=== PATIENT | female | born 1945 | race Caucasian/White ===

== ENCOUNTER → 2017-03-23 12:58 | Outpatient (CLI) | payer BC, SELFPAY ==
--- NOTE | 2017-03-23 13:01 | ECHOD_ITS ---
Reason For Study: Abn. EKG Procedure This was a 2D Doppler, Color Flow transthoracic echocardiogram. Exam performed in department. Left Ventricle Normal LV size. Left ventricular systolic function is normal. The estimated ejection fraction is 60 %. No regional wall motion abnormalities noted. Right Ventricle Normal RV size. Normal systolic function. Atria Normal left atrium. Normal right atrium. Mitral Valve Normal mitral valve. Tricuspid Valve Normal tricuspid valve. Mild (1+) tricuspid valve insufficiency. Pulmonary artery systolic pressure is 26 mmHg. Aortic Valve Normal aortic valve. Pulmonic Valve Normal pulmonic valve. Great Vessels Normal aortic root. The pulmonary artery is normal size. Normal inferior vena cava. Pericardium/Pleural No pericardial effusion. Medication Definity0.3ml given slow IV push to enhance endocardial definition. MMode/2D Measurements & Calculations LVIDd: 3.1 cm IVSd: 1.1 cm Ao root diam: 3.1 cm LVIDs: 1.8 cm LVPWd: 0.99 cm LA dimension: 3.8 cm RVDd: 2.9 cm FS: 41.2 % LAV(MOD-bp): 31.5 ml LAV(MOD-bp) Indexed: 17.5 ml/m2 LA A4 area: 16.5 cm2 RA A4 area: 11.5 cm2 LAV(MOD-sp2): 19.6 ml LAV(MOD-sp4): 46.9 ml Doppler Measurements & Calculations MV E max hudson: 101.9 cm/sec Lat Peak E' Hudson: 7.0 cm/sec Med Peak E' Hudson: 5.8 cm/sec MV A max hudson: 101.4 cm/sec E/E' lat: 14.5 E/E' med: 17.5 MV E/A: 1.0 Ao V2 max: 144.2 cm/sec LV V1 max: 118.1 cm/sec PA V2 max: 96.6 cm/sec Ao max P.3 mmHg LV V1 max P.6 mmHg TR max hudson: 239.1 cm/sec TR max P.9 mmHg Interpretation Summary Normal LV size. Left ventricular systolic function is normal. The estimated ejection fraction is 60 %. Mild (1+) tricuspid valve insufficiency. Pulmonary artery systolic pressure is 26 mmHg. Contrast injection was performed. Ordering Physician: Susan Tello Referring Physician: Susan Tello Performed By: Kesha Fleming RDCS
== END ==
PROVIDERS: Family Provider Internal Medicine; PCP Internal Medicine; Visit Provider Internal Medicine
DX: R94.31 Abnormal electrocardiogram [ECG] [EKG] (principal)
CPT/HCPCS: 93306; Q9957; A4216

== ENCOUNTER → 2017-05-10 12:00 | Outpatient (CLI) | payer BC, SELFPAY ==
--- NOTE | 2017-05-10 12:00 | HPBI_ITS ---
MAMMOGRAPHY - BILATERAL SCREENING REASON FOR EXAM: Female, 72 years old. Routine annual screening examination. PERTINENT HISTORY: Sister with breast cancer. Aunt with breast cancer. TECHNIQUE: Digital bilateral breast teri (3D mammographic acquisition) in the CC and MLO projections. 2-D mediolateral oblique (MLO) and craniocaudad (CC) views of both breasts were obtained. CAD: Full Field Digital Mammography with Computer Added Detection was performed. COMPARISON: Comparison is made with prior study dated November 16, 2015 and November 10, 2014. FINDINGS: Breast Composition: There are scattered areas of fibroglandular density. There are no dominant masses or suspicious calcifications. Stable scattered bilateral calcifications. No other significant abnormalities are identified. There has been no significant change since the prior study. HPBI/SCREENING MAMM (CAD), BILAT IMPRESSION: Stable bilateral screening mammogram. Yearly follow-up mammogram recommended. (A) ASSESSMENT CATEGORY: BIRADS Category 2: Benign. A letter regarding these results will be sent to the patient by the facility within 30 days. Approximately 10% of breast cancers are not detected by mammography. A normal mammogram should not delay biopsy of a clinically suspicious abnormality. [id number] Electronically Signed: Alexander De Paz MD at 13:38 EST Tel [phone], Service support ,
== END ==
PROVIDERS: Family Provider Internal Medicine; PCP Internal Medicine; Visit Provider Internal Medicine
DX: Z12.31 Encounter for screening mammogram for malignant neoplasm of breast (principal)
CPT/HCPCS: 77063; 77067

== ENCOUNTER → 2018-04-29 10:02 | Outpatient (CLI) | payer BC, SELFPAY ==
--- NOTE | 2018-04-29 10:06 | US_ITS ---
STUDY: RENAL ULTRASOUND - COMPLETE REASON FOR EXAM: Female, 73 years old. Urgency and straining. TECHNIQUE: Ultrasound evaluation of the kidneys was performed with real-time and static tavarez-scale imaging. COMPARISON: None. FINDINGS: RIGHT KIDNEY: Normal location of the right kidney, which is normal in size. The right kidney measures 11.1 x 4.8 x 4.1 cm. There is a normal cortex of the right kidney. The renal cortex measures 1.6 cm. There is no right renal mass or cyst. There are no right renal calculi. There is no right hydronephrosis. DISTAL RIGHT URETER: There is non-visualization of the distal right ureter. There is no demonstrated right ureterovesical junction calculus. There is a visualized right ureteral jet. LEFT KIDNEY: Normal location of the left kidney, which is normal in size. The left kidney measures 10.0 x 4.4 x 5.4 cm. There is a normal cortex of the left kidney. The renal cortex measures 1.7 cm. There is no left renal mass or cyst. There are no left renal calculi. There is no left hydronephrosis. DISTAL LEFT URETER: There is non-visualization of the distal left ureter. There is no demonstrated left ureterovesical junction calculus. There is a visualized left ureteral jet. BLADDER: The urinary bladder has a volume of 82 ml. There is a normal wall thickness of the distended urinary bladder. There is no demonstrated mass within the urinary bladder. There are no demonstrated bladder calculi. US/Kidney and Bladder IMPRESSION: Normal ultrasound of the kidneys and urinary bladder. Electronically Signed: Aquiles Andujar MD at 21:56 EST , Service support ,
== END ==
PROVIDERS: Family Provider Internal Medicine; PCP Internal Medicine; Referring Provider Urology; Visit Provider Urology
DX: N39.41 Urge incontinence (principal); R35.0 Frequency of micturition; R39.16 Straining to void
CPT/HCPCS: 76770

== ENCOUNTER → 2018-07-23 | Outpatient (CLI) | payer BC, SELFPAY ==
--- NOTE | 2018-07-23 14:15 | BI_ITS ---
MAMMOGRAPHY - BILATERAL SCREENING REASON FOR EXAM: Female, 73 years old. Routine annual screening examination. PERTINENT HISTORY: Sister with breast cancer. Aunt with breast cancer. TECHNIQUE: Digital bilateral breast teri (3D mammographic acquisition) in the CC and MLO projections. 2-D mediolateral oblique (MLO) and craniocaudad (CC) views of both breasts were obtained. CAD: Full Field Digital Mammography with Computer Added Detection was performed. COMPARISON: Comparison is made with prior study dated May 10, 2017 and November 16, 2015. FINDINGS: Breast Composition: There are scattered areas of fibroglandular density. There are no dominant masses or suspicious calcifications. Stable scattered bilateral calcifications. No other significant abnormalities are identified. There has been no significant change since the prior study. BI/SCREENING MAMM (CAD), BILAT IMPRESSION: Stable bilateral screening mammogram. Yearly follow-up mammogram recommended. (A) ASSESSMENT CATEGORY: BIRADS Category 2: Benign. A letter regarding these results will be sent to the patient by the facility within 30 days. Approximately 10% of breast cancers are not detected by mammography. A normal mammogram should not delay biopsy of a clinically suspicious abnormality. [id number] Electronically Signed: Alexander De Paz, at 10:44 EDT , Service support ,
--- NOTE | 2018-07-23 14:24 | BD_ITS ---
STUDY: DUAL ENERGY X-RAY ABSORPTIOMETRY / DXA REASON FOR EXAM: Female, 73 years old. Early menopause. Loss of height. TECHNIQUE: Bone Mineral Density (BMD) measurements of lumbar spine and bilateral hips were obtained. COMPARISON: Comparison is made with prior study dated June 08, 2015. FINDINGS: Lumbar Spine (L1-L4): g/cm2 (0.985) / T-score (-1.8) / Z-score (-0.1) Findings are suggestive of osteopenia with a moderate fracture risk. Left Femur Total: g/cm2 (0.896) / T-score (-0.9) / Z-score (0.6) Left Femoral Neck: g/cm2 (0.782) / T-score (-1.8) / Z-score (-0.1) Right Femur Total: g/cm2 (0.877) / T-score (-1.0) / Z-score (0.5) Right Femoral Neck: g/cm2 (0.763) / T-score (-2.0) / Z-score (-0.2) The T-Scores on the most recent prior examination were: Lumbar Spine (L1-L4): There has been worsening of bone density since the previous examination. Left Femur Total: which represents an improvement of 1.2%. Right Femur Total: which represents a worsening of 2.4%. BD/Dexa Bone Density Study IMPRESSION: The patient is considered osteopenic as outlined below according to World Parish Organization (WHO) criteria with a moderate fracture risk. There has been worsening of bone density since the previous examination. Reference Information: The T-score is the number of standard deviations above or below the standard which is normal for young adults at their peak bone mineral density. The World Health Organization (WHO) interprets the T-scores as follows: Above -1 Normal bone density Between -1 and -2.5 Osteopenia Equal to / or below -2.5 Osteoporosis As a practical clinical guideline, osteopenia may be graded as follows: Mild -1 through -1.5 Moderate -1.6 through -2.0 Severe -2.1 through -2.4 The Z-score is the number of standard deviations above or below age-matched controls. A Z-score of less than -1.5 would be considered abnormal. References: 1. NIH Osteoporosis and Related Bone Diseases http://www.osteo.org 2. International Society for Clinical Densitometry http://www.iscd.org 3. National Osteoporosis Foundation http://www.nof.org Electronically Signed: Alexander De Paz, at 15:02 EDT , Service support ,
== END | disposition home or self-care (01) ==
LOC: OPBD 14:14
PROVIDERS: Family Provider Internal Medicine; PCP Internal Medicine; Referring Provider Internal Medicine; Visit Provider Internal Medicine
DX: Z12.31 Encounter for screening mammogram for malignant neoplasm of breast (principal); Z78.0 Asymptomatic menopausal state
CPT/HCPCS: 77063; 77067; 77080

== ENCOUNTER → 2018-09-06 | Outpatient (CLI) | payer BC, SELFPAY ==
[2018-09-05 10:27] VITALS: BMI 34.4
--- NOTE | 2018-09-06 14:47 | RAD_ITS ---
HISTORY: pain ADDITIONAL HISTORY: None provided. COMPARISON: None TECHNIQUE: Left knee 4 views Number of images including paperwork: 4 FINDINGS: BONES: No acute fracture. JOINTS: No subluxation. Moderate to severe degenerative changes in the medial compartment. Mild lateral and patellofemoral compartment degenerative changes. SOFT TISSUES: No distinct foreign body. RAD/Knee 4 or More Views IMPRESSION: No acute osseous abnormality. Left knee osteoarthritis. at [id number] Reported and signed by: Lorenza Naranjo MD Electronically Signed: Lorenza Naranjo MD at 3:46 EDT Tel , Service support ,
== END | disposition home or self-care (01) ==
LOC: HPRAD 14:46
PROVIDERS: Family Provider Internal Medicine; PCP Internal Medicine; Referring Provider Internal Medicine; Visit Provider Internal Medicine
DX: M25.562 Pain in left knee (principal)
CPT/HCPCS: 73564

== ENCOUNTER → 2018-09-10 | Outpatient (CLI) | payer BC, SELFPAY ==
[2018-09-05 10:27] VITALS: BMI 34.4
--- NOTE | 2018-09-10 14:57 | US_ITS ---
STUDY: Ultrasound head and neck soft tissue REASON FOR EXAM: Female, 73 years old. Lymph node seen on carotid exam TECHNIQUE: Ultrasound evaluation of the head and neck soft tissue was performed with real-time and static green-scale imaging. COMPARISON: None. FINDINGS: And the left neck Soft tissues there is a 2.0 x 0.7 x 0.9 cm thick walled appearing lymph node. Within the right neck there is visualized calcific density within the carotid artery. There is a lymph node with a thin cortex fatty center measuring 2.7 x 0.7 x 0.9 cm. US/Head/Neck Soft Tissue IMPRESSION: Mildly thick walled appearing left-sided lymph node fatty filled right-sided lymph node likely reactive in nature. Recommend correlation with clinical history of infection or history of neoplasm. Fat filled right-sided lymph node is most likely benign. Recommend consideration for short-term interval follow-up study in 3-6 months to ensure stability or as clinically appropriate. Electronically Signed: Nikki Alexis MD at 16:48 EDT Tel , Service support ,
== END | disposition home or self-care (01) ==
PROVIDERS: Family Provider Internal Medicine; PCP Internal Medicine; Referring Provider Internal Medicine; Visit Provider Internal Medicine
DX: R59.0 Localized enlarged lymph nodes (principal)
CPT/HCPCS: 76536

== ENCOUNTER → 2018-09-12 | Outpatient (CLI) | payer BC, SELFPAY ==
[2018-09-05 10:27] VITALS: BMI 34.4
[2018-09-12 15:14] VITALS: BP 144/71; PULSE 81; RESP 16; TEMP 36.2; O2SAT 98; BMI 32.3
[2018-09-12] MEDS: Zoledronic Acid 5 MG 100 ML 300 MG IV (15:23)
== END | disposition home or self-care (01) ==
LOC: MEDOUTP 14:54
PROVIDERS: Family Provider Internal Medicine; PCP Internal Medicine; Referring Provider Internal Medicine; Visit Provider Internal Medicine
DX: M81.0 Age-related osteoporosis without current pathological fracture (principal)
CPT/HCPCS: 96365; J7050; A4216; J3489

== ENCOUNTER → 2020-01-29 15:04 | Outpatient (CLI) | payer BC, SELFPAY ==
[2020-01-01 10:53] VITALS: BMI 33.8
--- NOTE | 2020-01-29 15:07 | BI_ITS ---
MAMMOGRAPHY - BILATERAL SCREENING REASON FOR EXAM: Female, 74 years old. Routine annual screening examination. PERTINENT HISTORY: Sister with breast cancer. Aunt with breast cancer. TECHNIQUE: Digital bilateral breast marisa (3D mammographic acquisition) in the CC and MLO projections. 2-D mediolateral oblique (MLO) and craniocaudad (CC) views of both breasts were obtained. CAD: Full Field Digital Mammography with Computer Added Detection was performed. COMPARISON: Comparison is made with prior examination dated 07/23/2018 and 05/10/2017. FINDINGS: Breast Composition: The breasts are heterogeneously dense, which may obscure small masses. There are no dominant masses or suspicious calcifications. Stable scattered bilateral calcifications. Stable benign appearing left axillary lymph nodes. No other significant abnormalities are identified. There has been no significant change since the prior study. BI/SCREEN MAMM (CAD) W/MARISA BILAT IMPRESSION: Stable bilateral screening mammogram. Yearly follow-up mammogram recommended. (A) ASSESSMENT CATEGORY: BIRADS Category 2: Benign. A letter regarding these results will be sent to the patient by the facility within 30 days. Approximately 10% of breast cancers are not detected by mammography. A normal mammogram should not delay biopsy of a clinically suspicious abnormality. [id number] Electronically Signed: Alexander De Paz, at 15:55 EST , Service support ,
== END ==
PROVIDERS: PCP Internal Medicine; Referring Provider Internal Medicine; Visit Provider Internal Medicine
DX: Z12.31 Encounter for screening mammogram for malignant neoplasm of breast (principal)
CPT/HCPCS: 77063; 77067

== ENCOUNTER → 2020-06-21 | Outpatient (CLI) | payer BC, SELFPAY ==
[2020-06-20 09:31] VITALS: BMI 32.1
[2020-06-21 11:20] LABS: Mucous, Urine 0 SEEN /hpf (<or=2+)
[2020-06-21 11:31] LABS: Color, Urine Yellow (Yellow); Glucose, Dipstick Normal (Normal); Ketone-Dipstick Negative (Negative); Leukocyte Esterase-Dipstick 500 /ul (Negative); Nitrite-Dipstick Positive (Negative); Occult Blood-Urine 50 /ul (Negative); Protein-Dipstick 30 mg/dl (Negative); Urine Bilirubin Dipstick 1 mg/dL (Negative); Urine Clarity Sl. Cloudy (Clear); Urine Urobilinogen Normal (Normal)
[2020-06-21 11:38] LABS: Bacteria 2+ /hpf (None Seen); Red Blood Cells-Urine 0-5 SEEN /hpf (0-5); Squamous Epithelial Cells - UA 0-5 SEEN /hpf (5-10); White Blood Cells 25-50 SEEN /hpf (0-5)
== END | disposition home or self-care (01) ==
LOC: LABSPEC 10:23
PROVIDERS: PCP Internal Medicine; Referring Provider Physician Assistant; Visit Provider Physician Assistant
DX: R39.89 Other symptoms and signs involving the genitourinary system (principal)
CPT/HCPCS: 81001; 87086; 87088; 87186

== ENCOUNTER → 2021-01-31 12:57 | Outpatient (CLI) | payer BC, SELFPAY ==
[2021-01-31 13:26] VITALS: BP 139/65; PULSE 92; RESP 16; TEMP 36.4; O2SAT 97; BMI 31.1
[2021-01-31] MEDS: Zoledronic Acid 5 MG 100 ML 300 MG IV (13:43)
[2021-01-31] MEDS: 0.9% NaCl Peripheral Flush Adult/Peds IV (13:43)
== END ==
PROVIDERS: PCP Internal Medicine; Referring Provider Internal Medicine; Visit Provider Internal Medicine
DX: M81.0 Age-related osteoporosis without current pathological fracture (principal)
CPT/HCPCS: 96365; A4216; J3489

== ENCOUNTER → 2021-02-04 10:44 | Outpatient (CLI) | payer BC, SELFPAY ==
--- NOTE | 2021-02-04 10:47 | BI_ITS ---
MAMMOGRAPHY - BILATERAL SCREENING REASON FOR EXAM: Female, 75 years old. Routine annual screening examination. PERTINENT HISTORY: Sister with breast cancer. Aunt with breast cancer. TECHNIQUE: Digital bilateral breast marisa (3D mammographic acquisition) in the CC and MLO projections. 2-D mediolateral oblique (MLO) and craniocaudad (CC) views of both breasts were obtained. CAD: Full Field Digital Mammography with Computer Added Detection was performed. COMPARISON: Comparison is made with prior study 01/29/2020 and 07/23/2018. FINDINGS: Breast Composition: The breasts are heterogeneously dense, which may obscure small masses. There are no dominant masses or suspicious calcifications. Stable small benign-appearing bilateral axillary lymph nodes. Stable benign-appearing scattered calcifications. No other significant abnormalities are identified. There has been no significant change since the prior study. BI/SCRN MAMM (CAD)W/MARISA BILAT IMPRESSION: Stable bilateral screening mammogram. Yearly follow-up mammogram recommended. (A) ASSESSMENT CATEGORY: BIRADS Category 2: Benign. A letter regarding these results will be sent to the patient by the facility within 30 days. Approximately 10% of breast cancers are not detected by mammography. A normal mammogram should not delay biopsy of a clinically suspicious abnormality. [id number] Electronically Signed: Alexander De Paz MD at 12:19 EST , Service support ,
== END ==
PROVIDERS: PCP Internal Medicine; Referring Provider Internal Medicine; Visit Provider Internal Medicine
DX: Z12.31 Encounter for screening mammogram for malignant neoplasm of breast (principal)
CPT/HCPCS: 77063; 77067

== ENCOUNTER → 2021-08-10 | Outpatient (CLI) | payer BC, SELFPAY ==
--- NOTE | 2021-08-10 11:10 | BD_ITS ---
STUDY: DUAL ENERGY X-RAY ABSORPTIOMETRY / DXA REASON FOR EXAM: Female, 76 years old. 627.8Menopausal postmenopausalBONE DENSITY REASON FOR EXAM TECHNIQUE: Bone Mineral Density (BMD) measurements of lumbar spine and bilateral hips were obtained. COMPARISON: Comparison is made with prior study dated 07/23/2018. FINDINGS: Lumbar Spine (L1-L4): g/cm2 (0.819) / T-score (-2.2) / Z-score (0.2) Findings are suggestive of osteopenia with a high fracture risk. Left Femur Total: g/cm2 (0.861) / T-score (-0.7) / Z-score (1.1) Left Femoral Neck: g/cm2 (0.592) / T-score (-2.3) / Z-score (-0.3) Right Femur Total: g/cm2 (0.835) / T-score (-0.9) / Z-score (0.9) Right Femoral Neck: g/cm2 (0.676) / T-score (-1.6) / Z-score (0.5) The T-Scores on the most recent prior examination were: Lumbar Spine (L1-L4): There has been worsening of bone density since the previous examination. Left Femur Total: which represents an improvement of 3.4%. Right Femur Total: which represents an improvement of 2.5%. BD/Dexa Bone Density Study IMPRESSION: The patient is considered osteopenic as outlined below according to [place] Organization (WHO) criteria with a high fracture risk. There has been improvement of bone density since the previous examination. Reference Information: The T-score is the number of standard deviations above or below the standard which is normal for young adults at their peak bone mineral density. The World Health Organization (WHO) interprets the T-scores as follows: Above -1 Normal bone density Between -1 and -2.5 Osteopenia Equal to / or below -2.5 Osteoporosis As a practical clinical guideline, osteopenia may be graded as follows: Mild -1 through -1.5 Moderate -1.6 through -2.0 Severe -2.1 through -2.4 The Z-score is the number of standard deviations above or below age-matched controls. A Z-score of less than -1.5 would be considered abnormal. References: 1. NIH Osteoporosis and Related Bone Diseases www osteo.org 2. International Society for Clinical Densitometry www iscd.org 3. National Osteoporosis Foundation www nof.org Electronically Signed: Alexander De Paz MD at 15:42 EDT ,
== END | disposition home or self-care (01) ==
PROVIDERS: PCP Internal Medicine; Visit Provider Internal Medicine
DX: Z78.0 Asymptomatic menopausal state (principal)
CPT/HCPCS: 77080

== ENCOUNTER → 2021-08-17 | Outpatient (CLI) | payer BC, SELFPAY ==
--- NOTE | 2021-08-17 11:38 | RAD_ITS ---
STUDY: XR Knee 1 or 2 Views 08/17/2021 4:11 PM REASON FOR EXAM: Female, 76 years old. L ANT KNEE PAIN TECHNIQUE: XR Knee 1 or 2 Views LEFT COMPARISON: None FINDINGS: Normal visualized distal femur. Normal visualized proximal tibia and fibula. Normal proximal tibiofibular articulation. There is moderate degenerative arthrosis of the medial femorotibial compartment with moderate joint space narrowing. Normal lateral femorotibial compartment. There is mild degenerative arthrosis of the patellofemoral articulation. The soft tissue structures are unremarkable. RAD/Knee 1 or 2 Views IMPRESSION: Degenerative arthrosis. Electronically Signed: Issac Leslie MD at 16:12 EDT ,
--- NOTE | 2021-08-17 11:40 | RAD_ITS ---
STUDY: X-RAY - PELVIS AND RIGHT HIP REASON FOR EXAM: Female, 76 years old. CHRONIC HIP PAIN TECHNIQUE: 3 views of the pelvis and hip. COMPARISON: None. FINDINGS: There is a non-specific bowel gas pattern. Normal visualized soft tissue structures. Normal bilateral iliac wings, sacroiliac joints and visualized sacrum. Normal bilateral superior and inferior pubic rami. Normal pubic symphysis. Normal bilateral ischial tuberosities. Normal visualized femoral head. Normal acetabulum. Normal hip joint. RAD/HIP, UNI W/ Pelvis 2-3 Views IMPRESSION: Normal x-ray examination of the pelvis and hip. Electronically Signed: Lior Dwyer MD at 16:02 EDT ,
== END | disposition home or self-care (01) ==
LOC: RAD 11:36
PROVIDERS: PCP Internal Medicine; Referring Provider Internal Medicine; Visit Provider Internal Medicine
DX: M25.551 Pain in right hip (principal); M25.562 Pain in left knee
CPT/HCPCS: 73502; 73560

== ENCOUNTER → 2021-11-04 | Outpatient (CLI) | payer BC, SELFPAY ==
--- NOTE | 2021-11-04 13:45 | ECHOCS_ITS ---
Reason For Study: SOB Procedure This was a 2D Doppler, Color Flow transthoracic echocardiogram. The study was technically difficult. Contrast injection was performed. Exam performed in department. Left Ventricle Normal LV size. Left ventricular systolic function is normal. The estimated ejection fraction is 70 %. No evidence for diastolic dysfunction. No regional wall motion abnormalities noted. Right Ventricle Normal RV size. Normal systolic function. Atria Normal left atrium. Normal right atrium. No doppler evidence for ASD. Mitral Valve There is moderate to severe mitral annular calcification. Extension of the mitral annular calcification on the base of the posterior mitral valve leaflet. Trivial mitral valve insufficiency. Tricuspid Valve Normal tricuspid valve. Mild to moderate (1-2+) eccentric tricuspid valve insufficiency. Right ventricular systolic pressure estimated to be 26 mmHg. Aortic Valve Trisinus/trileaflet aortic valve. Mild focal aortic valve calcification. Pulmonic Valve The pulmonic valve is not well visualized. Great Vessels Normal sized aortic root. Pericardium/Pleural No pericardial effusion. Medication 22 gauge I.V. with prn adaptor inserted into right arm. Diluted definity 2ml given slow IV push to enhance endocardial definition. MMode/2D Measurements & Calculations LVIDd: 4.0 cm IVSd: 0.83 cm Ao root diam: 2.8 cm LVIDs: 2.8 cm LVPWd: 1.1 cm RVDd: 2.8 cm FS: 29.2 % LAV(MOD-sp4): 30.6 ml LVAd ap4: 25.4 cm2 SV(MOD-sp4): 56.0 ml LVLd ap4: 7.4 cm EDV(MOD-sp4): 72.2 ml EDV(sp4-el): 73.3 ml LVAs ap4: 10.5 cm2 LVLs ap4: 6.0 cm ESV(MOD-sp4): 16.2 ml ESV(sp4-el): 15.8 ml EF(MOD-sp4): 77.5 % EF(sp4-el): 78.4 % SV(sp4-el): 57.5 ml LA A4 area: 14.3 cm2 LA dimension(2D): 3.3 cm RA A4 area: 14.1 cm2 Time Measurements MV dec time: 0.25 sec Doppler Measurements & Calculations MV E max hudson: 94.6 cm/sec Lat Peak E' Hudson: 10.2 cm/sec Med Peak E' Hudson: 6.6 cm/sec MV A max hudson: 104.4 cm/sec E/E' lat: 9.3 E/E' med: 14.2 MV E/A: 0.91 MV V2 max: 112.7 cm/sec MV dec slope: 381.8 cm/sec2 Ao V2 max: 152.0 cm/sec MV max P.1 mmHg Ao max P.3 mmHg MV V2 mean: 72.3 cm/sec Ao V2 mean: 106.5 cm/sec MV mean P.4 mmHg Ao mean P.3 mmHg MV V2 VTI: 35.8 cm Ao V2 VTI: 31.0 cm LV V1 max: 130.9 cm/sec TR max hudson: 238.8 cm/sec LV V1 max P.9 mmHg TR max P.8 mmHg LV V1 mean P.0 mmHg LV V1 mean: 95.4 cm/sec LV V1 VTI: 24.7 cm ECHO/Echo Complete W/ Contrast Interpretation Summary The study was technically difficult. Contrast injection was performed. Left ventricular systolic function is normal. The estimated ejection fraction is 70 %. There is moderate to severe mitral annular calcification. Extension of the mitral annular calcification on the base of the posterior mitr al valve leaflet. Trivial mitral valve insufficiency. Mild to moderate (1-2+) eccentric tricuspid valve insufficiency. Mild focal aortic valve calcification. Right ventricular systolic pressure estimated to be 26 mmHg. No evidence for diastolic dysfunction. Ordering Physician: Susan Tello M.D. Referring Physician: Susan Tello Performed By: Liliya Laguna RCS
== END | disposition home or self-care (01) ==
LOC: CVS 13:44
PROVIDERS: PCP Internal Medicine; Referring Provider Internal Medicine; Visit Provider Internal Medicine
DX: R06.02 Shortness of breath (principal)
CPT/HCPCS: 93306; Q9957; A4216; C8929

== ENCOUNTER → 2021-11-25 | Outpatient (CLI) | payer BC, SELFPAY ==
[2021-11-25 13:11] LABS: Absolute Lymphocyte Count 4.29 X10^3/uL (0.83-4.51); Absolute Neutrophil Count 5.7 X10^3/uL (2.0-7.7); Basophil# 0.07 X10^3/uL; Basophil% 0.6 % (0-1); Eosinophils% 1.8 % (0-5); Hematocrit 39.5 % (37-47); Hemoglobin 13.1 g/dL (12.0-15.0); Lymphocyte # 4.29 X10^3/ul (0.83-4.51); Lymphocyte % 39.6 % (19-41); Mean Corp Hgb Conc 33.2 g/dL (32-36); Mean Corpuscular Volume 90.6 fL (81-99); Monocyte# 0.47 X10^3/uL; Monocyte% 4.3 % (0-10); NRBC Flagged by Analyzer 0 % (0-5); Neutrophil # 5.74 X10^3/uL (2.7-7.7); Neutrophil % 53.2 % (47-70); Platelet Count 329 K/mm3 (150-450); RBC Distribution Width CV 14.7 % (11.6-14.6); RBC Distribution Width SD 49.5 fl (35.1-43.9); Red Blood Count 4.36 M/mm3 (4.2-5.4); White Blood Count 10.8 K/mm3 (4.4-11.0)
[2021-11-25 13:46] LABS: Anion Gap 6 (5-15); BUN 15 mg/dL (7-18); BUN/Creat Ratio 16.2 RATIO (10-20); Calcium,Total 9.9 mg/dL (8.5-10.1); Chloride 109 mmol/L (98-107); Creatinine, Serum 0.93 mg/dL (0.55-1.02); EST Glomerular Filtration Rate 63 mL/min (>60); Est Glom Filt Rate - Afr Amer 76 mL/min (>60); Glucose 104 mg/dL (74-106); Potassium 3.6 mmol/L (3.5-5.1); Sodium Level 143 mmol/L (136-145)
[2021-11-25 13:47] LABS: BNP,B-Type NATRIURETIC PEPTIDE 19.8 pg/mL (0-100)
== END | disposition home or self-care (01) ==
LOC: LAB 12:29
PROVIDERS: PCP Internal Medicine; Referring Provider Nurse Practitioner Family; Visit Provider Nurse Practitioner Family
DX: I10 Essential (primary) hypertension (principal); E78.5 Hyperlipidemia, unspecified; R06.09 Other forms of dyspnea
CPT/HCPCS: 36415; 80048; 83880; 85025

== ENCOUNTER → 2021-12-19 | Outpatient (CLI) | payer BC, SELFPAY ==
--- NOTE | 2021-12-19 13:47 | STRESSREP ---
Stress Test Report Exercise myocardial perfusion stress test. 76-year-old male with a history of dyspnea. Stress protocol: Resting EKG demonstrates normal sinus rhythm with a rate of 66 bpm normal intervals are noted resting blood pressure is 122/70 mmHg. The patient exercised according to regular Chad protocol for total duration of 3 minutes and 30 seconds the maximum heart rate attained was 144 bpm which was 98% of max impacted heart rate the maximum workload was 5.8 metabolic equivalents. At rest there were no ST or T wave changes noted suggest ischemia and at peak exercise upsloping ST changes were noted with did not meet the criteria for ischemia. No clinical angina was noted. Myocardial perfusion protocol. 12.0 mCi of technetium 99m sestamibi was injected at rest. The patient exercised according to regular Chad protocol. At peak exercise 34.4 mCi of technetium 99m sestamibi was injected stress images were obtained stress and rest images were reconstructed and compared in the short axis vertical long and horizontal long axis. Gated images were also obtained. Perfusion SPECT analysis: Review of the images demonstrate normal perfusion noted in all areas of the myocardium. The resting images similarly demonstrate normal uptake of tracer noted in all areas of the myocardium. No previous infarct is noted and no ischemia is present. Gated SPECT analysis: The gated ejection fraction is 87%. Conclusion: Normal pharmacologic myocardial perfusion stress test. Preserved ejection fraction.
== END | disposition home or self-care (01) ==
PROVIDERS: PCP Internal Medicine; Referring Provider Nurse Practitioner Family; Visit Provider Nurse Practitioner Family
DX: I20.8 Other forms of angina pectoris (principal); R06.09 Other forms of dyspnea
CPT/HCPCS: 78452; 93017; A9500; A4216

== ENCOUNTER 2022-01-12 06:23 | Inpatient (IN) | payer MEDICARE, BC, SELFPAY ==
[2022-01-12] VITALS (16 sets, daily range): BP systolic 123–152; BP diastolic 60–113; PULSE 65–98; RESP 15–20; TEMP 36.3–37; O2SAT 95–99; BMI 33.2; BMI 32.1
--- NOTE | 2022-01-12 06:32 | CT_ITS ---
We are attempting to reach an attending provider to discuss findings. An addendum with communication details will be sent when the communication is complete. STUDY: CTA HEAD AND NECK WITH CONTRAST REASON FOR EXAM: Female, 76 years old patient with acute left-sided weakness. Acute stroke suspected. RADIATION DOSAGE (If Supplied By Facility): CTDIvol = ( 19.94 ) mGy, DLP = ( 694.44 ) mGycm TECHNIQUE: CT angiography was performed with a multi-detector CT scanner. Data acquisition was obtained from the skull base through the vertex following intravenous administration of 100 mL of Isovue-370. MIP images were reconstructed from the axial data set. Post-processing of the angiographic images was performed, with multiplanar reformation and 3D reconstruction. Individualized dose optimization techniques were used for this CT. COMPARISON: No relevant priors. FINDINGS: Normal bilateral petrous carotid arteries. Normal right cavernous carotid artery with a normal supraclinoid bifurcation. Normal left cavernous carotid artery with a normal supraclinoid bifurcation. Normal right A1 segments of the anterior cerebral artery. Normal left A1 segments of the anterior cerebral artery. Normal intact anterior communicating artery (ACOM). Normal bilateral A2 segments of the anterior cerebral arteries. Normal right M1 and M2 segments of the middle cerebral arteries, with a normal M1 bifurcation. Normal left M1 and M2 segments of the middle cerebral arteries, with a normal M1 bifurcation. Normal right posterior communicating artery (PCOM). Normal left posterior communicating artery (PCOM). Normal bilateral vertebral arteries. Normal basilar artery with a normal basilar bifurcation. The visualized bilateral superior cerebellar (SCA) arteries are normal. Normal bilateral P1, P2 and visualized P3 segments of the posterior cerebral arteries. There is no demonstrated aneurysm of the tejon of Hoffmann. There is no demonstrated abnormality of the visualized brain. AORTIC ARCH: Normal visualized aortic arch. Normal origins of the brachiocephalic, left common carotid, and left subclavian arteries. RIGHT CAROTID ARTERIES: Normal right common carotid artery (CCA). There is mild atherosclerotic plaque formation with minimal narrowing of the right carotid bulb. Normal origin of the right internal carotid (ICA) artery without a hemodynamically significant stenosis. There is atherosclerotic tortuous elongation of the cervical portion of the right internal carotid artery. Normal origin of the right external carotid artery (ECA). LEFT CAROTID ARTERIES: Normal left common carotid artery (CCA). There is mild atherosclerotic plaque formation with minimal narrowing of the left carotid bulb. Normal origin of the left internal carotid (ICA) artery without a hemodynamically significant stenosis. There is atherosclerotic tortuous elongation of the cervical portion of the left internal carotid artery. Normal origin of the left external carotid artery (ECA). VERTEBRAL ARTERIES: Normal bilateral vertebral arteries. NECK ANATOMY: There is heterogeneous groundglass attenuation within the upper lobes suggesting possible pneumonia. Visualized parotid and submandibular glands have a grossly normal appearance. Nasopharynx, oropharynx, hypopharynx and larynx have a grossly normal appearance. Subglottic trachea is within normal limits. There are degenerative changes of the spine at C4-5, C5-6 and C6-7. The bones are osteopenic. CT/STROKE CTA Head AND Neck W/Con IMPRESSION: No CTA evidence for hemodynamically significant stenosis acute thrombosis or dissection. Electronically Signed: Viviana Shelton MD at 7:24 EDT ,
--- NOTE | 2022-01-12 06:32 | EKG12_ITS ---
Test Reason : stroke Blood Pressure : / mmHG Vent. Rate : 088 BPM Atrial Rate : 088 BPM P-R Int : 148 ms QRS Dur : 084 ms QT Int : 412 ms P-R-T Axes : 069 061 038 degrees QTc Int : 498 ms Normal sinus rhythm with sinus arrhythmia Nonspecific ST-segment abnormality Abnormal ECG Confirmed by ROMI WALKER, SEJAL ([id number]), online content editor MUKESH HAAS ([id number]) on 01/16/2022 9:38:12 AM Referred By: Confirmed By:SEJAL LLANOS MD
--- NOTE | 2022-01-12 06:32 | CT_ITS ---
STUDY: CT HEAD W/O CONTRAST INJECTION REASON FOR EXAM: Female, 76 years old. Neuro deficit, acute, stroke suspected RADIATION DOSAGE (If Supplied By Facility): CTDIvol = ( ) mGy, DLP = ( ) mGycm TECHNIQUE: Transaxial CT imaging of the brain was performed without administration of intravenous contrast material. Individualized dose optimization techniques were used for this CT. COMPARISON: CT head 01/08/2015.. FINDINGS: BRAIN: No acute bleed. No edema. Decreased attenuation in the periventricular white matter bilaterally. Small low-attenuation focus in the left side of daquan likely old lacunar infarct versus artifactual. Small old infarct in the right cerebellar hemisphere. Bazan-white matter differentiation is maintained. Arterial calcifications. VENTRICLES AND SULCI: Not dilated. EXTRA-AXIAL: No hemorrhage, fluid collection, or mass. CALVARIUM / SKULL BASE: Unremarkable. FACE/SINUSES: Unremarkable. SOFT TISSUES: Unremarkable. CT/STROKE Brain/Head without Cont IMPRESSION: No acute abnormality on noncontrast CT head. Old right cerebellar infarct. Questionable old pontine lacunar infarct versus artifactual. Chronic microvascular ischemic disease. CT angiogram and/or MRI may be helpful to evaluate for acute infarct as clinically indicated. N.B. : The above Results were Read Back by Michela Kwok MD to Arnold Lyle MD, and understanding confirmed on 01/12/2022 06:54:21 (ET). Electronically Signed: Michela Kwok MD at 6:56 EDT ,
--- NOTE | 2022-01-12 06:32 | RAD_ITS ---
STUDY: X-RAY CHEST REASON FOR EXAM: Female, 76 years old. Neuro deficit, acute, stroke suspected TECHNIQUE: AP portable. 7:10 AM. COMPARISON: 03/05/2017. FINDINGS: LUNGS: No consolidation. No pneumothorax. MEDIASTINUM: Moderate size hiatal hernia with fluid level. Similar to prior study. Aorta is atherosclerotic. CARDIAC SILHOUETTE: Not enlarged. BONES AND SOFT TISSUES: No acute abnormalities. RAD/Chest 1 View IMPRESSION: No evidence of active intrathoracic disease. Hiatal hernia. Electronically Signed: Michela Kwok MD at 7:44 EDT ,
[2022-01-12 06:56] LABS: Absolute Lymphocyte Count 2.03 X10^3/uL (0.83-4.51); Absolute Neutrophil Count 9.4 X10^3/uL (2.0-7.7); Basophil# 0.04 X10^3/uL; Basophil% 0.3 % (0-1); Eosinophil# 0.02 X10^3/uL; Eosinophils% 0.2 % (0-5); Hematocrit 36.7 % (37-47); Hemoglobin 11.8 g/dL (12.0-15.0); Lymphocyte # 2.03 X10^3/ul (0.83-4.51); Lymphocyte % 17.1 % (19-41); Mean Corp Hgb Conc 32.2 g/dL (32-36); Mean Corpuscular Hgb 29.4 pg (27.0-32.0); Mean Corpuscular Volume 91.3 fL (81-99); Mean Platelet Vol. 11.4 fl (6.2-12.0); Monocyte# 0.31 X10^3/uL; Monocyte% 2.6 % (0-10); NRBC Flagged by Analyzer 0 % (0-5); Neutrophil # 9.41 X10^3/uL (2.7-7.7); Neutrophil % 79.3 % (47-70); Platelet Count 206 K/mm3 (150-450); RBC Distribution Width SD 50.6 fl (35.1-43.9); Red Blood Count 4.02 M/mm3 (4.2-5.4); White Blood Count 11.9 K/mm3 (4.4-11.0)
[2022-01-12 07:05] LABS: International Normalized Ratio 1.1; Prothrombin Time (Protime)PT. 14.2 SECONDS (11.7-14.9)
[2022-01-12 07:05] LABS: Bedside Glucose 135 mg/dL (74-106)
[2022-01-12 07:06] LABS: Partial Thromboplast Time 23.2 Seconds (24.1-36.2)
[2022-01-12 07:13] LABS: CPK Total, Creatine Kinase 115 U/L (26-192)
--- NOTE | 2022-01-12 07:16 | EX.ED.DYSGE1 ---
HPI History of Present Illness Chief Complaint: Stroke Alert Narrative Narrative: Patient is a 76-year-old female with past medical history of hypertension hyperlipidemia and transient retinal artery occlusion. She states that she fell asleep watching TV as she normally does last night. She states because of her transient retinal artery occlusion symptoms she will occasionally get double vision. She states she awoke feeling like this might happen and therefore she went to the bathroom. She states at some point she made it back to her bed but then woke up on the ground next to the bed and does not remember how this occurred. He also states she does not know what time this occurred and she does not know how long she was on the ground. She lives with her ex- and he reportedly heard her moaning. He states this was not abnormal for her but as it persisted for approximately 15 minutes he went to check on her and when he called to her through the door he could not make out what she was saying and therefore he called EMS. EMS arrived and confirmed the patient was awake and alert but noted weakness of her left side. Patient states that this is not normal for her [facility] Medical History Arthritis Essential (primary) hypertension History of skin cancer Hyperlipidemia Transient retinal artery occlusion Type 2 diabetes mellitus Home Medications acyclovir 400 mg tablet 400 mg PO BID 06/14/15 [History Last Taken Unknown] bupropion HCl 150 mg 24 hr tablet, extended release 150 mg PO BID 06/14/15 [History Last Taken Unknown] calcium carbonate 600 mg calcium (1,500 mg) tablet 600 mg PO DAILY 06/14/15 [History Last Taken Unknown] pantoprazole 40 mg granules delayed-release for susp in packet 40 mg PO DAILY 06/14/15 [History Last Taken Unknown] glucosamine HCl 500 mg-msm 83 mg-chondroitin 400 mg tablet 1 ea PO DAILY 07/19/16 [History Last Taken Unknown] losartan 100 mg-hydrochlorothiazide 12.5 mg tablet 1 tab PO QDAY 09/04/17 [History Last Taken Unknown] metformin 500 mg tablet,extended release 24 hr 1,500 mg PO DAILY 09/04/17 [History Last Taken Unknown] ascorbate calcium (vitamin C) 500 mg tablet 500 mg PO DAILY 09/05/18 [History Last Taken Unknown] atorvastatin 20 mg tablet 20 mg PO QHS 01/01/20 [History Last Taken Unknown] magnesium 30 mg tablet 30 mg PO DAILY 06/20/20 [History Last Taken Unknown] amlodipine 5 mg tablet 2.5 mg PO DAILY 01/31/21 [History Last Taken Unknown] nitrofurantoin macrocrystal 25 mg capsule 50 mg PO BID 01/31/21 [History Last Taken Unknown] Allergy/AdvReac Type Severity Reaction Status Date / Time neomycin Allergy unknown Verified 01/31/21 13:29 nickel Allergy Rash Verified 01/31/21 13:29 Penicillins [PCN] Allergy Hives Verified 01/31/21 13:29 Sulfa (Sulfonamide Allergy Rash Verified 01/31/21 13:29 Antibiotics) Family History Mother CAD (coronary artery disease) Daughter Heart disease cardiomyopathy Other Breast cancer Thyroid cancer Surgical History H/O abdominal surgery History of breast biopsy History of knee replacement History of tubal ligation Social History Smoking Status: Former smoker how long ago did patient quit smokin alcohol intake: current alcohol intake frequency: holidays/special occasions only substance use type: does not use caffeine: Yes (Take a caffeine tablet daily) ROS ROS ED Constitutional Constitutional ED: Denies chills or fever(s) Eyes Eyes: Denies change in vision ENT ENT ED: Denies sore throat Cardiovascular Cardiovascular: Denies chest pain or palpitations Respiratory/Chest Respiratory/Chest: Denies cough or dyspnea Gastrointestinal Gastrointestinal: Denies abdominal pain, diarrhea, nausea or vomiting Genitourinary Genitourinary ED: Denies dysuria Musculoskeletal Musculoskeletal: Denies back pain, myalgias or neck pain Integumentary Denies rash Neurologic Neurologic: Reports weakness; Denies headache(s) Hematologic/Lymphatic Hematologic/Lymphatic: Denies easy bleeding or easy bruising EXAM Physical Exam Const Vital Signs: 01/12/22 06:24 01/12/22 06:30 01/12/22 06:36 Temperature 97.8 F 97.8 F Temperature Source Temporal Temporal Pulse Rate 86 75 Respiratory Rate 16 18 Blood Pressure 123/70 H 123/70 H Blood Pressure Mean 87 87 Pulse Ox 96 97 Oxygen Delivery Method Room Air Room Air Room Air 01/12/22 06:36 Temperature 97.8 F Temperature Source Temporal Pulse Rate 65 Respiratory Rate 18 Blood Pressure 123/70 H Blood Pressure Mean 87 Pulse Ox 97 Oxygen Delivery Method Room Air Positive well nourished and well developed General Appearance ED: well developed HEENT Reports moist mucous membranes Eyes PERRL and EOMs intact bilaterally Neck supple Neck Narrative: No bony deformity or step-off of the cervical spine no midline pain with palpation Chest Wall palpation of chest normal Chest Narrative: No bony deformity or crepitance Resp normal respiratory effort and clear to auscultation bilaterally Resp Narrative: Breath sounds are diminished throughout but overall clear to auscultation with no signs of distress Cardio regular rate and regular rhythm Rate: other Other Details: Radial pulses are plus 2 out of 4 bilaterally they are equal and symmetric GI normal to inspection, nondistended, normoactive bowel sounds, non-tender and non-distended GI Narrative: No voluntary guarding or rigidity no pulsatile mass Auscultation: normoactive bowel sounds Palpation: soft Back/Spine Back/Spine Narrative: No bony deformity or step-off of the thoracic or lumbar spine no midline pain with palpation Extremity normal to inspection Extremity Narrative: Pelvis is stable there is no shortening or external rotation of either lower extremity. No obvious bony deformities or joint effusions. Compartments are soft Neuro oriented x3 Neuro Narrative: Patient is awake alert and oriented person place and time. However she has left-sided facial paralysis she has left arm drift left leg drift dysmetria of the left arm and mild dysarthria for an NIH stroke scale score of 6. Sensorium / Orientation: alert Psych mental status grossly normal Skin no rashes or lesions noted Skin Narrative: No abrasions or ecchymosis noted MDM MDM MDM Narrative Medical decision making narrative: Patient presented to the ER awake alert and oriented with stable vitals. There were no obvious signs of trauma despite her reporting being found on the ground by bed. She had obvious signs of deficit with facial droop left arm and left leg weakness and secondary to this a stroke alert was activated. Noncontrast CT showed no acute bleed or skull fracture. Neurology evaluated the patient over the property assessment monitor and at this time agree with stroke diagnosis but as it is unsure what time patient's symptoms began do not feel it is safe to provide tPA and therefore any aspirin will be given. At this time if her CTA does not reveal any signs of LVO then she will be kept at this facility for further care. Lab Data Attestation: I reviewed the patient's lab results. Labs: Laboratory Results - last 24 hr 01/12/22 01/12/22 01/12/22 06:44 06:50 06:50 WBC 11.9 H RBC 4.02 L Hgb 11.8 L Hct 36.7 L MCV 91.3 MCH 29.4 MCHC 32.2 RDW Std Deviation 50.6 H RDW Coeff of Ranjit 15.0 H Plt Count 206 MPV 11.4 Immature Gran % (Auto) 0.500 Neut % (Auto) 79.3 H Lymph % (Auto) 17.1 L [place] % (Auto) 2.6 Eos % (Auto) 0.2 Baso % (Auto) 0.3 Absolute Neuts (auto) 9.4 H Absolute Lymphs (auto) 2.03 Nucleated RBC % 0 PT 14.2 INR 1.1 APTT 23.2 L Sodium Potassium Chloride Carbon Dioxide Anion Gap BUN Creatinine Estim Creat Clear Calc Est GFR (MDRD) Af Amer Est GFR (MDRD) Non-Af BUN/Creatinine Ratio Glucose Calcium Total Creatine Kinase Troponin I High Sens POC Glucose 135 H 01/12/22 01/12/22 06:50 06:50 WBC RBC Hgb Hct MCV MCH MCHC RDW Std Deviation RDW Coeff of Ranjit Plt Count MPV Immature Gran % (Auto) Neut % (Auto) Lymph % (Auto) [place] % (Auto) Eos % (Auto) Baso % (Auto) Absolute Neuts (auto) Absolute Lymphs (auto) Nucleated RBC % PT INR APTT Sodium 138 Potassium 4.1 Chloride 108 H Carbon Dioxide 24.0 Anion Gap 6 BUN 15 Creatinine 0.95 Estim Creat Clear Calc 41.09 Est GFR (MDRD) Af Amer 74 Est GFR (MDRD) Non-Af 61 BUN/Creatinine Ratio 15.7 Glucose 163 H Calcium 8.5 Total Creatine Kinase 115 Troponin I High Sens 5 POC Glucose Radiography Diagnostic Testing: Clinical Impression(s) from Imaging Studies Brain CT 01/12/22 06:32 IMPRESSION: No acute abnormality on noncontrast CT head. Old right cerebellar infarct. Questionable old pontine lacunar infarct versus artifactual. Chronic microvascular ischemic disease. CT angiogram and/or MRI may be helpful to evaluate for acute infarct as clinically indicated. N.B. : The above Results were Read Back by Michela Kwok MD to Arnold Lyle MD, and understanding confirmed on 01/12/2022 06:54:21 (ET). Electronically Signed: Michela Kwok MD at 6:56 EDT , Head/Neck CTA 01/12/22 06:32 IMPRESSION: No CTA evidence for hemodynamically significant stenosis acute thrombosis or dissection. Electronically Signed: Viviana Shelton MD at 7:24 EDT , 1 view chest x-ray as interpreted by the emergency medicine physician reveals no acute infiltrate pneumothorax or pleural effusion Discharge Plan Dx/Rx/DC Orders Clinical Impression: Acute cerebrovascular accident (CVA), Hyperlipidemia, Essential (primary) hypertension Disposition Disposition: Acute Care [facility]
[2022-01-12 07:17] LABS: Anion Gap 6 (5-15); BUN 15 mg/dL (7-18); BUN/Creat Ratio 15.7 RATIO (10-20); Calcium,Total 8.5 mg/dL (8.5-10.1); Chloride 108 mmol/L (98-107); Creatinine, Serum 0.95 mg/dL (0.55-1.02); EST Glomerular Filtration Rate 61 mL/min (>60); Est Glom Filt Rate - Afr Amer 74 mL/min (>60); Estimated Creatinine Clearance 41.09 ml/min; Glucose 163 mg/dL (74-106); Potassium 4.1 mmol/L (3.5-5.1); Sodium Level 138 mmol/L (136-145); Troponin-I HS 5 pg/mL (3.0-54.0)
[2022-01-12] MEDS: Aspirin 325 MG Tablet PO (07:48)
[2022-01-12 08:09] LABS: Amphetamine Urine VISTA NEGATIVE (<1000 ng/mL); Barbiturate Urine VISTA NEGATIVE (< 200 ng/mL); Benzodiazepine Urine VISTA NEGATIVE (< 200 ng/mL); Cocaine Urine VISTA NEGATIVE (< 300 ng/mL); Ecstacy Urine VISTA POSITIVE (< 500 ng/mL); Methadone Urine VISTA NEGATIVE (< 300 ng/mL); PCP Urine VISTA NEGATIVE (< 25 ng/mL); THC Urine VISTA NEGATIVE (< 50 ng/mL); Vista UDS pH Range 5
--- NOTE | 2022-01-12 08:43 | HP.PCM.HOS_ITS ---
HPI - General General Date of Admission: 01/12/22 Date of Service: 01/12/22 Chief Complaint: I do not feel right HPI Narrative REBECA GUERRERO, is a 76 F with a history of hypertension, bladder dysfunction, as well as small retinal artery occlusion in 2016 who presented to [facility] 01/12/2022 as a stroke call. She was evaluated with ex- in the room whom she lives with. She reports that yesterday she had some intermittent double vision and felt off but said that this happens every several days and has for months. She fell asleep on the couch and woke up nauseated on and off for about half an hour and then was sweaty and hot and then cold. She went to bed and she thinks she fell asleep but when she woke up she fell off the bed at about 2 AM to 2:30 AM and could not get up for 1 hour. She feels she could not get up because she was generally weak, she began yelling and her ex- went to her room and found her around 3:30 AM. Initially he could not understand what she was saying but her words improved and while her speech did not return to baseline he could make out that she was saying help m e.She was evaluated in the emergency department and neurology telemedicine evaluated. She had a CT head which showed an old right cerebellar infarct and questionable old pontine lacunar infarct versus artifact as well as chronic changes. CTA follow-up did not show any evidence of hemodynamically significant stenosis, acute thrombosis, or dissection. EKG sinus rhythm with possible sinus arrhythmia. Per report there was concern for right subcortical stroke but due to unclear onset of time with some changes in the right faust radiata of unclear age they would not consider tPA and recommended admission and aspirin, SBP goal of 120?180 as well as MRI. Hospitalist contacted for admission. Patient at this time reports she does not feel right and she feels like her left arm belongs to somebody else. She does not feel this is getting better or worse but has been persistent. Also able to talk and does not have word finding difficulties but does not feel her speech is back to baseline which was confirmed with her ex- as well. Does report she is not having difficulty swallowing. Denies any other focal symptoms at this time. No headache, vision is at baseline. No chest pain or shortness of breath. Did request a Vick catheter to be placed in the ED as she has chronic difficulties with urination and follows with urology, still reports abdominal pressure and discomfort despite Vick placement. Discussed removing versus keeping in at this time she would like to keep this in place. Will DC it as soon as possible. No other complaints noted at this time. Of note she does report in 2016 that she had a small branch occlusion of one of her retinal arteries and had work-up and outpatient follow-up at that time. [facility] Medical History Arthritis Essential (primary) hypertension History of skin cancer Hyperlipidemia Transient retinal artery occlusion Type 2 diabetes mellitus Home Medications acyclovir 400 mg tablet 400 mg PO BID 06/14/15 [History Last Taken Unknown] bupropion HCl 150 mg 24 hr tablet, extended release 150 mg PO BID 06/14/15 [History Last Taken Unknown] calcium carbonate 600 mg calcium (1,500 mg) tablet 600 mg PO DAILY 06/14/15 [History Last Taken Unknown] pantoprazole 40 mg granules delayed-release for susp in packet 40 mg PO DAILY 06/14/15 [History Last Taken Unknown] glucosamine HCl 500 mg-msm 83 mg-chondroitin 400 mg tablet 1 ea PO DAILY 07/19/16 [History Last Taken Unknown] losartan 100 mg-hydrochlorothiazide 12.5 mg tablet 1 tab PO QDAY 09/04/17 [History Last Taken Unknown] metformin 500 mg tablet,extended release 24 hr 1,500 mg PO DAILY 09/04/17 [History Last Taken Unknown] ascorbate calcium (vitamin C) 500 mg tablet 500 mg PO DAILY 09/05/18 [History Last Taken Unknown] atorvastatin 20 mg tablet 20 mg PO QHS 01/01/20 [History Last Taken Unknown] magnesium 30 mg tablet 30 mg PO DAILY 06/20/20 [History Last Taken Unknown] amlodipine 5 mg tablet 2.5 mg PO DAILY 01/31/21 [History Last Taken Unknown] nitrofurantoin macrocrystal 25 mg capsule 50 mg PO BID 01/31/21 [History Last Taken Unknown] Allergy/AdvReac Type Severity Reaction Status Date / Time neomycin Allergy unknown Verified 01/31/21 13:29 nickel Allergy Rash Verified 01/31/21 13:29 Penicillins [PCN] Allergy Hives Verified 01/31/21 13:29 Sulfa (Sulfonamide Allergy Rash Verified 01/31/21 13:29 Antibiotics) Family History Mother CAD (coronary artery disease) Daughter Heart disease cardiomyopathy Other Breast cancer Thyroid cancer Surgical History H/O abdominal surgery History of breast biopsy History of knee replacement History of tubal ligation Social History Smoking Status: Former smoker how long ago did patient quit smokin alcohol intake: current alcohol intake frequency: holidays/special occasions only substance use type: does not use caffeine: Yes (Take a caffeine tablet daily) ROS Constitutional Constitutional: Denies change in weight, chills, fever(s) or night sweats Eyes Eyes: Reports other Details: Did have double vision which is intermittent and chronic, this is resolved ENT HEENT: Denies headache(s), nasal congestion or sore throat Cardiovascular Cardiovascular: Denies chest pain or palpitations Respiratory/Chest Respiratory/Chest: Denies cough or productive cough Gastrointestinal Gastrointestinal: Reports other Details: denies changes in bowel or bladder ; Denies abdominal pain Genitourinary Genitourinary: Reports other Details: Has chronic problems with urination, has Vick placed but still does report some suprapubic pressure Musculoskeletal Musculoskeletal: Reports joint pain and other Details: Weakness in her left upper extremity Neurologic Neurologic: Reports other Details: Weakness in her left upper extremity with difficulty with movement, feels that it has decreased sensation as well. Denies any other focal deficits aside from feeling her speech has not returned to baseline ; Denies dizziness, headache(s) or tingling Psychiatric Psychiatric: Denies anxiety Hematologic/Lymphatic Hematologic/Lymphatic: Denies easy bleeding Allergic/Immunologic Allergic/Immunologic: Reports other Details: denies rashes Vital Signs Vital Signs Vital Signs: 01/12/22 06:24 01/12/22 06:30 01/12/22 06:36 Temperature 97.8 F 97.8 F Temperature Source Temporal Temporal Pulse Rate 86 75 Respiratory Rate 16 18 Blood Pressure 123/70 H 123/70 H Blood Pressure Mean 87 87 Pulse Ox 96 97 Oxygen Delivery Method Room Air Room Air Room Air 01/12/22 06:36 01/12/22 07:36 01/12/22 07:05 Temperature 97.8 F Temperature Source Temporal Pulse Rate 65 98 96 Respiratory Rate 18 15 20 H Blood Pressure 123/70 H 142/77 H 142/77 H Blood Pressure Mean 87 98 98 Pulse Ox 97 98 98 Oxygen Delivery Method Room Air Room Air Room Air 01/12/22 07:35 01/12/22 08:03 Temperature Temperature Source Pulse Rate 89 91 Respiratory Rate 19 H 20 H Blood Pressure 144/75 H 152/83 H Blood Pressure Mean 98 106 Pulse Ox 97 98 Oxygen Delivery Method Room Air Room Air Weight Weight: 82.4 kg Body Mass Index (BMI) 33.2 Physical Exam Const alert Constitutional Narrative: Slightly distressed HEENT HEENT Narrative: Has slight mouth drooping and eye drooping on the left side of her face, but able to move forehead and puff out cheeks without significant difficulty Eyes PERRL and EOMs intact bilaterally Neck no lymphadenopathy and supple Resp normal respiratory effort and clear to auscultation bilaterally Cardio regular rate and regular rhythm GI soft to palpation, non-tender and non-distended Extremity Extremity Narrative: No edema appreciated, 5 out of 5 strength in right lower extremity, 4 out of 5 strength in left lower extremity, 5 out of 5 strength in right upper extremity and left upper extremity is 3 out of 5 Neuro CN's II-XII intact bilaterally Neuro Narrative: Unable to perform [id number] test with left hand, no dysmetria on right side. Additionally right side no difficulty with rapid alternating movements but left side showed dysdiadochokinesia. Did note to have some slight drooping of left eyelid and face but cranial nerves were intact. Alert and oriented x3. Right lower extremity reflexes brisk and without clonus, left lower extremity patellar reflex elicited several colonic beats, no sustained clonus and heel. Reflexes in both upper extremities brisk Psych Psych Narrative: Cooperative Results Lab / Micro Data Result Diagrams: 01/12/22 06:50 01/12/22 06:50 Labs: Laboratory Results - last 24 hr 01/12/22 06:44: POC Glucose 135 H 01/12/22 06:50: WBC 11.9 H, RBC 4.02 L, Hgb 11.8 L, Hct 36.7 L, MCV 91.3, MCH 29.4, MCHC 32.2, RDW Std Deviation 50.6 H, RDW Coeff of Ranjit 15.0 H, Plt Count 206, MPV 11.4, Immature Gran % (Auto) 0.500, Neut % (Auto) 79.3 H, Lymph % (Au to) 17.1 L, Dubois % (Auto) 2.6, Eos % (Auto) 0.2, Baso % (Auto) 0.3, Absolute Neuts (auto) 9.4 H, Absolute Lymphs (auto) 2.03, Nucleated RBC % 0 01/12/22 06:50: PT 14.2, INR 1.1, APTT 23.2 L 01/12/22 06:50: Sodium 138, Potassium 4.1, Chloride 108 H, Carbon Dioxide 24.0, Anion Gap 6, BUN 15, Creatinine 0.95, Estim Creat Clear Calc 41.09, Est GFR (MDRD) Af Amer 74, Est GFR (MDRD) Non-Af 61, BUN/Creatinine Ratio 15.7, Glucose 163 H, Calcium 8.5, Troponin I High Sens 5 01/12/22 06:50: Total Creatine Kinase 115 01/12/22 07:50: Urine Opiates Screen NEGATIVE, Urine Methadone Screen NEGATIVE, Ur Barbiturates Screen NEGATIVE, Ur Phencyclidine Scrn NEGATIVE, Ur Amphetamines Screen NEGATIVE, MDMA (Ecstasy) Screen POSITIVE H, U Benzodiazepines Scrn NEGATIVE, Urine Cocaine Screen NEGATIVE, U Cannabinoids Screen NEGATIVE, Ur Drug Screen Comment Radiology Impression Brain CT 01/12/22 06:32 IMPRESSION: No acute abnormality on noncontrast CT head. Old right cerebellar infarct. Questionable old pontine lacunar infarct versus artifactual. Chronic microvascular ischemic disease. CT angiogram and/or MRI may be helpful to evaluate for acute infarct as clinically indicated. N.B. : The above Results were Read Back by Michela Kwok MD to Arnold Lyle MD, and understanding confirmed on 01/12/2022 06:54:21 (ET). Electronically Signed: Michela Kwok MD at 6:56 EDT , Chest X-Ray 01/12/22 06:32 IMPRESSION: No evidence of active intrathoracic disease. Hiatal hernia. Electronically Signed: Michela Kwok MD at 7:44 EDT , Head/Neck CTA 01/12/22 06:32 IMPRESSION: No CTA evidence for hemodynamically significant stenosis acute thrombosis or dissection. Electronically Signed: Viviana Shelton MD at 7:24 EDT , ADDENDUM: 01/12/22 0736 IMPRESSION: No CTA evidence for hemodynamically significant stenosis acute thrombosis or dissection. N.B. : The above Results were Read Back by Viviana Shelton MD to Sam Golden MD, and understanding confirmed on 01/12/2022 07:29:44 (ET). Electronically Signed: Viviana Shelton MD at 7:24 EDT , Assessment & Plan Assessment/Plan (1) Acute cerebrovascular accident (CVA): PLAN: Plan #Acute CVA- likely -Symptoms started sometime last evening, evaluated for stroke in the ED by neurology telemedicine but given uncertain timeline was deemed she is not a candidate for tPA, hospitalist contacted for admission - EKG in the emergency department showed sinus rhythm with possible sinus arrhythmia -CTA obtained in the emergency department showed no evidence for hemodynamically significant stenosis, acute thrombosis, or dissection - Noncontrast CT head showed an old right cerebellar infarct with a questionable old pontine lacunar infarct versus artifact as well as chronic microvascular ischemic disease, no other acute findings -CTA obtained in the emergency department showed no evidence for hemodynamically significant stenosis, acute thrombosis, or dissection -Admit to telemetry -Coags obtained, TSH, lipid panel, hemoglobin A1c ordered -Troponins negative at this time - Did have recent echocardiogram in October 2021 which showed an EF of 70% with moderate to severe annular mitral calcifications, RVSP 26 and no diastolic dysfunction noted - Did also have stress test in November [address] Patino due to shortness of breath, this was read as unremarkable - Does have a history of hypertension, keep systolic blood pressure between 120- 180 - Consult physical therapy, Occupational Therapy, speech therapy - Vital signs per protocol - NIH scale every 4 - MRI ordered ?Did have recent full echo, but will order limited specifically with bubble study - Aspirin, statin #Type 2 diabetes mellitus Glucose checks and sliding scale insulin Holding metformin at this time #Hypertension Holding home medications for permissive hypertension #DVT prophylaxis: SCDs ordered Yara Tang MD Charges/Coding Visit Charges Inpatient E&M: 89021 Init Hosp L2
--- NOTE | 2022-01-12 08:56 | ECHOLC_ITS ---
Reason For Study: TIA/CVA Procedure This was a limited 2D transthoracic echocardiogram. The study was technically difficult. Exam performed portable in patient room. Left Ventricle Normal size and thickness. The left ventricular ejection fraction is 65 %. Unable to assess diastolic function based on available data. Right Ventricle Normal right ventricle. Atria The left and right atria are normal. Bubble contrast study negative for right to left interatrial shunt. Mitral Valve Moderate mitral annular calcification. Tricuspid Valve Mild tricuspid valve insufficiency. Normal pulmonary artery pressure. Aortic Valve Normal aortic valve. Pulmonic Valve The pulmonic valve is not well visualized. Great Vessels Normal sized aortic root. Pericardium/Pleural No pericardial effusion. Medication Diluted definity 2ml given slow IV push to enhance endocardial definition. Performed a rapid injection of agitated mix of 9 cc saline and 1cc air to assess for atrial septal defect. MMode/2D Measurements & Calculations LVIDd: 3.5 cm IVSd: 0.76 cm LVIDs: 2.1 cm LVPWd: 0.79 cm LVAd ap4: 16.9 cm2 FS: 41.0 % LVLd ap4: 6.0 cm EDV(MOD-sp4): 38.7 ml EDV(sp4-el): 40.4 ml LVAs ap4: 8.7 cm2 LVLs ap4: 5.2 cm ESV(MOD-sp4): 12.3 ml ESV(sp4-el): 12.4 ml EF(MOD-sp4): 68.1 % EF(sp4-el): 69.2 % SV(MOD-sp4): 26.3 ml SV(sp4-el): 27.9 ml Doppler Measurements & Calculations TR max adama: 183.3 cm/sec TR max P.4 mmHg ECHO/Echo Limited w/Contrast Interpretation Summary The left ventricular ejection fraction is 65 %. Bubble contrast study negative for right to left interatrial shunt. Moderate mitral annular calcification. Mild tricuspid valve insufficiency. Ordering Physician: Yara Tang Referring Physician: JESUS VALERIO Performed By: Janett Poole RDCS
[2022-01-12 09:42] LABS: Mucous, Urine 0 SEEN /hpf (<or=2+); Red Blood Cells-Urine 0 SEEN /hpf (0-5); Squamous Epithelial Cells - UA 0 SEEN /hpf (5-10); White Blood Cells 0 SEEN /hpf (0-5)
[2022-01-12 09:49] LABS: Color, Urine Yellow (Yellow); Glucose, Dipstick Normal (Normal); Ketone-Dipstick Negative (Negative); Leukocyte Esterase-Dipstick Negative /ul (Negative); Nitrite-Dipstick Negative (Negative); Occult Blood-Urine Negative /ul (Negative); Protein-Dipstick Negative (Negative); Specific Gravity, Urine 1.015 (1.002-1.030); Urine Bilirubin Dipstick Negative (Negative); Urine Clarity Sl. Cloudy (Clear); Urine Urobilinogen Normal (Normal)
--- NOTE | 2022-01-12 09:50 | MRI_ITS ---
ACR Level 3 findings have been noted. An addendum which confirms receipt of the report will follow. HISTORY: Left-sided weakness and left facial droop. Concern for CVA. TECHNIQUE: Multiplanar and multisequence MR images of the brain were obtained before and after the intravenous administration of 15mL CLARISCAN. 329 images. COMPARISON: CT earlier same day. FINDINGS: Motion artifact lowers sensitivity of examination. BRAIN PARENCHYMA: Small zones of restricted diffusion in the right parietal, frontal, and occipital cortex as well as the periventricular regions. Moderate chronic white matter changes. No enhancing lesion in the brain parenchyma. No acute intracranial hemorrhage identified. CSF SPACES: Mild generalized volume loss. No significant midline shift or other mass effect.No extra-axial fluid collection. VASCULAR SYSTEM: Major intracranial flow voids are maintained. PARANASAL SINUSES AND MASTOID AIR CELLS: No significant air fluid levels. ORBITS: Bilateral lens resections. MRI/Brain W/WO Contrast IMPRESSION: Small acute right cerebral infarcts. Chronic involutional white matter changes. No evidence for enhancing intracranial mass. Electronically Signed: Lori Desai MD at 11:12 EDT ,
[2022-01-12 10:09] LABS: Bacteria RARE /hpf (None Seen)
[2022-01-12 11:40] LABS: Bedside Glucose 88 mg/dL (74-106)
--- NOTE | 2022-01-12 12:57 | TELEMED_ITS ---
SOC Telemed has confirmed receipt of a request for visit. This document confirms receipt of the order initiating the consult. To find the results of the consultation, please view the patient's reports for the scanned Telemed Consult.
--- NOTE | 2022-01-12 13:30 | CASEMGMT ---
RN MINOR Face to Face with patient for initial transition planning/care coordination assessment. RN CM introduced self and role at [facility]. Patient lying in bed, alert and oriented, ex- at bedside. Patient willing to participate in assessment and is able to answer all questions appropriately. Care providers, pharmacy, and demographics verified. Patient wishes to discharge home but willing to go to SNF or Rehab Unit if needed. Patient states she has no further needs or concerns at this time. CM to follow for discharge planning needs that may arise. PCP: Omer Specialists: Carey technical operations specialist Preferred Pharmacy: [facility] Insurance: [employer] [place] Prescription Benefit: yes Living Will/HPOA: yes, but would like to update, SW notified LNOK: daughter, ex Living Arrangements: patient lives with ex- in a single story home with 4 steps and railing to enter the home. Patient states she was independent at home. Transportation: self, ex- DME/HHC: Patient states she has shower chair, raised toilet, cane, walker, grab bars, pulse ox, and cpap at home. Patient has had [facility] in the past. No previous SNF Disposition Plan: Anticipate Rehab Unit at discharge pending therapy. Hilda GAMA, RN, CM
[2022-01-12] MEDS: Atorvastatin Calcium 80 MG Tablet PO (14:51)
--- NOTE | 2022-01-12 15:32 | ECHOTEE_ITS ---
Reason For Study: TIA/CVA Medication AVIS probe 6VT-D (SN [id number]) passed with minimal difficulty. No complications were noted. Cetacaine Topical Carrier given X3 orally. Versed 1 mg given slow IVP. Fentanyl 25 mcg given slow IVP. Performed a rapid injection of agitated mix of 9 cc saline and 1cc air to assess for atrial septal defect. Left Ventricle Normal left ventricle. Right Ventricle Normal right ventricle. Atria Normal atrial septum. Normal left atrium. Normal right atrium. Aortic Valve Normal aortic valve. ECHO/Echo Transesophageal (AVIS) Interpretation Summary TTE showe Intact IAS No intracardiac shunt Buble study is Negative Ordering Physician: Yara Tang Referring Physician: Susan Tello Performed By: Jas Goddard RCS
--- NOTE | 2022-01-12 15:37 | PCM.HOSP.N ---
Hospitalist Note DOS 01/12/2022 Called to reevaluate patient due to worsening left arm weakness and evaluated the patient at approximately 12:50 PM. Patient did on exam have worsened left arm weakness and dysarthria, brain MRI did show small acute right cerebral infarcts as well as chronic involutional white matter changes. CTA head and neck with no occlusion or other concerning pathology. TTE reported was a technically difficult study but no shunt seen. Ms. Easton has been in sinus rhythm though appears to have sinus arrhythmia at times, seen on EKG on admission. SOC teleneurology stat consulted at 12:57 PM who reevaluated the patient. They deemed that this was likely just the natural progression of the worsening of her strokes and that she would stabilize begin to get better. She received aspirin 325 in the emergency department and daily baby aspirin and atorvastatin 80 restarted. Given her worsening symptoms she was well initially able to pass a swallow study no longer able to swallow pills. So n.p.o. was reordered and speech consulted. Discussed with neurologist and he recommended against starting Plavix given her stroke symptoms and severity, advised not to start anticoagulation at this time but suspected it could be occult A. fib, aortic atheromatosis, or atrial cardiopathy. Recommended AVIS and additionally given her weakness and double vision in the evening he queries if there could be additional myasthenia gravis that has been undiagnosed. Advised to order myasthenia labs. Those have been ordered, lipid and A1c also been ordered. AVIS order placed. PT/OT. Discussed with Ms. Easton and her ex- at bedside. She did express significant concern over her current state and that she was feeling down and had been recently. Support provided. May benefit from changing her Wellbutrin to XL versus an SSRI prior to or upon discharge when she is swallowing. (Was in the room during TeleMed evaluation and was able to speak with neurologist during that time. Specific recommendations were aspirin 81 mg, atorvastatin 80 mg, no anticoagulation or Plavix at this time, lipid panel, A1c, myasthenia labs, AVIS, monitor on telemetry.) Yara Tang MD
[2022-01-12] MEDS: Acetaminophen 325 MG Tablet 650 MG PO ×2 (15:42→22:01)
--- NOTE | 2022-01-12 15:57 | CASEMGMT ---
Addendum entered by Zeynep Navarrete 01/13/22 08:55: Patient declined a list of Inpatient Rehab Facilities as she specifically requested [facility] Inpatient Rehab. Zeynep ORDONEZ Original Note: SW completed a PHQ 9 with patient as she had a Stroke. Patient scored a 2 which indicates mild depression. Patient declined resources at this time. SW also spoke with patient about a discharge plan. SW told patient therapy is recommending rehab. Patient stated she wants to go to [facility] Inpatient Rehab Unit. SW told her SW will check on availability. Patient also wanted to complete Healthcare Power of Property Maintenance Supervisor and Healthcare Living Will. SW completed documents with patient. SW went back to have patient sign and she was on the phone so SW will check back tomorrow. LEO spoke with Alexandra with [facility] post acute care and Inpatient Rehab can accept patient. SW will finish up advance directives with patient tomorrow and let her know Rehab can take her. Zeynep ORDONEZ
[2022-01-12 16:00] LABS: Bedside Glucose 92 mg/dL (74-106)
[2022-01-12] MEDS: Acyclovir 200 MG Capsule 400 MG PO (22:01)
[2022-01-13] VITALS (17 sets, daily range): BP systolic 133–154; BP diastolic 72–98; PULSE 74–95; RESP 18; TEMP 36.3–36.6; O2SAT 94–97; BMI 32.1
[2022-01-13 00:56] LABS: Bedside Glucose 103 mg/dL (74-106)
[2022-01-13] MEDS: 0.9% Saline Lock 10 ML Syringe IV (04:57)
[2022-01-13 06:03] LABS: Absolute Lymphocyte Count 3.19 X10^3/uL (0.83-4.51); Absolute Neutrophil Count 5.6 X10^3/uL (2.0-7.7); Basophil# 0.04 X10^3/uL; Basophil% 0.4 % (0-1); Eosinophil# 0.11 X10^3/uL; Eosinophils% 1.2 % (0-5); Hematocrit 37.2 % (37-47); Lymphocyte # 3.19 X10^3/ul (0.83-4.51); Lymphocyte % 33.8 % (19-41); Mean Corp Hgb Conc 32.3 g/dL (32-36); Mean Corpuscular Hgb 29.3 pg (27.0-32.0); Mean Corpuscular Volume 90.7 fL (81-99); Mean Platelet Vol. 11.7 fl (6.2-12.0); Monocyte# 0.47 X10^3/uL; NRBC Flagged by Analyzer 0 % (0-5); Neutrophil % 59.3 % (47-70); Platelet Count 248 K/mm3 (150-450); RBC Distribution Width CV 15.3 % (11.6-14.6); RBC Distribution Width SD 51.1 fl (35.1-43.9); White Blood Count 9.4 K/mm3 (4.4-11.0)
[2022-01-13 06:47] LABS: ALB/GLOB Ratio 0.9 RATIO (0.9-2.4); AST(SGOT) 15 U/L (15-37); Alanine Aminotransfer ALT/SGPT 32 U/L (13-56); Albumin, Serum 3.4 g/dL (3.2-5.0); Alkaline Phosphatase 55 U/L (45-117); Anion Gap 10 (5-15); BUN 13 mg/dL (7-18); BUN/Creat Ratio 15.2 RATIO (10-20); Calcium,Total 8.9 mg/dL (8.5-10.1); Chloride 114 mmol/L (98-107); Cholesterol 98 mg/dL (200); Creatinine, Serum 0.85 mg/dL (0.55-1.02); EST Glomerular Filtration Rate 69 mL/min (>60); Est Glom Filt Rate - Afr Amer 84 mL/min (>60); Estimated Creatinine Clearance 45.92 ml/min; Globulin 3.7 g/dL (2.2-4.2); Glucose 109 mg/dL (74-106); High Density Lipoprotein 51 mg/dL; Protein, Total 7.1 g/dL (6.4-8.2); Sodium Level 146 mmol/L (136-145); Thyroid Stim Hormone (TSH) 1.34 uIU/mL (0.358-3.74); Triglycerides 111 mg/dL; Very Low Density Lipoprotein 22 mg/dL (5-40)
[2022-01-13] MEDS: LACTATED RINGERS 500 ML 999 ML IV (07:24)
--- NOTE | 2022-01-13 07:34 | PCM.PN.HOSP ---
Subjective Subjective DOS: 01/13/2022 CC: Left arm weakness Reports continued left arm weakness though feels it is slightly better, speaking slightly better. Still had not had repeat swallow, will happen after AVIS which will hopefully be this morning/today. Denies chest pain or shortness of breath. Denies any new focal deficits Objective Data Objective Data Vital Signs: Vital Signs Temp Pulse Resp BP Pulse Ox O2 Del Method 97.7 F L 79 18 142/73 H 94 Room Air 01/13/22 04:53 01/13/22 06:38 01/13/22 04:53 01/13/22 04:53 01/13/22 04:53 01/13/22 04:53 Oxygen Delivery Method Room Air Weight: 79.7 kg Body Mass Index (BMI) 32.1 Intake & Output: Intake and Output for Last 24 Hours 01/11/22 01/12/22 01/13/22 23:59 23:59 23:59 Output Total 350 / 350 250 / 250 Balance -350 / -350 -250 / -250 Lab / Micro Data Result Diagrams: 01/13/22 05:00 01/13/22 05:00 Labs: Laboratory Results - last 24 hr 01/12/22 07:50: Urine Opiates Screen NEGATIVE, Urine Methadone Screen NEGATIVE, Ur Barbiturates Screen NEGATIVE, Ur Phencyclidine Scrn NEGATIVE, Ur Amphetamines Screen NEGATIVE, MDMA (Ecstasy) Screen POSITIVE H, U Benzodiazepines Scrn NEGATIVE, Urine Cocaine Screen NEGATIVE, U Cannabinoids Screen NEGATIVE, Ur Drug Screen Comment 01/12/22 07:50: Urine Color Yellow, Urine Clarity Sl. Cloudy, Urine pH 5.0, Ur Specific Pilot 1.015, Urine Protein Negative, Urine Glucose (UA) Normal, Urine Ketones Negative, Urine Occult Blood Negative, Urine Nitrite Negative, Urine Bilirubin Negative, Urine Urobilinogen Normal, Ur Leukocyte Esterase Negative, Urine RBC 0 SEEN, Urine WBC 0 SEEN, Ur Squamous Epith Cells 0 SEEN, Urine Bacteria RARE, Urine Mucus 0 SEEN 01/12/22 11:17: POC Glucose 88 01/12/22 15:38: POC Glucose 92 01/13/22 00:19: POC Glucose 103 01/13/22 05:00: WBC 9.4, RBC 4.10 L, Hgb 12.0, Hct 37.2, MCV 90.7, MCH 29.3, MCHC 32.3, RDW Std Deviation 51.1 H, RDW Coeff of Ranjit 15.3 H, Plt Count 248, MPV 11.7, Immature Gran % (Auto) 0.300, Neut % (Auto) 59.3, Lymph % (Auto) 33.8, [place] % (Auto) 5.0, Eos % (Auto) 1.2, Baso % (Auto) 0.4, Absolute Neuts (auto) 5.6, Absolute Lymphs (auto) 3.19, Nucleated RBC % 0 01/13/22 05:00: Sodium 146 H, Potassium 3.0 L, Chloride 114 H, Carbon Dioxide 22.0, Anion Gap 10, BUN 13, Creatinine 0.85, Estim Creat Clear Calc 45.92, Est GFR (MDRD) Af Amer 84, Est GFR (MDRD) Non-Af 69, BUN/Creatinine Ratio 15.2, Glucose 109 H, Calcium 8.9, Total Bilirubin 0.50, AST 15, ALT 32, Alkaline Phosphatase 55, Total Protein 7.1, Albumin 3.4, Globulin 3.7, Albumin/Globulin Ratio 0.9, Triglycerides 111, Cholesterol 98, LDL Cholesterol 25, VLDL Cholesterol 22, HDL Cholesterol 51, TSH 1.34 Radiography Diagnostic Testing: Radiology Impression Chest X-Ray 01/12/22 06:32 IMPRESSION: No evidence of active intrathoracic disease. Hiatal hernia. Electronically Signed: Michela Kwok MD at 7:44 EDT Reading Location ID and State: [facility]– [place] / [place] Tel , Service support , Head/Neck CTA 01/12/22 06:32 IMPRESSION: No CTA evidence for hemodynamically significant stenosis acute thrombosis or dissection. Electronically Signed: Viviana Shelton MD at 7:24 EDT Reading Location ID and State: [facility] / [place] , Service support , ADDENDUM: 01/12/22 0736 IMPRESSION: No CTA evidence for hemodynamically significant stenosis acute thrombosis or dissection. N.B. : The above Results were Read Back by Viviana Shelton MD to Sam Golden MD, and understanding confirmed on 01/12/2022 07:29:44 (ET). Electronically Signed: Viviana Shelton MD at 7:24 EDT , Echocardiogram 01/12/22 08:56 Interpretation Summary The left ventricular ejection fraction is 65 %. Bubble contrast study negative for right to left interatrial shunt. Moderate mitral annular calcification. Mild tricuspid valve insufficiency. Ordering Physician: Yara Tang Referring Physician: JESUS VALERIO Performed By: Janett Poole RDCS Brain MRI 01/12/22 09:50 IMPRESSION: Small acute right cerebral infarcts. Chronic involutional white matter changes. No evidence for enhancing intracranial mass. Electronically Signed: Lori Desai MD at 11:12 EDT , ADDENDUM: 01/12/22 1131 IMPRESSION: Small acute right cerebral infarcts. Chronic involutional white matter changes. No evidence for enhancing intracranial mass. N.B. : Megan Antonio RN, confirmed on 01/12/2022 11:24:07 (ET) that the healthcare facility has received the radiology report. Electronically Signed: Lori Desai MD at 11:12 EDT , Physical Exam Const alert Constitutional Narrative: Tired HEENT HEENT Narrative: Speech and left-sided face improving Eyes PERRL and EOMs intact bilaterally Neck supple Resp normal respiratory effort and clear to auscultation bilaterally Cardio regular rate and regular rhythm GI non-distended Extremity Extremity Narrative: No edema appreciated, 5 out of 5 strength in right lower extremity, 4 out of 5 strength in left lower extremity, 5 out of 5 strength in right upper extremity and left upper extremity is 3 out of 5, improved after reevaluation yesterday when it was worse Neuro Neuro Narrative: Deficits seem to be improving, is alert and oriented. Able to move left arm more, was able to squeeze fingers this morning with left hand Psych Psych Narrative: Cooperative Assessment & Plan Assessment/Plan (1) Acute cerebrovascular accident (CVA): PLAN: Plan #Acute CVA ?Presented to the ED and was outside of the window for tPA ? CTA was unrevealing ? MRI however did show small acute right cerebral infarcts with chronic involutional and white matter changes and no evidence for enhancing intracranial mass ? Did have echo with bubble study which did not show shunt ? Did worsen throughout the day, reconsulted neurology who felt this was evolution of the same stroke ? Aspirin, statin, it was advised against Plavix given NIH and severity of strokes ? Possible occult A. fib versus aortic atheromatosis, on telemetry. It was recommended to hold empiric anticoagulation and obtain AVIS ? AVIS ordered yesterday, will possibly be today ? She initially passed swallow eval however after she worsened she was made n.p.o. again, will have repeat swallow after AVIS - EKG in the emergency department showed sinus rhythm with possible sinus arrhythmia - Noncontrast CT head showed an old right cerebellar infarct with a questionable old pontine lacunar infarct versus artifact as well as chronic microvascular ischemic disease, no other acute findings -Lipid panel and A1c ordered -Troponins negative = - Did have recent echocardiogram in October 2021 which showed an EF of 70% with moderate to severe annular mitral calcifications, RVSP 26 and no diastolic dysfunction noted, repeat with bubble study as above - Did also have stress test in November [address] Patino due to shortness of breath, this was read as unremarkable - Does have a history of hypertension, permissive hypertension advised - Consult physical therapy, Occupational Therapy, speech therapy - Vital signs per protocol #Type 2 diabetes mellitus Glucose checks and sliding scale insulin Holding metformin at this time #Hypertension Holding home medications for permissive hypertension #DVT prophylaxis: SCDs ordered Yara Tang MD Charges/Coding Visit Charges Inpatient E&M: 05526 Subs Hosp L2
[2022-01-13 07:43] LABS: Hemoglobin A1c 5.8 % (3.8-5.6)
[2022-01-13] MEDS: Potassium Chloride 10mEq/100mL 10 MEQ/100 ML IV.SOLN. 100 MEQ IV BOLUS ×2 (08:27→09:32)
[2022-01-13 11:40] LABS: Bedside Glucose 101 mg/dL (74-106)
[2022-01-13 12:56] LABS: Bedside Glucose 96 mg/dL (74-106)
--- NOTE | 2022-01-13 13:48 | SP.MBSS_ITS ---
Modified Barium Swallow - Patient Information Study Date: 01/13/22 Study Time: 13:45 Direct Billable Minutes: 105 Total Minutes procedure & reportin Diagnosis: Acute CVA (I63.9), Dysarthria (R47.1) Referring Physician: Yara Tang Reason for Referral: Objectively assess swallow function and aspiration risk to determine recommendations for least restrictive diet textures and compensatory strategies to decrease risk for aspiration. Medical History: Marci Easton is a 76-year-old female with PMH including HTN, bladder dysfunction, small retinal artery occlusion (2016), DM type II, HLD, and hx of skin cancer who presented to [facility] 01/12/2022 due to weakness, inability to get up from bed, difficulty with speech. Additionally, the patient had intermittent double vision the day prior to presentation to ED. In the ED, she had head CT, which showed an old right cerebellar infarct and questionable old pontine lacunar infarct versus artifact as well as chronic changes. She was admitted for further CVA work up. Brain MRI 01/12/2022 revealed small acute right cerebral infarcts and chronic involutional white matter changes.01/12/2022, pt was evaluated at bedside by speech therapy and recommended to remain NPO - ok for critical medications crushed in applesauce. She was recommended for MBSS prior to diet advancement. Current Diet Ordered: NPO - ok for critical meds crushed in applesauce Dentition: Natural Teeth Mental Status: WNL - Able to follow commands, but concern for poor attention to task. 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 Daughter reports history of ADHD. Respiratory Status: Oxygenating on Room Air - Penetration-Aspiration Scale Penetration-Aspiration Scale: OBJECTIVE ASSESSMENT OF SWALLOW FUNCTION (QUANTITATIVE ? PER TRIAL): PENETRATION / ASPIRATION SCALE (WOODWARD): 1 = does not enter airway 2 = enters airway/above vocal folds/ejected 3 = enters airway/above vocal folds/not ejected 4 = enters airway/contacts vocal folds/ejected 5 = enters airway/contacts vocal folds/not ejected 6 = enters airway/below vocal folds/ejected 7 = enters airway/below vocal folds/not ejected despite effort 8 = enters airway/below vocal folds/no effort VIDEOFLOROSCOPIC SCALE SCORE (WOODWARD): Grade I = aspiration of material that has penetrated into the laryngeal vestibule, intact cough reflex Grade II = aspiration < 10 % of the bolus, intact cough reflex Grade III = aspiration of < 10 % of the bolus, reduced cough reflex or aspiration of > 10 % of the bolus, intact cough reflex Grade IV = aspiration of > 10 % of the bolus, reduced cough reflex - Penetration-Aspiration Scale Score Thin Liquid via teaspoon Result: 2= enter airway/above vocal folds/ejected Thin Liquid via teaspoon Trial 2 Result: 1= does not enter airway Thin Liquid via small single sip from cup Result: 1= does not enter airway Thin Liquid via sequential sips from cup Result: 5= enters airways/contacts vocal folds/not ejected [place] Thick Liquid via small single sip from cup Result: 1= does not enter airway Honey Thick Liquid via small single sip from cup Result: 1= does not enter airway Pudding via teaspoon with esophageal screen Result: 1= does not enter airway 1/2 Cookie Result: 1= does not enter airway Thin Liquid via sequential sips from straw with esophageal screen Result: 5= enters airways/contacts vocal folds/not ejected Thin Liquid via small single sip from cup Trial 2 Result: 1= does not enter airway Thin Liquid via small single sip from cup Effortful swallow Result: 1= does not enter airway Thin Liquid via small single sip from cup Effortful swallow Trial 2 Result: 1= does not enter airway - Oral Phase Labial Seal: Escape beyond interlabial space; no extension beyond pablo border Tongue Control During Bolus Hold: Posterior escape of less than half of bolus Bolus Preparation/Mastication: Slow prolonged chewing/mashing with complete recollection Bolus Transport/Lingual Motion: Delayed initiation of tongue motion Oral Residue: Residue collection on oral structures - piecemeal deglutition of cookie - Pharyngeal Phase Initiation of Pharyngeal Swallow: Bolus head in pyriforms - bolus head in laryngeal vestibule for sips of thin liquid by straw Soft Palate Elevation: No bolus between soft palate and pharyngeal wall Laryngeal Elevation: Partial superior movement thyroid cart/partial apprx aryt- epig petiole Anterior Hyoid Excursion: Partial anterior movement Epiglottic Movement: Partial inversion Laryngeal Vestibule Closure at Height of Swallow: Incomplete; narrow column of air/contrast in laryngeal vestibule Pharyngeal Stripping Wave: Present - complete Pharyngoesophageal Segment Opening: Complete distension and complete duration; no obstruction of flow Tongue Base Retraction: Trace column of contrast between tongue base & post. pharyngeal wall Pharyngeal Residue: Trace residue within or on pharyngeal structures - Esophageal Phase Esophageal Clearance: Esophageal retention - Treatment Strategies Effects of treatment strategies attemped:: effortful swallow = effective use of straw = not effective - Diagnosis/Impression Diagnosis: Mild-moderate oropharyngeal phase dysphagia (R13.12) Impression: The oral phase is primarily marked by... -Decreased bolus control with <1/2 of the bolus spilling posteriorly to the laryngeal vestibule and pyriforms prior to swallow onset observed with thin liquids by straw. -Delayed tongue motion for A-P transport most notable with thin liquids. -Prolonged, but adequate mastication abilities with cookie. She demonstrated piecemeal deglutition with cookie. The pharyngeal phase is primarily marked by... -Decreased airway closure during the swallow due to decreased anterior hyoid excursion, partial epiglottic inversion, and decreased laryngeal elevation. -Delayed initiation of the swallow, most notable with thin liquids sequentially and via straw. -Laryngeal penetration of sequential thin liquids by cup and straw to the vocal folds, which did not fully eject from the laryngeal vestibule after the swallow. Cannot definitively rule out aspiration due to patient's body habitus. Of note, no cough reflex was initiated in response to laryngeal penetration to the vocal folds. The esophageal phase is primarily marked by... -Esophageal retention of pudding and thin liquid in the lower esophagus with slow emptying. No retrograde flow observed, although the patient's daughter did report history of GERD. Pt takes medication to manage. - Recommendations Diet: Thin Liquids - Easy to Chew textures Compensatory Strategies: Small Sips - Hard swallows on EVERY sip, No Straws, Slow Rate - Sips one at a time, Sitting upright, Remain sitting upright for 30 minutes after PO intake, Minimize/decrease distractions Supervision: 1:1 Close Supervision - for all food/drink Recommend Repeat Modified Barium Swallow: TBD Need for Skilled Speech Therapy Services: Yes Comment: Will recommend the patient for continued dysphagia therapy to address mild- moderate deficits in oropharyngeal swallow function. Will recommend the patient for oropharyngeal strengthening to improve lingual strength, laryngeal elevation, and hyoid excursion (lingual resistance exercises, CTAR, Melinda, effortful breath hold and swallow). The patient would benefit from thorough education regarding diet recommendations and recommended compensatory strategies. Will recommend closely monitoring the patient's lung sounds. If concern for worsening lung sounds or increased s/s of aspiration with thin liquids, would strongly consider diet downgrade to nectar thickened liquids. Education Completed: 1. Described result of evaluation., 2. Pt understands evaluation & agrees with goals and treatment plan., 4. Family/caregivers understand evaluation & agree w/ goals & tx plan., 7. Pt requires further education on strategies & risks. - Status Active ST Patient: Active - Contact Information [facility] Speech Therapy:: Alexus Villagomez M.A. [facility]-[employer] TRA[employer] Speech-Language Pathologist [address] [address] [email or web address] [phone] 01/13/22 13:58
--- NOTE | 2022-01-13 14:15 | CASEMGMT ---
SW attempted several times to meet with patient to have her sign the Healthcare Power of Popped Corn Oven Attendant and the Healthcare Living Will. However, patient was on her phone each time. Patient has now gone for her Modified Barium Swallow. SW will continue to try and meet with patient to have her sign documents. Plan: d/c to [facility] 4th floor rehab pending insurance approval. Zeynep Navarrete PUTTY PATCHER JOSÉ LUIS
[2022-01-13] MEDS: Pantoprazole Sodium 40 MG Tablet PO (15:26)
[2022-01-13] MEDS: Acyclovir 200 MG Capsule 400 MG PO ×2 (15:26→20:54)
[2022-01-13] MEDS: Aspirin 81 MG TAB.CHEW PO (15:26)
[2022-01-13] MEDS: Acetaminophen 325 MG Tablet 650 MG PO ×2 (15:31→21:52)
--- NOTE | 2022-01-13 15:41 | CASEMGMT ---
Patient signed Healthcare Power of Mechanical Assembler and Healthcare Living Will. SW made copies and gave them to patient along with originals. SW also placed a copy of each in patient's chart. SW let patient know that [facility] 4th floor Rehab is able to take her when she is ready. SW let patient know she will be able to wear regular clothes while in rehab. Plan: d/c to [facility] 4th floor Rehab Unit.
[2022-01-13 16:30] LABS: Bedside Glucose 86 mg/dL (74-106)
[2022-01-13] MEDS: Atorvastatin Calcium 80 MG Tablet PO (20:54)
[2022-01-13 21:16] LABS: Bedside Glucose 70 mg/dL (74-106)
[2022-01-14] VITALS (8 sets, daily range): BP systolic 131–151; BP diastolic 70–71; PULSE 70–87; RESP 16–18; TEMP 36.4–36.7; O2SAT 94–96; BMI 32.1
[2022-01-14 06:46] LABS: Bedside Glucose 107 mg/dL (74-106)
[2022-01-14 06:48] LABS: Absolute Lymphocyte Count 3.48 X10^3/uL (0.83-4.51); Absolute Neutrophil Count 5.1 X10^3/uL (2.0-7.7); Basophil# 0.04 X10^3/uL; Basophil% 0.4 % (0-1); Eosinophil# 0.21 X10^3/uL; Eosinophils% 2.2 % (0-5); Hematocrit 38.9 % (37-47); Hemoglobin 12.3 g/dL (12.0-15.0); Lymphocyte # 3.48 X10^3/ul (0.83-4.51); Mean Corp Hgb Conc 31.6 g/dL (32-36); Mean Corpuscular Hgb 28.9 pg (27.0-32.0); Mean Corpuscular Volume 91.3 fL (81-99); Mean Platelet Vol. 11.8 fl (6.2-12.0); Monocyte# 0.59 X10^3/uL; Monocyte% 6.3 % (0-10); NRBC Flagged by Analyzer 0 % (0-5); Neutrophil # 5.06 X10^3/uL (2.7-7.7); Neutrophil % 53.8 % (47-70); Platelet Count 219 K/mm3 (150-450); RBC Distribution Width CV 15.3 % (11.6-14.6); RBC Distribution Width SD 51.1 fl (35.1-43.9); Red Blood Count 4.26 M/mm3 (4.2-5.4); White Blood Count 9.4 K/mm3 (4.4-11.0)
[2022-01-14 07:32] LABS: ALB/GLOB Ratio 0.9 RATIO (0.9-2.4); AST(SGOT) 20 U/L (15-37); Alanine Aminotransfer ALT/SGPT 31 U/L (13-56); Albumin, Serum 3.1 g/dL (3.2-5.0); Alkaline Phosphatase 55 U/L (45-117); Anion Gap 7 (5-15); BUN 12 mg/dL (7-18); BUN/Creat Ratio 14.8 RATIO (10-20); Calcium,Total 8.9 mg/dL (8.5-10.1); Chloride 111 mmol/L (98-107); Creatinine, Serum 0.81 mg/dL (0.55-1.02); EST Glomerular Filtration Rate 73 mL/min (>60); Est Glom Filt Rate - Afr Amer 89 mL/min (>60); Estimated Creatinine Clearance 48.19 ml/min; Globulin 3.5 g/dL (2.2-4.2); Glucose 107 mg/dL (74-106); Protein, Total 6.6 g/dL (6.4-8.2); Sodium Level 143 mmol/L (136-145)
--- NOTE | 2022-01-14 08:31 | PCM.PN.HOSP ---
Subjective Subjective DOS: 01/14/2022 CC: Left arm weakness Patient tired this morning when woken up, endorses that she was able to eat some yesterday without feeling like she is choking, reports symptoms continue to improve though she does still residually have the left arm deficit. Denies any chest pain or shortness of breath. Denies changes in bowels or bladder. Denies other complaints this AM Objective Data Objective Data Vital Signs: Vital Signs Temp Pulse Resp BP Pulse Ox O2 Del Method 97.5 F L 72 18 133/70 H 94 CPAP 01/14/22 05:00 01/14/22 07:00 01/14/22 05:00 01/14/22 05:00 01/14/22 05:00 01/14/22 05:00 Oxygen Delivery Method CPAP Weight: 79.7 kg Body Mass Index (BMI) 32.1 Intake & Output: Intake and Output for Last 24 Hours 01/12/22 01/13/22 01/14/22 23:59 23:59 23:59 Intake Total 940 / 940 Output Total 350 / 350 575 / 675 250 / 250 Balance -350 / -350 365 / 265 -250 / -250 Lab / Micro Data Result Diagrams: 01/14/22 05:52 01/14/22 05:52 Labs: Laboratory Results - last 24 hr 01/13/22 06:09: POC Glucose 101 01/13/22 12:11: POC Glucose 96 01/13/22 16:08: POC Glucose 86 01/13/22 20:53: POC Glucose 70 L 01/14/22 05:52: WBC 9.4, RBC 4.26, Hgb 12.3, Hct 38.9, MCV 91.3, MCH 28.9, MCHC 31.6 L, RDW Std Deviation 51.1 H, RDW Coeff of Ranjit 15.3 H, Plt Count 219, MPV 11.8, Immature Gran % (Auto) 0.300, Neut % (Auto) 53.8, Lymph % (Auto) 37.0, [place] % (Auto) 6.3, Eos % (Auto) 2.2, Baso % (Auto) 0.4, Absolute Neuts (auto) 5.1, Absolute Lymphs (auto) 3.48, Nucleated RBC % 0 01/14/22 05:52: Sodium 143, Potassium 3.0 L, Chloride 111 H, Carbon Dioxide 25.0, Anion Gap 7, BUN 12, Creatinine 0.81, Estim Creat Clear Calc 48.19, Est GFR (MDRD) Af Amer 89, Est GFR (MDRD) Non-Af 73, BUN/Creatinine Ratio 14.8, Glucose 107 H, Calcium 8.9, Total Bilirubin 0.50, AST 20, ALT 31, Alkaline Phosphatase 55, Total Protein 6.6, Albumin 3.1 L, Globulin 3.5, Albumin/Globulin Ratio 0.9 01/14/22 06:23: POC Glucose 107 H Micro: Microbiology 01/13/22 09:18 Nasal Secretion SARS-CoV-2 Antigen (Rapid) - Final Radiography Diagnostic Testing: Radiology Impression Transesophageal Echocardiogram 01/12/22 15:32 Interpretation Summary TTE showe Intact IAS No intracardiac shunt Buble study is Negative Ordering Physician: Yara Tang Referring Physician: Susan Tello Performed By: Jas Goddard RCS Physical Exam Const alert Constitutional Narrative: Tired Eyes PERRL and EOMs intact bilaterally Neck no lymphadenopathy and supple Resp normal respiratory effort and clear to auscultation bilaterally Cardio regular rate and regular rhythm GI soft to palpation, non-tender and non-distended Extremity Extremity Narrative: No edema appreciated, left arm strength improving Neuro CN's II-XII intact bilaterally Neuro Narrative: Deficits seem to be improving, is alert and oriented. Able to move left arm more, was able to squeeze fingers this morning with left hand Psych Psych Narrative: Cooperative Assessment & Plan Assessment/Plan (1) Acute cerebrovascular accident (CVA): PLAN: Plan #Acute CVA ?Presented to the ED and was outside of the window for tPA ? CTA was unrevealing ? MRI however did show small acute right cerebral infarcts with chronic involutional and white matter changes and no evidence for enhancing intracranial mass ? Did have echo with bubble study which did not show shunt ? Did worsen throughout the day, reconsulted neurology who felt this was evolution of the same stroke ? Aspirin, statin, it was advised against Plavix given NIH and severity of strokes ? Possible occult A. fib versus aortic atheromatosis, on telemetry. It was recommended to hold empiric anticoagulation and obtain AVIS ? AVIS ordered yesterday, will possibly be today ? She initially passed swallow eval however after she worsened she was made n.p.o. again, will have repeat swallow after AVIS - EKG in the emergency department showed sinus rhythm with possible sinus arrhythmia - Noncontrast CT head showed an old right cerebellar infarct with a questionable old pontine lacunar infarct versus artifact as well as chronic microvascular ischemic disease, no other acute findings -Lipid panel and A1c ordered -Troponins negative = - Did have recent echocardiogram in October 2021 which showed an EF of 70% with moderate to severe annular mitral calcifications, RVSP 26 and no diastolic dysfunction noted, repeat with bubble study as above - Did also have stress test in November [address] Patino due to shortness of breath, this was read as unremarkable - Does have a history of hypertension, permissive hypertension advised - Consult physical therapy, Occupational Therapy, speech therapy - Vital signs per protocol 01/14/2022: AVIS did not show any shunt, thus far work-up has not revealed a cause, suspect occult atrial fibrillation however no definitive evidence at this time. Did discuss again with neurology this a.m., given no evidence of atrial fibrillation at this time will not empirically anticoagulate. Will discharge with aspirin 81, Plavix, statin with a 30-day monitor and advise follow-up with cardiology. And to go to acute inpatient rehab #Type 2 diabetes mellitus Glucose checks and sliding scale insulin Holding metformin at this time #Hypertension Holding home medications for permissive hypertension #DVT prophylaxis: SCDs ordered Yara Tang MD Charges/Coding Visit Charges Inpatient E&M: 82825 Subs Hosp L2
[2022-01-14] MEDS: Potassium Chloride Oral Tablet 20 MEQ 60 MEQ PO (09:48)
[2022-01-14] MEDS: Acyclovir 200 MG Capsule 400 MG PO (09:48)
[2022-01-14] MEDS: Aspirin 81 MG TAB.CHEW PO (09:48)
[2022-01-14] MEDS: Pantoprazole Sodium 40 MG Tablet PO (09:48)
--- NOTE | 2022-01-14 10:18 | CASEMGMT ---
Social Work SW assisted pt in completing LW/POA on 01/13/22. SABIHA Miramontes
--- NOTE | 2022-01-14 10:46 | DCINST_ITS ---
Discharge Instructions Diet Discharge Diet: No restrictions Activity Discharge Activity: - (To acute rehab for post stroke f/u) Follow Up Care Test Results: Test results from this visit will be discussed in further detail at your follow- up appointment, if applicable. Discharge Plan Admission Admit Date/Time: 01/12/22 08:24 Primary Reason for Your Visit: Stroke Attending Provider: Yara Tang Primary Care Provider: Susan Tello Instructions Patient Instructions: Stroke: Taking Medicines, Preparing Your Home After Stroke, Stroke: Self-Care, Stroke: Tips for Swallowing Additional Instructions / Restrictions: ? You were admitted due to a stroke ? It is possible that you have an underlying abnormal heart rhythm, atrial fibrillation, that was not seen while you were admitted. Due to this he will be sent with a 30-day monitor to wear that we will monitor your heart rate, and you will need to follow-up with cardiology. You will need to follow with a revenue manager, heart doctor, upon discharge due to the suspected abnormal heart rhythm. Please call upon discharge to schedule hospital follow-up appointment with [facility] ? You have been started on aspirin 81 mg, and will need a high intensity statin ?Your statin dose has been increased from 20 mg to 80 mg ? Additionally you have been started on Plavix, you will need to continue to take this daily ? Your blood pressure medications were held after stroke, you will be restarted on amlodipine 2.5 at discharge. It would be important to have your blood pressure monitored so that your losartan?hydrochlorothiazide can be restarted when appropriate ? Your metformin has been held as your blood glucose was low normal on several occasions, your A1c was 5.8. ? Please follow-up outpatient with neurology for an EMG/NCV/RSS due to your intermittent double vision, this may need further work-up to rule out another underlying etiology, myasthenia gravis. In addition due to the stroke it will also be important to follow-up with neurology. Contact information provided to schedule a hospital follow-up -Please call your primary care provider's office upon discharge to schedule a hospital follow up within 1 week. -For any concerning signs or symptoms please call 911 or proceed to the nearest emergency department Discharge Orders/Prescriptions Prescriptions: New atorvastatin 80 mg Tablet 80 mg PO QHS 30 Days Qty: 30 0RF aspirin 81 mg Tablet,Chewable 81 mg PO BREAKFAST 30 Days Qty: 30 0RF clopidogrel [Plavix] 75 mg tablet 75 mg PO DAILY Qty: 30 0RF Continued ascorbate calcium (vitamin C) 500 mg tablet 500 mg PO DAILY magnesium 30 mg tablet 30 mg PO DAILY acyclovir 400 MG tablet 400 mg PO BID calcium carbonate 600 MG tablet 600 mg PO DAILY bupropion HCl 150 MG tablet extended release 24 hr 150 mg PO BID pantoprazole 40 mg packet 40 mg PO DAILY Label Comments: glucosamine [id number] 1 EACH tablet 1 ea PO DAILY amlodipine 5 mg tablet 2.5 mg PO DAILY cetirizine [Zyrtec] 10 mg Tablet 10 mg PO DAILY acetaminophen [Acetaminophen Pain Relief] 500 mg Tablet 500 mg PO Q6H PRN (Reason: Pain) omega 5-ptm-gqi-fish oil [Fish Oil] 1,200 (144-216) mg Capsule 1,200 cap PO DAILY Women's Multivitamin Gummies 200 mcg Tablet,Chewable 1 tab PO DAILY biotin-keratin 10,000-100 mcg-mg Tablet 1 tab PO DAILY Held losartan-hydrochlorothiazide 100-12.5 mg tablet 1 tab PO QDAY Hold Instructions: Resume on 01/25/22. Discontinued atorvastatin 20 mg tablet 20 mg PO QHS metformin 500 mg tablet extended release 24 hr 500 mg PO BID etodolac 500 mg Tablet Extended Release 24 Hr 500 mg PO DAILY Hold Instructions: Resume on 01/18/22. Please discuss with your following physician if you have returned or continued pain requiring further pain relief. ibuprofen [Advil] 200 mg Tablet 200 mg PO Q6H PRN (Reason: Pain) caffeine 200 mg Capsule, Extended Release 200 mg PO DAILY Other Ambulatory Orders: 30 Day Event Recorder Preventi (Urgent) Timeframe: 1 Day Facility: [facility] - Location: Cardiovascular Services Ordered By: Dr. Yara Tang Referrals / Follow Up: [facility] [Provider Group] - See Referral Note (He will need to follow with a revenue manager, heart doctor, upon discharge due to the suspected abnormal heart rhythm. Please call upon discharge to schedule hospital follow-up appointment with [facility]) Susan Tello DO [Primary Care Provider] - Within 1 Week Tao Padilla MD [Non-Staff -Ordering Privileges] - (He will need to follow with neurology upon discharge, please call to schedule hospital follow-up appointment) Disposition Disposition (needs filled in before D/C Order can be placed): Inpatient Rehab Unit/Facility
--- NOTE | 2022-01-14 10:48 | PCM.DC.SUM ---
Providers Date of Admission: 01/12/22 Date of Discharge: 01/14/22 Primary Care Physician: Dr. 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 Diagnosis Discharge Diagnosis (1) Acute cerebrovascular accident (CVA): Status: Acute Code(s): I63.9 - Cerebral infarction, unspecified Plan #Acute ischemic CVA #Type 2 diabetes mellitus #Hypertension Medications at Discharge Home Medications acyclovir 400 mg tablet 400 mg PO BID herpes 06/14/15 bupropion HCl 150 mg 24 hr tablet, extended release 150 mg PO BID depression 06/14/15 calcium carbonate 600 mg calcium (1,500 mg) tablet 600 mg PO DAILY supplement 06/14/15 pantoprazole 40 mg granules delayed-release for susp in packet 40 mg PO DAILY stomach 06/14/15 glucosamine HCl 500 mg-msm 83 mg-chondroitin 400 mg tablet 1 ea PO DAILY supplement 07/19/16 losartan 100 mg-hydrochlorothiazide 12.5 mg tablet 1 tab PO QDAY BP 09/04/17 ascorbate calcium (vitamin C) 500 mg tablet 500 mg PO DAILY supplements 09/05/18 magnesium 30 mg tablet 30 mg PO DAILY supplement 06/20/20 amlodipine 5 mg tablet 2.5 mg PO DAILY BP 01/31/21 acetaminophen 500 mg tablet (Acetaminophen Pain Relief) 500 mg PO Q6H PRN Pain 01/13/22 biotin 10,000 mcg-keratin 100 mg tablet 1 tab PO DAILY supplement 01/13/22 cetirizine 10 mg tablet (Zyrtec) 10 mg PO DAILY allergies 01/13/22 multivitamin with minerals-folic acid 200 mcg chewable tablet (Women's Multivitamin Gummies) 1 tab PO DAILY supplement 01/13/22 omega 5-rng-zkg-fish oil 1,200 mg (144 mg-216 mg) capsule (Fish Oil) 1,200 cap PO DAILY supplement 01/13/22 aspirin 81 mg chewable tablet 81 mg PO BREAKFAST 30 days #30 tabs 01/14/22 atorvastatin 80 mg tablet 80 mg PO QHS 30 days #30 tabs 01/14/22 clopidogrel 75 mg tablet (Plavix) 75 mg PO DAILY #30 tabs 01/14/22 Hospital Course Procedures 2-D Echocardiogram and Transesophageal Echo Summary of Care Provided Minutes Spent on Discharge: 35 Hospital Course: CHE CESAR, is a 76 F with a history of hypertension, bladder dysfunction, as well as small retinal artery occlusion in 2016 who presented to [facility] 01/12/2022 as a stroke call.? She was evaluated with ex- in the room whom she lives with.? She reports that the day before arrival she had some intermittent double vision and felt off but said that this happens every several days and has for months.? She fell asleep on the couch and woke up nauseated on and off for about half an hour and then was sweaty and hot and then cold.? She went to bed and she thinks she fell asleep but when she woke up she fell off the bed at about 2 AM to 2:30 AM and could not get up for 1 hour.? She feels she could not get up because she was generally weak, she began yelling and her ex- went to her room and found her around 3:30 AM.? Initially he could not understand what she was saying but her words improved and while her speech did not return to baseline he could make out that she was saying help me.She was evaluated in the emergency department and neurology telemedicine evaluated.? She had a CT head which showed an old right cerebellar infarct and questionable old pontine lacunar infarct versus artifact as well as chronic changes.? CTA follow-up did not show any evidence of hemodynamically significant stenosis, acute thrombosis, or dissection.? EKG sinus rhythm with possible sinus arrhythmia. Per report there was concern for right subcortical stroke but due to unclear onset of time with some changes in the right faust radiata of unclear age they would not consider tPA and recommended admission and aspirin, SBP goal of 120?180 as well as MRI.? Hospitalist contacted for admission. During admission she had a MRI of her head which showed small acute right cerebral infarcts as well as chronic involutional white matter changes. MRA was unrevealing. Echo was performed and was suboptimal so AVIS to evaluate for shunt which was unremarkable and bubble study negative. No known history of A. fib, though possibly the etiology given multiple infarcts. Initially Ms. Easton worsened and was reevaluated by neurology who felt it was just evolution of the current strokes. She did stabilize and has begun to improve. Has been seen by PT/OT/speech. Initially was able to swallow in the emergency department but with worsening symptoms was unable to, given her improvement she was reevaluated and now has the ability to eat/swallow with precautions. Condition stable, she will be discharged with a 30-day monitor to wear to monitor for occult A. fib. Aspirin, Plavix, statin. Her blood sanchez pressure medications have been held, amlodipine restarted upon discharge. Monitor blood pressure so that losartan?hydrochlorothiazide can be restarted when appropriate. Metformin held due to A1c of 5.8 and glucose on low end of normal. Will be very important to follow-up with neurology, as after 21 days of aspirin and Plavix will need to consider discontinuing 1 or the other. Additionally given her double vision in the evening at times it was recommended by neurology to obtain myasthenia gravis labs and possible need for outpatient work-up. Labs obtained but are not back yet. Ms. Easton was evaluated on the day of discharge 01/14/2022 and has steadily been improving. She will be discharged to inpatient rehab in stable condition. Outpatient follow-up will be important moving forward. Patient instructions as below: ? You were admitted due to a stroke ? It is possible that you have an underlying abnormal heart rhythm, atrial fibrillation, that was not seen while you were admitted.? Due to this you will be sent with a 30-day monitor to wear that will monitor your heart rate and rhythm, and you will need to follow-up with cardiology.? You will need to follow with a stud beef cattle farmer, heart doctor, upon discharge due to the suspected abnormal heart rhythm.? Please call upon discharge to schedule hospital follow-up appointment with [facility] ? You have been started on aspirin 81 mg, and will need a high intensity statin ?Your statin dose has been increased from 20 mg to 80 mg ? Additionally you have been started on Plavix, you will need to continue to take this daily, please follow-up with neurology and your primary care physician.? He will take both aspirin 81 mg and Plavix 75 mg daily for 21 days, followed by discontinuation of 1 or the other under guidance from outpatient neurology or your primary care physician ? Your blood pressure medications were held after stroke, you will be restarted on amlodipine 2.5 at discharge.? It would be important to have your blood pressure monitored so that your losartan?hydrochlorothiazide can be restarted when appropriate ? Your metformin has been held as your blood glucose was low normal on several occasions, your A1c was 5.8. ? Please follow-up outpatient with neurology for an EMG/NCV/RSS due to your intermittent double vision, this may need further work-up to rule out another underlying etiology, myasthenia gravis.? In addition due to the stroke it will also be important to follow-up with neurology.? Contact information provided to schedule a hospital follow-up -Please call your primary care provider's office upon discharge to schedule a hospital follow up within 1 week.? It was recommended by neurology to undergo any routine cancer screenings with your primary care physician. -For any concerning signs or symptoms please call 911 or proceed to the nearest emergency department Physical Exam Const alert and no apparent distress Eyes PERRL and EOMs intact bilaterally Neck no lymphadenopathy and supple Resp normal respiratory effort and clear to auscultation bilaterally Cardio regular rate and regular rhythm GI soft to palpation, non-tender and non-distended Extremity Extremity Narrative: No edema appreciated, left arm strength improving Neuro CN's II-XII intact bilaterally Neuro Narrative: Deficits seem to be improving, is alert and oriented. Able to move left arm more, was able to squeeze fingers this morning with left hand Psych Psych Narrative: Cooperative Weight / BMI Weight Weight: 79.7 kg Body Mass Index (BMI) 32.1 ABG / Lab / Microbiology Data Result Diagrams: 01/14/22 05:52 01/14/22 05:52 Laboratory: Laboratory Results - last 24 hr 01/13/22 06:09: POC Glucose 101 01/13/22 12:11: POC Glucose 96 01/13/22 16:08: POC Glucose 86 01/13/22 20:53: POC Glucose 70 L 01/14/22 05:52: WBC 9.4, RBC 4.26, Hgb 12.3, Hct 38.9, MCV 91.3, MCH 28.9, MCHC 31.6 L, RDW Std Deviation 51.1 H, RDW Coeff of Ranjit 15.3 H, Plt Count 219, MPV 11.8, Immature Gran % (Auto) 0.300, Neut % (Auto) 53.8, Lymph % (Auto) 37.0, Pope % (Auto) 6.3, Eos % (Auto) 2.2, Baso % (Auto) 0.4, Absolute Neuts (auto) 5.1, Absolute Lymphs (auto) 3.48, Nucleated RBC % 0 01/14/22 05:52: Sodium 143, Potassium 3.0 L, Chloride 111 H, Carbon Dioxide 25.0, Anion Gap 7, BUN 12, Creatinine 0.81, Estim Creat Clear Calc 48.19, Est GFR (MDRD) Af Amer 89, Est GFR (MDRD) Non-Af 73, BUN/Creatinine Ratio 14.8, Glucose 107 H, Calcium 8.9, Total Bilirubin 0.50, AST 20, ALT 31, Alkaline Phosphatase 55, Total Protein 6.6, Albumin 3.1 L, Globulin 3.5, Albumin/Globulin Ratio 0.9 01/14/22 06:23: POC Glucose 107 H Microbiology: Microbiology 01/13/22 09:18 Nasal Secretion SARS-CoV-2 Antigen (Rapid) - Final Radiography Diagnostic Testing: Radiology Impression Transesophageal Echocardiogram 01/12/22 15:32 Interpretation Summary TTE showe Intact IAS No intracardiac shunt Buble study is Negative Ordering Physician: Yara Tang Referring Physician: Susan Tello Performed By: Jas Goddard RCS D/C Instructions Discharge Diet: No restrictions Meaningful Use Info Meaningful Use Diagnoses (Choose all that apply): Ischemic CVA CVA Therapy Assessed for PT,OT and/or ST?: Yes Ischemic Stroke Antithrombotic order at d/c?: Yes Dx of Atrial fib/flutter?: No Anticoagulant at discharge?: No Reason anticoagulant not ordered: Treatment not Indicated Statins at discharge?: Yes Primary Dx Acute Ischemic CVA?: Yes IV tPA ordered during stay?: No Reason IV t-PA not ordered: Medical Contraindication Discharge Plan Admission Admit Date/Time: 01/12/22 08:24 Primary Reason for Your Visit: Stroke Attending Provider: Yara Tang Primary Care Provider: Susan Tello Instructions Patient Instructions: Stroke: Taking Medicines, Preparing Your Home After Stroke, Stroke: Self-Care, Stroke: Tips for Swallowing Additional Instructions / Restrictions: ? You were admitted due to a stroke ? It is possible that you have an underlying abnormal heart rhythm, atrial fibrillation, that was not seen while you were admitted. Due to this you will be sent with a 30-day monitor to wear that will monitor your heart rate and rhythm, and you will need to follow-up with cardiology. You will need to follow with a stud beef cattle farmer, heart doctor, upon discharge due to the suspected abnormal heart rhythm. Please call upon discharge to schedule hospital follow-up appointment with [facility] ? You have been started on aspirin 81 mg, and will need a high intensity statin ?Your statin dose has been increased from 20 mg to 80 mg ? Additionally you have been started on Plavix, you will need to continue to take this daily, please follow-up with neurology and your primary care physician. He will take both aspirin 81 mg and Plavix 75 mg daily for 21 days, followed by discontinuation of 1 or the other under guidance from outpatient neurology or your primary care physician ? Your blood pressure medications were held after stroke, you will be restarted on amlodipine 2.5 at discharge. It would be important to have your blood pressure monitored so that your losartan?hydrochlorothiazide can be restarted when appropriate ? Your metformin has been held as your blood glucose was low normal on several occasions, your A1c was 5.8. ? Please follow-up outpatient with neurology for an EMG/NCV/RSS due to your intermittent double vision, this may need further work-up to rule out another underlying etiology, myasthenia gravis. In addition due to the stroke it will also be important to follow-up with neurology. Contact information provided to schedule a hospital follow-up -Please call your primary care provider's office upon discharge to schedule a hospital follow up within 1 week. It was recommended by neurology to undergo any routine cancer screenings with your primary care physician. -For any concerning signs or symptoms please call 911 or proceed to the nearest emergency department Discharge Orders/Prescriptions Prescriptions: New atorvastatin 80 mg Tablet 80 mg PO QHS 30 Days Qty: 30 0RF aspirin 81 mg Tablet,Chewable 81 mg PO BREAKFAST 30 Days Qty: 30 0RF clopidogrel [Plavix] 75 mg tablet 75 mg PO DAILY Qty: 30 0RF Continued ascorbate calcium (vitamin C) 500 mg tablet 500 mg PO DAILY magnesium 30 mg tablet 30 mg PO DAILY acyclovir 400 MG tablet 400 mg PO BID calcium carbonate 600 MG tablet 600 mg PO DAILY bupropion HCl 150 MG tablet extended release 24 hr 150 mg PO BID pantoprazole 40 mg packet 40 mg PO DAILY Label Comments: glucosamine QKh-ojj-rssyudzxmo 1 EACH tablet 1 ea PO DAILY amlodipine 5 mg tablet 2.5 mg PO DAILY cetirizine [Zyrtec] 10 mg Tablet 10 mg PO DAILY acetaminophen [Acetaminophen Pain Relief] 500 mg Tablet 500 mg PO Q6H PRN (Reason: Pain) omega 7-byt-but-fish oil [Fish Oil] 1,200 (144-216) mg Capsule 1,200 cap PO DAILY Women's Multivitamin Gummies 200 mcg Tablet,Chewable 1 tab PO DAILY biotin-keratin 10,000-100 mcg-mg Tablet 1 tab PO DAILY Held losartan-hydrochlorothiazide 100-12.5 mg tablet 1 tab PO QDAY Hold Instructions: Resume on 01/25/22. Discontinued atorvastatin 20 mg tablet 20 mg PO QHS metformin 500 mg tablet extended release 24 hr 500 mg PO BID etodolac 500 mg Tablet Extended Release 24 Hr 500 mg PO DAILY Hold Instructions: Resume on 01/18/22. Please discuss with your following physician if you have returned or continued pain requiring further pain relief. ibuprofen [Advil] 200 mg Tablet 200 mg PO Q6H PRN (Reason: Pain) caffeine 200 mg Capsule, Extended Release 200 mg PO DAILY Other Ambulatory Orders: 30 Day Event Recorder Preventi (Urgent) Timeframe: 1 Day Facility: [facility] - Location: Cardiovascular Services Ordered By: Dr. Yara Tang Referrals / Follow Up: [facility] [Provider Group] - See Referral Note (He will need to follow with a stud beef cattle farmer, heart doctor, upon discharge due to the suspected abnormal heart rhythm. Please call upon discharge to schedule hospital follow-up appointment with [facility]) Susan Tello DO [Primary Care Provider] - Within 1 Week Tao Padilla MD [Non-Staff -Ordering Privileges] - Within 1 Week (Will need to follow with neurology upon discharge, please call to schedule hospital follow-up appointment) Disposition Disposition (needs filled in before D/C Order can be placed): Inpatient Rehab Unit/Facility Charges/Coding Visit Charges Inpatient E&M: 05269 Disch Hosp
[2022-01-14] MEDS: Acetaminophen 325 MG Tablet 650 MG PO (12:27)
[2022-01-14 13:10] LABS: Bedside Glucose 114 mg/dL (74-106)
--- NOTE | 2022-01-14 17:08 | NURSING ---
Charting reviewed with Maddie Calderon RN.
[2022-01-14 18:21] LABS: Bedside Glucose 90 mg/dL (74-106)
[2022-01-19 17:25] LABS: ACHR Recep AB, Blocking 14 % (0-25)
== END 2022-01-14 16:47 | DRG 65 ==
LOC: ED 07:43 → PCU 07:51
PROVIDERS: Emergency Medicine; Admitting Provider Internal Medicine; Emergency Provider Emergency Medicine; PCP Internal Medicine; Visit Provider Internal Medicine
DX: I63.9 Cerebral infarction, unspecified (principal); G81.04 Flaccid hemiplegia affecting left nondominant side; E88.81 Metabolic syndrome and other insulin resistance; E11.9 Type 2 diabetes mellitus without complications; I10 Essential (primary) hypertension; E78.5 Hyperlipidemia, unspecified; M19.90 Unspecified osteoarthritis, unspecified site; R13.12 Dysphagia, oropharyngeal phase; R29.810 Facial weakness; Z79.899 Other long term (current) drug therapy; Z86.73 Personal history of transient ischemic attack (TIA), and cerebral infarction without residual deficits; Z79.84 Long term (current) use of oral hypoglycemic drugs; Z79.1 Long term (current) use of non-steroidal anti-inflammatories (NSAID); Z85.828 Personal history of other malignant neoplasm of skin; Z87.891 Personal history of nicotine dependence; Z79.2 Long term (current) use of antibiotics
CPT/HCPCS: 36415; 51702; 70450; 70496; 70498; 70553; 71045; 74230; 80048; 80053; 80061; 80307; 81001; 82550; 82962; 83036; 83519; 84443; 84484; 85025; 85610; 85730; 87426; 92507; 92526; 92610; 92611; 93005; 93271; 93308; 93312; 93320; 93325; 94762; 97110; 97162; 97167; 97530; 99251; 99285; A9575; J7040; J7120; Q9957; Q9967; A4216; C8924; G0463

== ENCOUNTER 2022-01-14 16:50 | Inpatient (IN) | payer MEDICARE, BC, SELFPAY ==
[2022-01-14 17:21] VITALS: BP 149/73; PULSE 81; RESP 18; TEMP 36.7; O2SAT 97; BMI 32.1
[2022-01-14 17:50] LABS: Bedside Glucose 83 mg/dL (74-106)
--- NOTE | 2022-01-14 18:04 | CPS ---
patient already [facility] from [facility]
--- NOTE | 2022-01-14 18:04 | CPS ---
Patient had [facility] already from [facility]
[2022-01-14 18:05] VITALS: O2SAT 95
[2022-01-14 20:13] VITALS: BP 165/63; PULSE 84; RESP 16; TEMP 36.6; O2SAT 99
[2022-01-14 20:19] VITALS: PULSE 84
[2022-01-14] MEDS: buPROPion (SR) 150 MG Tablet.SA PO (22:30)
[2022-01-14] MEDS: Atorvastatin Calcium 80 MG Tablet PO (22:30)
[2022-01-14] MEDS: Acyclovir 200 MG Capsule 400 MG PO (22:30)
[2022-01-14] MEDS: Senna/Docusate Sodium 1 Tablet 2 TABLET PO (22:31)
[2022-01-15 06:40] LABS: Bedside Glucose 111 mg/dL (74-106)
[2022-01-15 07:05] VITALS: O2SAT 98
[2022-01-15 07:27] LABS: Hematocrit 38.1 % (37-47); Hemoglobin 12.3 g/dL (12.0-15.0); Mean Corp Hgb Conc 32.3 g/dL (32-36); Mean Corpuscular Hgb 29.2 pg (27.0-32.0); Mean Corpuscular Volume 90.5 fL (81-99); Mean Platelet Vol. 12.1 fl (6.2-12.0); Platelet Count 210 K/mm3 (150-450); RBC Distribution Width SD 49.8 fl (35.1-43.9); Red Blood Count 4.21 M/mm3 (4.2-5.4); White Blood Count 9.9 K/mm3 (4.4-11.0)
[2022-01-15] MEDS: Aspirin 81 MG TAB.CHEW PO (07:43)
[2022-01-15] MEDS: Ascorbic Acid 500 MG Tablet PO (07:43)
[2022-01-15] MEDS: Multivitamins,Ther W-Minerals Tablet 1 TABLET PO (07:43)
[2022-01-15 07:49] LABS: ALB/GLOB Ratio 0.9 RATIO (0.9-2.4); AST(SGOT) 19 U/L (15-37); Alanine Aminotransfer ALT/SGPT 31 U/L (13-56); Albumin, Serum 3.1 g/dL (3.2-5.0); Alkaline Phosphatase 51 U/L (45-117); Anion Gap 8 (5-15); BUN 10 mg/dL (7-18); BUN/Creat Ratio 13.5 RATIO (10-20); Calcium,Total 8.8 mg/dL (8.5-10.1); Chloride 111 mmol/L (98-107); Creatinine, Serum 0.74 mg/dL (0.55-1.02); EST Glomerular Filtration Rate 81 mL/min (>60); Est Glom Filt Rate - Afr Amer 98 mL/min (>60); Estimated Creatinine Clearance 39.04 ml/min; Globulin 3.5 g/dL (2.2-4.2); Glucose 108 mg/dL (74-106); Magnesium 1.8 mg/dL (1.6-2.6); Phosphorus 2.9 mg/dL (2.5-4.9); Potassium 3.4 mmol/L (3.5-5.1); Protein, Total 6.6 g/dL (6.4-8.2); Sodium Level 140 mmol/L (136-145)
[2022-01-15] MEDS: Pantoprazole Sodium 40 MG Tablet PO (09:46)
[2022-01-15] MEDS: Senna/Docusate Sodium 1 Tablet 2 TABLET PO ×2 (09:47→22:02)
[2022-01-15] MEDS: amLODIPine 2.5 MG Tablet PO (09:47)
[2022-01-15] MEDS: Clopidogrel Bisulfate 75 MG Tablet PO (09:47)
[2022-01-15] MEDS: buPROPion (SR) 150 MG Tablet.SA PO ×2 (09:48→22:05)
[2022-01-15] MEDS: Acyclovir 200 MG Capsule 400 MG PO ×2 (09:48→22:03)
[2022-01-15 10:00] VITALS: BP 140/65; PULSE 79; RESP 18; TEMP 36.2; O2SAT 96
--- NOTE | 2022-01-15 10:44 | HP.PCM_ITS ---
[facility] - General General Date of Admission: 01/14/22 Date of Service: 01/15/22 Chief Complaint: Physical debility secondary to CVA. HPI Narrative REBECA GUERRERO, is a 76 YO F with a past medical history of hypertension, history of skin cancer, small retinal artery occlusion in 2016 (has had blurry vision since then), depression, history of neurogenic bladder, ADD, osteoarthritis, hyperlipidemia, GERD and type 2 diabetes mellitus who presented to the emergency department at [facility] on 01/12/2022 complaining of not feeling right. She awoke from sleep that morning lying on the floor next to her bed and did not know how she got there. Her heard her moaning in her bedroom and called EMS and when EMS arrived she was awake and alert but had weakness of her left side. She was transported to [facility] emergency department as a stroke alert. A stat noncontrast CT brain showed no acute abnormalities. There was an old right cerebellar infarct and a questionable old pontine lacunar infarct. There was evidence of chronic microvascular ischemic disease. CTA of the head and neck showed no evidence for hemodynamically significant stenosis, acute thrombosis or arterial dissection. [facility] and her NIH stroke scale score was 10. The neurologist felt she appeared to have strokes in at least 2 different vascular distributions. Since the TTE showed no PFO and there was no hemodynamically significant extracranial or intracranial stenotic disease he felt atrial fibrillation was a possibility as etiology of the stroke. The neurologist recommended continuing aspirin daily but considering anticoagulation day 2 through 14 if atrial fibrillation or atrial flutter was noted. He also recommended acetylcholine receptor antibodies, AVIS, MRI and EEG. MRI showed multiple acute cortical infarctions involving the right frontal lobe, right parietal lobe and right occipital lobe as well as the right centrum semiovale. The AVIS was without evidence of embolic source. While in the hospital she was evaluated by PT/OT/ST and acute inpt rehab was recommended at [place] from the hospital. All lab from 01/15/2022 was personally reviewed. Rebeca has intermittent diplopia, and she still drives. She also has had ptosis of the R eye and she had surgery to correct. She complains that after she swallows a few times then she can't swallow and has to wait a while. Sometimes she slurs her words. She complains of heaviness in her legs and has trouble climbing stairs and gets SOB....this may be deconditioning though. Acetylcholine receptor antibody is pending. She has never had a hypercoagulable W/U and she has not had a CTA of the chest or abdomen to evaluate the major arteries for plaque/clot. [facility] Medical History (Updated 01/19/22 @ 11:[address] Yamilet Desai, ) Arthritis Essential (primary) hypertension History of skin cancer Hyperlipidemia Ptosis Stroke/cerebrovascular accident Transient retinal artery occlusion Type 2 diabetes mellitus Home Medications acyclovir 400 mg tablet 400 mg PO BID herpes 06/14/15 [History Last Taken 01/11/22] bupropion HCl 150 mg 24 hr tablet, extended release 150 mg PO BID depression 06/14/15 [History Last Taken 01/11/22] calcium carbonate 600 mg calcium (1,500 mg) tablet 600 mg PO DAILY supplement 06/14/15 [History Last Taken 01/11/22] pantoprazole 40 mg granules delayed-release for susp in packet 40 mg PO DAILY stomach 06/14/15 [History Last Taken 01/11/22] glucosamine HCl 500 mg-msm 83 mg-chondroitin 400 mg tablet 1 ea PO DAILY supplement 07/19/16 [History Last Taken 01/11/22] losartan 100 mg-hydrochlorothiazide 12.5 mg tablet 1 tab PO QDAY BP 09/04/17 [History Last Taken 01/11/22] ascorbate calcium (vitamin C) 500 mg tablet 500 mg PO DAILY supplements 09/05/18 [History Last Taken 01/11/22] magnesium 30 mg tablet 30 mg PO DAILY supplement 06/20/20 [History Last Taken 01/11/22] amlodipine 5 mg tablet 2.5 mg PO DAILY BP 01/31/21 [History Last Taken 01/11/22] acetaminophen 500 mg tablet (Acetaminophen Pain Relief) 500 mg PO Q6H PRN Pain 01/13/22 [History Last Taken Unknown] biotin 10,000 mcg-keratin 100 mg tablet 1 tab PO DAILY supplement 01/13/22 [History Last Taken Unknown] multivitamin with minerals-folic acid 200 mcg chewable tablet (Women's Multivitamin Gummies) 1 tab PO DAILY supplement 01/13/22 [History Last Taken Unknown] omega 7-dvx-tfo-fish oil 1,200 mg (144 mg-216 mg) capsule (Fish Oil) 1,200 cap PO DAILY supplement 01/13/22 [History Last Taken Unknown] aspirin 81 mg chewable tablet 81 mg PO BREAKFAST stroke 01/14/22 [History Last Taken Unknown] atorvastatin 80 mg tablet 80 mg PO QHS cholesterol 01/14/22 [History Last Taken Unknown] clopidogrel 75 mg tablet (Plavix) 75 mg PO DAILY blood thinner 01/14/22 [History Last Taken Unknown] Allergy/AdvReac Type Severity Reaction Status Date / Time neomycin Allergy unknown Verified 01/31/21 13:29 nickel Allergy Rash Verified 01/31/21 13:29 Penicillins [PCN] Allergy Hives Verified 01/31/21 13:29 Sulfa (Sulfonamide Allergy Rash Verified 01/31/21 13:29 Antibiotics) Family History Mother CAD (coronary artery disease) Daughter Heart disease cardiomyopathy Other Breast cancer Thyroid cancer Surgical History H/O abdominal surgery History of breast biopsy History of knee replacement History of tubal ligation Social History Smoking Status: Former smoker how long ago did patient quit smokin alcohol intake: current alcohol intake frequency: holidays/special occasions only substance use type: does not use caffeine: Yes (Take a caffeine tablet daily) ROS Constitutional Constitutional: Reports weakness; Denies anorexia, change in weight, chills, fatigue, fever(s) or night sweats Eyes Eyes: Reports blurry vision right (R eye since the retinal A occlusion ) and double vision; Denies change in vision, eye pain or loss of vision ENT HEENT: Reports dysphagia and other Details: After taking 2-3 swallows of water she feels as though she can not swallow and has to wait for a while before she is able to swallow effectively again. ; Denies abnormal hearing, headache(s), hearing loss, nasal congestion or sore throat Cardiovascular Cardiovascular: Reports dyspnea on exertion; Denies chest pain, edema, lightheadedness, orthopnea, palpitations, paroxysmal nocturnal dyspnea or syncope Respiratory/Chest Respiratory/Chest: Reports shortness of breath with exertion; Denies cough, dyspnea, shortness of breath at rest or wheezing Gastrointestinal Gastrointestinal: Denies abdominal pain, constipation, diarrhea, dyspepsia, hematemesis, hematochezia, nausea or vomiting Genitourinary Genitourinary: Reports urinary hesitancy and other Details: she has neurogenic bladder and she has seen Dr. Ohara in the past. ; Denies dysuria, hematuria, nocturia, urinary frequency, urinary incontinence or urinary urgency Musculoskeletal Musculoskeletal: Reports joint pain; Denies back pain, joint swelling or neck pain Integumentary Integumentary: Denies jaundice, pruritus, rash or wounds Neurologic Neurologic: Reports disequilibrium and focal weakness; Denies confusion, dizziness, headache(s), paresthesias, seizures or tremor(s) Psychiatric Psychiatric: Reports other Details: she was at one time on Wellbutrin and Zoloft but, now is only taking the Wellbutrin for ADD ; Denies anxiety, depression, homicidal ideation or suicidal ideation Endocrine Endocrinology: Denies change in body appearance, polydipsia or polyuria Hematologic/Lymphatic Hematologic/Lymphatic: Denies easy bleeding, easy bruising or lymphadenopathy Allergic/Immunologic Allergic/Immunologic: Denies rhinitis, eczemia or asthma Vital Signs Vital Signs Vital Signs: 01/14/22 17:21 01/14/22 18:05 01/14/22 20:13 Temperature 98.0 F 98 F Temperature Source Oral Temporal Pulse Rate 81 84 Respiratory Rate 18 16 Blood Pressure 149/73 H 165/63 H Blood Pressure Mean 98 97 Blood Pressure Source Monitor Monitor Blood Pressure Position Sitting Sitting Blood Pressure Location Right Arm Right Arm Pulse Ox 97 95 99 Oxygen Delivery Method Room Air Room Air Room Air 01/14/22 20:19 01/15/22 07:05 01/15/22 10:00 Temperature 97.2 F L Temperature Source Oral Pulse Rate 84 79 Respiratory Rate 18 Blood Pressure 140/65 H Blood Pressure Mean 90 Blood Pressure Source Monitor Blood Pressure Position Semi-Fowlers Blood Pressure Location Right Arm Pulse Ox 98 96 Oxygen Delivery Method Room Air Room Air Weight Weight: 175 lb 11.335 oz Body Mass Index (BMI) 32.1 Indicators for Scoring Admitted with or Primary Diagnosis of CVA/Stroke: Yes Hx of CVA/Stroke: Yes (01/12/22 acute small infarct R cerebral) Modified [place] Score MRS Score at time of Evaluation: 4-Moderate/severe disability NIHSS NIHSS 1a. Level of Consciousness: Alert; keenly responsive 1b. LOC Questions: Answers BOTH questions correctly. 1c. LOC Commands: Performs both tasks correctly. 2. Best Gaze: Normal 3. Visual: No visual loss 4. Facial Palsy: Minor paralysis (flattened nasolabial fold, asymmetry on smiling) 5a. Left Arm: Drift; arm drifts downward but doesn?t hit the bed 5b. Right Arm: No drift; arm holds 90 (or 45) degrees for full 10 seconds 6a. Left Leg: No drift; leg holds 30-degree position for full 5 seconds 6b. Right Leg: No drift; leg holds 30-degree position for full 5 seconds 7. Limb Ataxia: Present in 1 limb (LUE) 8. Sensory: Normal; no sensory loss 9. Best Language: No aphasia; normal 10. Dysarthria: [id number]-[id number] dysarthria; (occasional slurring. ) 11. Extinction and Inattention: No abnormality Total: 4 Physical Exam Const alert, oriented x3, no apparent distress and well nourished General Appearance: cooperative and well developed HEENT normocephalic HEENT Narrative: mild ptosis in the L eye......she has had ptosis in the R eye in the past and had surgery Eyes PERRL and EOMs intact bilaterally Eyes Narrative: No visual field cuts Neck no lymphadenopathy, supple, no JVD and no carotid bruits General: trachea midline Resp normal respiratory effort Resp Narrative: Decreased in the bases. CTA. Able to speak in complete sentences. Effort and Inspection: Negative for tachypneic or respiratory distress Cardio regular rate, regular rhythm, S1 normal heart sound, S2 normal heart sound, no murmurs, no rub and no gallops GI normal to inspection, nondistended, normoactive bowel sounds, soft to palpation and non-tender GI Narrative: No guarding with palpation Extremity no clubbing, cyanosis or edema and no calf tenderness Skin no wounds, no jaundice, no petechiae and no mottling General Skin Exam: no breakdown Rashes: no rashes Neuro Neuro Narrative: Mild left facial droop, occasional slurred speech, LUE weakness> LLE weakness. Motor Exam: general weakness Psych thought process normal, cooperative and affect normal Appearance: appropriate Results Lab / Micro Data Result Diagrams: 01/15/22 06:30 01/15/22 06:30 Labs: Laboratory Results - last 24 hr 01/14/22 17:30: POC Glucose 83 01/15/22 06:13: POC Glucose 111 H 01/15/22 06:30: WBC 9.9, RBC 4.21, Hgb 12.3, Hct 38.1, MCV 90.5, MCH 29.2, MCHC 32.3, RDW Std Deviation 49.8 H, RDW Coeff of Ranjit 15.0 H, Plt Count 210, MPV 12.1 H 01/15/22 06:30: Sodium 140, Potassium 3.4 L, Chloride 111 H, Carbon Dioxide 21.0, Anion Gap 8, BUN 10, Creatinine 0.74, Estim Creat Clear Calc 39.04, Est GFR (MDRD) Af Amer 98, Est GFR (MDRD) Non-Af 81, BUN/Creatinine Ratio 13.5, Glucose 108 H, Calcium 8.8, Phosphorus 2.9, Magnesium 1.8, Total Bilirubin 0.50, AST 19, ALT 31, Alkaline Phosphatase 51, Total Protein 6.6, Albumin 3.1 L, Globulin 3.5, Albumin/Globulin Ratio 0.9 Assessment & Plan Assessment/Plan (1) Debility: (2) Acute cerebrovascular accident (CVA): PLAN: Has had previous right cerebellar infarct and a questionable old pontine lacunar infarct. She has also had a R retinal artery occlusion in the past. Recent MRI showed small zones of restricted diffusion in the right parietal, frontal, centrum semiovale and occipital cortex as well as the periventricular regions. There were no masses identified and no hemorrhage. Major intracranial flow voids were maintained. CTA of the head and the neck were unrevealing. On AVIS she had no PFO. The atria were both of normal size and there was no significant valvular heart disease. This seems to be embolic........From where? she had a K of 3.0 and a Mag of 1.8 at admission........I guess it is conceivable that she may have had PAF related to the low potassium. (3) Acute left-sided muscle weakness: (4) Dysarthria: (5) Diplopia: PLAN: This has been intermittent and it predates the recent CVA (6) Essential (primary) hypertension: (7) Transient retinal artery occlusion: PLAN: with persistent blurring of vision in the R eye.......this happened a few years ago. (8) Hyperlipidemia: (9) Difficulty swallowing: (10) Dyspnea on exertion: (11) Hypokalemia: PLAN: She is on a diuretic and the K was low at admission to the hospital and it was supplemented. The Mag was 1.8. PLAN: Plan PLAN PT for gait stability OT for ADL's ST for evaluation Analgesics as needed Bowel protocol Fall precautions Assess for Anxiety/Depression GI prophylaxis with pantoprazole 40 mg p.o. daily DVT prophylaxis with SCDs and CLAUDIA rubalcava Follow up with PCP, cardiology and neurology following DC from IP Rehab AM lab including CMP, CBC, Mag and Phos all personally reviewed Await the results of the acetylcholine receptor jessica antibodies. Recheck potassium in a few days and if it is less than 4 we will consider adding a supplement OR discontinuing the HCTZ and using a different medication for HTN. would like to see the K 4 or > and the MAG 2 or > since the CVA is obviously embolic and PAF is a consideration. Why are all the strokes on the R side? 30 days event monitor at DC and then follow up with cardiology. Charges/Coding Visit Charges Inpatient E&M: 33637 Init Hosp L3
[2022-01-15 11:35] LABS: Bedside Glucose 104 mg/dL (74-106)
[2022-01-15] MEDS: Calcium Carbonate 500 MG Tablet PO (12:35)
--- NOTE | 2022-01-15 15:33 | NURSING ---
Staff explained to patient the purpose of the jesus hose to prevent blood clots and improve circulation. Patient requested her jesus hose to be removed due to being too tight. Patient aware she got the biggest size available and they fit well according to this nurse. Staff adjusted the jesus hose but they were kept on. Patient unable to get DVT prophy other than SCD's and jesus hose at this time and explained this to her.
[2022-01-15 16:25] LABS: Bedside Glucose 101 mg/dL (74-106)
[2022-01-15] MEDS: Acetaminophen 500 MG Tablet PO (16:35)
[2022-01-15 21:41] LABS: Bedside Glucose 103 mg/dL (74-106)
[2022-01-15 22:00] VITALS: BP 144/63; PULSE 80; RESP 16; TEMP 36.8; O2SAT 98
[2022-01-15] MEDS: Atorvastatin Calcium 80 MG Tablet PO (22:03)
[2022-01-16] MEDS: Acetaminophen 500 MG Tablet PO ×2 (03:13→19:28)
[2022-01-16 06:56] LABS: Bedside Glucose 110 mg/dL (74-106)
[2022-01-16 07:17] VITALS: BP 129/82; PULSE 84; RESP 16; TEMP 36.8; O2SAT 96
[2022-01-16 07:22] VITALS: O2SAT 94
[2022-01-16] MEDS: amLODIPine 2.5 MG Tablet PO (08:01)
[2022-01-16] MEDS: Pantoprazole Sodium 40 MG Tablet PO (08:01)
[2022-01-16] MEDS: Ascorbic Acid 500 MG Tablet PO (08:01)
[2022-01-16] MEDS: Aspirin 81 MG TAB.CHEW PO (08:01)
[2022-01-16] MEDS: Multivitamins,Ther W-Minerals Tablet 1 TABLET PO (08:01)
[2022-01-16] MEDS: Clopidogrel Bisulfate 75 MG Tablet PO (08:01)
[2022-01-16] MEDS: buPROPion (SR) 150 MG Tablet.SA PO ×2 (08:02→21:11)
[2022-01-16] MEDS: Senna/Docusate Sodium 1 Tablet 2 TABLET PO (08:02)
[2022-01-16] MEDS: Acyclovir 200 MG Capsule 400 MG PO ×2 (08:02→21:11)
[2022-01-16 09:05] LABS: Bedside Glucose 102 mg/dL (74-106)
[2022-01-16 12:10] LABS: Bedside Glucose 79 mg/dL (74-106)
[2022-01-16 12:10] LABS: Bedside Glucose 65 mg/dL (74-106)
[2022-01-16] MEDS: Calcium Carbonate 500 MG Tablet PO (13:09)
[2022-01-16 16:20] LABS: Bedside Glucose 101 mg/dL (74-106)
[2022-01-16] MEDS: 0.9% Saline Lock 10 ML Syringe IV (19:25)
[2022-01-16 20:50] VITALS: BP 134/64; PULSE 94; RESP 18; TEMP 37.1; O2SAT 96
[2022-01-16] MEDS: Atorvastatin Calcium 80 MG Tablet PO (21:11)
[2022-01-16 22:26] LABS: Bedside Glucose 117 mg/dL (74-106)
[2022-01-17 06:15] LABS: Bedside Glucose 102 mg/dL (74-106)
[2022-01-17 07:26] VITALS: BP 134/67; PULSE 77; RESP 16; TEMP 36.6; O2SAT 96
[2022-01-17] MEDS: Multivitamins,Ther W-Minerals Tablet 1 TABLET PO (09:13)
[2022-01-17] MEDS: Pantoprazole Sodium 40 MG Tablet PO (09:13)
[2022-01-17] MEDS: Aspirin 81 MG TAB.CHEW PO (09:13)
[2022-01-17] MEDS: buPROPion (SR) 150 MG Tablet.SA PO ×2 (09:13→22:12)
[2022-01-17] MEDS: amLODIPine 2.5 MG Tablet PO (09:13)
[2022-01-17] MEDS: Clopidogrel Bisulfate 75 MG Tablet PO (09:13)
[2022-01-17] MEDS: Ascorbic Acid 500 MG Tablet PO (09:13)
[2022-01-17] MEDS: Acyclovir 200 MG Capsule 400 MG PO ×2 (09:13→22:12)
[2022-01-17 12:15] LABS: Bedside Glucose 81 mg/dL (74-106)
[2022-01-17] MEDS: Calcium Carbonate 500 MG Tablet PO (12:40)
[2022-01-17 17:40] LABS: Bedside Glucose 79 mg/dL (74-106)
[2022-01-17 21:30] VITALS: PULSE 68; RESP 17; O2SAT 69
[2022-01-17 22:00] VITALS: BP 134/65; PULSE 68; RESP 17; TEMP 36.4; O2SAT 96
[2022-01-17] MEDS: Atorvastatin Calcium 80 MG Tablet PO (22:12)
[2022-01-17] MEDS: Senna/Docusate Sodium 1 Tablet 2 TABLET PO (22:12)
[2022-01-17] MEDS: Acetaminophen 500 MG Tablet PO (22:14)
[2022-01-17 22:50] LABS: Bedside Glucose 87 mg/dL (74-106)
[2022-01-18] MEDS: 0.9% Saline Lock 10 ML Syringe IV (07:08)
--- NOTE | 2022-01-18 07:14 | NURSING ---
IV was flushed but pt c/o burning and pain. IV to LFA was discontinued. Tip intact. Gauze covered and secured.
[2022-01-18 07:21] LABS: Bedside Glucose 95 mg/dL (74-106)
[2022-01-18 08:00] VITALS: BP 135/80; PULSE 84; RESP 17; TEMP 36.7; O2SAT 97
[2022-01-18] MEDS: Ascorbic Acid 500 MG Tablet PO (08:18)
[2022-01-18] MEDS: Multivitamins,Ther W-Minerals Tablet 1 TABLET PO (08:18)
[2022-01-18] MEDS: Aspirin 81 MG TAB.CHEW PO (08:18)
[2022-01-18] MEDS: amLODIPine 2.5 MG Tablet PO (08:23)
[2022-01-18] MEDS: Senna/Docusate Sodium 1 Tablet 2 TABLET PO ×2 (08:23→21:17)
[2022-01-18] MEDS: Clopidogrel Bisulfate 75 MG Tablet PO (08:23)
[2022-01-18] MEDS: Pantoprazole Sodium 40 MG Tablet PO (08:23)
[2022-01-18] MEDS: Acyclovir 200 MG Capsule 400 MG PO ×2 (08:23→21:17)
[2022-01-18] MEDS: buPROPion (SR) 150 MG Tablet.SA PO ×2 (08:24→21:17)
[2022-01-18 09:19] VITALS: O2SAT 93
[2022-01-18 12:30] LABS: Bedside Glucose 54 mg/dL (74-106)
[2022-01-18] MEDS: Calcium Carbonate 500 MG Tablet PO (12:32)
[2022-01-18 15:56] LABS: Bedside Glucose 150 mg/dL (74-106)
[2022-01-18] MEDS: Insulin Lispro 100 UNIT/ML INSULN.PEN SC (16:12)
[2022-01-18 20:45] VITALS: BP 127/59; PULSE 86; RESP 16; TEMP 36.3; O2SAT 98
[2022-01-18] MEDS: Acetaminophen 500 MG Tablet PO (21:17)
[2022-01-18] MEDS: Atorvastatin Calcium 80 MG Tablet PO (21:17)
[2022-01-18 22:10] LABS: Bedside Glucose 128 mg/dL (74-106)
[2022-01-19 07:15] LABS: Bedside Glucose 116 mg/dL (74-106)
[2022-01-19 08:38] VITALS: BP 124/82; PULSE 75; RESP 17; TEMP 36.2; O2SAT 96
[2022-01-19] MEDS: Ascorbic Acid 500 MG Tablet PO (08:42)
[2022-01-19] MEDS: Aspirin 81 MG TAB.CHEW PO (08:42)
[2022-01-19] MEDS: Senna/Docusate Sodium 1 Tablet 2 TABLET PO ×2 (08:42→22:11)
[2022-01-19] MEDS: Clopidogrel Bisulfate 75 MG Tablet PO (08:42)
[2022-01-19] MEDS: Multivitamins,Ther W-Minerals Tablet 1 TABLET PO (08:42)
[2022-01-19] MEDS: Pantoprazole Sodium 40 MG Tablet PO (08:42)
[2022-01-19] MEDS: buPROPion (SR) 150 MG Tablet.SA PO ×2 (08:42→22:11)
[2022-01-19] MEDS: amLODIPine 2.5 MG Tablet PO (08:42)
[2022-01-19] MEDS: Acyclovir 200 MG Capsule 400 MG PO ×2 (08:42→22:11)
[2022-01-19 08:48] VITALS: BP 124/82; PULSE 75; RESP 17; TEMP 36.2; O2SAT 96
[2022-01-19 10:51] VITALS: O2SAT 96
[2022-01-19 11:35] LABS: Bedside Glucose 63 mg/dL (74-106)
--- NOTE | 2022-01-19 11:51 | REHABEVAL_ITS ---
Admission Information Primary Diagnosis:: Debility due to multiple embolic infarcts in the right frontal, temporal parietal and occipital areas and also in the right centrum semiovale. Status Changes from Prescreening?: No changes Identified Actual Problem List:: Alteration in Sleep, Mobility Impaired, Self Care Deficit and Alteration-Leisure Activ. Potential Problem List:: DVT, Bleeding, Infection, UTI, Aspiration, Falls, Skin Integrity and Depression Risk of Complications DVT: CLAUDIA Hose and Sequential Compression Device Bleeding: Monitor Lab Values, Nursing to Teach Precautions for anti-coagulation therapy., Wound, if applicable, to be assessed every shift. and Stroke patients assessed for lethargy or change in status. Infection: Clinical Staff to Monitor for S/S of infection: and S/S of infection include fever, redness, warmth, etc. Urinary Tract Infection: Monitor for frequency, burning, discomfort, or incontinence. and Nursing will obtain urine sample for urinalysis and C&S when ordered. Aspiration: Clinical staff will monitor for coughing, drooling, congestion., Speech will evaluate swallowing and dsyphasia. and Nursing will monitor patient swallowing during meals. Falls: Patient will be evaluated for Fall Precautions and Patient will be placed on Fall Precautions as indicated per protocol. Skin Breakdown: Nursing will assess skin daily using assessment tool. and Nursing will place on Skin Breakdown Precautions as indicated. Pain: Clinical staff will assess patient's pain level per protocol., Medications will be given, if needed, and the pain level reassessed. and Other methods: Massage, distraction, decrease stimulus, etc. used PRN. Plan of Care Patient requires physician specializing in physical medicine and rehab oversight to provide close medical supervision of rehab issues including: Pain Management, Sleep Problems, Bowel and Bladder, Medical and co-morbidity Management, DVT prophylaxis, Rehabilitation Leadership and Coordination of treatment team Patient needs Physical Therapy: For a minimum of 1 hour and At least 5 out of 7 days Patient needs Physical Therapy to improve:: Mobility, Strengthening, Transfers, Stretching, ROM, Endurance, Stairs, Gait and Balance Patient needs Occupational Therapy: For a minimum of 1 hour and At least 5 out of 7 days Patient needs Occupational Therapy to improve ADL's incl.: Eating, Grooming, Bathing, Dressing, Toileting, Toilet transfers, Community Reintegration, Higher functioning activities, Household tasks, Adaptive Equipment, Splinting and Other activities as determined Patient requires speech therapy: For a minimum of 1 hour and At least 5 out of 7 days Patient requires speech therapy for: Swallowing, Cognition, Language Skills and Compensatory Strategies Patient requires 24/7 Rehabilitation Nursing for: Pain Issues, Identifying and preventing risk factors, Monitoring and reporting current medical conditions, Assisting with ambulation, transfer, and all ADL's, Teaching patients about disease process and medications, Family teaching, Providing safe environment, Bowel and Bladder Issues, Skin integrity and Medication Management Patient needs Carbonation Equipment Tender/ Case Management for: Discharge Planning, Arranging Home Equipment or Services and Family Interventions Patient needs Dietary and Nutrition Services for: Adequate Nutrition, Nutritional Supplements and Nutritional Education Goals Patient will remain: free from falls and or injury at time of discharge. Patient will perform bed mobility at: MOD I level of assist. Patient will complete transfers from bed to chair at: MOD I level of assist. Patient will ambulate: 100 feet and with LRD Patient will complete upper body dressing at: MOD I level of assist. (Supervision) Patient will complete lower body dressing at: MOD I level of assist. (Supervision) Patient will complete toileting at: MOD I level of assist. (Supervision) Patient will perform bathing at: MOD I level of assist. (Supervision) Patient will complete grooming at: MOD I level of assist. Patient will complete home management skills at: MOD I level of assist. Patient will achieve: - (1 curb step) Patient will have pain level of: of 3 or less Patient's skin will: remain intact Patient will receive: adequate nutrition. Discharge Planning Pt Prognosis for Sig. Practical Improv. w/in Reasonable Time: Good Estimated Length of stay (days): 28 Anticipated D/C Destination: Home with Home Health Was Preadmission Assessment Accurate?: Yes
--- NOTE | 2022-01-19 11:59 | PN_ITS ---
Subjective Subjective Marci was seen on team rounds today. Her niece Sofia was present in the room and Sofia is a nurse. Afebrile VSS-blood pressure is well controlled and within goal. Maintaining appropriate oxygen saturation on RA Oral intake is good She has had only 1 unit os insulin since arriving on rehab. She has had 3 blood sugars less than 70 and these are all occurring at lunchtime. She ate 75 to 100% of her breakfast this morning and the blood sugar prior to lunch is 63? Weight is down 6 pounds since admission. Discussed with nursing - no problems that need addressed Reviewed the PT/OT/ST notes Medication list reviewed. Since the Vick catheter was removed she has had 2 post void residuals and they were 28 and 56. Sofia related that when she and Gaviota went to [place] that her aunt had Numbness on her left this resolved without tx......it was transient and she did not go to an urgicare or an ED. Sofia has noticed the coughing with eating and increasing weakness and SOB more so in the past 6 months. The therapists have definitely noticed that she fatigues very easily and then has to rest and then continues on for a short period of time. Gaviota denies chest pain, cephalgia, lightheadedness, palpitations, nausea/vomiting/abdominal pain, dysuria. She states she feels a little fullness in her pelvis but no dysuria. A UA done on 01/12/2022 was completely benign. Objective Data Objective Data Vital Signs: Vital Signs Temp Pulse Resp BP Pulse Ox O2 Del Method 97.1 F L 75 17 124/82 H 96 Room Air 01/19/22 08:48 01/19/22 08:48 01/19/22 08:48 01/19/22 08:48 01/19/22 10:51 01/19/22 10:51 Oxygen Delivery Method Room Air Weight: 175 lb 11.335 oz Body Mass Index (BMI) 32.1 Intake & Output: Intake and Output for Last 24 Hours 01/17/22 01/18/22 01/19/22 23:59 23:59 23:59 Intake Total 900 / 900 1540 / 1540 300 / 300 Output Total 1050 / 1050 550 / 550 200 / 200 Balance -150 / -150 990 / 990 100 / 100 Lab / Micro Data Result Diagrams: 01/15/22 06:30 01/19/22 13:40 Labs: Laboratory Results - last 24 hr 01/18/22 12:06: POC Glucose 54 L 01/18/22 15:37: POC Glucose 150 H 01/18/22 21:49: POC Glucose 128 H 01/19/22 06:54: POC Glucose 116 H 01/19/22 11:07: POC Glucose 63 L Assessment & Plan Assessment/Plan (1) Hypoglycemia: (2) Hypokalemia: (3) Difficulty swallowing: (4) Diplopia: (5) Acute cerebrovascular accident (CVA): PLAN: Plan 1. when she has a BS < 70 will get a lab back up and also check a Insulin and C peptide level. could she have a pancreatic tumor? Reactive hypoglycemia to a high carb breakfast? Doubt because she is on carb control. HGBA1C was 5.8. Could she have a insulinoma or a nonislet pancreatic tumor causing hypoglycemia and causing hypercoagulability leading to embolic strokes? 2. Continue therapy 3. Check a Potassium and a magnesium today. 4. Await the results of the antiacetylcholine receptor antibody test. If this is negative would need to consider the symptoms that led us to suspect myasthenia gravis may be due to a paraneoplastic syndrome. 5. Results of the hypercoagulable panel are pending. Charges/Coding Visit Charges Inpatient E&M: 64511 Subs Hosp L2
[2022-01-19 12:06] LABS: Bedside Glucose 91 mg/dL (74-106)
[2022-01-19] MEDS: Calcium Carbonate 500 MG Tablet PO (12:36)
--- NOTE | 2022-01-19 13:20 | CASEMGMT ---
Social Work IDT met with patient and casandra for Team meeting. Discussed patient's progress in PT/OT/ST/SN. Educated to Medicare approval of 23 days with DC 02/05. Pts goal is to return home alone, however, unsure if pt will be safe alone. Will ReTeam next week. SW to continue to follow for assistance with DC planning. Brunilda Aggarwal, CHEMICAL MANAGER GEOSPATIAL DEVELOPER
[2022-01-19 14:08] LABS: Magnesium 2.1 mg/dL (1.6-2.6); Potassium 3.8 mmol/L (3.5-5.1)
[2022-01-19 17:00] LABS: Bedside Glucose 107 mg/dL (74-106)
[2022-01-19 19:59] VITALS: BP 129/65; PULSE 80; RESP 18; TEMP 36.6; O2SAT 97
[2022-01-19] MEDS: Acetaminophen 500 MG Tablet PO (22:10)
[2022-01-19] MEDS: Atorvastatin Calcium 80 MG Tablet PO (22:11)
[2022-01-19 22:25] LABS: Bedside Glucose 125 mg/dL (74-106)
[2022-01-20 07:26] LABS: Bedside Glucose 98 mg/dL (74-106)
[2022-01-20] MEDS: Potassium Chloride Oral Tablet 10 MEQ PO (08:16)
[2022-01-20] MEDS: Pantoprazole Sodium 40 MG Tablet PO (08:16)
[2022-01-20] MEDS: Multivitamins,Ther W-Minerals Tablet 1 TABLET PO (08:16)
[2022-01-20] MEDS: amLODIPine 2.5 MG Tablet PO (08:16)
[2022-01-20] MEDS: Acyclovir 200 MG Capsule 400 MG PO ×2 (08:16→21:46)
[2022-01-20] MEDS: Aspirin 81 MG TAB.CHEW PO (08:16)
[2022-01-20] MEDS: buPROPion (SR) 150 MG Tablet.SA PO ×2 (08:16→21:46)
[2022-01-20] MEDS: Senna/Docusate Sodium 1 Tablet 2 TABLET PO ×2 (08:17→21:46)
[2022-01-20] MEDS: Ascorbic Acid 500 MG Tablet PO (08:17)
[2022-01-20] MEDS: Clopidogrel Bisulfate 75 MG Tablet PO (08:17)
[2022-01-20 09:20] VITALS: BP 139/74; PULSE 86; RESP 14; TEMP 37; O2SAT 98
[2022-01-20 11:41] LABS: Bedside Glucose 56 mg/dL (74-106)
[2022-01-20 12:06] LABS: Bedside Glucose 112 mg/dL (74-106)
[2022-01-20 12:09] LABS: Glucose 124 mg/dL (74-106)
[2022-01-20] MEDS: Calcium Carbonate 500 MG Tablet PO (12:16)
[2022-01-20 16:20] LABS: Bedside Glucose 104 mg/dL (74-106)
[2022-01-20 19:23] VITALS: BP 126/71; PULSE 86; RESP 18; TEMP 37.1; O2SAT 97
[2022-01-20] MEDS: Acetaminophen 500 MG Tablet PO (21:45)
[2022-01-20] MEDS: Atorvastatin Calcium 80 MG Tablet PO (21:46)
[2022-01-20 22:30] LABS: Bedside Glucose 103 mg/dL (74-106)
[2022-01-21] MEDS: Acetaminophen 500 MG Tablet PO ×2 (06:02→22:04)
[2022-01-21 06:21] LABS: Bedside Glucose 93 mg/dL (74-106)
[2022-01-21 07:00] VITALS: BP 100/53; PULSE 78; RESP 16; TEMP 36.6; O2SAT 95
[2022-01-21] MEDS: Aspirin 81 MG TAB.CHEW PO (08:14)
[2022-01-21] MEDS: Acyclovir 200 MG Capsule 400 MG PO ×2 (08:14→22:05)
[2022-01-21] MEDS: Clopidogrel Bisulfate 75 MG Tablet PO (08:15)
[2022-01-21] MEDS: Multivitamins,Ther W-Minerals Tablet 1 TABLET PO (08:15)
[2022-01-21] MEDS: Ascorbic Acid 500 MG Tablet PO (08:16)
[2022-01-21] MEDS: Pantoprazole Sodium 40 MG Tablet PO (08:17)
[2022-01-21] MEDS: buPROPion (SR) 150 MG Tablet.SA PO ×2 (08:17→22:05)
[2022-01-21] MEDS: amLODIPine 2.5 MG Tablet PO (08:18)
[2022-01-21 08:24] VITALS: BP 128/67
[2022-01-21] MEDS: Calcium Carbonate 500 MG Tablet PO (12:19)
[2022-01-21] MEDS: Potassium Chloride Oral Tablet 10 MEQ PO (12:19)
[2022-01-21 12:25] LABS: Bedside Glucose 76 mg/dL (74-106)
[2022-01-21 21:30] VITALS: BP 122/65; PULSE 81; RESP 18; TEMP 36.9; O2SAT 97
[2022-01-21 21:56] LABS: Bedside Glucose 102 mg/dL (74-106)
[2022-01-21] MEDS: Senna/Docusate Sodium 1 Tablet 2 TABLET PO (22:05)
[2022-01-21] MEDS: Atorvastatin Calcium 80 MG Tablet PO (22:06)
[2022-01-21 23:00] LABS: Bedside Glucose 99 mg/dL (74-106)
[2022-01-22 07:24] VITALS: BP 128/54; PULSE 81; RESP 16; TEMP 36.9; O2SAT 96
[2022-01-22 07:25] LABS: Bedside Glucose 109 mg/dL (74-106)
[2022-01-22] MEDS: Potassium Chloride Oral Tablet 10 MEQ PO (08:42)
[2022-01-22] MEDS: Multivitamins,Ther W-Minerals Tablet 1 TABLET PO (08:42)
[2022-01-22] MEDS: Ascorbic Acid 500 MG Tablet PO (08:42)
[2022-01-22] MEDS: Aspirin 81 MG TAB.CHEW PO (08:42)
[2022-01-22] MEDS: amLODIPine 2.5 MG Tablet PO (08:42)
[2022-01-22] MEDS: buPROPion (SR) 150 MG Tablet.SA PO ×2 (08:43→20:50)
[2022-01-22] MEDS: Acyclovir 200 MG Capsule 400 MG PO ×2 (08:43→20:49)
[2022-01-22] MEDS: Clopidogrel Bisulfate 75 MG Tablet PO (08:43)
[2022-01-22] MEDS: Pantoprazole Sodium 40 MG Tablet PO (08:43)
[2022-01-22] MEDS: Calcium Carbonate 500 MG Tablet PO (11:38)
--- NOTE | 2022-01-22 11:54 | PCM.PROGNOTE ---
Subjective Subjective Afebrile VSS Maintaining appropriate oxygen saturation on RA Oral intake is adequate Discussed with nursing - no problems that need addressed Reviewed the PT/OT/ST notes Medication list reviewed. Hypercoagulability panel is still pending. C-peptide is elevated at 8 with the highest normal being 4.4. Nursing did not order a insulin level at the time of the hypoglycemia. The lab value for the glucose was 124 but, nursing had treated the low sugar prior to the lab draw. The low accucheck was 57 and she was asymptomatic. Acetylcholine receptor antibody was negative. Complaints and hx vary from day to day. Not really sure if what she is telling me is accurate sometimes. She fatigues very easily and I suspect she was very deconditioned at admission due to sedentary lifestyle at home......ex- who lives with her agrees with this. She tells me today that she has total body pain and this has been present for years. She denies red, swollen joints. Pain is primarily in the muscles. Physical Alert, oriented x3, no apparent distress, seems fatigued Lungs are clear to auscultation Heart-regular rate and rhythm, no gallops, no murmur, no rub Abdomen-soft, nontender, nondistended, no guarding with palpation, normal bowel sounds present No peripheral edema No rashes and no skin breakdown Objective Data Objective Data Vital Signs: Vital Signs Temp Pulse Resp BP Pulse Ox O2 Del Method 98.4 F 81 16 128/54 H 96 Room Air 01/22/22 07:24 01/22/22 07:24 01/22/22 07:24 01/22/22 07:24 01/22/22 07:24 01/22/22 07:24 Oxygen Delivery Method Room Air Weight: 177 lb 14.609 oz Body Mass Index (BMI) 32.1 Intake & Output: Intake and Output for Last 24 Hours 01/20/22 01/21/22 01/22/22 23:59 23:59 23:59 Intake Total 1120 / 1120 1710 / 1710 Output Total 1525 / 1725 1000 / 1000 Balance -405 / -605 710 / 710 Lab / Micro Data Result Diagrams: 02/05/22 08:26 02/05/22 08:26 Labs: Laboratory Results - last 24 hr 01/20/22 11:40: C-Peptide 8.0 H 01/21/22 12:05: POC Glucose 76 01/21/22 17:27: POC Glucose 102 01/21/22 22:01: POC Glucose 99 01/22/22 07:04: POC Glucose 109 H Assessment & Plan Assessment/Plan (1) Debility: (2) Acute cerebrovascular accident (CVA): (3) Acute left-sided muscle weakness: (4) Dysarthria: (5) High serum c-peptide: (6) Fibromyalgia: PLAN: Plan 1. Continue therapy 2. Add gabapentin 100 mg p.o. 3 times daily for suspected fibromyalgia 3. instructed to avoid large carbohydrate loads to prevent hypoglycemia. 4. Acetylcholine antibodies were negative which makes myasthenia gravis unlikely however, she could conceivably have a paraneoplastic syndrome with the symptoms. I am going to recommend follow-up with heme/onc post discharge. Will need to repeat the anticardiolipin antibodies in 3 months and if they are still positive a decision will need to be made whether to anticoagulate or not. Charges/Coding Visit Charges Inpatient E&M: 92645 Subs Hosp L2
[2022-01-22 12:25] LABS: Bedside Glucose 129 mg/dL (74-106)
[2022-01-22] MEDS: Gabapentin 100 MG Capsule PO (17:08)
[2022-01-22] MEDS: Atorvastatin Calcium 80 MG Tablet PO (20:49)
[2022-01-22] MEDS: Senna/Docusate Sodium 1 Tablet 2 TABLET PO (20:49)
[2022-01-22 20:50] VITALS: BP 138/76; PULSE 88; RESP 18; TEMP 37.2; O2SAT 96
[2022-01-23] MEDS: Acetaminophen 500 MG Tablet PO (07:11)
[2022-01-23 08:55] VITALS: BP 118/63; PULSE 86; RESP 18; TEMP 36.5; O2SAT 98
[2022-01-23] MEDS: Gabapentin 100 MG Capsule PO ×3 (08:57→16:37)
[2022-01-23] MEDS: Aspirin 81 MG TAB.CHEW PO (08:57)
[2022-01-23] MEDS: amLODIPine 2.5 MG Tablet PO (08:57)
[2022-01-23] MEDS: Pantoprazole Sodium 40 MG Tablet PO (08:57)
[2022-01-23] MEDS: Senna/Docusate Sodium 1 Tablet 2 TABLET PO ×2 (08:57→21:27)
[2022-01-23] MEDS: Clopidogrel Bisulfate 75 MG Tablet PO (08:57)
[2022-01-23] MEDS: Potassium Chloride Oral Tablet 10 MEQ PO (08:57)
[2022-01-23] MEDS: Multivitamins,Ther W-Minerals Tablet 1 TABLET PO (08:57)
[2022-01-23] MEDS: Ascorbic Acid 500 MG Tablet PO (08:57)
[2022-01-23] MEDS: Acyclovir 200 MG Capsule 400 MG PO ×2 (08:58→21:27)
[2022-01-23] MEDS: buPROPion (SR) 150 MG Tablet.SA PO ×2 (08:58→21:27)
[2022-01-23 09:27] VITALS: PULSE 65; RESP 16; O2SAT 98
[2022-01-23 10:39] VITALS: BP 118/63; PULSE 86; RESP 18; TEMP 36.5; O2SAT 98
--- NOTE | 2022-01-23 12:19 | PCM.PROGNOTE ---
Subjective Subjective Afebrile VSS Maintaining appropriate oxygen saturation on RA Oral intake is adequate Discussed with nursing - no problems that need addressed Reviewed the PT/OT/ST notes Medication list reviewed. She was started on gabapentin 100 mg p.o. 3 times daily yesterday for suspected fibromyalgia pain Marci tells me that her total body pain is better today. She slept well last night. She is complaining of some lower BL rib pain with reaching and pushing up in the chair arms to get up from a chair. she denies cough, shortness of breath, nausea/vomiting, diarrhea/constipation, dysuria, lightheadedness, calf pain. she tells me that she feels she is getting stronger every day. Hypercoagulable panel is still pending. Objective Data Objective Data Vital Signs: Vital Signs Temp Pulse Resp BP Pulse Ox O2 Del Method 97.7 F L 86 18 118/63 98 Room Air 01/23/22 10:39 01/23/22 10:39 01/23/22 10:39 01/23/22 10:39 01/23/22 10:39 01/23/22 10:39 Oxygen Delivery Method Room Air Weight: 178 lb 12.718 oz Body Mass Index (BMI) 32.1 Intake & Output: Intake and Output for Last 24 Hours 01/21/22 01/22/22 01/23/22 23:59 23:59 23:59 Intake Total 1710 / 1710 1145 / 1145 300 / 300 Output Total 1000 / 1000 1060 / 1060 Balance 710 / 710 85 / 85 300 / 300 Lab / Micro Data Result Diagrams: 01/15/22 06:30 01/20/22 11:40 Labs: Laboratory Results - last 24 hr 01/22/22 12:07: POC Glucose 129 H Physical Exam Const alert, oriented x3 and no apparent distress HEENT moist oral mucous membranes Eyes PERRL and EOMs intact bilaterally Neck General: trachea midline Resp normal respiratory effort and clear to auscultation bilaterally Cardio regular rate, regular rhythm and no gallops GI normal to inspection, nondistended, normoactive bowel sounds and soft to palpation Palpation: Negative for guarding Extremity no calf tenderness General Extremity: Negative for edema Skin General Skin Exam: no breakdown Rashes: no rashes Assessment & Plan Assessment/Plan (1) Debility: (2) Acute cerebrovascular accident (CVA): (3) Hypoglycemia: (4) High serum c-peptide: (5) Fibromyalgia: PLAN: 1. Continue therapy 2. Continue Gabapentin 3. Await the results of the hypercoagulable testing. If she is hypercoagulable will anticoagulate. If the panel is negative will need a 30 day event monitor at [place] and if this is negative I think a W/U to identify the source of the emboli should be undertaken. 4. I think the high C peptide is due to insulin resistance.......she has a HGBA1C of 5.8 recently Charges/Coding Visit Charges Inpatient E&M: 38967 Subs Hosp L2
[2022-01-23] MEDS: Calcium Carbonate 500 MG Tablet PO (12:39)
[2022-01-23 19:38] VITALS: BP 141/69; PULSE 94; RESP 18; TEMP 36.6; O2SAT 97
--- NOTE | 2022-01-23 19:55 | NURSING ---
Pt called out for help finding her glasses, states she had them earlier and they were not where she usually put them. Searched under bed and chair, went to help pt stand up to look in the chair and pillows, noted glasses in trash can. Pt assisted in cleaning her glasses, pt very appreciative that they were found.
[2022-01-23 20:00] VITALS: O2SAT 97
[2022-01-23] MEDS: Atorvastatin Calcium 80 MG Tablet PO (21:28)
--- NOTE | 2022-01-24 06:08 | NURSING ---
Portable heart monitor placed per enclosed instructions, informed pt of need to have the phone w/i 10feet of monitor at all times so she will need to take it to therapy with her. Also informed of care of strips, taking off when showering. Instruction booklet given to pt to review, all questions answered at this time, encouraged pt to ask any questions she may have.
[2022-01-24 07:44] VITALS: BP 146/67; PULSE 83; RESP 18; TEMP 36.3; O2SAT 98
[2022-01-24] MEDS: Gabapentin 100 MG Capsule PO ×3 (07:59→16:30)
[2022-01-24] MEDS: Aspirin 81 MG TAB.CHEW PO (07:59)
[2022-01-24] MEDS: Potassium Chloride Oral Tablet 10 MEQ PO (08:00)
[2022-01-24] MEDS: Ascorbic Acid 500 MG Tablet PO (08:01)
[2022-01-24] MEDS: Multivitamins,Ther W-Minerals Tablet 1 TABLET PO (08:01)
[2022-01-24] MEDS: Clopidogrel Bisulfate 75 MG Tablet PO (10:27)
[2022-01-24] MEDS: amLODIPine 2.5 MG Tablet PO (10:27)
[2022-01-24] MEDS: Senna/Docusate Sodium 1 Tablet 2 TABLET PO (10:28)
[2022-01-24] MEDS: Pantoprazole Sodium 40 MG Tablet PO (10:28)
[2022-01-24] MEDS: Acyclovir 200 MG Capsule 400 MG PO ×2 (10:28→20:49)
[2022-01-24] MEDS: buPROPion (SR) 150 MG Tablet.SA PO ×2 (10:28→20:49)
[2022-01-24] MEDS: Calcium Carbonate 500 MG Tablet PO (11:58)
[2022-01-24 19:00] VITALS: BP 137/72; PULSE 99; RESP 14; TEMP 36.5; O2SAT 95
[2022-01-24] MEDS: Acetaminophen 500 MG Tablet PO (19:00)
[2022-01-24] MEDS: Atorvastatin Calcium 80 MG Tablet PO (20:49)
[2022-01-25 05:07] LABS: Protein C Antigen 116 % (60-150)
[2022-01-25] MEDS: Acetaminophen 500 MG Tablet PO ×3 (05:15→20:51)
[2022-01-25 07:49] VITALS: BP 151/72; PULSE 89; RESP 18; TEMP 36.4; O2SAT 97
[2022-01-25] MEDS: Acyclovir 200 MG Capsule 400 MG PO ×2 (08:07→20:48)
[2022-01-25] MEDS: Clopidogrel Bisulfate 75 MG Tablet PO (08:07)
[2022-01-25] MEDS: amLODIPine 2.5 MG Tablet PO (08:07)
[2022-01-25] MEDS: Pantoprazole Sodium 40 MG Tablet PO (08:07)
[2022-01-25] MEDS: Senna/Docusate Sodium 1 Tablet 2 TABLET PO ×2 (08:08→20:47)
[2022-01-25] MEDS: Multivitamins,Ther W-Minerals Tablet 1 TABLET PO (08:08)
[2022-01-25] MEDS: Losartan Potassium 100 MG Tablet PO (08:08)
[2022-01-25] MEDS: Gabapentin 100 MG Capsule PO ×3 (08:08→16:47)
[2022-01-25] MEDS: Ascorbic Acid 500 MG Tablet PO (08:08)
[2022-01-25] MEDS: Aspirin 81 MG TAB.CHEW PO (08:08)
[2022-01-25] MEDS: Potassium Chloride Oral Tablet 10 MEQ PO (08:08)
[2022-01-25] MEDS: buPROPion (SR) 150 MG Tablet.SA PO ×2 (08:08→20:47)
[2022-01-25] MEDS: Calcium Carbonate 500 MG Tablet PO (11:14)
[2022-01-25 19:13] VITALS: BP 148/64; PULSE 93; RESP 16; TEMP 36.7; O2SAT 98
[2022-01-25] MEDS: Atorvastatin Calcium 80 MG Tablet PO (20:47)
[2022-01-26 07:35] VITALS: BP 146/77; PULSE 88; RESP 16; TEMP 36.4; O2SAT 98
[2022-01-26] MEDS: Ascorbic Acid 500 MG Tablet PO (07:37)
[2022-01-26] MEDS: Potassium Chloride Oral Tablet 10 MEQ PO (07:37)
[2022-01-26] MEDS: Gabapentin 100 MG Capsule PO ×3 (07:37→17:18)
[2022-01-26] MEDS: Aspirin 81 MG TAB.CHEW PO (07:37)
[2022-01-26] MEDS: Multivitamins,Ther W-Minerals Tablet 1 TABLET PO (07:37)
[2022-01-26] MEDS: buPROPion (SR) 150 MG Tablet.SA PO ×2 (07:38→22:11)
[2022-01-26] MEDS: amLODIPine 2.5 MG Tablet PO (07:38)
[2022-01-26] MEDS: Pantoprazole Sodium 40 MG Tablet PO (07:38)
[2022-01-26] MEDS: Losartan Potassium 100 MG Tablet PO (07:38)
[2022-01-26] MEDS: Senna/Docusate Sodium 1 Tablet 2 TABLET PO ×2 (07:38→22:12)
[2022-01-26] MEDS: Clopidogrel Bisulfate 75 MG Tablet PO (07:38)
[2022-01-26] MEDS: Acyclovir 200 MG Capsule 400 MG PO ×2 (07:39→22:11)
[2022-01-26] MEDS: Acetaminophen 500 MG Tablet PO (07:49)
[2022-01-26] MEDS: Calcium Carbonate 500 MG Tablet PO (12:48)
--- NOTE | 2022-01-26 13:15 | CASEMGMT ---
Social Work IDT met with patient, daughter and brother for Team meeting. Discussed patient's progress in PT/OT/ST/SN. Educated to Medicare DC 02/05. Pt lives at home alone and IDT noted pt is not alone and still needing some ADL assistance. Pt fatigues easily and has lack of safety awareness. Discussed plans of returning home or transferring to a SNF for continued skilled therapy. Pt and dtr agreeable to review SNF list and short stay. Printed list of SNFs with quality and resource data via [facility] [facility] and provided to pt. Pt to notify this worker of selections. Will ReTeam next week. SW to continue to follow. Brunilda Aggarwal, ANTONY MAINTENANCE WORKER [employer]
[2022-01-26 15:48] LABS: Anti-Thrombin 3 AG, Immunol 83 % (72-124); Antithrombin 3 Function 113 % (75-135); Protein C, Functional 168 % (73-180)
[2022-01-26 15:49] LABS: Anti-Cardiolipin Ab, IgG, Qn < 9 GPL U/mL (0-14); Anti-Cardiolipin Ab, IgM, Qn 16 MPL U/mL (0-12); Beta-2-Glycoprotein I IgA <9 (0-25); Beta-2-Glycoprotein I IgG <9 (0-20); Beta-2-Glycoprotein I IgM <9 (0-32)
--- NOTE | 2022-01-26 16:18 | PN_ITS ---
Subjective Subjective Marci was seen on team rounds today. Her sister Joi and Marci's ex- were present in the room. Afebrile VSS Maintaining appropriate oxygen saturation on RA Oral intake is [] Discussed with nursing - no problems that need addressed Reviewed the PT/OT/ST notes Medication list reviewed. Marci tells me that her pain is better since Gabapentin was added to the drug regimen and she is sleeping better. She fatigues easily with therapy and then her performance on exercises declines rapidly. She still is having difficulty swallowing, naomi with repeated swallows. Still with diplopia. She leans to the R when she is getting tired. The anticardiolipin IgM antibody is elevated at 16 which is indeterminate and not diagnostic of APL syndrome. the test should be repeated in 3 months. The anticardiolipin IgG is negative. Objective Data Objective Data Vital Signs: Vital Signs Temp Pulse Resp BP Pulse Ox O2 Del Method 97.6 F L 88 16 146/77 H 98 Room Air 01/26/22 07:35 01/26/22 07:35 01/26/22 07:35 01/26/22 07:35 01/26/22 07:35 01/26/22 07:35 Oxygen Delivery Method Room Air Weight: 178 lb 12.718 oz Body Mass Index (BMI) 32.1 Intake & Output: Intake and Output for Last 24 Hours 01/24/22 01/25/22 01/26/22 23:59 23:59 23:59 Intake Total 1220 / 1220 1240 / 1540 420 / 420 Output Total 1050 / 1450 1100 / 1100 Balance 170 / -230 140 / 440 420 / 420 Lab / Micro Data Result Diagrams: 01/15/22 06:30 01/20/22 11:40 Labs: Laboratory Results - last 24 hr 01/18/22 15:09: Protein C Antigen 116, Prot C Funct Activity 168, Antithrombin III Ag 83, Func Antithrombin III 113 01/18/22 15:09: Factor V Leiden Mutat Comment, Beta-2-GPI IgG Ab <9, Beta-2-GPI IgA Ab <9, Beta-2-GPI IgM Ab <9, Anti-Cardiolipin IgG Ab < 9, Anti-Cardiolipin IgM Ab 16 H Physical Exam Const alert, oriented x3 and no apparent distress General Appearance: cooperative Eyes PERRL and EOMs intact bilaterally Resp normal respiratory effort, normal air movement and clear to auscultation bilaterally Resp Narrative: No conversational dyspnea Cardio regular rate, regular rhythm and no gallops GI normal to inspection, nondistended, normoactive bowel sounds and soft to palpation GI Narrative: No guarding with palpation Extremity no calf tenderness General Extremity: Negative for edema Skin General Skin Exam: no breakdown Rashes: no rashes Neuro Neuro Narrative: Leaning to the R with ambulation.......not really pushing. She is walking with a better pace. Psych cooperative and affect normal Assessment & Plan Assessment/Plan (1) Debility: (2) Acute cerebrovascular accident (CVA): (3) Acute left-sided muscle weakness: (4) Dysarthria: (5) Difficulty swallowing: PLAN: Plan 1. Continue therapy 2. Will refer to Dr. Padilla for follow up post DC. I discussed with oncology and they refer patients to him for evaluation for paraneoplastic W/U. 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 Continue the Gabapentin......it helps with total body pain 4. The difficulty swallowing is not so much due to dysphagia related to the stroke but to fatigue with repeated swallows. 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
[2022-01-26 19:39] VITALS: BP 117/62; PULSE 80; RESP 16; TEMP 36.7; O2SAT 97
[2022-01-26] MEDS: Atorvastatin Calcium 80 MG Tablet PO (22:12)
[2022-01-27 05:47] LABS: Erythrocyte Sedimentation Rate 19 mm/hr (0-30)
[2022-01-27 06:38] LABS: CRP < 2.90 mg/L (0.0-3.0)
[2022-01-27] MEDS: Acyclovir 200 MG Capsule 400 MG PO ×2 (07:53→21:44)
[2022-01-27] MEDS: Multivitamins,Ther W-Minerals Tablet 1 TABLET PO (07:54)
[2022-01-27] MEDS: Senna/Docusate Sodium 1 Tablet 2 TABLET PO ×2 (07:54→21:44)
[2022-01-27] MEDS: Losartan Potassium 100 MG Tablet PO (07:54)
[2022-01-27] MEDS: Pantoprazole Sodium 40 MG Tablet PO (07:54)
[2022-01-27] MEDS: Ascorbic Acid 500 MG Tablet PO (07:54)
[2022-01-27] MEDS: buPROPion (SR) 150 MG Tablet.SA PO ×2 (07:54→21:44)
[2022-01-27] MEDS: amLODIPine 2.5 MG Tablet PO (07:54)
[2022-01-27] MEDS: Potassium Chloride Oral Tablet 10 MEQ PO (07:54)
[2022-01-27] MEDS: Aspirin 81 MG TAB.CHEW PO (07:55)
[2022-01-27] MEDS: Clopidogrel Bisulfate 75 MG Tablet PO (07:56)
[2022-01-27] MEDS: Gabapentin 100 MG Capsule PO ×3 (08:00→15:59)
[2022-01-27 08:25] VITALS: BP 133/67; PULSE 61; RESP 20; TEMP 36.7; O2SAT 98
[2022-01-27] MEDS: Calcium Carbonate 500 MG Tablet PO (11:46)
[2022-01-27] MEDS: Acetaminophen 500 MG Tablet PO (15:59)
[2022-01-27 19:30] VITALS: BP 122/80; PULSE 86; RESP 16; TEMP 36.7; O2SAT 96
[2022-01-27] MEDS: Atorvastatin Calcium 80 MG Tablet PO (21:44)
[2022-01-27 22:00] VITALS: PULSE 84; RESP 16; O2SAT 96
[2022-01-28 07:42] VITALS: BP 120/88; PULSE 82; RESP 16; TEMP 36.6; O2SAT 97
[2022-01-28] MEDS: Gabapentin 100 MG Capsule PO ×3 (08:11→18:00)
[2022-01-28] MEDS: Pantoprazole Sodium 40 MG Tablet PO (08:20)
[2022-01-28] MEDS: Losartan Potassium 100 MG Tablet PO (08:20)
[2022-01-28] MEDS: Multivitamins,Ther W-Minerals Tablet 1 TABLET PO (08:20)
[2022-01-28] MEDS: Ascorbic Acid 500 MG Tablet PO (08:21)
[2022-01-28] MEDS: amLODIPine 2.5 MG Tablet PO (08:21)
[2022-01-28] MEDS: Senna/Docusate Sodium 1 Tablet 2 TABLET PO ×2 (08:21→22:28)
[2022-01-28] MEDS: buPROPion (SR) 150 MG Tablet.SA PO ×2 (08:21→22:27)
[2022-01-28] MEDS: Acyclovir 200 MG Capsule 400 MG PO ×2 (08:21→22:27)
[2022-01-28] MEDS: Potassium Chloride Oral Tablet 10 MEQ PO (08:24)
[2022-01-28] MEDS: Clopidogrel Bisulfate 75 MG Tablet PO (08:24)
[2022-01-28] MEDS: Aspirin 81 MG TAB.CHEW PO (08:24)
[2022-01-28] MEDS: Calcium Carbonate 500 MG Tablet PO (10:59)
[2022-01-28] MEDS: FLU VACC QS2022-23(6MOS UP)/PF 60 MCG/0.5 ML SYRINGE IM (11:00)
[2022-01-28 19:49] VITALS: BP 120/82; PULSE 84; RESP 17; TEMP 36.7; O2SAT 96
[2022-01-28] MEDS: Atorvastatin Calcium 80 MG Tablet PO (22:28)
[2022-01-29] MEDS: Gabapentin 100 MG Capsule PO ×3 (07:55→17:40)
[2022-01-29] MEDS: Acyclovir 200 MG Capsule 400 MG PO ×2 (07:55→21:53)
[2022-01-29] MEDS: buPROPion (SR) 150 MG Tablet.SA PO ×2 (07:56→21:54)
[2022-01-29] MEDS: amLODIPine 2.5 MG Tablet PO (07:56)
[2022-01-29] MEDS: Multivitamins,Ther W-Minerals Tablet 1 TABLET PO (07:56)
[2022-01-29] MEDS: Senna/Docusate Sodium 1 Tablet 2 TABLET PO ×2 (07:56→21:54)
[2022-01-29] MEDS: Potassium Chloride Oral Tablet 10 MEQ PO (07:56)
[2022-01-29] MEDS: Losartan Potassium 100 MG Tablet PO (07:56)
[2022-01-29] MEDS: Clopidogrel Bisulfate 75 MG Tablet PO (07:56)
[2022-01-29] MEDS: Pantoprazole Sodium 40 MG Tablet PO (07:56)
[2022-01-29] MEDS: Ascorbic Acid 500 MG Tablet PO (07:56)
[2022-01-29] MEDS: Aspirin 81 MG TAB.CHEW PO (07:56)
[2022-01-29 08:47] VITALS: BP 131/64; PULSE 89; RESP 16; TEMP 37.1; O2SAT 98
[2022-01-29] MEDS: Calcium Carbonate 500 MG Tablet PO (11:36)
[2022-01-29 19:50] VITALS: BP 147/85; PULSE 95; RESP 18; TEMP 37; O2SAT 98
[2022-01-29] MEDS: Atorvastatin Calcium 80 MG Tablet PO (21:54)
[2022-01-30 07:27] VITALS: BP 115/53; PULSE 59; RESP 18; TEMP 36.7; O2SAT 99
[2022-01-30] MEDS: Pantoprazole Sodium 40 MG Tablet PO (08:53)
[2022-01-30] MEDS: Ascorbic Acid 500 MG Tablet PO (08:53)
[2022-01-30] MEDS: Senna/Docusate Sodium 1 Tablet 2 TABLET PO ×2 (08:53→21:35)
[2022-01-30] MEDS: Losartan Potassium 100 MG Tablet PO (08:53)
[2022-01-30] MEDS: Clopidogrel Bisulfate 75 MG Tablet PO (08:53)
[2022-01-30] MEDS: Potassium Chloride Oral Tablet 10 MEQ PO (08:54)
[2022-01-30] MEDS: Acyclovir 200 MG Capsule 400 MG PO ×2 (08:54→21:35)
[2022-01-30] MEDS: Multivitamins,Ther W-Minerals Tablet 1 TABLET PO (08:54)
[2022-01-30] MEDS: buPROPion (SR) 150 MG Tablet.SA PO ×2 (08:54→21:36)
[2022-01-30] MEDS: amLODIPine 2.5 MG Tablet PO ×2 (08:54)
[2022-01-30] MEDS: Aspirin 81 MG TAB.CHEW PO (08:54)
[2022-01-30] MEDS: Gabapentin 100 MG Capsule PO ×3 (08:58→16:29)
[2022-01-30 09:26] VITALS: O2SAT 98
[2022-01-30] MEDS: Calcium Carbonate 500 MG Tablet PO (11:56)
--- NOTE | 2022-01-30 15:05 | PCM.PROGNOTE ---
Subjective Subjective Afebrile VSS-blood pressure is well controlled Maintaining appropriate oxygen saturation on RA Oral intake is good Discussed with nursing - no problems that need addressed Reviewed the PT/OT/ST notes I D/W PT and OT whether her exercise tolerance is improving and they tell me it is. Strength is improving in the LUE and the LLE. Less facial droop. Medication list reviewed. She has not had any diplopia since admission to rehab and she tells me that she feels her strength is improving. The diplopia is intermittent prior to this stroke and happens every few weeks and lasts for a few minutes. She also tells me that she is no longer having any problems swallowing. At admission to rehab she told us that she had problem swallowing that predated the recent stroke. She tells me that she would swallow a few times and then she had to rest because she was unable to swallow again. She is no longer getting LOZA with ambulation. The hx seems to change from one visit to the next. She denies any muscle or joint pain since being started on the Gabapentin. She is sleeping well and has a good appetite and intake. She denies calf pain , CP, palpitations. Objective Data Objective Data Vital Signs: Vital Signs Temp Pulse Resp BP Pulse Ox O2 Del Method 98.0 F 59 L 18 115/53 L 98 Room Air 01/30/22 07:27 01/30/22 07:27 01/30/22 07:27 01/30/22 07:27 01/30/22 09:26 01/30/22 07:27 Oxygen Delivery Method Room Air Weight: 177 lb 15.984 oz Body Mass Index (BMI) 32.1 Intake & Output: Intake and Output for Last 24 Hours 01/29/22 01/29/22 01/30/22 00:59 23:59 23:59 Intake Total 860 / 860 Output Total Balance 860 / 860 Lab / Micro Data Result Diagrams: 01/15/22 06:30 01/20/22 11:40 Physical Exam Const alert, oriented x3 and no apparent distress General Appearance: cooperative Eyes PERRL and EOMs intact bilaterally Eyes Narrative: The droopy eyelids on the left have improved since admission. Her eyes appear similar now. Resp normal respiratory effort, normal air movement and clear to auscultation bilaterally Cardio regular rate, regular rhythm and no gallops GI normal to inspection, nondistended, normoactive bowel sounds, soft to palpation and non-tender Extremity no calf tenderness Extremity Narrative: CLAUDIA hose are in place General Extremity: Negative for edema Skin General Skin Exam: no breakdown Rashes: no rashes Neuro Neuro Narrative: Strength in the left arm and leg is improving. Her left hand is still weak and she has trouble holding onto the walker. Less facial droop and less ptosis on the left side. Psych affect normal Appearance: appropriate Assessment & Plan Assessment/Plan (1) Debility: (2) Acute cerebrovascular accident (CVA): PLAN: Continue therapy (3) Hypoglycemia: (4) High serum c-peptide: PLAN: She has glucose intolerance and I suspect the high C peptide is related to insulin resistance. She has had hypoglycemia, usually before lunch but she has never been symptomatic. No further W/U needed at this time. Recommend she stick to a carb controlled diet at ID and that she avoid having a large load of carbs with breakfast. Wt loss recommended to help with BS control and prevent transition to DM II. PLAN: Plan 1. Continue therapy 2. No change to the medication regimen at this time. 3. she has seen Dr. Patino in the past and he ordered the event monitor. Will discuss with him whether she should be anitcoagulated for embolic strokes. 4. Follow up with Dr. Quezada from neurology post ID. Charges/Coding Visit Charges Inpatient E&M: 86863 Subs Hosp L2
[2022-01-30 19:16] VITALS: BP 124/63; PULSE 91; RESP 18; TEMP 36.9; O2SAT 96
[2022-01-30] MEDS: Atorvastatin Calcium 80 MG Tablet PO (21:35)
--- NOTE | 2022-01-31 03:16 | NURSING ---
Reviewed and agree with Prabha Estrada LPN, documentation and assessment charting.
[2022-01-31] MEDS: Acetaminophen 500 MG Tablet PO ×2 (06:28→12:57)
[2022-01-31 07:43] VITALS: BP 124/64; PULSE 86; RESP 18; TEMP 36.7; O2SAT 99
[2022-01-31] MEDS: Ascorbic Acid 500 MG Tablet PO (08:03)
[2022-01-31] MEDS: Aspirin 81 MG TAB.CHEW PO (08:03)
[2022-01-31] MEDS: Potassium Chloride Oral Tablet 10 MEQ PO (08:03)
[2022-01-31] MEDS: Multivitamins,Ther W-Minerals Tablet 1 TABLET PO (08:03)
[2022-01-31] MEDS: Gabapentin 100 MG Capsule PO ×3 (08:09→17:46)
[2022-01-31] MEDS: Clopidogrel Bisulfate 75 MG Tablet PO (08:25)
[2022-01-31] MEDS: Acyclovir 200 MG Capsule 400 MG PO ×2 (08:25→22:01)
[2022-01-31] MEDS: buPROPion (SR) 150 MG Tablet.SA PO ×2 (08:25→22:01)
[2022-01-31] MEDS: Losartan Potassium 100 MG Tablet PO (08:26)
[2022-01-31] MEDS: Senna/Docusate Sodium 1 Tablet 2 TABLET PO ×2 (08:26→22:01)
[2022-01-31] MEDS: Pantoprazole Sodium 40 MG Tablet PO (08:26)
[2022-01-31] MEDS: amLODIPine 2.5 MG Tablet PO (08:32)
[2022-01-31] MEDS: Calcium Carbonate 500 MG Tablet PO (12:25)
[2022-01-31 20:00] VITALS: BP 113/51; PULSE 80; RESP 18; TEMP 36.8; O2SAT 94
[2022-01-31] MEDS: Atorvastatin Calcium 80 MG Tablet PO (22:01)
[2022-02-01 08:34] VITALS: BP 134/66; PULSE 93; RESP 17; TEMP 36.6; O2SAT 98
[2022-02-01] MEDS: Clopidogrel Bisulfate 75 MG Tablet PO (08:59)
[2022-02-01] MEDS: Acyclovir 200 MG Capsule 400 MG PO ×2 (08:59→21:38)
[2022-02-01] MEDS: Multivitamins,Ther W-Minerals Tablet 1 TABLET PO (08:59)
[2022-02-01] MEDS: Losartan Potassium 100 MG Tablet PO (08:59)
[2022-02-01] MEDS: Ascorbic Acid 500 MG Tablet PO (08:59)
[2022-02-01] MEDS: amLODIPine 2.5 MG Tablet PO (08:59)
[2022-02-01] MEDS: Gabapentin 100 MG Capsule PO ×3 (08:59→17:31)
[2022-02-01] MEDS: buPROPion (SR) 150 MG Tablet.SA PO ×2 (08:59→21:38)
[2022-02-01] MEDS: Aspirin 81 MG TAB.CHEW PO (08:59)
[2022-02-01] MEDS: Pantoprazole Sodium 40 MG Tablet PO (08:59)
[2022-02-01] MEDS: Potassium Chloride Oral Tablet 10 MEQ PO (08:59)
[2022-02-01] MEDS: Senna/Docusate Sodium 1 Tablet 2 TABLET PO ×2 (08:59→21:38)
--- NOTE | 2022-02-01 10:33 | PCM.PROGNOTE ---
Subjective Subjective Afebrile VSS-blood pressure is well controlled Maintaining appropriate oxygen saturation on RA Oral intake is good Discussed with nursing - no problems that need addressed Reviewed the PT/OT/ST notes Medication list reviewed. Marci denies dysphagia today and has not had any diplopia since her admission to rehab. Strength and exercise tolerance are both increasing. She denies CP, SOB at rest palpitations and lightheadedness. LOZA is less not that she is gaining better exercise tolerance. Objective Data Objective Data Vital Signs: Vital Signs Temp Pulse Resp BP Pulse Ox O2 Del Method 97.8 F 93 17 134/66 H 98 Room Air 02/01/22 08:34 02/01/22 08:34 02/01/22 08:34 02/01/22 08:34 02/01/22 08:34 02/01/22 08:34 Oxygen Delivery Method Room Air Weight: 179 lb 10.828 oz Body Mass Index (BMI) 32.1 Intake & Output: Intake and Output for Last 24 Hours 01/30/22 01/31/22 02/01/22 23:59 23:59 23:59 Intake Total 980 / 980 960 / 1080 180 / 180 Balance 980 / 980 960 / 1080 180 / 180 Lab / Micro Data Result Diagrams: 02/05/22 08:26 02/05/22 08:26 Physical Exam Const alert, oriented x3 and no apparent distress Resp normal respiratory effort and clear to auscultation bilaterally Cardio regular rate, regular rhythm, no murmurs and no gallops GI normal to inspection, nondistended, normoactive bowel sounds, soft to palpation and non-tender Extremity no calf tenderness General Extremity: Negative for edema Skin General Skin Exam: no breakdown Rashes: no rashes Assessment & Plan Assessment/Plan (1) Debility: PLAN: Continue therapy. Plan is for TCU for additional therapy prior to returning home. Will need to follow up with Dr. Padilla for stroke and MG like complaints, possible paraneoplastic S. (2) Acute cerebrovascular accident (CVA): Charges/Coding Visit Charges Inpatient E&M: 28323 Subs Hosp L1
[2022-02-01] MEDS: Calcium Carbonate 500 MG Tablet PO (12:38)
[2022-02-01 19:01] LABS: Beta-2-Glycoprotein I IgA <9 (0-25); Beta-2-Glycoprotein I IgG <9 (0-20); Beta-2-Glycoprotein I IgM <9 (0-32)
[2022-02-01 20:45] VITALS: BP 132/61; PULSE 90; RESP 18; TEMP 37.1; O2SAT 95
[2022-02-01 20:50] VITALS: O2SAT 95
[2022-02-01] MEDS: Atorvastatin Calcium 80 MG Tablet PO (21:38)
[2022-02-02] MEDS: Multivitamins,Ther W-Minerals Tablet 1 TABLET PO (08:06)
[2022-02-02] MEDS: amLODIPine 2.5 MG Tablet PO (08:06)
[2022-02-02] MEDS: Ascorbic Acid 500 MG Tablet PO (08:06)
[2022-02-02] MEDS: Senna/Docusate Sodium 1 Tablet 2 TABLET PO ×2 (08:06→21:45)
[2022-02-02] MEDS: Aspirin 81 MG TAB.CHEW PO (08:06)
[2022-02-02] MEDS: Acyclovir 200 MG Capsule 400 MG PO ×2 (08:07→21:46)
[2022-02-02] MEDS: Pantoprazole Sodium 40 MG Tablet PO (08:07)
[2022-02-02] MEDS: Losartan Potassium 100 MG Tablet PO (08:07)
[2022-02-02] MEDS: buPROPion (SR) 150 MG Tablet.SA PO ×2 (08:07→21:45)
[2022-02-02] MEDS: Clopidogrel Bisulfate 75 MG Tablet PO (08:07)
[2022-02-02] MEDS: Potassium Chloride Oral Tablet 10 MEQ PO (08:07)
[2022-02-02] MEDS: Gabapentin 100 MG Capsule PO ×3 (08:10→17:34)
[2022-02-02 09:39] VITALS: BP 127/67; PULSE 83; RESP 18; TEMP 36; O2SAT 98
[2022-02-02 09:45] VITALS: O2SAT 98
[2022-02-02] MEDS: Calcium Carbonate 500 MG Tablet PO (12:14)
--- NOTE | 2022-02-02 14:05 | PCM.PROGNOTE ---
Subjective Subjective Marci was seen on team rounds today. Family present in the room. Afebrile VSS-blood pressure is well controlled. Maintaining appropriate oxygen saturation on RA Oral intake is good Discussed with nursing - no problems that need addressed Reviewed the PT/OT/ST notes - She was discharged from Medication list reviewed. No complaints today. She denies chest pain, shortness of breath at rest, palpitations, lightheadedness, cough, sore throat, abdominal pain, N/V/D/C, calf pain and dysuria. Her legs went out from under her in therapy yesterday while stepping up onto the scale. she tells me that she lost her balance and that is why her legs gave out. She did not fall.....the OT prevented a fall. Exercise tolerance has steadily improved since admission. She is not c/o LOZA any longer and she is ambulating at a good pace with a FWW without LOB Objective Data Objective Data Vital Signs: Vital Signs Temp Pulse Resp BP Pulse Ox O2 Del Method 96.8 F L 83 18 127/67 H 98 Room Air 02/02/22 09:39 02/02/22 09:39 02/02/22 09:39 02/02/22 09:39 02/02/22 09:45 02/02/22 09:39 Oxygen Delivery Method Room Air Weight: 179 lb 10.828 oz Body Mass Index (BMI) 32.1 Intake & Output: Intake and Output for Last 24 Hours 01/31/22 02/01/22 02/02/22 23:59 23:59 23:59 Intake Total 960 / 1080 1260 / 1260 390 / 390 Output Total 800 / 800 Balance 960 / 1080 460 / 460 390 / 390 Lab / Micro Data Result Diagrams: 01/15/22 06:30 01/20/22 11:40 Labs: Laboratory Results - last 24 hr 01/27/22 05:36: Beta-2-GPI IgG Ab <9, Beta-2-GPI IgA Ab <9, Beta-2-GPI IgM Ab <9 Physical Exam Const alert, oriented x3 and no apparent distress General Appearance: cooperative HEENT moist oral mucous membranes Resp normal respiratory effort, normal air movement and clear to auscultation bilaterally Resp Narrative: No conversational dyspnea Cardio regular rate, regular rhythm, no murmurs and no gallops GI normal to inspection, nondistended, normoactive bowel sounds, soft to palpation and non-tender GI Narrative: No guarding with palpation Extremity no calf tenderness Extremity Narrative: CLAUDIA hose are in place General Extremity: Negative for edema Skin no wounds General Skin Exam: no breakdown Rashes: no rashes Neuro Neuro Narrative: Strength in the left arm and leg is improving. Her left hand is still weak and she has trouble holding onto the walker. Less facial droop and less ptosis on the left side. Psych thought process normal, cooperative and affect normal Appearance: appropriate Assessment & Plan Assessment/Plan (1) Debility: (2) Acute cerebrovascular accident (CVA): (3) Acute left-sided muscle weakness: (4) Dysarthria: (5) Dysphagia: (6) Fibromyalgia: PLAN: Plan 1. Continue therapy 2. Has decided to go to TCU for additional therapy prior to going home. Her performance varies from day to day still. She is a poor historian and hx also changes from day to day with no consistency. She will have help at home when she is able to go home......her ex- lives with her. He exercise tolerance and strength have been steadily improving. She was very deconditioned at admission to rehab. 3. BMP and HH on Sunday Charges/Coding Visit Charges Inpatient E&M: 07301 Subs Hosp L2
--- NOTE | 2022-02-02 16:07 | CASEMGMT ---
Addendum entered by Brunilda Aggarwal 02/02/22 17:24: SW provided medical alert resources to pt, per request Original Note: Social Work IDT met with patient, casandra and marciano for Team meeting. Discussed patient's progress in PT/OT/ST/SN. Educated to Medicare DC 02/05. IDT recommending SNF stay for continued therapy as pt is still having issues with safety awareness. Pt prefers to DC home, but is agreeable to TCU. SW inquired about alternative option if TCU is unable accept. Pt stated she would DC home if she cannot go to TCU. Referral made to TCU. Initially there was no bed available but after some time elapsed, a bed became available. SW updated pt, casandra and IDT. Plan: DC 02/05 to TCU, skilled Brunilda Aggarwal, ANTONY CANAS
[2022-02-02 19:20] VITALS: BP 123/59; PULSE 76; RESP 18; TEMP 36.9; O2SAT 96
[2022-02-02] MEDS: Atorvastatin Calcium 80 MG Tablet PO (21:46)
[2022-02-02 22:00] VITALS: O2SAT 96
[2022-02-03 08:20] VITALS: BP 148/89; PULSE 92; RESP 18; TEMP 36.4; O2SAT 98
[2022-02-03] MEDS: Losartan Potassium 100 MG Tablet PO (08:24)
[2022-02-03] MEDS: Clopidogrel Bisulfate 75 MG Tablet PO (08:24)
[2022-02-03] MEDS: Multivitamins,Ther W-Minerals Tablet 1 TABLET PO (08:24)
[2022-02-03] MEDS: Pantoprazole Sodium 40 MG Tablet PO (08:24)
[2022-02-03] MEDS: Acyclovir 200 MG Capsule 400 MG PO ×2 (08:24→23:01)
[2022-02-03] MEDS: Aspirin 81 MG TAB.CHEW PO (08:24)
[2022-02-03] MEDS: Senna/Docusate Sodium 1 Tablet 2 TABLET PO ×2 (08:24→23:02)
[2022-02-03] MEDS: Potassium Chloride Oral Tablet 10 MEQ PO (08:24)
[2022-02-03] MEDS: buPROPion (SR) 150 MG Tablet.SA PO ×2 (08:24→23:02)
[2022-02-03] MEDS: amLODIPine 2.5 MG Tablet PO (08:24)
[2022-02-03] MEDS: Ascorbic Acid 500 MG Tablet PO (08:24)
[2022-02-03] MEDS: Gabapentin 100 MG Capsule PO ×3 (08:29→17:43)
[2022-02-03] MEDS: Calcium Carbonate 500 MG Tablet PO (12:00)
[2022-02-03 19:00] VITALS: BP 109/82; PULSE 91; RESP 16; TEMP 37; O2SAT 96
[2022-02-03] MEDS: Atorvastatin Calcium 80 MG Tablet PO (23:02)
[2022-02-04] MEDS: Acetaminophen 500 MG Tablet PO ×2 (05:53→21:50)
[2022-02-04] MEDS: Potassium Chloride Oral Tablet 10 MEQ PO (08:07)
[2022-02-04] MEDS: Multivitamins,Ther W-Minerals Tablet 1 TABLET PO (08:07)
[2022-02-04] MEDS: Aspirin 81 MG TAB.CHEW PO (08:07)
[2022-02-04] MEDS: Ascorbic Acid 500 MG Tablet PO (08:08)
[2022-02-04] MEDS: Gabapentin 100 MG Capsule PO ×3 (08:11→16:39)
[2022-02-04 09:00] VITALS: BP 125/62; PULSE 75; RESP 16; TEMP 36.2; O2SAT 99
[2022-02-04] MEDS: Pantoprazole Sodium 40 MG Tablet PO (10:11)
[2022-02-04] MEDS: Losartan Potassium 100 MG Tablet PO (10:11)
[2022-02-04] MEDS: amLODIPine 2.5 MG Tablet PO (10:11)
[2022-02-04] MEDS: Acyclovir 200 MG Capsule 400 MG PO ×2 (10:12→21:52)
[2022-02-04] MEDS: Clopidogrel Bisulfate 75 MG Tablet PO (10:12)
[2022-02-04] MEDS: Senna/Docusate Sodium 1 Tablet 2 TABLET PO ×2 (10:12→21:52)
[2022-02-04] MEDS: buPROPion (SR) 150 MG Tablet.SA PO ×2 (10:13→21:52)
[2022-02-04] MEDS: Calcium Carbonate 500 MG Tablet PO (11:43)
--- NOTE | 2022-02-04 15:36 | TREXTCAR_ITS ---
Diet Diet Order/Speech Therapy: 01/14/22 17:23 Diet: Carbohydrate Controlled Dietary Modifications:: Cardiac / Heart Healthy Routine Orders/Code Status Enema Type: Fleetz Enema Frequency: Daily PRN Suppository Type: Dulcolax 10mg Suppository Frequency: Daily PRN O2 Liters per Minute: 1-2 O2 Frequency: PRN Keep PO Greater than or Equal to (%): 90 Therapies Weight Bearing: Full weight bearing Physical Therapy: Eval and Treat Occupational Therapy: Eval and Treat Problem/Diagnosis (1) Debility: Status: Acute Code(s): R53.81 - Other malaise (2) Acute cerebrovascular accident (CVA): Status: Acute Code(s): I63.9 - Cerebral infarction, unspecified Comment: R side of the brain in the frontal, parietal and occipital areas....embolic. No documented AF. (3) Dysphagia: Status: Acute Code(s): R13.10 - Dysphagia, unspecified Plan: Improved and she was discharged from on 02/03/22. (4) Acute left-sided muscle weakness: Status: Acute Code(s): M62.81 - Muscle weakness (generalized) (5) Dysarthria: Status: Acute Code(s): R47.1 - Dysarthria and anarthria (6) Hypoglycemia: Status: Acute Code(s): E16.2 - Hypoglycemia, unspecified Comment: BS has been < 70 3 times this admission and she has not been getting insulin. The HGBA1C is actually increased at 5.8 and she is on a carb control diet. The C peptide was increased and the likely etiology of the hypoglycemia is insulin resistance. She has never been symptomatic with the borderline low BS's. She will remain on a carb control diet. (7) High serum c-peptide: Status: Acute Code(s): R79.89 - Other specified abnormal findings of blood chemistry Comment: More likely than not due to insulin resistance. (8) Hypokalemia: Status: Resolved Code(s): E87.6 - Hypokalemia (9) Fibromyalgia: Status: Suspected Code(s): M79.7 - Fibromyalgia Plan: Total body pain has resolved with the addition of Gabapentin 100 mg TID to her drug regimen. She is sleeping well now. (10) Essential (primary) hypertension: Status: Chronic Code(s): I10 - Essential (primary) hypertension Plan: Controlled continue the current drug regimen. (11) Hyperlipidemia: Status: Chronic Code(s): E78.5 - Hyperlipidemia, unspecified Plan: Continue high-dose statin. Will need a Lipid panel and a liver panel in the next 4 weeks. (12) Transient retinal artery occlusion: Status: Chronic Code(s): H34.00 - Transient retinal artery occlusion, unspecified eye Comment: She had embolic strokes in 3 different lobes of the brain this admission and she has had a retinal A. occlusion of the R retinal artery in the past. No source for embolism was found this admission. She has never had documented AF. The left and right atria are normal in size and the bubble contrast study was negative for a right to left interatrial shunt. The left ventricular ejection fraction is normal at 65% with no wall motion abnormalities. Where did the emboli come from? she has an elevated anticardiolipin IgM but, the value is in the indeterminate range. It needs to be repeated in 3 months and if it is still elevated a decision will need to be made about whether or not she needs anticoagulated. (13) Diplopia: Status: Acute Code(s): H53.2 - Diplopia Comment: She has this off and on and this predated the recent stroke. She also c/o dysphagia prior to the stroke and profound weakness of her legs with exercise and stated they would give out. She has LOZA. She has had surgery on the R upper eyelid in the past for ptosis. These findings suggest possible MG however, the acetylcholine receptor blocking antibody was negative. She could have a paraneoplastic S resembling MG but, strength, endurance and swallowing are all improved with therapy. Will refer to Dr. Padilla for the stroke and for evaluation for a paraneoplastic process at [place]. Plan Discharge to [facility] transitional care unit for additional therapy prior to returning home. Allergies/Procedures Done in Hospital Allergies neomycin Allergy (Verified 01/31/21 13:29) unknown nickel Allergy (Verified 01/31/21 13:29) Rash Penicillins [PCN] Allergy (Verified 01/31/21 13:29) Hives Sulfa (Sulfonamide Antibiotics) Allergy (Verified 01/31/21 13:29) Rash Procedures: Transesophageal Echo (Interpretation Summary TTE showe Intact IAS No intracardiac shunt Buble study is Negative ) and Transthoracic Echo ( The left ventricular ejection fraction is 65 %. Bubble contrast study negative for right to left interatrial shunt. Moderate mitral annular calcification. Mild tricuspid valve insufficiency. ) Type of Care/Length of Stay Estimated LOS: Convalescent Care Less Than 30 days Type of Care Needed: Skilled Rehab Potential: Good Prognosis: Good Additional Orders/Day of Discharge H&P will serve as current which was dated: 01/15/22 Day of Discharge: 02/04/22 Dietary and Speech Recommendations Dietitian Recommendations/Changes: Continue CCD, Cardiac diet to manage medical conditions. Follow Up Care Please follow up with your Primary Care Physician in: 7-10 days after DC from TCU Please Follow Up With: Tao Padilla MD Please Follow Up With: Richard Patino MD Discharge Plan Admission Admit Date/Time: 01/14/22 16:50 Primary Reason for Your Visit: debility due to embolic CVA's Attending Provider: Yamilet Desai Primary Care Provider: Susan Tello Discharge Orders/Prescriptions Prescriptions: New calcium carbonate 200 mg calcium (500 mg) Tablet,Chewable 500 mg PO LUNCH Qty: 0 0RF magnesium hydroxide 400 mg/5 mL Suspension 30 ml PO .PRN X 1 PRN (Reason: Constipation) Qty: 0 0RF bisacodyl 10 mg Suppository 10 mg WI .PRN X 1 PRN (Reason: Constipation) Qty: 0 0RF gabapentin 100 mg Capsule 100 mg PO TIDCM Qty: 0 0RF losartan 100 mg Tablet 100 mg PO DAILY Qty: 0 0RF High Potency Multivit (w-iron) 9 mg iron-400 mcg Tablet 1 tab PO BREAKFAST Qty: 0 0RF potassium chloride 10 mEq Tablet,Er Particles/Crystals 10 meq PO BREAKFAST Qty: 0 0RF sennosides-docusate sodium [Stool Softener-Stimulant Laxat] 8.6-50 mg Tablet 2 tab PO BID Qty: 1 0RF Continued ascorbate calcium (vitamin C) 500 mg tablet 500 mg PO DAILY magnesium 30 mg tablet 30 mg PO DAILY acyclovir 400 MG tablet 400 mg PO BID bupropion HCl 150 MG tablet extended release 24 hr 150 mg PO BID pantoprazole 40 mg packet 40 mg PO DAILY Label Comments: glucosamine PXg-waz-uwhqxbdzim 1 EACH tablet 1 ea PO DAILY amlodipine 5 mg tablet 2.5 mg PO DAILY acetaminophen [Acetaminophen Pain Relief] 500 mg Tablet 500 mg PO Q6H PRN (Reason: Pain) omega 7-wef-lnq-fish oil [Fish Oil] 1,200 (144-216) mg Capsule 1,200 cap PO DAILY biotin-keratin 10,000-100 mcg-mg Tablet 1 tab PO DAILY atorvastatin 80 mg tablet 80 mg PO QHS clopidogrel [Plavix] 75 mg tablet 75 mg PO DAILY aspirin 81 mg tablet,chewable 81 mg PO BREAKFAST Discontinued losartan-hydrochlorothiazide 100-12.5 mg tablet 1 tab PO QDAY Hold Instructions: Resume on 01/25/22. calcium carbonate 600 MG tablet 600 mg PO DAILY Women's Multivitamin Gummies 200 mcg Tablet,Chewable 1 tab PO DAILY Referrals / Follow Up: Susan Tello DO [Primary Care Provider] - Tao Padilla MD [Non-Staff -Ordering Privileges] - Disposition Disposition (needs filled in before D/C Order can be placed): [facility]
--- NOTE | 2022-02-04 16:30 | PCM.DC.SUM ---
Providers Date of Admission: 01/14/22 Date of Discharge: 02/05/22 Primary Care Physician: Dr. Susan Tello DO Reason For Visit: multiple embolic strokes R side of the brain Diagnosis Discharge Diagnosis (1) Debility: Status: Acute Code(s): R53.81 - Other malaise (2) Acute cerebrovascular accident (CVA): Status: Acute Code(s): I63.9 - Cerebral infarction, unspecified (3) Acute left-sided muscle weakness: Status: Acute Code(s): M62.81 - Muscle weakness (generalized) (4) Dysarthria: Status: Acute Code(s): R47.1 - Dysarthria and anarthria (5) Dysphagia: Status: Acute Code(s): R13.10 - Dysphagia, unspecified (6) Fibromyalgia: Status: Suspected Code(s): M79.7 - Fibromyalgia Plan 1. Continue therapy 2. Has decided to go to TCU for additional therapy prior to going home. Her performance varies from day to day still. She is a poor historian and hx also changes from day to day with no consistency. She will have help at home when she is able to go home......her ex- lives with her. He exercise tolerance and strength have been steadily improving. She was very deconditioned at admission to rehab. 3. [facility], prior to DC. Medications at Discharge Home Medications acyclovir 400 mg tablet 400 mg PO BID herpes 06/14/15 bupropion HCl 150 mg 24 hr tablet, extended release 150 mg PO BID depression 06/14/15 pantoprazole 40 mg granules delayed-release for susp in packet 40 mg PO DAILY stomach 06/14/15 glucosamine HCl 500 mg-msm 83 mg-chondroitin 400 mg tablet 1 ea PO DAILY supplement 07/19/16 ascorbate calcium (vitamin C) 500 mg tablet 500 mg PO DAILY supplements 09/05/18 magnesium 30 mg tablet 30 mg PO DAILY supplement 06/20/20 amlodipine 5 mg tablet 2.5 mg PO DAILY BP 01/31/21 acetaminophen 500 mg tablet (Acetaminophen Pain Relief) 500 mg PO Q6H PRN Pain 01/13/22 biotin 10,000 mcg-keratin 100 mg tablet 1 tab PO DAILY supplement 01/13/22 omega 6-bas-xkp-fish oil 1,200 mg (144 mg-216 mg) capsule (Fish Oil) 1,200 cap PO DAILY supplement 01/13/22 aspirin 81 mg chewable tablet 81 mg PO BREAKFAST stroke 01/14/22 atorvastatin 80 mg tablet 80 mg PO QHS cholesterol 01/14/22 clopidogrel 75 mg tablet (Plavix) 75 mg PO DAILY blood thinner 01/14/22 bisacodyl 10 mg rectal suppository 10 mg OH .PRN X 1 PRN Constipation #0 ea 02/04/22 magnesium hydroxide 400 mg/5 mL oral suspension 30 ml PO .PRN X 1 PRN Constipation #0 mL 02/04/22 calcium carbonate 200 mg calcium (500 mg) chewable tablet 500 mg PO LUNCH Supplement 02/05/22 gabapentin 100 mg capsule 100 mg PO TIDCM Pain 02/05/22 losartan 100 mg tablet 100 mg PO DAILY BP 02/05/22 multivitamin-iron 9 mg-folic acid 400 mcg-calcium and minerals tablet (High Potency Multivitamin (w-iron)) 1 tab PO BREAKFAST Supplement 02/05/22 potassium chloride 10 mEq tablet,extended release(part/cryst) 10 meq PO BREAKFAST Supplement 02/05/22 sennosides 8.6 mg-docusate sodium 50 mg tablet (Stool Softener-Stimulant Laxative) 2 tab PO BID Constipation 02/05/22 Hospital Course Operations None Summary of Care Provided Minutes Spent on Discharge: 45 Hospital Course: the transitional care unit at [facility] on REBECA GUERRERO, is a 76 YO F with a past medical history of hypertension, history of skin cancer, small retinal artery occlusion in 2016 (has had blurry vision since then), depression, history of neurogenic bladder, ADD,? osteoarthritis, hyperlipidemia, GERD and type 2 diabetes mellitus who presented to the emergency department at [facility] on 01/12/2022 complaining of not feeling right.? She awoke from sleep that morning lying on the floor next to her bed and did not know how she got there.? Her heard her moaning in her bedroom and called EMS and when EMS arrived she was awake and alert but had weakness of her left side.? She was transported to [facility] emergency department as a stroke alert.? A stat noncontrast CT brain showed no acute abnormalities.? There was an old right cerebellar infarct and a questionable old pontine lacunar infarct.? There was evidence of chronic microvascular ischemic disease.? CTA of the head and neck showed no evidence for hemodynamically significant stenosis, acute thrombosis or arterial dissection.? SOC teleneurology was consulted and her NIH stroke scale score was 10.? The neurologist felt she appeared to have strokes in at least 2 different vascular distributions.? Since the TTE showed no PFO and there was no hemodynamically significant extracranial or intracranial stenotic disease he felt atrial fibrillation was a possibility as etiology of the stroke.? The neurologist recommended continuing aspirin daily but considering anticoagulation day 2 through 14 if atrial fibrillation or atrial flutter was noted.? He also recommended acetylcholine receptor antibodies, AVIS, MRI and EEG.? MRI showed multiple acute cortical infarctions involving the right frontal lobe, right parietal lobe and right occipital lobe as well as the right centrum semiovale.? The AVIS was without evidence of embolic source.? Acetylcholine receptor antibodies were negative. No EEG was done. She was discharged from the acute hospital stay with an order for a 30 day event monitor and this was delivered to her house and brought to the hospital and was placed on her by nursing. While in the hospital she was evaluated by PT/OT/ST and acute inpt rehab was recommended at [place] from the hospital.? While on the rehab unit she had a few mildly decreased BS's, all prior to lunch. She was asymptomatic. A hemoglobin A1c was 5.8 which is consistent with prediabetes. C peptide was mildly increased and this is consistent with insulin resistance. She was placed on a carb controlled diet. Rebeca has a constellation of symptoms that are very suggestive of Masthenia Gravis. These sx include diplopia, Ptosis (she had surgery on the R upper lid), dysphagia that predated the CVA, extreme fatigue with minimal exertion (to the point her legs give out) and LOZA. The acetylcholine receptor antibodies were negative a paraneoplastic syndrome resembling myasthenia gravis is still a consideration. There is no source of emboli that was detected yet she had CVA's in several lobes of the R brain. She has also had a retinal artery occlusion in the past. She also has a low-attenuation focus in the left side of the daquan which is likely due to an old lacunar infarct. The initial CT mentioned a small old infarct in the right cerebellar hemisphere. Since she has had several ischemic events and there were strokes in the R frontal, parietal and occipital lobes and no source of emboli could be found a hypercoagulable W/U was done. The anticardiolipin IgM antibody was mildly increased at 16 with a normal range being 0-12. This puts the anticardiolipin IgM antibody in the indeterminate range. I discussed this with hematology and the recommendations in this instance is to repeat the test in 3 months and if the level is still elevated then anticoagulation should be considered. While is rehab Rebeca was started on Gabapentin 100 mg TID for suspected fibromyalgia. This medication was effective in relieving the total body pain she had been complaining about. She had no adverse reactions to this medication. Rebeca did well in therapy. Exercise tolerance, endurance and strength all increased. At the time of discharge she was able to ambulate 500 feet with a wheeled walker at contact-guard assist. She had attempted 8 steps with 2 handrails at contact-guard assist and required voice cues for safety to go up in a step to pattern. She needs to be able to negotiate 12 steps prior to going home. She was supervision/set up for eating and grooming and standby assist for bathing. She is standby assist for upper body dressing and requires minimal assistance with lower body dressing. She is contact-guard assist for toilet transfer and tub/shower transfer. Rebeca was transferred to [facility] transitional care unit on 02/05/2022 for additional therapy prior to returning home. Rebeca lives withe her ex- and he will be able to assist her when she is transferred home. She will need to follow up with neurology post discharge and also with her PCP and cardiology. I recommended she follow up with Dr. Padilla for neurology and W/U for a paraneoplastic S. that might be causing the MG like symptoms. Rebeca's modified Benitez score decreased from 5-3 during her stay in inpatient rehab. Physical Exam Const alert and no apparent distress General Appearance: cooperative HEENT moist oral mucous membranes Eyes PERRL and EOMs intact bilaterally Eyes Narrative: The droopy eyelids on the left have improved since admission. Her eyes appear similar now. Neck no lymphadenopathy, supple, no JVD and no carotid bruits General: trachea midline Resp normal respiratory effort, normal air movement and clear to auscultation bilaterally Resp Narrative: No conversational dyspnea Effort and Inspection: Negative for tachypneic Cardio regular rate, regular rhythm, S1 normal heart sound, S2 normal heart sound, no murmurs, no rub and no gallops GI normal to inspection, nondistended, normoactive bowel sounds, soft to palpation and non-tender GI Narrative: No guarding with palpation Palpation: Negative for guarding Extremity no calf tenderness Extremity Narrative: CLAUDIA hose are in place General Extremity: Negative for edema Skin no jaundice General Skin Exam: no breakdown Rashes: no rashes Neuro Neuro Narrative: Strength in the left arm and leg is improving. Her left hand is still weak and she has trouble holding onto the walker. Less facial droop and less ptosis on the left side. Motor Exam: general weakness Psych thought process normal, cooperative and affect normal Appearance: appropriate Weight / BMI Weight Weight: 180 lb 1.883 oz Body Mass Index (BMI) 32.1 ABG / Lab / Microbiology Data Result Diagrams: 02/05/22 08:26 02/05/22 08:26 D/C Instructions Please Follow Up With: Tao Padilla MD Meaningful Use Info Meaningful Use Diagnoses (Choose all that apply): Ischemic CVA CVA Therapy Assessed for PT,OT and/or ST?: Yes Ischemic Stroke Antithrombotic order at d/c?: Yes Dx of Atrial fib/flutter?: No Anticoagulant at discharge?: No Reason anticoagulant not ordered: Treatment not Indicated (She has a 30 day event monitor on to check for PAF not detected during her acute hospital stay.) Statins at discharge?: Yes Primary Dx Acute Ischemic CVA?: Yes IV tPA ordered during stay?: No Reason IV t-PA not ordered: Treatment not Indicated Discharge Plan Admission Admit Date/Time: 01/14/22 16:50 Primary Reason for Your Visit: debility due to embolic CVA's Attending Provider: Yamilet Desai Primary Care Provider: Susan Tello Discharge Orders/Prescriptions Prescriptions: New magnesium hydroxide 400 mg/5 mL Suspension 30 ml PO .PRN X 1 PRN (Reason: Constipation) Qty: 0 0RF bisacodyl 10 mg Suppository 10 mg [place] .PRN X 1 PRN (Reason: Constipation) Qty: 0 0RF Continued ascorbate calcium (vitamin C) 500 mg tablet 500 mg PO DAILY magnesium 30 mg tablet 30 mg PO DAILY acyclovir 400 MG tablet 400 mg PO BID bupropion HCl 150 MG tablet extended release 24 hr 150 mg PO BID pantoprazole 40 mg packet 40 mg PO DAILY Label Comments: glucosamine WXk-cuh-pwioawgogt 1 EACH tablet 1 ea PO DAILY amlodipine 5 mg tablet 2.5 mg PO DAILY acetaminophen [Acetaminophen Pain Relief] 500 mg Tablet 500 mg PO Q6H PRN (Reason: Pain) omega 1-asl-ywo-fish oil [Fish Oil] 1,200 (144-216) mg Capsule 1,200 cap PO DAILY biotin-keratin 10,000-100 mcg-mg Tablet 1 tab PO DAILY atorvastatin 80 mg tablet 80 mg PO QHS clopidogrel [Plavix] 75 mg tablet 75 mg PO DAILY aspirin 81 mg tablet,chewable 81 mg PO BREAKFAST Discontinued losartan-hydrochlorothiazide 100-12.5 mg tablet 1 tab PO QDAY Hold Instructions: Resume on 01/25/22. calcium carbonate 600 MG tablet 600 mg PO DAILY Women's Multivitamin Gummies 200 mcg Tablet,Chewable 1 tab PO DAILY No Action sennosides-docusate sodium [Stool Softener-Stimulant Laxat] 8.6-50 mg tablet 2 tab PO BID calcium carbonate 200 mg calcium (500 mg) tablet,chewable 500 mg PO LUNCH gabapentin 100 mg capsule 100 mg PO TIDCM losartan 100 mg tablet 100 mg PO DAILY potassium chloride 10 mEq tablet,ER particles/crystals 10 meq PO BREAKFAST High Potency Multivit (w-iron) 9 mg iron-400 mcg tablet 1 tab PO BREAKFAST Referrals / Follow Up: Susan Tello DO [Primary Care Provider] - Tao Padilla MD [Non-Staff -Ordering Privileges] - Disposition Disposition (needs filled in before D/C Order can be placed): Longterm Facility Charges/Coding Visit Charges Inpatient E&M: 36350 Disch Hosp
[2022-02-04 19:30] VITALS: BP 154/69; PULSE 98; RESP 18; TEMP 36.4; O2SAT 96
[2022-02-04 21:22] VITALS: BMI 32.1
[2022-02-04] MEDS: Atorvastatin Calcium 80 MG Tablet PO (21:52)
[2022-02-04 22:00] VITALS: PULSE 92; RESP 16; O2SAT 99
[2022-02-05 07:50] VITALS: BP 118/62; PULSE 82; RESP 16; TEMP 36.8; O2SAT 100
[2022-02-05] MEDS: amLODIPine 2.5 MG Tablet PO (08:09)
[2022-02-05] MEDS: Losartan Potassium 100 MG Tablet PO (08:09)
[2022-02-05] MEDS: buPROPion (SR) 150 MG Tablet.SA PO (08:09)
[2022-02-05] MEDS: Pantoprazole Sodium 40 MG Tablet PO (08:09)
[2022-02-05] MEDS: Multivitamins,Ther W-Minerals Tablet 1 TABLET PO (08:09)
[2022-02-05] MEDS: Aspirin 81 MG TAB.CHEW PO (08:09)
[2022-02-05] MEDS: Clopidogrel Bisulfate 75 MG Tablet PO (08:09)
[2022-02-05] MEDS: Potassium Chloride Oral Tablet 10 MEQ PO (08:09)
[2022-02-05] MEDS: Acyclovir 200 MG Capsule 400 MG PO (08:10)
[2022-02-05] MEDS: Ascorbic Acid 500 MG Tablet PO (08:10)
[2022-02-05] MEDS: Gabapentin 100 MG Capsule PO ×2 (08:10→12:41)
[2022-02-05 08:33] LABS: Hemoglobin 12.7 g/dL (12.0-15.0); Mean Corp Hgb Conc 31.8 g/dL (32-36); Mean Corpuscular Hgb 29.5 pg (27.0-32.0); Mean Corpuscular Volume 92.8 fL (81-99); Mean Platelet Vol. 11.5 fl (6.2-12.0); Platelet Count 249 K/mm3 (150-450); RBC Distribution Width CV 15.3 % (11.6-14.6); RBC Distribution Width SD 52.2 fl (35.1-43.9); Red Blood Count 4.31 M/mm3 (4.2-5.4); White Blood Count 6.9 K/mm3 (4.4-11.0)
[2022-02-05 08:53] LABS: Anion Gap 10 (5-15); BUN 17 mg/dL (7-18); BUN/Creat Ratio 19.5 RATIO (10-20); Calcium,Total 9.1 mg/dL (8.5-10.1); Chloride 111 mmol/L (98-107); Creatinine, Serum 0.87 mg/dL (0.55-1.02); EST Glomerular Filtration Rate 67 mL/min (>60); Est Glom Filt Rate - Afr Amer 82 mL/min (>60); Estimated Creatinine Clearance 44.87 ml/min; Glucose 188 mg/dL (74-106); Potassium 3.9 mmol/L (3.5-5.1); Sodium Level 141 mmol/L (136-145)
[2022-02-05] MEDS: Calcium Carbonate 500 MG Tablet PO (12:41)
[2022-02-05 14:28] VITALS: BMI 32.1
[2022-02-05 14:29] VITALS: BP 118/62; PULSE 82; RESP 16; TEMP 36.8; O2SAT 100
--- NOTE | 2022-02-05 14:29 | NURSING ---
discharged to TCU report called to [facility]
== END 2022-02-05 14:31 | disposition skilled nursing facility (03) | DRG 57 ==
PROVIDERS: Admitting Provider Internal Medicine; PCP Internal Medicine; Visit Provider Internal Medicine
DX: I69.354 Hemiplegia and hemiparesis following cerebral infarction affecting left non-dominant side (principal); H34.01 Transient retinal artery occlusion, right eye; E11.649 Type 2 diabetes mellitus with hypoglycemia without coma; M19.90 Unspecified osteoarthritis, unspecified site; I69.391 Dysphagia following cerebral infarction; E78.5 Hyperlipidemia, unspecified; H53.2 Diplopia; M79.7 Fibromyalgia; I10 Essential (primary) hypertension; E87.6 Hypokalemia; K21.9 Gastro-esophageal reflux disease without esophagitis; I69.322 Dysarthria following cerebral infarction; Z23 Encounter for immunization; Z79.82 Long term (current) use of aspirin; Z87.891 Personal history of nicotine dependence; Z79.02 Long term (current) use of antithrombotics/antiplatelets; Z79.899 Other long term (current) drug therapy
CPT/HCPCS: 0134A; 36415; 80048; 80053; 81241; 82947; 82962; 83735; 84100; 84132; 84681; 85027; 85300; 85301; 85302; 85303; 85652; 86140; 86146; 86147; 87811; 91313; 92507; 92526; 92610; 97110; 97112; 97116; 97162; 97166; 97530; 97535; 97802; 99251; G0008; 90686; A4216; G0463

== ENCOUNTER 2022-02-05 14:25 | Inpatient (IN) | payer MEDICARE, BC, SELFPAY ==
[2022-02-05 14:44] VITALS: BP 141/74; PULSE 96; RESP 16; RESP 18; TEMP 36.8; O2SAT 96; O2SAT 97; BMI 33.0
--- NOTE | 2022-02-05 15:43 | HP.PCM_ITS ---
HPI - General General Date of Admission: 02/05/22 Date of Service: 02/06/22 Chief Complaint: Here for rehab. HPI Narrative 01/12/2022 REBECA GUERRERO, is a 76 Female who presents to [facility] Emergency Department with not feeling right. CT brain negative, but 2 old infarcts. CTA head/neck negative. MRI brain showed acute infarct right frontal, right parietal, right occipital, right centrum semiovale. AVIS negative. 01/14/2022 Admit to IPR. PT/OT/ST. 01/19/2022 Vick catheter removal. 01/22/2022 Gabapentin 100mg tid for fibromyalgia. 01/23/2022 Hypercoagulable panel ordered, consider anticoagulation. 01/26/2022 Gabapentin helps total body pain. Consider paraneoplastic syndrome. 01/30/[address] Patino. 02/02/2022 TCU on discharge. 02/05/2022 Admit to TCU with debility, here for rehabilitation, strengthening, prior to discharge home with . [facility] Medical History Arthritis Essential (primary) hypertension History of skin cancer Hyperlipidemia Ptosis Stroke/cerebrovascular accident Transient retinal artery occlusion Type 2 diabetes mellitus Home Medications acyclovir 400 mg tablet 400 mg PO BID herpes 06/14/15 [History Last Taken 01/11/22] bupropion HCl 150 mg 24 hr tablet, extended release 150 mg PO BID depression 06/14/15 [History Last Taken 01/11/22] pantoprazole 40 mg granules delayed-release for susp in packet 40 mg PO DAILY stomach 06/14/15 [History Last Taken 01/11/22] glucosamine HCl 500 mg-msm 83 mg-chondroitin 400 mg tablet 1 ea PO DAILY supplement 07/19/16 [History Last Taken 01/11/22] ascorbate calcium (vitamin C) 500 mg tablet 500 mg PO DAILY supplements 09/05/18 [History Last Taken 01/11/22] magnesium 30 mg tablet 30 mg PO DAILY supplement 06/20/20 [History Last Taken 01/11/22] amlodipine 5 mg tablet 2.5 mg PO DAILY BP 01/31/21 [History Last Taken 01/11/22] acetaminophen 500 mg tablet (Acetaminophen Pain Relief) 500 mg PO Q6H PRN Pain 01/13/22 [History Last Taken Unknown] biotin 10,000 mcg-keratin 100 mg tablet 1 tab PO DAILY supplement 01/13/22 [History Last Taken Unknown] omega 5-bjk-qoh-fish oil 1,200 mg (144 mg-216 mg) capsule (Fish Oil) 1,200 cap PO DAILY supplement 01/13/22 [History Last Taken Unknown] aspirin 81 mg chewable tablet 81 mg PO BREAKFAST stroke 01/14/22 [History Last Taken Unknown] atorvastatin 80 mg tablet 80 mg PO QHS cholesterol 01/14/22 [History Last Taken Unknown] clopidogrel 75 mg tablet (Plavix) 75 mg PO DAILY blood thinner 01/14/22 [History Last Taken Unknown] bisacodyl 10 mg rectal suppository 10 mg [place] .PRN X 1 PRN Constipation #0 ea 02/04/22 [Rx Last Taken Unknown] magnesium hydroxide 400 mg/5 mL oral suspension 30 ml PO .PRN X 1 PRN Constipa tion #0 mL 02/04/22 [Rx Last Taken Unknown] calcium carbonate 200 mg calcium (500 mg) chewable tablet 500 mg PO LUNCH Supplement 02/05/22 [History Last Taken Unknown] gabapentin 100 mg capsule 100 mg PO TIDCM Pain 02/05/22 [History Last Taken Unknown] losartan 100 mg tablet 100 mg PO DAILY BP 02/05/22 [History Last Taken Unknown] multivitamin-iron 9 mg-folic acid 400 mcg-calcium and minerals tablet (High Potency Multivitamin (w-iron)) 1 tab PO BREAKFAST Supplement 02/05/22 [History Last Taken Unknown] potassium chloride 10 mEq tablet,extended release(part/cryst) 10 meq PO BREAKFAST Supplement 02/05/22 [History Last Taken Unknown] sennosides 8.6 mg-docusate sodium 50 mg tablet (Stool Softener-Stimulant Laxative) 2 tab PO BID Constipation 02/05/22 [History Last Taken Unknown] Allergy/AdvReac Type Severity Reaction Status Date / Time neomycin Allergy unknown Verified 01/31/21 13:29 nickel Allergy Rash Verified 01/31/21 13:29 Penicillins [PCN] Allergy Hives Verified 01/31/21 13:29 Sulfa (Sulfonamide Allergy Rash Verified 01/31/21 13:29 Antibiotics) Family History Mother CAD (coronary artery disease) Daughter Heart disease cardiomyopathy Other Breast cancer Thyroid cancer Surgical History H/O abdominal surgery History of breast biopsy History of knee replacement History of tubal ligation Social History (Updated 02/05/22 @ 15:[address] Mao Oseguera MD) household members: other details: ex-. Smoking Status: Former smoker how long ago did patient quit smokin alcohol intake: current alcohol intake frequency: holidays/special occasions only substance use type: does not use caffeine: Yes (Take a caffeine tablet daily) ROS Constitutional Constitutional: Denies chills, fever(s) or weight gain ENT HEENT: Denies headache(s), nasal congestion or nasal discharge Cardiovascular Cardiovascular: Denies chest pain or palpitations Respiratory/Chest Respiratory/Chest: Denies cough, excessive phlegm production or shortness of breath with exertion Gastrointestinal Gastrointestinal: Denies abdominal pain, nausea or vomiting Genitourinary Genitourinary: Denies dysuria Musculoskeletal Musculoskeletal: Denies joint pain or joint swelling Integumentary Integumentary: Denies rash or wounds Neurologic Neurologic: Denies focal weakness, numbness or tingling Psychiatric Psychiatric: Denies anxiety, auditory hallucinations, depression, homicidal ideation or suicidal ideation Vital Signs Vital Signs Vital Signs: 02/05/22 14:44 02/05/22 14:44 Temperature 98.2 F Temperature Source Temporal Pulse Rate 96 Pulse Rhythm Regular Pulse Strength Normal (2+) Respiratory Rate 18 16 Respiratory Effort Normal Non-Labored Respiratory Depth Normal Respiratory Pattern Normal Blood Pressure 141/74 H Blood Pressure Mean 96 Blood Pressure Source Monitor Blood Pressure Position Sitting Blood Pressure Location Right Arm Pulse Ox 97 96 Oxygen Delivery Method Room Air Room Air Weight Weight: 81.873 kg Body Mass Index (BMI) 33.0 Physical Exam Const alert General Appearance: cooperative HEENT normocephalic Eyes PERRL and EOMs intact bilaterally Neck supple, no JVD and no carotid bruits Resp normal respiratory effort, normal air movement and clear to auscultation bilaterally Cardio regular rate and regular rhythm GI normal to inspection, nondistended, normoactive bowel sounds, non-tender and non-distended Extremity normal capillary refill General Extremity: Negative for edema Skin no rashes or lesions noted General Skin Exam: no breakdown Neuro Neuro Narrative: Left hemiparesis. Psych affect normal Appearance: appropriate Results Lab / Micro Data Result Diagrams: 02/06/22 05:37 02/06/22 05:37 Assessment & Plan Assessment/Plan (1) Debility: (2) Stroke: (3) Hypertension: (4) Retinal artery occlusion: (5) Depression: (6) Neurogenic bladder: (7) Attention deficit disorder: (8) Osteoarthritis: (9) Hyperlipidemia: (10) GERD (gastroesophageal reflux disease): (11) Diabetes mellitus: PLAN: Plan 76 year old female with below past medical history hospitalized for right sided stroke, admitted to [facility] 01/14/2022, transferred to TCU with debility, here for rehabilitation, strengthening, prior to discharge home with ex-. * Debility - PT/OT/ST. * Pain - Tylenol 1000mg q6h prn pain (1-10). * Bowel - senna/colace 2 tablets bid, MOM 30ml daily prn, Dulcolax 10mg pr daily prn. * Adult immunization - Administer pneumonia vaccine, covid19 vaccine, flu vaccine as appropriate. * DVT prophylaxis - Hold, on dual antiplatelet therapy. * Herpes simplex - Acyclovir 400mg bid. * Hypertension - Losartan 100mg daily, Amlodipine 2.5mg daily. * Vitamin C deficiency - Vitamin C 500mg daily. * Stroke - Aspirin 81mg daily, Plavix 75mg daily, consider anticoagulation with Dr. Patino. * Hyperlipidemia - Atorvastatin 80mg qhs, Constantia 3 1 gm daily. 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 * GERD - Pantoprazole 40mg daily, TUMS 500mg lunch. * Fibromyalgia - Gabapentin 100mg tidcm. * Hypomagnesemia - Magnesium chloride 64mg daily. * Nutrition - MVI daily. * Hypokalemia - KCL 10meq daily.
[2022-02-05] MEDS: buPROPion (SR) 150 MG Tablet.SA PO (17:18)
[2022-02-05] MEDS: Acyclovir 200 MG Capsule 400 MG PO (17:18)
[2022-02-05] MEDS: Gabapentin 100 MG Capsule PO (17:18)
[2022-02-05] MEDS: Senna/Docusate Sodium 1 Tablet 2 TABLET PO (17:19)
[2022-02-05] MEDS: Acetaminophen 500 MG Tablet PO (22:09)
[2022-02-05] MEDS: Atorvastatin Calcium 80 MG Tablet PO (22:10)
[2022-02-06 05:54] LABS: Absolute Lymphocyte Count 2.47 X10^3/uL (0.83-4.51); Basophil# 0.04 X10^3/uL; Basophil% 0.5 % (0-1); Eosinophils% 3.6 % (0-5); Hematocrit 38.6 % (37-47); Hemoglobin 12.1 g/dL (12.0-15.0); Lymphocyte # 2.47 X10^3/ul (0.83-4.51); Lymphocyte % 29.6 % (19-41); Mean Corp Hgb Conc 31.3 g/dL (32-36); Mean Corpuscular Hgb 29.4 pg (27.0-32.0); Mean Corpuscular Volume 93.9 fL (81-99); Mean Platelet Vol. 11.8 fl (6.2-12.0); Monocyte# 0.56 X10^3/uL; Monocyte% 6.7 % (0-10); NRBC Flagged by Analyzer 0 % (0-5); Neutrophil # 4.95 X10^3/uL (2.7-7.7); Neutrophil % 59.4 % (47-70); Platelet Count 231 K/mm3 (150-450); RBC Distribution Width CV 15.5 % (11.6-14.6); RBC Distribution Width SD 53.4 fl (35.1-43.9); Red Blood Count 4.11 M/mm3 (4.2-5.4); White Blood Count 8.3 K/mm3 (4.4-11.0)
[2022-02-06] MEDS: Acyclovir 200 MG Capsule 400 MG PO ×2 (06:13→16:55)
[2022-02-06] MEDS: Losartan Potassium 100 MG Tablet PO (06:13)
[2022-02-06] MEDS: Magnesium Chloride 64 MG Delay Rel.Tablet PO (06:13)
[2022-02-06] MEDS: Pantoprazole Sodium 40 MG Tablet PO (06:13)
[2022-02-06] MEDS: Ascorbic Acid 500 MG Tablet PO (06:13)
[2022-02-06] MEDS: amLODIPine 2.5 MG Tablet PO (06:14)
[2022-02-06] MEDS: buPROPion (SR) 150 MG Tablet.SA PO ×2 (06:14→16:56)
[2022-02-06] MEDS: Senna/Docusate Sodium 1 Tablet 2 TABLET PO ×2 (06:14→16:55)
[2022-02-06] MEDS: Clopidogrel Bisulfate 75 MG Tablet PO (06:14)
[2022-02-06] MEDS: Omega-3 Acid Ethyl Esters 1 GM Capsule PO (06:14)
[2022-02-06 06:17] VITALS: BP 148/64; PULSE 85
[2022-02-06 06:20] LABS: Anion Gap 8 (5-15); BUN 17 mg/dL (7-18); BUN/Creat Ratio 19.5 RATIO (10-20); Calcium,Total 9.1 mg/dL (8.5-10.1); Chloride 112 mmol/L (98-107); Creatinine, Serum 0.87 mg/dL (0.55-1.02); EST Glomerular Filtration Rate 67 mL/min (>60); Est Glom Filt Rate - Afr Amer 81 mL/min (>60); Estimated Creatinine Clearance 44.87 ml/min; Glucose 103 mg/dL (74-106); Sodium Level 142 mmol/L (136-145)
[2022-02-06] MEDS: Aspirin 81 MG TAB.CHEW PO (08:22)
[2022-02-06] MEDS: Gabapentin 100 MG Capsule PO ×3 (08:22→16:55)
[2022-02-06] MEDS: Potassium Chloride Oral Tablet 10 MEQ PO (08:22)
[2022-02-06] MEDS: Multivitamins,Ther W-Minerals Tablet 1 TABLET PO (08:23)
--- NOTE | 2022-02-06 10:26 | NURSING ---
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
[2022-02-06] MEDS: Calcium Carbonate 500 MG Tablet PO (12:24)
[2022-02-06] MEDS: Tuberculin,Purif.prot.deriv. 50 TU/ML Vial 0.1 ML ID (12:25)
--- NOTE | 2022-02-06 12:57 | PHA.CONS_ITS ---
TCU RX Drug Regimen Review Subjective: TCU Admission. 76 YOF presented to the ER with the complaint of not feeling right. Hospitalized for right sided stroke, admitted to [facility] 01/14/2022. Admitted to TCU with debility for strengthening and rehabilitation. Objective: Allergies neomycin Allergy (Verified 01/31/21 13:29) unknown nickel Allergy (Verified 01/31/21 13:29) Rash Penicillins [PCN] Allergy (Verified 01/31/21 13:29) Hives Sulfa (Sulfonamide Antibiotics) Allergy (Verified 01/31/21 13:29) Rash Current Medications Generic Name Dose Route Start Last Admin Trade Name Freq PRN Reason Stop Dose Admin Acetaminophen 500 mg 02/05/22 14:52 02/05/22 22:09 Acetaminophen 500 Mg Tablet PO 500 mg Q6H PRN Administration Pain 1-10 Acetaminophen 1,000 mg 02/05/22 15:58 Acetaminophen 500 Mg Tablet PO Q6H PRN PRN Pain Score 1-10 Acyclovir 400 mg 02/05/22 18:00 02/06/22 06:13 Acyclovir 200 Mg Capsule PO 400 mg BID CONNIE Administration Amlodipine Besylate 2.5 mg 02/06/22 06:00 02/06/22 06:14 Amlodipine 2.5 Mg Tablet PO 2.5 mg DAILY CONNIE Administration Ascorbic Acid 500 mg 02/06/22 06:00 02/06/22 06:13 Ascorbic Acid 500 Mg Tablet PO 500 mg DAILY CONNIE Administration Aspirin 81 mg 02/06/22 08:00 02/06/22 08:22 Aspirin 81 Mg Tab.Chew PO 81 mg BREAKFAST CONNIE Administration Atorvastatin Calcium 80 mg 02/05/22 22:00 02/05/22 22:10 Atorvastatin Calcium 80 Mg Tablet PO 80 mg QHS CONNIE Administration Bisacodyl 10 mg 02/05/22 14:52 Bisacodyl 10 Mg Suppository RC .PRN X 1 PRN Constipation Bupropion HCl 150 mg 02/05/22 18:00 02/06/22 06:14 Bupropion (Sr) 150 Mg Tablet.Sa PO 150 mg BID CONNIE Administration Calcium Carbonate 500 mg 02/06/22 12:00 02/06/22 12:24 Calcium Carbonate 500 Mg Tablet PO 500 mg LUNCH CONNIE Administration Clopidogrel Bisulfate 75 mg 02/06/22 06:00 02/06/22 06:14 Clopidogrel Bisulfate 75 Mg Tablet PO 75 mg DAILY CONNIE Administration Gabapentin 100 mg 02/05/22 17:45 02/06/22 12:24 Gabapentin 100 Mg Capsule PO 100 mg TIDCM CONNIE Administration Losartan Potassium 100 mg 02/06/22 06:00 02/06/22 06:13 Losartan Potassium 100 Mg Tablet PO 100 mg DAILY CONNIE Administration Magnesium Chloride 64 mg 02/06/22 06:00 02/06/22 06:13 Magnesium Chloride 64 Mg Delay Rel.Tablet PO 64 mg DAILY CONNIE Administration Magnesium Hydroxide 30 ml 02/05/22 14:52 Magnesium Hydroxide 30 Ml Udc PO .PRN X 1 PRN Constipation Multivitamins/Minerals 1 tablet 02/06/22 08:00 02/06/22 08:23 Multivitamins,Ther W-Minerals Tablet PO 1 tablet BREAKFAST CONNIE Administration [id number] Ethyl Esters 1 gm 02/06/22 06:00 02/06/22 06:14 [place]-3 Acid Ethyl Esters 1 Gm Capsule PO 1 gm DAILY CONNIE Administration Pantoprazole Sodium 40 mg 02/06/22 06:00 02/06/22 06:13 Pantoprazole Sodium 40 Mg Tablet PO 40 mg DAILY CONNIE Administration Potassium Chloride 10 meq 02/06/22 08:00 02/06/22 08:22 Potassium Chloride Oral Tablet 10 Meq PO 10 meq BREAKFAST CONNIE Administration Senna/Docusate Sodium 2 tablet 02/05/22 18:00 02/06/22 06:14 Senna/Docusate Sodium 1 Tablet PO 1 tablet BID CONNIE Administration Tuberculin PPD 0.1 ml 02/13/22 10:00 Tuberculin,Purif.Prot.Deriv. 50 Tu/Ml Vial ID 02/13/22 10:01 X1 ONE Problem List (Last Reviewed 02/05/22 @ 15:[address] Mao Oseguera MD) Diabetes mellitus (Acute) GERD (gastroesophageal reflux disease) (Acute) Hyperlipidemia (Acute) Osteoarthritis (Acute) Attention deficit disorder (Acute) Neurogenic bladder (Acute) Depression (Acute) Retinal artery occlusion (Acute) Hypertension (Chronic) Stroke (Acute) Debility (Acute) Vital Signs Temp Pulse Resp BP Pulse Ox O2 Del Method 98.2 F 85 16 148/64 H 96 Room Air 02/05/22 14:44 02/06/22 06:17 02/05/22 14:44 02/06/22 06:17 02/05/22 14:44 02/05/22 14:44 Oxygen Delivery Method Room Air Weight: 81.873 kg Body Mass Index (BMI) 33.0 Sodium 142 mmol/L (136-145) 02/06/22 05:37 Potassium 4.0 mmol/L (3.5-5.1) 02/06/22 05:37 Chloride 112 mmol/L (98-107) H 02/06/22 05:37 Carbon Dioxide 22.0 mmol/L (21.0-32.0) 02/06/22 05:37 Anion Gap 8 (5-15) 02/06/22 05:37 BUN 17 mg/dL (7-18) 02/06/22 05:37 Creatinine 0.87 mg/dL (0.55-1.02) 02/06/22 05:37 Est GFR (MDRD) Af Amer 81 mL/min (>60) 02/06/22 05:37 Est GFR (MDRD) Non-Af 67 mL/min (>60) 02/06/22 05:37 BUN/Creatinine Ratio 19.5 RATIO (10-20) 02/06/22 05:37 Glucose 103 mg/dL (74-106) 02/06/22 05:37 Assessment/Plan: 1. Pain: acetaminophen 1000mg PO Q6H PRN pain 1-10. Resident has had 1 dose so far for generalized pain of 2. Please continue to monitor for S/S of increased pain and PRN usage. 2. Bowel: senna/docusate 2T PO BID, MOM 30mL PO x1 PRN constipation and bisacodyl 10mg RC x1 PRN constipation. Resident has not had any PRN doses. Last documented bowel movement on 02/05. Please continue to monitor for constipation and PRN usage. 3. Hypertension: losartan 100mg PO daily and amlodipine 2.5mg PO daily. Please continue to monitor for BP (last 148/64), potassium (last 4mmol/L), renal function, and swelling. 4. Stroke: aspirin?81 mg?PO daily and clopidogrel 75 mg PO daily.?Please continue to?monitor?S/S of bleeding/blood clot and hemoglobin (last 12.1g/dL). 5. Hyperlipidemia: atorvastatin 80mg PO QHS and omega 3 1gm PO daily. Please continue to?monitor?lipids (last 01/13/2022), LFT (last 01/15/22), and muscle pain.?? 6. GERD: pantoprazole?40 mg?PO daily and Tums?500 mg?PO?at lunch. Please continue to?monitor?for S/S of GERD, calcium (last 9.1mg/dL), and diarrhea (BEERs medication, increased risk of C. diff infections while taking prolonged course of pantoprazole).?? 7. Herpes simplex virus: acyclovir?400 mg?PO?BID. Please continue to monitor?renal function and S/S of flare. 8. Nutrition/vitamin C deficiency/hypokalemia/hypomagnesemia: multivitamin with minerals 1T PO breakfast, magnesium chloride 64mg PO daily, ascorbic acid 500mg PO daily and potassium chloride 10mEq PO breakfast. Please continue to monitor potassium (last 4mmol/L) and magnesium (last 2.1mg/dL). Assessment/Plan for indications treated with psychotropic medications: 1. Depression: bupropion XL?150 mg?PO?BID. Please see physician note regrading GDR. Please continue to?monitor?for suicidal ideation (black box warning), BP,?HR?(last 85 bpm), and?weight (last 81.8 kg).? 2. Fibromyalgia: gabapentin 100mg PO TIDCM. Please continue to monitor for S/S of pain, renal function and confusion. GDR not appropriate at this time, resident using for fibromyalgia. Medical chart and medication regimen reviewed. The following medication irregularities or issues were identified: None Date of Note:: 02/06/22
[2022-02-06] MEDS: Acetaminophen 500 MG Tablet 1000 MG PO (13:41)
[2022-02-06 16:00] VITALS: BP 136/65; PULSE 91; RESP 14; TEMP 36.6; O2SAT 96
[2022-02-06 21:00] VITALS: PULSE 85; RESP 18; O2SAT 98
[2022-02-06] MEDS: Atorvastatin Calcium 80 MG Tablet PO (21:13)
[2022-02-07 06:00] VITALS: BP 125/55; PULSE 84; RESP 16; TEMP 36.4
[2022-02-07] MEDS: Omega-3 Acid Ethyl Esters 1 GM Capsule PO (06:33)
[2022-02-07] MEDS: Magnesium Chloride 64 MG Delay Rel.Tablet PO (06:33)
[2022-02-07] MEDS: Clopidogrel Bisulfate 75 MG Tablet PO (06:33)
[2022-02-07] MEDS: buPROPion (SR) 150 MG Tablet.SA PO ×2 (06:33→18:01)
[2022-02-07] MEDS: Acyclovir 200 MG Capsule 400 MG PO ×2 (06:33→18:01)
[2022-02-07] MEDS: Senna/Docusate Sodium 1 Tablet 2 TABLET PO (06:33)
[2022-02-07] MEDS: Pantoprazole Sodium 40 MG Tablet PO (06:33)
[2022-02-07] MEDS: Ascorbic Acid 500 MG Tablet PO (06:34)
[2022-02-07] MEDS: amLODIPine 2.5 MG Tablet PO (06:34)
[2022-02-07] MEDS: Acetaminophen 500 MG Tablet 1000 MG PO (06:38)
--- NOTE | 2022-02-07 07:31 | NURSING ---
PT. REPORTS RIGHT FLANK PAIN, STATES HX OF UTI WITH SAME SYMPTOM, PATIENT REQUESTS UA, WRITTEN COMMUNICATION LEFT FOR DR. ORTIZ REGARDING PATIENT REQUEST. NO C/O DYSURIA, AFEBRILE
[2022-02-07] MEDS: Aspirin 81 MG TAB.CHEW PO (08:10)
[2022-02-07] MEDS: Potassium Chloride Oral Tablet 10 MEQ PO (08:10)
[2022-02-07] MEDS: Losartan Potassium 100 MG Tablet PO (08:10)
[2022-02-07] MEDS: Multivitamins,Ther W-Minerals Tablet 1 TABLET PO (08:10)
[2022-02-07] MEDS: Gabapentin 100 MG Capsule PO ×3 (08:10→18:00)
--- NOTE | 2022-02-07 08:34 | NURSING ---
pt c/o rt flank pain per setter out report, history of UTIs when getting this kind of pain. also reported frequency and not being able to empty bladder. dr gillespie notified, new order for UA c&s. pt udpated
[2022-02-07 09:17] LABS: Mucous, Urine 0 SEEN /hpf (<or=2+); Red Blood Cells-Urine 0 SEEN /hpf (0-5); Squamous Epithelial Cells - UA 0 SEEN /hpf (5-10)
[2022-02-07 09:24] LABS: Color, Urine Yellow (Yellow); Glucose, Dipstick Normal (Normal); Ketone-Dipstick Negative (Negative); Leukocyte Esterase-Dipstick 100 /ul (Negative); Nitrite-Dipstick Positive (Negative); Occult Blood-Urine Negative /ul (Negative); Protein-Dipstick Negative (Negative); Urine Bilirubin Dipstick Negative (Negative); Urine Clarity Clear (Clear); Urine Urobilinogen Normal (Normal)
[2022-02-07 09:38] LABS: Bacteria 2+ /hpf (None Seen); White Blood Cells 0-5 SEEN /hpf (0-5)
[2022-02-07] MEDS: Calcium Carbonate 500 MG Tablet PO (12:20)
[2022-02-07] MEDS: Ciprofloxacin 250 MG Tablet PO ×2 (12:20→20:07)
[2022-02-07 14:39] VITALS: BP 122/75; PULSE 96; RESP 14; TEMP 36.6; O2SAT 94
[2022-02-07] MEDS: Atorvastatin Calcium 80 MG Tablet PO (20:07)
[2022-02-07 21:00] VITALS: PULSE 96; RESP 16; O2SAT 97
[2022-02-08] MEDS: Acetaminophen 500 MG Tablet 1000 MG PO (06:37)
[2022-02-08] MEDS: amLODIPine 2.5 MG Tablet PO (06:38)
[2022-02-08] MEDS: Ciprofloxacin 250 MG Tablet PO ×2 (06:38→16:52)
[2022-02-08] MEDS: buPROPion (SR) 150 MG Tablet.SA PO ×2 (06:38→16:53)
[2022-02-08] MEDS: Clopidogrel Bisulfate 75 MG Tablet PO (06:38)
[2022-02-08] MEDS: Ascorbic Acid 500 MG Tablet PO (06:38)
[2022-02-08] MEDS: Omega-3 Acid Ethyl Esters 1 GM Capsule PO (06:38)
[2022-02-08] MEDS: Pantoprazole Sodium 40 MG Tablet PO (06:38)
[2022-02-08] MEDS: Acyclovir 200 MG Capsule 400 MG PO ×2 (06:38→16:54)
[2022-02-08] MEDS: Magnesium Chloride 64 MG Delay Rel.Tablet PO (06:38)
[2022-02-08] MEDS: Potassium Chloride Oral Tablet 10 MEQ PO (08:05)
[2022-02-08] MEDS: Gabapentin 100 MG Capsule PO ×3 (08:05→16:51)
[2022-02-08] MEDS: Losartan Potassium 100 MG Tablet PO (08:05)
[2022-02-08] MEDS: Aspirin 81 MG TAB.CHEW PO (08:05)
[2022-02-08] MEDS: Multivitamins,Ther W-Minerals Tablet 1 TABLET PO (08:05)
--- NOTE | 2022-02-08 09:30 | CASEMGMT ---
Social Work IDT met with patient and dtr for care plan meeting. Discussed patient's progress in PT/OT/SN. Educated to Medicare benefit. Pt is progressing well. Therapy agreed to have pt adlib. SW offered to set DC date. Pt agreeable to DC 02/12 home with [facility]. No DME needs. Pt had some questions about the patient portal and bills received from hospitalization. SW offered to have medical records and PFS contact pt to answer questions. Pt appreciative. SW contacted both departments and they will contact pt. Faxed script to [facility]. Plan: DC home 02/12, [facility] ANTONY MontanoW
[2022-02-08] MEDS: Calcium Carbonate 500 MG Tablet PO (12:59)
[2022-02-08 15:53] VITALS: BP 119/62; PULSE 89; RESP 16; TEMP 36.5; O2SAT 96
[2022-02-08] MEDS: Senna/Docusate Sodium 1 Tablet 2 TABLET PO (16:52)
--- NOTE | 2022-02-08 19:03 | PCM.DC.SUM ---
Providers Date of Admission: 02/05/22 Primary Care Physician: Dr. Susan Tello DO Reason For Visit: MULTIPLE EMBOLIC STROKES R SIDE OF BRAIN Diagnosis Discharge Diagnosis (1) Debility: Status: Acute Code(s): R53.81 - Other malaise (2) Stroke: Status: Acute Code(s): I63.9 - Cerebral infarction, unspecified (3) Hypertension: Status: Chronic Code(s): I10 - Essential (primary) hypertension (4) Retinal artery occlusion: Status: Acute Code(s): H34.9 - Unspecified retinal vascular occlusion (5) Depression: Status: Acute Code(s): F32.A - Depression, unspecified (6) Neurogenic bladder: Status: Acute Code(s): N31.9 - Neuromuscular dysfunction of bladder, unspecified (7) Attention deficit disorder: Status: Acute Code(s): F98.8 - Other specified behavioral and emotional disorders with onset usually occurring in childhood and adolescence (8) Osteoarthritis: Status: Acute Code(s): M19.90 - Unspecified osteoarthritis, unspecified site (9) Hyperlipidemia: Status: Acute Code(s): E78.5 - Hyperlipidemia, unspecified (10) GERD (gastroesophageal reflux disease): Status: Acute Code(s): K21.9 - Gastro-esophageal reflux disease without esophagitis (11) Diabetes mellitus: Status: Acute Code(s): E11.9 - Type 2 diabetes mellitus without complications Plan 76 year old female with below past medical history hospitalized for right sided stroke, admitted to [facility] 01/14/2022, transferred to TCU with debility, here for rehabilitation, strengthening, prior to discharge home with ex-. Debility - PT/OT/ST. Pain - Tylenol 1000mg q6h prn pain (1-10). Bowel - senna/colace 2 tablets bid, MOM 30ml daily prn, Dulcolax 10mg pr daily prn. Adult immunization - Administer pneumonia vaccine, covid19 vaccine, flu vaccine as appropriate. DVT prophylaxis - Hold, on dual antiplatelet therapy. Herpes simplex - Acyclovir 400mg bid. Hypertension - Losartan 100mg daily, Amlodipine 2.5mg daily. Vitamin C deficiency - Vitamin C 500mg daily. Stroke - Aspirin 81mg daily, Plavix 75mg daily, consider anticoagulation with Dr. Carey. Hyperlipidemia - Atorvastatin 80mg qhs, [place] 3 1 gm daily. 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 GERD - Pantoprazole 40mg daily, TUMS 500mg lunch. Fibromyalgia - Gabapentin 100mg tidcm. Hypomagnesemia - Magnesium chloride 64mg daily. Nutrition - MVI daily. Hypokalemia - KCL 10meq daily. Medications at Discharge Home Medications acyclovir 400 mg tablet 400 mg PO BID herpes 06/14/15 bupropion HCl 150 mg 24 hr tablet, extended release 150 mg PO BID depression 06/14/15 glucosamine HCl 500 mg-msm 83 mg-chondroitin 400 mg tablet 1 ea PO DAILY supplement 07/19/16 ascorbate calcium (vitamin C) 500 mg tablet 500 mg PO DAILY supplements 09/05/18 magnesium 30 mg tablet 30 mg PO DAILY supplement 06/20/20 amlodipine 5 mg tablet 2.5 mg PO DAILY BP 01/31/21 biotin 10,000 mcg-keratin 100 mg tablet 1 tab PO DAILY supplement 01/13/22 omega 0-ddg-reu-fish oil 1,200 mg (144 mg-216 mg) capsule (Fish Oil) 1,200 cap PO DAILY supplement 01/13/22 aspirin 81 mg chewable tablet 81 mg PO BREAKFAST stroke 01/14/22 calcium carbonate 200 mg calcium (500 mg) chewable tablet 500 mg PO LUNCH Supplement 02/05/22 losartan 100 mg tablet 100 mg PO DAILY BP 02/05/22 multivitamin-iron 9 mg-folic acid 400 mcg-calcium and minerals tablet (High Potency Multivitamin (w-iron)) 1 tab PO BREAKFAST Supplement 02/05/22 acetaminophen 500 mg tablet 1,000 mg PO Q6H PRN PRN Pain Score 1-10 #0 tabs 02/08/22 atorvastatin 80 mg tablet 80 mg PO QHS 30 days #30 tabs 02/08/22 ciprofloxacin HCl 250 mg tablet 250 mg PO BID 3 days #6 tabs 02/08/22 clopidogrel 75 mg tablet 75 mg PO DAILY 30 days #30 tabs 02/08/22 gabapentin 100 mg capsule 100 mg PO TIDCM 30 days #90 caps 02/08/22 pantoprazole 40 mg tablet,delayed release 40 mg PO DAILY 30 days #30 tabs 02/08/22 potassium chloride 10 mEq tablet,extended release(part/cryst) 10 meq PO BREAKFAST 30 days #30 tabs 02/08/22 Hospital Course Operations None Procedures None Summary of Care Provided Minutes Spent on Discharge: 35 Hospital Course: 76 year old female with below past medical history hospitalized for right sided stroke, admitted to [facility] 01/14/2022, transferred to TCU with debility, here for rehabilitation, strengthening, prior to discharge home with ex-. 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 Discharge home 02/12/2022, [facility]. Physical Exam Const alert General Appearance: cooperative HEENT normocephalic Eyes PERRL and EOMs intact bilaterally Neck supple, no JVD and no carotid bruits Resp normal respiratory effort, normal air movement and clear to auscultation bilaterally Cardio regular rate and regular rhythm GI normal to inspection, nondistended, normoactive bowel sounds, non-tender and non-distended Extremity normal capillary refill General Extremity: Negative for edema Skin no rashes or lesions noted General Skin Exam: no breakdown Psych affect normal Appearance: appropriate Weight / BMI Weight Weight: 82.809 kg Body Mass Index (BMI) 33.0 ABG / Lab / Microbiology Data Result Diagrams: 02/06/22 05:37 02/06/22 05:37 Microbiology: Microbiology 02/07/22 09:15 Urine, Catheterized Urine Culture - Preliminary GNR lactose manager of housekeeping 02/07/22 06:55 Nasal Secretion SARS-CoV-2 Antigen (Rapid) - Final D/C Instructions Discharge Diet: No restrictions Discharge Activity: Return to Normal Activity, May Shower and Use Walker Weight Bearing Status: Weight bearing as tolerated Call your doctor if you observe: Fever of 101 or Higher, Inability to urinate, Inability to have a bowel movement, Shortness of breath, Dizziness, Fainting spells, Swelling in the ankles, Chest pain and Uncontrolled pain Additional Instructions: Discharge home 02/12/2022, [facility]. Meaningful Use Info Meaningful Use Diagnoses (Choose all that apply): Ischemic CVA CVA Therapy Assessed for PT,OT and/or ST?: Yes Ischemic Stroke Antithrombotic order at d/c?: Yes Dx of Atrial fib/flutter?: No Statins at discharge?: Yes Primary Dx Acute Ischemic CVA?: Yes IV tPA ordered during stay?: No Reason IV t-PA not ordered: Procedure not Indicated Discharge Plan Admission Admit Date/Time: 02/05/22 14:25 Primary Reason for Your Visit: Debility. Attending Provider: Mao Oseguera Chi Primary Care Provider: Susan Tello Instructions Additional Instructions / Restrictions: Discharge home 02/12/2022, [facility]. Discharge Orders/Prescriptions Prescriptions: New atorvastatin 80 mg Tablet 80 mg PO QHS 30 Days Qty: 30 0RF clopidogrel 75 mg Tablet 75 mg PO DAILY 30 Days Qty: 30 0RF pantoprazole 40 mg Tablet,Delayed Release (Dr/Ec) 40 mg PO DAILY 30 Days Qty: 30 0RF gabapentin 100 mg Capsule 100 mg PO TIDCM 30 Days Qty: 90 0RF potassium chloride 10 mEq Tablet,Er Particles/Crystals 10 meq PO BREAKFAST 30 Days Qty: 30 0RF ciprofloxacin HCl 250 mg Tablet 250 mg PO BID 3 Days Qty: 6 0RF acetaminophen 500 mg Tablet 1,000 mg PO Q6H PRN PRN (Reason: Pain Score 1-10) Qty: 0 0RF Continued ascorbate calcium (vitamin C) 500 mg tablet 500 mg PO DAILY magnesium 30 mg tablet 30 mg PO DAILY acyclovir 400 MG tablet 400 mg PO BID bupropion HCl 150 MG tablet extended release 24 hr 150 mg PO BID glucosamine SIm-zyp-iqdpijcoyp 1 EACH tablet 1 ea PO DAILY amlodipine 5 mg tablet 2.5 mg PO DAILY omega 0-dlm-bbs-fish oil [Fish Oil] 1,200 (144-216) mg Capsule 1,200 cap PO DAILY biotin-keratin 10,000-100 mcg-mg Tablet 1 tab PO DAILY aspirin 81 mg tablet,chewable 81 mg PO BREAKFAST calcium carbonate 200 mg calcium (500 mg) tablet,chewable 500 mg PO LUNCH losartan 100 mg tablet 100 mg PO DAILY High Potency Multivit (w-iron) 9 mg iron-400 mcg tablet 1 tab PO BREAKFAST Discontinued pantoprazole 40 mg packet 40 mg PO DAILY Label Comments: acetaminophen [Acetaminophen Pain Relief] 500 mg Tablet 500 mg PO Q6H PRN (Reason: Pain) atorvastatin 80 mg tablet 80 mg PO QHS clopidogrel [Plavix] 75 mg tablet 75 mg PO DAILY magnesium hydroxide 400 mg/5 mL Suspension 30 ml PO .PRN X 1 PRN (Reason: Constipation) Qty: 0 0RF bisacodyl 10 mg Suppository 10 mg IA .PRN X 1 PRN (Reason: Constipation) Qty: 0 0RF sennosides-docusate sodium [Stool Softener-Stimulant Laxat] 8.6-50 mg tablet 2 tab PO BID gabapentin 100 mg capsule 100 mg PO TIDCM potassium chloride 10 mEq tablet,ER particles/crystals 10 meq PO BREAKFAST Referrals / Follow Up: Susan Tello DO [Primary Care Provider] - Disposition Disposition (needs filled in before D/C Order can be placed): Home, Self Care
[2022-02-08] MEDS: Atorvastatin Calcium 80 MG Tablet PO (19:35)
[2022-02-09 05:20] VITALS: BP 128/80; PULSE 100
[2022-02-09] MEDS: Senna/Docusate Sodium 1 Tablet 2 TABLET PO ×2 (05:22→17:19)
[2022-02-09] MEDS: Magnesium Chloride 64 MG Delay Rel.Tablet PO (05:23)
[2022-02-09] MEDS: Ascorbic Acid 500 MG Tablet PO (05:23)
[2022-02-09] MEDS: Pantoprazole Sodium 40 MG Tablet PO (05:23)
[2022-02-09] MEDS: Omega-3 Acid Ethyl Esters 1 GM Capsule PO (05:23)
[2022-02-09] MEDS: Clopidogrel Bisulfate 75 MG Tablet PO (05:23)
[2022-02-09] MEDS: amLODIPine 2.5 MG Tablet PO (05:23)
[2022-02-09] MEDS: buPROPion (SR) 150 MG Tablet.SA PO ×2 (05:23→17:20)
[2022-02-09] MEDS: Ciprofloxacin 250 MG Tablet PO ×2 (05:24→17:19)
[2022-02-09] MEDS: Acyclovir 200 MG Capsule 400 MG PO ×2 (05:25→17:20)
[2022-02-09] MEDS: Acetaminophen 500 MG Tablet 1000 MG PO ×2 (07:00→21:40)
[2022-02-09] MEDS: Losartan Potassium 100 MG Tablet PO (08:03)
[2022-02-09] MEDS: Gabapentin 100 MG Capsule PO ×3 (08:03→17:23)
[2022-02-09] MEDS: Multivitamins,Ther W-Minerals Tablet 1 TABLET PO (08:03)
[2022-02-09] MEDS: Aspirin 81 MG TAB.CHEW PO (08:03)
[2022-02-09] MEDS: Potassium Chloride Oral Tablet 10 MEQ PO (08:03)
[2022-02-09 10:37] VITALS: PULSE 84; RESP 18; O2SAT 95
--- NOTE | 2022-02-09 11:20 | NURSING ---
heart monitor intact and phone stating it is monitoring. batteries good in phone and monitor.
--- NOTE | 2022-02-09 11:54 | NURSING ---
message left with Dr Padilla office regarding needing an appt for recent CVA, discharging on Sunday.. awaiting return call.
[2022-02-09] MEDS: Calcium Carbonate 500 MG Tablet PO (12:07)
[2022-02-09 15:00] VITALS: BP 117/66; PULSE 84; RESP 16; TEMP 36.7; O2SAT 96
[2022-02-09] MEDS: Atorvastatin Calcium 80 MG Tablet PO (21:40)
[2022-02-10] MEDS: Senna/Docusate Sodium 1 Tablet 2 TABLET PO ×2 (05:35→17:09)
[2022-02-10] MEDS: Magnesium Chloride 64 MG Delay Rel.Tablet PO (05:35)
[2022-02-10] MEDS: Acetaminophen 500 MG Tablet 1000 MG PO (05:35)
[2022-02-10] MEDS: Omega-3 Acid Ethyl Esters 1 GM Capsule PO (05:36)
[2022-02-10] MEDS: buPROPion (SR) 150 MG Tablet.SA PO ×2 (05:36→17:09)
[2022-02-10] MEDS: Pantoprazole Sodium 40 MG Tablet PO (05:36)
[2022-02-10] MEDS: Ascorbic Acid 500 MG Tablet PO (05:36)
[2022-02-10] MEDS: Ciprofloxacin 250 MG Tablet PO ×2 (05:36→17:09)
[2022-02-10] MEDS: amLODIPine 2.5 MG Tablet PO (05:36)
[2022-02-10] MEDS: Acyclovir 200 MG Capsule 400 MG PO ×2 (05:36→17:09)
[2022-02-10] MEDS: Clopidogrel Bisulfate 75 MG Tablet PO (05:36)
[2022-02-10 05:42] VITALS: BP 146/71; PULSE 93; RESP 16
[2022-02-10] MEDS: Potassium Chloride Oral Tablet 10 MEQ PO (07:40)
[2022-02-10] MEDS: Losartan Potassium 100 MG Tablet PO (07:41)
[2022-02-10] MEDS: Multivitamins,Ther W-Minerals Tablet 1 TABLET PO (07:41)
[2022-02-10] MEDS: Aspirin 81 MG TAB.CHEW PO (07:41)
[2022-02-10] MEDS: Gabapentin 100 MG Capsule PO ×3 (07:43→17:09)
--- NOTE | 2022-02-10 08:47 | NURSING ---
heart monitor strip and sensor replaced this AM after pt had shower. phone states batteries are at 100% & good skin contact.
--- NOTE | 2022-02-10 09:18 | CASEMGMT ---
Social Work BIMS and PHQ-9 completed for MDS assessment. Brunilda Aggarwal, [employer] MOLD FILLER ELECTRONIC CONSOLE DISPLAY OPERATOR
--- NOTE | 2022-02-10 10:48 | MDS.RN ---
Pain interview for MADELAINE 02/12/22 completed.
--- NOTE | 2022-02-10 11:13 | NURSING ---
Dr Padilla's office has not returned call yet for referral appt. attempted to call again and recording stated they are closed on Fridays. will udpated pt and have her check back on Sunday.
[2022-02-10] MEDS: Calcium Carbonate 500 MG Tablet PO (11:26)
[2022-02-10 13:53] VITALS: BP 132/61; PULSE 97; RESP 16; TEMP 37.2; O2SAT 95
[2022-02-10] MEDS: Atorvastatin Calcium 80 MG Tablet PO (20:33)
[2022-02-10 21:55] VITALS: PULSE 83; RESP 16; O2SAT 98
[2022-02-11] MEDS: Ciprofloxacin 250 MG Tablet PO ×2 (05:16→17:19)
[2022-02-11] MEDS: Magnesium Chloride 64 MG Delay Rel.Tablet PO (05:16)
[2022-02-11] MEDS: Pantoprazole Sodium 40 MG Tablet PO (05:16)
[2022-02-11] MEDS: Omega-3 Acid Ethyl Esters 1 GM Capsule PO (05:16)
[2022-02-11] MEDS: Senna/Docusate Sodium 1 Tablet 2 TABLET PO ×2 (05:16→17:18)
[2022-02-11] MEDS: Clopidogrel Bisulfate 75 MG Tablet PO (05:16)
[2022-02-11] MEDS: amLODIPine 2.5 MG Tablet PO (05:16)
[2022-02-11] MEDS: Acyclovir 200 MG Capsule 400 MG PO ×2 (05:17→17:19)
[2022-02-11] MEDS: Ascorbic Acid 500 MG Tablet PO (05:17)
[2022-02-11] MEDS: buPROPion (SR) 150 MG Tablet.SA PO ×2 (05:17→17:18)
[2022-02-11 05:20] VITALS: BP 126/83; PULSE 102
[2022-02-11 07:50] VITALS: BP 136/67; PULSE 86
[2022-02-11] MEDS: Losartan Potassium 100 MG Tablet PO (07:50)
[2022-02-11] MEDS: Aspirin 81 MG TAB.CHEW PO (07:50)
[2022-02-11] MEDS: Multivitamins,Ther W-Minerals Tablet 1 TABLET PO (07:51)
[2022-02-11] MEDS: Potassium Chloride Oral Tablet 10 MEQ PO (07:51)
[2022-02-11] MEDS: Gabapentin 100 MG Capsule PO ×3 (07:54→17:18)
[2022-02-11 10:00] VITALS: PULSE 85; RESP 16; O2SAT 99
[2022-02-11 11:56] VITALS: BP 129/74; PULSE 85; RESP 14; TEMP 36.9; O2SAT 99
[2022-02-11] MEDS: Calcium Carbonate 500 MG Tablet PO (12:00)
[2022-02-11] MEDS: Atorvastatin Calcium 80 MG Tablet PO (20:42)
[2022-02-12 06:25] VITALS: BP 153/84; PULSE 95; RESP 18; O2SAT 98
[2022-02-12] MEDS: Acyclovir 200 MG Capsule 400 MG PO (06:28)
[2022-02-12] MEDS: Magnesium Chloride 64 MG Delay Rel.Tablet PO (06:29)
[2022-02-12] MEDS: Ciprofloxacin 250 MG Tablet PO (06:29)
[2022-02-12] MEDS: Omega-3 Acid Ethyl Esters 1 GM Capsule PO (06:29)
[2022-02-12] MEDS: buPROPion (SR) 150 MG Tablet.SA PO (06:29)
[2022-02-12] MEDS: Pantoprazole Sodium 40 MG Tablet PO (06:29)
[2022-02-12] MEDS: Acetaminophen 500 MG Tablet 1000 MG PO (06:29)
[2022-02-12] MEDS: Clopidogrel Bisulfate 75 MG Tablet PO (06:29)
[2022-02-12] MEDS: amLODIPine 2.5 MG Tablet PO (06:30)
[2022-02-12] MEDS: Ascorbic Acid 500 MG Tablet PO (06:31)
[2022-02-12] MEDS: Gabapentin 100 MG Capsule PO (08:51)
[2022-02-12] MEDS: Potassium Chloride Oral Tablet 10 MEQ PO (08:52)
[2022-02-12] MEDS: Aspirin 81 MG TAB.CHEW PO (08:52)
[2022-02-12] MEDS: Losartan Potassium 100 MG Tablet PO (08:54)
[2022-02-12] MEDS: Multivitamins,Ther W-Minerals Tablet 1 TABLET PO (08:54)
[2022-02-12 09:55] VITALS: BP 157/86; PULSE 105; RESP 16; TEMP 36.7; O2SAT 100
[2022-02-12 10:00] VITALS: PULSE 105; RESP 16; O2SAT 100
--- NOTE | 2022-02-13 09:17 | NURSING ---
Basting Machine Operator Note; MDS for 02/12/2022 Complete
--- NOTE | 2022-02-14 07:45 | MDS.RN ---
Information for the mds was obtained from review of the clinical record, interview of resident, staff, and direct observation of resident's care.
== END 2022-02-12 10:00 | disposition home or self-care (01) | DRG 57 ==
PROVIDERS: Admitting Provider Family Medicine Geriatric Medicine; PCP Internal Medicine; Referring Provider Family Medicine Geriatric Medicine; Visit Provider Family Medicine Geriatric Medicine
DX: I69.354 Hemiplegia and hemiparesis following cerebral infarction affecting left non-dominant side (principal); N39.0 Urinary tract infection, site not specified; B00.9 Herpesviral infection, unspecified; E11.9 Type 2 diabetes mellitus without complications; I10 Essential (primary) hypertension; E78.5 Hyperlipidemia, unspecified; K21.9 Gastro-esophageal reflux disease without esophagitis; E87.6 Hypokalemia; M79.7 Fibromyalgia; Z79.82 Long term (current) use of aspirin; Z87.891 Personal history of nicotine dependence; F32.A Depression, unspecified; N31.9 Neuromuscular dysfunction of bladder, unspecified; Z79.02 Long term (current) use of antithrombotics/antiplatelets; Z79.899 Other long term (current) drug therapy
CPT/HCPCS: 36415; 80048; 81001; 85025; 87077; 87086; 87088; 87186; 87426; 92523; 97110; 97112; 97116; 97162; 97166; 97530; 97535; 97802

== ENCOUNTER → 2022-03-03 | Outpatient (CLI) | payer BC, SELFPAY ==
--- NOTE | 2022-03-03 12:33 | BI_ITS ---
MAMMOGRAPHY - BILATERAL SCREENING REASON FOR EXAM: Female, 76 years old. Routine annual screening examination. PERTINENT HISTORY: Sister with breast cancer. Aunt with breast cancer. Remote left excisional breast biopsy. TECHNIQUE: Digital bilateral breast marisa (3D mammographic acquisition) in the CC and MLO projections. 2-D mediolateral oblique (MLO) and craniocaudad (CC) views of both breasts were obtained. CAD: Full Field Digital Mammography with Computer Added Detection was performed. COMPARISON: Comparison is made with prior study 02/04/2021 and 01/29/2020. FINDINGS: Breast Composition: The breasts are heterogeneously dense, which may obscure small masses. There are no dominant masses or suspicious calcifications. 6 mm x 7.5 mm well-defined nodule in the anterior upper lateral aspect of the left breast. Correlation with ultrasound is recommended. No other significant abnormalities are identified. BI/SCRN MAMM (CAD)W/MARISA BILAT IMPRESSION: 6 mm x 7.5 mm well-defined nodule in the anterior upper lateral aspect of the left breast. Correlation with ultrasound is recommended. ASSESSMENT CATEGORY: BIRADS Category 0: Incomplete. Need additional imaging evaluation. A letter regarding these results will be sent to the patient by the facility within 30 days. Approximately 10% of breast cancers are not detected by mammography. A normal mammogram should not delay biopsy of a clinically suspicious abnormality. [id number] Electronically Signed: Alexander De Paz MD at 13:27 EST ,
== END | disposition home or self-care (01) ==
LOC: OPBI 12:31
PROVIDERS: PCP Internal Medicine; Visit Provider Internal Medicine
DX: Z12.31 Encounter for screening mammogram for malignant neoplasm of breast (principal); N63.20 Unspecified lump in the left breast, unspecified quadrant; Z80.3 Family history of malignant neoplasm of breast; Z92.89 Personal history of other medical treatment; Z78.0 Asymptomatic menopausal state
CPT/HCPCS: 77063; 77067

== ENCOUNTER 2022-03-06 10:48 | Outpatient (CLI) | payer BC, SELFPAY ==
[2022-03-06 11:24] VITALS: BP 125/77; PULSE 81; RESP 16; TEMP 36.7; O2SAT 100; BMI 34.0
[2022-03-06] MEDS: Zoledronic Acid 5 MG 100 ML 300 MG IV (12:12)
[2022-03-06] MEDS: 0.9% NaCl Peripheral Flush Adult/Peds IV (12:12)
[2022-03-06] MEDS: 0.9% NaCl IVPB Med Flush (250 mL) 15 ML IV (12:12)
[2022-03-06 12:38] VITALS: BP 129/69; PULSE 78; RESP 16; TEMP 36.6; O2SAT 99
== END 2022-03-06 23:59 | disposition home or self-care (01) ==
LOC: MEDOUTP 10:49
PROVIDERS: PCP Internal Medicine; Referring Provider Internal Medicine; Visit Provider Internal Medicine
DX: M81.0 Age-related osteoporosis without current pathological fracture (principal)
CPT/HCPCS: 96365; J7050; A4216; J3489

== ENCOUNTER → 2022-03-07 | Outpatient (CLI) | payer BC, SELFPAY ==
--- NOTE | 2022-03-07 11:08 | US_ITS ---
STUDY: ULTRASOUND BREAST - LEFT REASON FOR EXAM: Female, 76 years old. Abnormal screening mammogram. TECHNIQUE: Axial and longitudinal images of the LEFT breast were performed with a high resolution ultrasound transducer. # OF IMAGES: 71 COMPARISON: Comparison is made with prior mammogram dated 03/03/2022 and prior sonogram of the left breast dated 07/17/2013. FINDINGS: LEFT Breast: There is a 5 mm x 5 mm x 2 mm cyst at the 12 o''clock position of the breast on prior sonogram is from nipple. Dilated ducts are seen. US/Breast Limited Unilateral IMPRESSION: 5 mm x 5 mm x 2 mm cyst at the 2 o''clock position of the breast at 5 cm from the nipple. Dilated ducts. ASSESSMENT CATEGORY: BIRADS Category 2: Benign. A letter regarding these results will be sent to the patient by the facility within 30 days. Electronically Signed: Alexander De Paz MD at 9:31 EST ,
== END | disposition home or self-care (01) ==
LOC: OPUS 11:02
PROVIDERS: PCP Internal Medicine; Referring Provider Internal Medicine; Visit Provider Internal Medicine
DX: R92.8 Other abnormal and inconclusive findings on diagnostic imaging of breast (principal)
CPT/HCPCS: 76642

== ENCOUNTER → 2022-03-10 | Outpatient (CLI) | payer BC, SELFPAY ==
[2022-03-10 13:21] LABS: Anion Gap 9 (5-15); BUN 20 mg/dL (7-18); BUN/Creat Ratio 17.4 RATIO (10-20); Calcium,Total 9.7 mg/dL (8.5-10.1); Chloride 109 mmol/L (98-107); Creatinine, Serum 1.15 mg/dL (0.55-1.02); EST Glomerular Filtration Rate 49 mL/min (>60); Est Glom Filt Rate - Afr Amer 59 mL/min (>60); Glucose 101 mg/dL (74-106); Potassium 3.6 mmol/L (3.5-5.1); Sodium Level 140 mmol/L (136-145)
== END | disposition home or self-care (01) ==
PROVIDERS: PCP Internal Medicine; Visit Provider Nurse Practitioner Family
DX: Z01.812 Encounter for preprocedural laboratory examination (principal); I63.9 Cerebral infarction, unspecified
CPT/HCPCS: 36415; 80048

== ENCOUNTER → 2022-03-13 | Day surgery (SDC) | payer BC, SELFPAY ==
[2022-03-10 14:11] VITALS: BMI 34.7
--- NOTE | 2022-03-13 08:28 | CL.IE_ITS ---
Patient: REBECA GUERRERO Study Date: 03/13/2022 Performing: Richard Patino MD : [id number] Age: 76 Gender: female PROCEDURES PERFORMED [id number])INSERTION OF LOOP RECORDER INDICATIONS Cryptogenic stroke PROCEDURE DETAILS The patient was brought to the Catheterization Lab in the postabsorptive nonsedated state. Informed consent was obtained prior to the procedure. Local anesthetic was given subcutaneously to the left upper chest area with Lidocaine 2%. ICM Loop Recorder was inserted. The patient tolerated the procedure well. Estimated Blood Loss: 0 ml's IMPLANTED / EX-PLANTED DEVICES IMPLANTED DEVICE(S): ICM Loop Recorder - Mushroom Grower: [employer], Model # [id number] , Serial # [id number] DEVICE PARAMETERS CONCLUSIONS / RECOMMENDATIONS Device Conclusions: Successful implantation of a patient activated loop recorder. Device Recommendations: Follow up with Primary Care Physician PROCEDURE MEDICATIONS Fentanyl 50 mcg IV Versed 1 mg IV Oxygen: 2 L/min via nasal cannula Antibiotic given in appropriate timeframe. Clindamycin 900 mg IV 03/13/2022 07:58:03 Signed By Richard Patino MD On 03/13/2022 08:27:31 Richard Patino MD
== END | disposition home or self-care (01) ==
LOC: CLSP 07:00
PROVIDERS: PCP Internal Medicine; Referring Provider Internal Medicine Cardiovascular Disease; Visit Provider Internal Medicine Cardiovascular Disease
DX: I63.9 Cerebral infarction, unspecified (principal); E11.9 Type 2 diabetes mellitus without complications; I10 Essential (primary) hypertension; E78.5 Hyperlipidemia, unspecified; R76.0 Raised antibody titer; Z82.49 Family history of ischemic heart disease and other diseases of the circulatory system; Z87.891 Personal history of nicotine dependence
CPT/HCPCS: 33285; 99152; J7040

== ENCOUNTER → 2022-04-12 | Outpatient (CLI) | payer BC, SELFPAY ==
--- NOTE | 2022-04-12 14:21 | RAD_ITS ---
STUDY: X-RAY - LUMBAR SPINE REASON FOR EXAM: Female, 77 years old. LOW BACK PAIN TECHNIQUE: XR Spine Lumbar 2 or 3 Views COMPARISON: None FINDINGS: Normal lumbar lordosis. There is no substantial scoliosis. There is a compression deformity of the spine at level: L2 . These are age-indeterminate. MRI could further evaluate if of concern. There is a normal alignment of the vertebrae. There is multilevel endplate spondylosis of the lumbar vertebrae. There is multi-level degenerative disc disease with multi-level disc space narrowing. There are atherosclerotic vascular calcifications. The soft tissue structures are unremarkable. RAD/Lumbar Spine 2 or 3 Views IMPRESSION: Degenerative changes of the spine, as detailed above. There is a compression deformity of the spine at level: L2 . These are age-indeterminate. MRI could further evaluate if of concern. Electronically Signed: Issac Leslie MD at 16:53 EST ,
== END | disposition home or self-care (01) ==
PROVIDERS: PCP Internal Medicine; Visit Provider Nurse Practitioner Family
DX: M47.816 Spondylosis without myelopathy or radiculopathy, lumbar region (principal); M51.36 Other intervertebral disc degeneration, lumbar region
CPT/HCPCS: 72100

== ENCOUNTER → 2022-05-01 | Outpatient (CLI) | payer BC, SELFPAY | END | disposition home or self-care (01) | LOC: RAD 13:49 | PROVIDERS: PCP Internal Medicine; Visit Provider Nurse Practitioner Family | DX: M54.50 Low back pain, unspecified (principal) | CPT/HCPCS: 71046 ==

== ENCOUNTER → 2022-05-18 | Outpatient (CLI) | payer BC, SELFPAY ==
--- NOTE | 2022-05-01 14:15 | RAD_ITS ---
STUDY: X-RAY CHEST REASON FOR EXAM: Female, 77 years old. Pre-MRI. Loop recorder placement. TECHNIQUE: AP and lateral views the chest COMPARISON: January 12, 2022. FINDINGS: There is a loop recorder in the soft tissues of the left breast. This appears to be overlying the costal cartilage of the of the left fifth rib. The lungs are clear and expanded. There is no demonstrated pleural abnormality. Normal size heart. Normal mediastinum and elena. Normal visualized pulmonary arteries. There is atherosclerotic calcification of the aortic arch with tortuosity. Normal visualized thoracic spine. Normal visualized ribs, clavicles, and shoulders. There is no demonstrated abnormality of the visualized soft tissue structures of the upper abdomen. RAD/Chest PA and Lateral IMPRESSION: Loop recorder in the soft tissues left anterior chest wall as above. There is no acute cardiopulmonary disease. Electronically Signed: Mich Medellin DO at 23:24 EST ,
--- NOTE | 2022-05-18 16:07 | MRI_ITS ---
INDICATION: Compression fracture of T8 vertebra, sequela EXAMINATION: MRI - MR Spine Thoracic W/O Contrast TECHNIQUE: Multiplanar and multisequence MR images of the thoracic spine. IV Contrast Dosage and Agent: None. COMPARISON: Chest radiographs 05/01/2022. FINDINGS: No fracture or acute osseous abnormality. Mild for age degenerative changes. Mild scattered degenerative endplate signal changes and irregularity. No significant narrowing of the spinal canal. Only mild narrowing of the foramina. Normal contour and signal of the thoracic spinal cord. No acute finding in the paraspinal soft tissues. Large hiatal hernia containing much of the stomach. MRI/Spine Thoracic (Routine) IMPRESSION: No fracture or acute osseous abnormality. Electronically Signed: Kenrick Perez MD at 5:49 EST Reading Location ID and State: [facility] [place] Tel , Service support ,
--- NOTE | 2022-05-18 16:54 | MRI_ITS ---
INDICATION: Compression fracture of L2, closed, initial encounter EXAMINATION: MRI - MR Spine Lumbar W/O Contrast TECHNIQUE: Multiplanar and multisequence MR images of the lumbar spine. IV Contrast Dosage and Agent: None. COMPARISON: Lumbar spine radiographs 04/12/2022. FINDINGS: No acute fracture. Moderate chronic compression fracture superior endplate L2 again demonstrated. No retropulsion. Resulting mild exaggeration of kyphotic curvature at this level. Alignment otherwise anatomic. Conus terminates at the level of the L1 inferior endplate with normal contour and signal. Anatomic variant mildly prominent central canal within the distal thoracic spinal cord. Normal arborization of the cauda equina. At L1-2, diffuse disc bulge and mild facet degeneration causes only mild narrowing of the spinal canal and foramina. At L2-3, diffuse disc bulge and moderate bilateral facet degeneration causes only mild narrowing. At L3-4, diffuse disc bulge and severe bilateral facet degeneration causes moderate narrowing of the spinal canal and bilateral foramina. Disc abuts but does not compress the traversing bilateral L4 nerve roots in the subarticular zones and disc and osteophyte abut the exiting bilateral L3 nerve roots in the foramina. At L4-5, diffuse disc bulge, greater on the left, and moderate bilateral facet degeneration causes moderate narrowing of the left subarticular zone, with disc mildly displacing posteriorly the traversing left L5 nerve root. Disc and vertebral body osteophyte extend into and cause moderate right and mild left foraminal narrowing, with mild mass effect upon the exiting right L4 nerve root. At L5-S1, there is complete loss of disc space, degenerative endplate irregularity and signal changes, moderate broad-based disc osteophyte complex, and mild bilateral facet degeneration. This causes mild narrowing of the spinal canal and moderate narrowing of both foramen. Vertebral body and facet osteophytes abut the exiting bilateral L5 nerve roots in the foramina. No acute finding in the paraspinal soft tissues. Colonic diverticulosis partially visible. MRI/Spine Lumbar (Routine) IMPRESSION: No acute findings. Moderate chronic compression deformity L2 vertebral body. Degenerative changes described in detail above. Electronically Signed: Kenrick Perez MD at 5:58 EST Reading Location ID and State: 1950 [place] Tel , Service support ,
== END | disposition home or self-care (01) ==
PROVIDERS: PCP Internal Medicine; Referring Provider Internal Medicine; Visit Provider Internal Medicine
DX: S32.020A Wedge compression fracture of second lumbar vertebra, initial encounter for closed fracture (principal); S22.060S Wedge compression fracture of T7-T8 vertebra, sequela
CPT/HCPCS: 72146; 72148

== ENCOUNTER 2022-07-13 13:00 | Outpatient (RCR) | payer BC, SELFPAY ==
--- NOTE | 2022-02-14 09:34 | HP.PTEVAL_ITS ---
Patient's Visit Information REBECA GUERRERO is a 76 year old F referred to Physical Therapy by Dr. Mao Oseguera MD with a diagnosis of CVA. Date of Evaluation: 02/14/22 Physical Therapist: LUISANA Johnson - Visit Plan Frequency: 3x /Week Duration: 2 Months Plan: 3X/ week for 8 weeks for LE strength, functional transfers, gait training and balance with HEP - Subjective Pt had a stroke Jan 12. She was at her house and the first thing that happened is that she had double vision and took a nap and woke up with double vision and was nausea and threw up and went to sleep and woke up and fell onto the floor and could not get up. Finally she was heard in the house and they called the squad and was at [facility] and had 3 strokes. They are not sure what happened. The MRI showed 2 previous strokes. They were all on the R hand side. She is going to a Neurologist. She has not made an appt with a neurologist appt yet and she has to call there today. The stroke did not come from her heart. She just got out of the hospital (was on REHAB and TCU) on Sunday. She has been trying to get things done at home and she felt so tired last night like when she had the stroke so she is afraid she is doing too much. She feels that her whole L side is weaker...she is gradually every day getting better but her L leg is weaker than her R. She will drag her L foot with gait. Her L hand is still a little weaker and her hand does not slip off the walker and she is able to pull up her underwear to go to the bathroom. She does not do anything without the walker. She thinks that her balance is off without the walker. She feels that her spe ech is impaired and her mouth feels different. She feels that her flow of speech does not go as smooth. Stairs: she can get up on her porch and garage with 2 hand rails and she goes up and down with 2 feet to a stair Sit to stand: She needs to use her arms to get out of a chair. Bed mobility: she reports that she has not rolled over in bed yet but she finds it difficult scooting over. - Pain R hip pain Pain Intensity (Out of 10): 2 Pain Intensity Range: 4 Comment: with walking - Objective Gait: Walks with CGA to min A with verbal cues to bean picker L toes with gait with shorter stride and occ reaches out of objects for balance. LE MMT: R hip flex 13.9# and L hip flex 7.4#. R knee ext 26.8# and L knee ext 22#. R knee flex 18 and L knee flex 16.6#. FGA: 6. Stairs: Pt is able to go up and down the stairs recip with hesitation due to R knee and hip pain but prefers to not aggrevate the R side and do the step 2 pattern. Sit to stand: pt is able to stand up using B arms to stand up - Balance/Special Test Scores Functional Gait Assessment Score: 6 % Disability: 80.0000 Lower Extremity Functional Score: 24 - Goals Goal 1:: I HEP Goal Time Frame: 6-8 Weeks Goal 2:: Increase L LE strength (at time of the eval: R hip flex 13.9# and L hip flex 7.4#. R knee ext 26.8# and L knee ext 22#. R knee flex 18 and L knee flex 16.6#) Goal Time Frame: 6-8 Weeks Goal 3:: Be able to walk with least restrictive device with no LOB Goal Time Frame: 6-8 Weeks Goal 4:: Be able to go up and down the steps recip with 2 hand rails with CGA Goal Time Frame: 6-8 Weeks Goal 5:: Increase balance score (FGA was a 6 at the eval). - Rehabilitation Potential Rehabilitation Potential: Good - Anticipated Interventions Patient/Client Instruction: Educate patient on: Condition, Plan of Care For the Purpose of:: To decrease pain, To improve nutrient delivery to tissue, To increase oxygenation perfusion, To improve muscle performance and motor function, To improve ability to perform ADL's, To increase tolerance to activity/condition/position, To improve performance and independence with ADL's, To decrease level of supervision to perform tasks, To improve ability of physical actions for home/community/work/leisure, To improve gait and locomotor functions, To improve health of tissue, To increase flexibility/ROM, To improve endurance, To improve balance, To improve safety with gait Therapeutic Exercise to Include: Strength training, Endurance training, Balance training, Postural training, Gait and locomotor training, Neuromotor development, Active ROM, Dynamic Lumbar Stabilization For the Purpose of:: To decrease pain, To decrease swelling/inflammation, To increase ROM, To improve nutrient delivery to tissue, To improve muscle performance and motor function, To improve ability to perform ADL's, To increase tolerance to activity/condition/position, To improve performance and independence with ADL's, To decrease level of supervision to perform tasks, To improve ability of physical actions for home/community/work/leisure, To improve gait and locomotor functions, To improve balance, To improve safety with gait Functional Training to Include: Gait training For the Purpose of:: To improve gait and locomotor functions, To improve safety with gait Thank you for the opportunity to evaluate your patient. For Medicare and Medicare HMO plans, please review the plan of care and approve it. It will need to be FAXED BACK to us at [phone] for Medicare purposes. For Medicare only, by signing this I certify the plan of care. Please let me know if there are questions or concerns regarding this plan of care. Physician Signature: Date:_
--- NOTE | 2022-03-01 10:08 | HP.SP.EV_ITS ---
History - History Date of Eval: 02/28/22 Previous speech therapy: Yes Other Relevant Medical History/Diagnoses/Surgery: Marci is a 76 year old female who was seen at [facility] for a speech and language evaluation. Pt currently receives physical therapy at [facility]. Pt had 3 cvas in December and 2 prior CVAs. Pt was treated at [facility]'s rehabilitation and TCU where she received speech therapy for swallowing and dysarthria. Pt was dismissed for speech therapy in the hospital due to the Pt being able to independently use swallow strategies and being 100% intelligible. Smoking Status: Former smoker Hx Smoking: Yes Hx Tobacco Use: No - Pain Is pain an issue with your current prescribed condition?: No Patient Allergies - Allergies Allergies neomycin Allergy (Verified 01/31/21 13:29) unknown nickel Allergy (Verified 01/31/21 13:29) Rash Penicillins [PCN] Allergy (Verified 01/31/21 13:29) Hives Sulfa (Sulfonamide Antibiotics) Allergy (Verified 01/31/21 13:29) Rash Subjective Articulation/Phonol - Subjective Concerns: Pt stated that she sounds slightly different to herself, but her family does not notice a difference. Pt stated she does not have any trouble communicating with her family, friends or doctors. Additional Information: Pt read the rainbow passage in 1 minute and 16 seconds. Pt revised 2 words. Pt was 100% intelligible and no slurred speech was noted. Pt able to repeat PuTu[place]u syllables with min cues. Subjective Dysphagia - Symptoms Reported Other: Pt reports no current problems with eating. - Current Diet Solids Current Diet: Regular - Current Diet Liquids Current Liquids: Thin - Comments Dysphagia -: Pt completed a MBSS study in December 2021, which recommended an easy to chew diet with thin liquids. Pt completed oropharyngeal exercises and used compensatory strategies in the hospital. Pt was upgraded to a normal diet secondary to Pt being able to independently utilize safe swallow strategies and tolerate a normal diet with no s/s of aspiration. Subjective Oral Motor - Comments Comments: Pt reports no current problems with her lingual movements. Pt complains of slight weakness on the left side, but stated this does not impact her eating or communication. Objective Oral Motor - Oral Status Dentition: WNL - Labial Observation at Rest: Left Droop Closure: WNL Pucker: WNL Retraction: WNL Alternating Pucker/Retraction: WNL Involuntary Movement noted: Yes - Labial Comments Comments: Slight left droop - Jaw Impairment: WNL Opening: WNL Closing: WNL Involuntary Movement: Yes - Respiratory Status Respiratory Status: Room Air Comments: Pt commented that she gained 5 pounds and her sleep apnea has been worse. ST recommended Pt consult with her physician to address these concerns. Subjective Cog/Ling/Com - Subjective Cognitive/Linguistic/Communication: Pt stated she can independently cook, manage finances, take her medication and complete all cognitive tasks of daily living that are not limited by her physical disability. Swallowing Performance Scale - Swallowing Performance Scale Swallowing Performance Scale Result: 2 Within Functional Limit HDQLIFE - Speech Difficulties - In the past 7 days. It was difficult for other people to understand me.: Never Is was difficult to speak clearly?: Never - In the past 7 days.. How often did you limit your social activites because you had difficulty speaking?: Never - In the past 7 days... I had trouble speaking.: Not at all I was frustrated by my speech difficulties.: Not at all - How much DIFFICULTY do you have... ...saying what you want to say?: No difficulty - Score HDQLIFE Speech Difficulties Raw Score: 6 HDQLIFE Speech Difficulties T - Score: 38 Plan - Plan Plan: Marci does not required skilled speech therapy at this time. Pt is 100% intelligible and has no problems with communication at home. Pt is able to tolerate a normal diet and independently use her aspiration prevention strategies. Pt agrees with this assessment and does not feel that she required skilled intervention at this time. Will reevaluate at request of the patient with a new physician script if her condition changes. - Recommendations MBS: No Treatment Warranted: No Education - Patient has Indicated that the Following Identified Educational Needs: None The Patient has indicated that they have no educational or learning abilities that may effect their care.: Yes - Patient Instruction Patient Education: Diagnosis, Safety Precautions, Home Exercise Program Person Taught: Patient Teaching Method: Discussion, Handout Response to teaching: Verbalize understanding
--- NOTE | 2022-03-07 07:36 | HP.OTEVAL_ITS ---
Patient's Visit Information REBECA GUERRERO is a 76 year old F, referred to Occupational Therapy by Dr. Mao Oseguera MD, with a diagnosis of CVA, left side weakness. Date of Evaluation: 03/06/22 Occupational Therapist: Rosa Ralph, LICHAR/Danelle, CHT - Subjective This 76 year old was seen for OT eval with dx of CVA- pt states she had a series of 3 strokes. pt states she had a fall out of bed and her ex- call the squad because she could not get up. Went ER and went to Rehab for about 3 weeks and than went to TCU for one week. pt states she was than D/C on and was referred to PT/OT and SP. pt states she has concerns with weakness of left UE- pt states she had difficulty with her hand slipping off the walker- pt states she initially could not move her arm- and at this time would like more strength in arm- increase her balance and strengthen her legs so she can go without her walker. 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 - ADLs Dressing: Bra, Pants Comments: pt states increase time to get dressed Fasteners: Snaps, [place] Comments: lives in ranch with a basement- pt has two entry with hand rails. pt states she does not go to her basement. pt states she was driving [place]. shopping and doing cleaning and cooking prior to her stroke. Now ex- is helping with shopping - dressing is taking more time. pt ambulating with WW will use out of home and when getting up in the middle of the night. has walk in shower and is using a shower chair. pts states her dtr does live 3 doors down and could help if she needed. 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 Left: 58.93 sec. Comments: delay in FMS left - Stroke Specific Quality of Life Total SS-QOL Score: 173 - Quick DASH-Disab of Arm,Shoulder& Hand Quick DASH Score: 50.0000 - Goals Goal:: pt will demo a increase in peak force resistance by 10# indicating incre ase in functional strength for increase functional mobility. pt will demo a increase in left community development technician strength by 10# to increase pts ind. with ADLs and IADL by d.c Goal:: pt will demo a decrease in 9 hole peg testing time by 20 sec. indicating increase in pts FMS by d/c. pt will demo the ability to manipulate coins with left hand with out dropping coins by d/c Goal:: pt report a decrease in the amount of time it takes to dress by 10 min by d/c Goal:: pt will demo understanding of safety precautions until pt feels balance has improved enough to go without support/ ad. devices. pt will demo understanding moving items to within reach as to not have to use step stool to reach items to decrease fall risk and increase safety. - Rehabilitation General Assessment: pt limited with left UE strength increasing assistance with IADls and increasing time to perform ADLs and IADLs. pt demo need for skilled OT services 2-3x week for 4 weeks to increase pts functional strength to perform functional mobility safely in her home and in public areas. Pt demo understanding and agree to POC. Rehabilitation Potential: Good - Anticipated Interventions A/AAROM/PROM, Strengthening, Ergonomic Education, Fine Motor Coord/[place], Education re assistive Equipment, Education re Diagnosis, Home Program - Visit Plan Frequency: 2-3x /Week Duration: 4 Weeks General Plan: initiate a home strengthening program with t-band as per pts using free wts increases a tendonitis pain in left elbow. work on dynamic standing to simulate home mtg as putting dishes away TEXT: Thank you for the opportunity to evaluate your patient. For Medicare and Medicare HMO plans, please review the plan of care and approve it. It will need to be FAXED BACK to us at [phone] for Medicare purposes. Please let me know if there are questions or concerns regarding this plan of care. Physician Signature: Date:
--- NOTE | 2022-03-24 12:33 | HP.PTREVAL_ITS ---
Dr. Mao Oseguera MD, It has been my pleasure to treat REBECA GUERRERO over the last 10 visits for CVA. Please see the progress note below for an update on the physical therapy plan of care! Subjective: Pt reports that she is going to [place] this Sunday. Objective/Function: LE MMT: R hip flex 15,3# and L hip flex 12.3#. R knee ext 26.8# and L knee ext 22#. R knee flex 21.3 and L knee flex 19.9#). FGA: 14 Plan Plan: Continue when gets back from [place]. 3X/ week for 8 weeks for LE strength, fu nctional transfers, gait training and balance with HEP Balance/Gait/Functional tests - Balance/Special Test Scores Functional Gait Assessment Score: 14 % Disability: 53.3400 Lower Extremity Functional Score: 26 Goals Goal 1:: I HEP Goal Time Frame: 6-8 Weeks Goal 2:: Increase L LE strength (at time of the eval: R hip flex 13.9# and L hip flex 7.4#. R knee ext 26.8# and L knee ext 22#. R knee flex 18 and L knee flex 16.6#) Goal Time Frame: 6-8 Weeks Goal Progress: Progressing Goal 3:: Be able to walk with least restrictive device with no LOB Goal Time Frame: 6-8 Weeks Goal Progress: Progressing Goal 4:: Be able to go up and down the steps recip with 2 hand rails with CGA Goal Time Frame: 6-8 Weeks Goal Progress: Progressing Goal 5:: Increase balance score (FGA was a 6 at the eval). Goal Progress: Goal Met Anticipated Interventions Patient/Client Instruction: Educate patient on: Condition, Plan of Care For the Purpose of:: To decrease pain, To improve nutrient delivery to tissue, To increase oxygenation perfusion, To improve muscle performance and motor function, To improve ability to perform ADL's, To increase tolerance to activity/condition/position, To improve performance and independence with ADL's, To decrease level of supervision to perform tasks, To improve ability of physical actions for home/community/work/leisure, To improve gait and locomotor functions, To improve health of tissue, To increase flexibility/ROM, To improve endurance, To improve balance, To improve safety with gait Therapeutic Exercise to Include: Strength training, Endurance training, Balance training, Postural training, Gait and locomotor training, Neuromotor development, Active ROM, Dynamic Lumbar Stabilization For the Purpose of:: To decrease pain, To decrease swelling/inflammation, To increase ROM, To improve nutrient delivery to tissue, To improve muscle performance and motor function, To improve ability to perform ADL's, To increase tolerance to activity/condition/position, To improve performance and independen ce with ADL's, To decrease level of supervision to perform tasks, To improve ability of physical actions for home/community/work/leisure, To improve gait and locomotor functions, To improve balance, To improve safety with gait Functional Training to Include: Gait training For the Purpose of:: To improve gait and locomotor functions, To improve safety with gait Please do not hesitate to contact me at [phone] by phone or if you have questions or concerns regarding this new plan of care! Sincerely, Misa Grimm, MPT
--- NOTE | 2022-05-17 14:34 | HP.PTEVAL2_ITS ---
Patient's Visit Information REBECA GUERRERO is a 77 year old F referred to Physical Therapy by Dr. Susan Tello DO with a diagnosis of LOW BACK PAIN. Date of Evaluation: 05/17/22 Physical Therapist: Cheri Morrison PT, Cert MDT - Visit Plan Frequency: 2-3x /Week Duration: 4-6 Weeks Plan: CHECK LUMBAR AND THROACIC MRI RESULTS. POSTURE CORRECTION/STRENGTHENING, INSTRUCTION IN APPROPRIATE BODY MECHANICS AND ACTIVITY MODIFICATIONS. DLS STARTING WITH A NEUTRAL SPINE PROGRESSING ROM TOLERATED. TERESA LE ROM, STRETCHING AND STRENGTHENING. HEP INSTRUCTION. - Subjective Subjective: Work/Leisure: RETIRED. Present symptoms: RIGHT LOW BACK PAIN. Present since: CHRONIC BUT INCREASED OVER XMAS WHILE IN [place] AND COUGHING A LOT. Pain Scale: WORSE 4/10, LEAST 2/10. Currently: 2/10. Is it getting better, worse or staying the same: GETTING BETTER. NOT MUCH PAIN GETTING OUT OF BED NOW. Commenced as a result of: NO APPARENT REASON OTHER THAN COUGHING A LOT. Symptoms at onset: SEVERE RIGHT LOW BACK PAIN. Worse: COUGHING, STEPS, GETTING IN AND OUT OF THE CAR, STILL HURTS SOME TO GET OUT OF BED. BENDING. Better: TYLONOL, HEATING PAD, LYING DOWN, SITTING. Disturbed sleep: NO. Previous history/Previous treatment: NO BACK SURGERY. NO PAIN MGMT LUMBAR INJECTIONS. CHIROPRACTIC OFF AND ON OVER THE YEARS BUT PATIENT REPORTS IT DIDN'T HELP. NO PHYSICAL THERAPY FOR BACK PAIN IN THE PAST. Treatme nt this episode: NONE. PATIENT REPORTS BEING GIVEN ORDERS FOR ORTHO CONSULT, PT CONSULT, PAIN MGMT CONSULT AND MRI'S. Coughing/sneezing/straining: POSITIVE. Gait: PATIENT REPORTS SHE IS HAVING BALANCE PROBLEMS. STATES SHE WAS HAVING PHYSICAL THERAPY FOR HER BALANCE AFTER HER STROKE BUT STOPPED DUE TO HER BACK PAIN. PATIENT REPORTS SHE IS OFF BALANCE BUT USING THE WALKER MAKES HER BACK PAIN WORSE SO SHE IS NOT USING IT AND SHE IS NOT USING A CANE EITHER - BUT SHE HAS ONE. THIS PT RECOMMENDED AT LEAST USE OF CANE FOR SAFETY AND PATIENT IS AGREEABLE. PATIENT STATES SHE HAS BEEN TRAINED IN PROPER USE OF CANE. Bowel or Bladder Dysfunction: NO. Accidents: NO. Unexplained weight loss: NO. Imaging: RECENT LUMBAR X-RAYS SHOWING 2 COMPRESSION FX'S PER PATIENT REPORT AND MRI'S PENDING TOMORROW. PATIENT REPORTS THE X-RAY SHOWED ONE FX (L2) BUT SHE DOES NOT KNOW WHERE THE OTHER ONE IS BUT THE MRI'S ARE FOR HER LUMBAR AND THORACIC SPINE. [facility] EMR: STUDY: X-RAY - LUMBAR SPINE. REASON FOR EXAM: Female, 77 years old. LOW BACK PAIN. TECHNIQUE: XR Spine Lumbar 2 or 3 Views. COMPARISON: None. . FINDINGS: Normal lumbar lordosis. There is no substantial scoliosis. There is a compression deformity of the spine at level: L2 . These are. age-indeterminate. MRI could further evaluate if of concern. There is a. normal alignment of the vertebrae. There is multilevel endplate spondylosis of the lumbar vertebrae. There is. multi-level degenerative disc disease with multi-level disc space. narrowing. There are atherosclerotic vascular calcifications. The soft tissue structures are unremarkable. . RAD/Lumbar Spine 2 or 3 Views. IMPRESSION: Degenerative changes of the spine, as detailed above. There is a. compression deformity of the spine at level: L2 . These are. age-indeterminate. MRI could further evaluate if of concern. . Electronically Signed: Issac Leslie MD. . PMH/Recent major surgery: PROBLEMS WITH TERESA KNEES TOO. R THR. CVA DEC 2021 WITH RESIDUAL L SIDED WEAKNESS. HTN. NIDDM. HIGH CHOLESTEROL. ADD. OSTEOPENIA AND POSSIBLY OSTEOPOROSIS. - Objective Objective: Sitting/Standing Posture: POOR. FH. RSH'S. REDUCED LUMBAR LORDOSIS. R ILIAC CREST HIGHER THAN LEFT. Active Correction of posture: NE. Other Observations: THIS PATIENT AMBULATES INDEP'LY INTO PT TODAY WITH UNSTEADY GAIT, NO AD'S. REGAINS BALANCE INDEP'LY. SHE IS AGREEABLE TO STARTING TO USE CANE FOR SAFETY. PATIENT IS ABLE TO TRANSFER SIT TO STAND WITHOUT UE ASSIST. Sensory deficit: TERESA UE AND LE LIGHT TOUCH SENSATION IS GROSSLY INTACT AND SYMMETRICAL. ROM deficit: TIGHT TERESA LE HS'S AND GASTROC SOLEUS COMPLEX'S. Motor deficit: LLE WEAKNESS. L HIP 3+ TO 4-/5, KNEE 4/5, ANKLE DORSI 5/5. R LE: HIP 4/5, KNEE 5/5, ANKLE DORSI 5/5. Lumbar mvmt loss: flex - MOD. ext - NT. R SG - NIHARIKA. L SG - NIHARIKA. PATIENT C/O INCREASED BACK PAIN WITH GENTLE LUMBAR ROM TESTING INTO FLEX AND TERESA SG. Core strength: POOR. Palpation: NO ACUTE THORACIC, LUMBAR, PELVIC OR HIP TENDERNESS WITH LIGHT PALPATION. - Goals Goal 1:: DECREASE C/O LOW BACK PAIN Goal Time Frame: 4-6 Weeks Goal 2:: IMPROVE BENDING, LIFTING, WALKING, STANDING, SOCIAL LIFE AND HOMEMAKING FUNCTION Goal Time Frame: 4-6 Weeks Goal 3:: INSTRUCT IN PROPHYLAXIS Goal Time Frame: 4-6 Weeks - Anticipated Interventions Patient/Client Instruction: Educate patient on: Condition, Plan of Care, Risk Factors For the Purpose of:: To improve self management Therapeutic Exercise to Include: Strength training, Body mechanics, Postural training, Flexibilty training, Neuromotor development, Dynamic Lumbar S tabilization For the Purpose of:: To decrease pain, To increase ROM, To improve muscle performance and motor function, To increase tolerance to activity/condition/position, To improve ability of physical actions for home/community/work/leisure Manual Therapy Techniques to Include: Soft tissue mobilization For the Purpose of:: To decrease pain, To improve nutrient delivery to tissue Cryotherapy (ice pack, ice massage): Yes Thermo therapy (hot pack): Yes For the Purpose of:: To decrease pain, To improve nutrient delivery to tissue Thank you for the opportunity to evaluate your patient. For Medicare and Medicare HMO plans, please review the plan of care and approve it. It will need to be FAXED BACK to us at [phone] for Medicare purposes. For Medicare only, by signing this I certify the plan of care. Please let me know if there are questions or concerns regarding this plan of care. Physician Signature: Date:
--- NOTE | 2022-05-31 15:23 | HP.OTDCSUM_ITS ---
It has been my pleasure to treat REBECA GUERRERO under orders from Dr. Susan Tello DO, for the diagnosis of CVA, left side weakness for a total of 5 visit(s). Please see the following information for a summary of their discharge status. % Improvement: 75 Objective/Function: 9-hole left hand initial 58.9 sec. current 37. left resaw carriage operator strength 50# increase from 35#. pt demo full ROM of UB. pt reports she is DEJAH with dressing and bathing- pt able to get dressed without her [employer]- pt states most bothersome is pain in her back. Patient Goals: Regain Strength Goal:: pt will demo a increase in peak force resistance by 10# indicating increase in functional strength for increase functional mobility. pt will demo a increase in left resaw carriage operator strength by 10# to increase pts ind. with ADLs and IADL by d.c Goal:: pt will demo a decrease in 9 hole peg testing time by 20 sec. indicating increase in pts FMS by d/c. pt will demo the ability to manipulate coins with left hand with out dropping coins by d/c Goal:: pt report a decrease in the amount of time it takes to dress by 10 min by d/c Goal:: pt will demo understanding of safety precautions until pt feels balance has improved enough to go without support/ ad. devices. pt will demo understanding moving items to within reach as to not have to use step stool to reach items to decrease fall risk and increase safety. Plan: d/c with HEP Discharge Comments: Pt arrives for D/C. pt states she is performing all her ADLS and IADls at this time at DEJAH. pt states she had set back due to back pain and now is in therapy for vertebral fx. pt was given HEP to continue to strength UB to continue to make gains in her UB strength. pt agrees with being d/c with HEP. If there are questions or concerns regarding this patient's occupational therapy, please fell free to call me at [phone]. Thank you for the referral of this patient. Sincerely, Rosa Ralph, OTR/L, CHT
--- NOTE | 2022-05-31 15:52 | HP.PTEVAL_ITS ---
Patient's Visit Information REBECA GUERRERO is a 77 year old F referred to Physical Therapy by Dr. Susan Tello DO with a diagnosis of CVA. Date of Evaluation: 02/14/22 Physical Therapist: LUISANA Johnson - Visit Plan Frequency: 3x /Week Duration: 2 Months Plan: DC PT for her stroke at this point - Subjective Pt had a stroke Jan 12. She was at her house and the first thing that happened is that she had double vision and took a nap and woke up with double vision and was nausea and threw up and went to sleep and woke up and fell onto the floor and could not get up. Finally she was heard in the house and they called the squad and was at [facility] and had 3 strokes. They are not sure what happened. The MRI showed 2 previous strokes. They were all on the R hand side. She is going to a Neurologist. She has not made an appt with a neurologist appt yet and she has to call there today. The stroke did not come from her heart. She just got out of the hospital (was on [facility] and TCU) on Sunday. She has been trying to get things done at home and she felt so tired last night like when she had the stroke so she is afraid she is doing too much. She feels that her whole L side is weaker...she is gradually every day getting better but her L leg is weaker than her R. She will drag her L foot with gait. Her L hand is still a little weaker and her hand does not slip off the walker and she is able to pull up her underwear to go to the bathroom. She does not do anything without the walker. She thinks that her balance is off without the walker. She feels that her speech is impaired and her mouth feels different. She feels that her flow of speech does not go as smooth. Stairs: she can get up on her porch and garage with 2 hand rails and she goes up and down with 2 feet to a stair Sit to stand: She needs to use her arms to get out of a chair. Bed mobility: she reports that she has not rolled over in bed yet but she finds it difficult scooting over. - Pain R hip pain Pain Intensity (Out of 10): 0 Pain Intensity Range: 4 Comment: 3 with up and down back pain Pain Intensity (Out of 10): 0 Comment: 3 with getting up and down R knee pain Pain Intensity (Out of 10): 0 Comment: down steps L knee pain Pain Intensity (Out of 10): 0 Comment: on bike - Objective Gait: Walks with CGA to min A with verbal cues to case picker L toes with gait with shorter stride and occ reaches out of objects for balance. LE MMT: R hip flex 13.9# and L hip flex 7.4#. R knee ext 26.8# and L knee ext 22#. R knee flex 18 and L knee flex 16.6#. FGA: 6. Stairs: Pt is able to go up and down the stairs recip with hesitation due to R knee and hip pain but prefers to not aggrevate the R side and do the step 2 pattern. Sit to stand: pt is able to stand up using B arms to stand up - Balance/Special Test Scores Functional Gait Assessment Score: 14 % Disability: 53.3400 Oswestry Low Back Score: 16 Lower Extremity Functional Score: 27 - Goals Goal 1:: I HEP Goal Time Frame: 6-8 Weeks Goal 2:: Increase L LE strength (at time of the eval: R hip flex 13.9# and L hip flex 7.4#. R knee ext 26.8# and L knee ext 22#. R knee flex 18 and L knee flex 16.6#) Goal Time Frame: 6-8 Weeks Goal 3:: Be able to walk with least restrictive device with no LOB Goal Time Frame: 6-8 Weeks Goal 4:: Be able to go up and down the steps recip with 2 hand rails with CGA Goal Time Frame: 6-8 Weeks Goal 5:: Increase balance score (FGA was a 6 at the eval). - Rehabilitation Potential Rehabilitation Potential: Good - Anticipated Interventions Patient/Client Instruction: Educate patient on: Condition, Plan of Care For the Purpose of:: To decrease pain, To improve nutrient delivery to tissue, To increase oxygenation perfusion, To improve muscle performance and motor function, To improve ability to perform ADL's, To increase tolerance to activity/condition/position, To improve performance and independence with ADL's, To decrease level of supervision to perform tasks, To improve ability of physical actions for home/community/work/leisure, To improve gait and locomotor functions, To improve health of tissue, To increase flexibility/ROM, To improve endurance, To improve balance, To improve safety with gait Therapeutic Exercise to Include: Strength training, Endurance training, Balance training, Postural training, Gait and locomotor training, Neuromotor development, Active ROM, Dynamic Lumbar Stabilization For the Purpose of:: To decrease pain, To decrease swelling/inflammation, To increase ROM, To improve nutrient delivery to tissue, To improve muscle performance and motor function, To improve ability to perform ADL's, To increase tolerance to activity/condition/position, To improve performance and independence with ADL's, To decrease level of supervision to perform tasks, To improve ability of physical actions for home/community/work/leisure, To improve gait and locomotor functions, To improve balance, To improve safety with gait Functional Training to Include: Gait training For the Purpose of:: To improve gait and locomotor functions, To improve safety with gait Thank you for the opportunity to evaluate your patient. For Medicare and Medicare HMO plans, please review the plan of care and approve it. It will need to be FAXED BACK to us at [phone] for Medicare purposes. For Medicare only, by signing this I certify the plan of care. Please let me know if there are questions or concerns regarding this plan of care. Physician Signature: Date:
== END 2022-07-13 19:00 | disposition home or self-care (01) ==
LOC: PT 13:00
PROVIDERS: PCP Internal Medicine; Referring Provider Nurse Practitioner Family; Visit Provider Internal Medicine
DX: M54.50 Low back pain, unspecified (principal); I63.9 Cerebral infarction, unspecified
CPT/HCPCS: 92523; 97110; 97161; 97162; 97166; 97530

== ENCOUNTER 2022-07-25 05:53 | Emergency (ER) | payer BC, SELFPAY ==
[2022-07-25 05:54] VITALS: BP 168/87; PULSE 84; RESP 14; TEMP 36.6; O2SAT 99; BMI 33.9
--- NOTE | 2022-07-25 06:19 | CT_ITS ---
EXAM: CT ANGIOGRAPHY HEAD AND NECK WITH INTRAVENOUS CONTRAST CLINICAL INDICATION: TIA TIA TECHNIQUE: Native of [place]/head and neck CT angiography protocol performed with intravenous contrast. This CT exam was performed using one or more of the following dose reduction techniques: automated exposure control, adjustment of the mA and/or kV according to patient size, and/or use of iterative reconstruction technique. MIP reconstructed images were created and reviewed. CONTRAST: IV 100mL [id number] RADIATION DOSE: CTDIvol = 25.33 mGy, DLP = 1530.68 mGy-cm COMPARISON: CTA brain 01/12/2022. MRI brain 01/12/2022. FINDINGS: HEAD: RIGHT ANTERIOR CEREBRAL ARTERY: Unremarkable. No significant stenosis at the visualized segments. Anterior communicating artery is present. No aneurysm. RIGHT MIDDLE CEREBRAL ARTERY: Unremarkable. No significant stenosis at the visualized segments. No aneurysm. RIGHT POSTERIOR CEREBRAL ARTERY: Unremarkable. No occlusion or significant stenosis. No aneurysm. Posterior communicating artery is visualized. RIGHT INTRACRANIAL INTERNAL CAROTID ARTERY: Unremarkable. No significant stenosis. No dissection or occlusion. RIGHT INTRACRANIAL VERTEBRAL ARTERY: Unremarkable. No significant stenosis. No dissection or occlusion. LEFT ANTERIOR CEREBRAL ARTERY: Unremarkable. No significant stenosis at the visualized segments. No aneurysm. LEFT MIDDLE CEREBRAL ARTERY: Unremarkable. No significant stenosis at the visualized segments. No aneurysm. LEFT POSTERIOR CEREBRAL ARTERY: Unremarkable. No occlusion or significant stenosis. No aneurysm. Posterior communicating artery is visualized. LEFT INTRACRANIAL INTERNAL CAROTID ARTERY: Unremarkable. No significant stenosis. No dissection or occlusion. LEFT INTRACRANIAL VERTEBRAL ARTERY: Unremarkable. No significant stenosis. No dissection or occlusion. BASILAR ARTERY: Unremarkable. No significant stenosis. No aneurysm. OTHER VASCULATURE: No vascular malformation. NECK: RIGHT COMMON CAROTID ARTERY: Unremarkable. No significant stenosis. No dissection or occlusion. RIGHT EXTRACRANIAL INTERNAL CAROTID ARTERY: Atherosclerotic calcification of the carotid bulb and proximal internal carotid artery, without associated significant narrowing.. No significant stenosis. No dissection or occlusion. RIGHT EXTERNAL CAROTID ARTERY: Unremarkable. No occlusion. RIGHT EXTRACRANIAL VERTEBRAL ARTERY: Unremarkable. No significant stenosis. No dissection or occlusion. LEFT COMMON CAROTID ARTERY: Minimal atherosclerotic calcification of the carotid bulb without associated luminal narrowing.. No significant stenosis. No dissection or occlusion. LEFT EXTRACRANIAL INTERNAL CAROTID ARTERY: Unremarkable. No significant stenosis. No dissection or occlusion. LEFT EXTERNAL CAROTID ARTERY: Unremarkable. No occlusion. LEFT EXTRACRANIAL VERTEBRAL ARTERY: Unremarkable. No significant stenosis. No dissection or occlusion. THYROID: The thyroid gland is diffusely heterogeneous, however, no discrete nodules are identified. BRACHIOCEPHALIC AND SUBCLAVIAN ARTERIES: Unremarkable as visualized. No occlusion or significant stenosis. LUNG APICES: Unremarkable as visualized. HEAD and NECK: BONES/JOINTS: There are multilevel degenerative changes in the visualized spine. No discrete lytic or blastic abnormalities. SOFT TISSUES: Unremarkable. CAROTID STENOSIS REFERENCE USING NASCET CRITERIA: % ICA stenosis = (1 - narrowest ICA diameter/diameter of distal cervical ICA) x 100. Mild - <50% stenosis. Moderate - 50-69% stenosis. Severe - 70-94% stenosis. Near occlusion - 95-99% stenosis. Occluded - 100% stenosis. CT/CTA Head AND Neck W/ Contrast IMPRESSION: No acute findings in the arteries of the head and neck. Electronically Signed: Zachary Coe MD at 8:02 EDT Reading Location ID and State: [facility] / [place] , Service support ,
--- NOTE | 2022-07-25 06:19 | RAD_ITS ---
EXAM: XR LEFT RIBS AND AP CHEST, 3 OR MORE VIEWS CLINICAL INDICATION: pain pain TECHNIQUE: Frontal and oblique views of the left ribs and frontal view of the chest. COMPARISON: Chest x-ray 05/01/2022. FINDINGS: LUNGS AND PLEURAL SPACES: Unremarkable. No consolidation or edema. No pneumothorax. No effusion. HEART: There is an implanted cardiac loop monitor overlying the left lung field. MEDIASTINUM: Central airways and mediastinal contour are unremarkable. BONES/JOINTS: There are traumatic fractures of the posterolateral segments of the left sixth and seventh ribs, possibly acute. VASCULATURE: There is atherosclerotic calcification of the aortic arch. RAD/Ribs Uni Min 3V w/PA Chest IMPRESSION: 1. Nondisplaced fractures of the posterolateral segments of the left sixth and seventh ribs, possibly acute. 2. No evidence for acute cardiopulmonary pathology. Electronically Signed: Zachary Coe MD at 7:46 EDT Reading Location ID and State: [facility] / [place] , Service support ,
[2022-07-25 06:34] LABS: Absolute Lymphocyte Count 5.11 X10^3/uL (0.83-4.51); Absolute Neutrophil Count 8.4 X10^3/uL (2.0-7.7); Basophil# 0.07 X10^3/uL; Basophil% 0.5 % (0-1); Eosinophil# 0.22 X10^3/uL; Eosinophils% 1.5 % (0-5); Hematocrit 30.6 % (37-47); Lymphocyte # 5.11 X10^3/ul (0.83-4.51); Lymphocyte % 34.5 % (19-41); Mean Corp Hgb Conc 29.4 g/dL (32-36); Mean Corpuscular Hgb 23.9 pg (27.0-32.0); Mean Corpuscular Volume 81.2 fL (81-99); Mean Platelet Vol. 9.9 fl (6.2-12.0); Monocyte# 0.95 X10^3/uL; Monocyte% 6.4 % (0-10); NRBC Flagged by Analyzer 0 % (0-5); Neutrophil # 8.38 X10^3/uL (2.7-7.7); Neutrophil % 56.6 % (47-70); POSITIVE DIFFERENTIAL YES; Platelet Count 374 K/mm3 (150-450); RBC Distribution Width CV 17.2 % (11.6-14.6); Red Blood Count 3.77 M/mm3 (4.2-5.4); White Blood Count 14.8 K/mm3 (4.4-11.0)
[2022-07-25 06:47] VITALS: BP 121/61; PULSE 74; RESP 16; O2SAT 99
[2022-07-25 06:48] LABS: Prothrombin Time (Protime)PT. 12.8 SECONDS (11.7-14.9)
[2022-07-25 06:49] LABS: Differential Indicated SCAN CRITERIA MET; Partial Thromboplast Time 23.3 Seconds (24.1-36.2)
[2022-07-25 06:59] LABS: Anion Gap 8 (5-15); BUN 22 mg/dL (7-18); BUN/Creat Ratio 24.9 RATIO (10-20); Calcium,Total 9.2 mg/dL (8.5-10.1); Chloride 113 mmol/L (98-107); Creatinine, Serum 0.88 mg/dL (0.55-1.02); EST Glomerular Filtration Rate 66 mL/min (>60); Est Glom Filt Rate - Afr Amer 80 mL/min (>60); Estimated Creatinine Clearance 43.69 ml/min; Glucose 113 mg/dL (74-106); Magnesium 2.1 mg/dL (1.6-2.6); Sodium Level 142 mmol/L (136-145); Thyroid Stim Hormone (TSH) 2.06 uIU/mL (0.358-3.74)
[2022-07-25 07:13] LABS: Anisocytosis 1+
[2022-07-25 07:49] LABS: Bacteria 0 SEEN /hpf (None Seen); Mucous, Urine 0 SEEN /hpf (<or=2+); Red Blood Cells-Urine 0 SEEN /hpf (0-5)
[2022-07-25 07:51] LABS: Color, Urine Yellow (Yellow); Glucose, Dipstick Normal (Normal); Ketone-Dipstick Negative (Negative); Leukocyte Esterase-Dipstick 100 /ul (Negative); Nitrite-Dipstick Negative (Negative); Occult Blood-Urine Negative /ul (Negative); Protein-Dipstick 15 mg/dl (Negative); Urine Bilirubin Dipstick Negative (Negative); Urine Clarity Sl. Cloudy (Clear); Urine Urobilinogen Normal (Normal); Urine pH 6.5 (5.0 - 8.0)
[2022-07-25 07:57] LABS: Squamous Epithelial Cells - UA 0-5 SEEN /hpf (5-10); White Blood Cells 10-25 SEEN /hpf (0-5)
[2022-07-25 08:45] VITALS: BP 157/86
--- NOTE | 2022-07-25 08:45 | EDS_ITS ---
HPI History of Present Illness Chief Complaint: Eye Problem Informant: patient and spouse/S.O. 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 She also has a history of diabetes and hyperlipidemia as well as hypertension. She states that over the past 5 to 7 days she has felt like her double vision has been more intense or severe. She reports that she also felt some right-sided facial numbness/tingling associated with the double vision today which was abnormal for her. She states roughly 3 to 5 days ago she had a mechanical fall landing on her left side and she has had bruising and left-sided rib pain. She denies any bleeding disorder or blood thinner use. She states secondary to the persistent pain from the fall as well as the paresthesias associated with her double vision she presents for evaluation [facility] Medical History Arthritis Compression fracture Cryptogenic stroke Diplopia Dyspnea on exertion Essential (primary) hypertension History of skin cancer Hyperlipidemia Implantable loop recorder present Ptosis Stroke/cerebrovascular accident Transient retinal artery occlusion Type 2 diabetes mellitus Home Medications acyclovir 400 mg tablet 400 mg PO BID herpes 06/14/15 [History Last Taken 03/13/22] bupropion HCl 150 mg 24 hr tablet, extended release 150 mg PO BID depression 06/14/15 [History Last Taken 01/11/22] glucosamine HCl 500 mg-msm 83 mg-chondroitin 400 mg tablet 1 ea PO DAILY supplement 07/19/16 [History Last Taken 01/11/22] ascorbate calcium (vitamin C) 500 mg tablet 500 mg PO DAILY supplements 09/05/18 [History Last Taken 01/11/22] magnesium 30 mg tablet 30 mg PO DAILY supplement 06/20/20 [History Last Taken 01/11/22] amlodipine 5 mg tablet 2.5 mg PO DAILY BP 01/31/21 [History Last Taken 03/13/22] omega 0-udk-mrd-fish oil 1,200 mg (144 mg-216 mg) capsule (Fish Oil) 1,200 cap PO DAILY supplement 01/13/22 [History Last Taken Unknown] aspirin 81 mg chewable tablet 81 mg PO BREAKFAST stroke 01/14/22 [History Last Taken 03/13/22] calcium carbonate 200 mg calcium (500 mg) chewable tablet 500 mg PO LUNCH Supplement 02/05/22 [History Last Taken Unknown] multivitamin-iron 9 mg-folic acid 400 mcg-calcium and minerals tablet (High Potency Multivitamin (w-iron)) 1 tab PO BREAKFAST Supplement 02/05/22 [History Last Taken Unknown] acetaminophen 500 mg tablet 1,000 mg PO Q6H PRN PRN Pain Score 1-10 #0 tabs 02/08/22 [Rx Last Taken Unknown] pantoprazole 40 mg tablet,delayed release 40 mg PO DAILY 30 days #30 tabs 02/08/22 [Rx Last Taken 03/13/22] atorvastatin 20 mg tablet 20 mg PO DAILY 05/23/22 [History Last Taken Unknown] gabapentin 100 mg capsule 100 mg PO DAILY 07/25/22 [History Last Taken Unknown] hydrocodone-acetaminophen 5-325mg 5mg-325mg 1 tab PO Q6H PRN Pain 07/25/22 [History Last Taken Unknown] lidocaine 5 % topical patch 2 patch topical DAILY PRN pain #30 ea 07/25/22 [Rx Last Taken Unknown] losartan 100 mg-hydrochlorothiazide 12.5 mg tablet 1 tab PO DAILY 07/25/22 [History Last Taken Unknown] ondansetron 4 mg disintegrating tablet 4 mg PO TID PRN nausea and vomiting #21 tabs 07/25/22 [Rx Last Taken Unknown] oxycodone-acetaminophen 5 mg-325 mg tablet (Percocet) 1 tab PO Q6H PRN pain 3 days #12 tabs 07/25/22 [Rx Last Taken Unknown] potassium chloride 10 mEq tablet,extended release(part/cryst) 10 meq PO QODAY 07/25/22 [History Last Taken Unknown] nitrofurantoin monohydrate/macrocrystals 100 mg capsule 100 mg PO BID 07/27/22 [History Last Taken Unknown] Allergy/AdvReac Type Severity Reaction Status Date / Time neomycin Allergy unknown Verified 07/27/22 16:17 nickel Allergy Rash Verified 07/27/22 16:17 Penicillins [PCN] Allergy Hives Verified 07/27/22 16:17 Sulfa (Sulfonamide Allergy Rash Verified 07/27/22 16:17 Antibiotics) Family History Mother CAD (coronary artery disease) Daughter Heart disease cardiomyopathy Sister Breast cancer triple negative Thyroid cancer Surgical History H/O abdominal surgery History of breast biopsy History of knee replacement History of loop recorder (~03/13/22) History of tubal ligation Social History household members: other details: ex-. Smoking Status: Former smoker how long ago did patient quit smokin alcohol intake: current alcohol intake frequency: holidays/special occasions only substance use type: does not use caffeine: Yes (Take a caffeine tablet daily) ROS ROS ED Constitutional Constitutional ED: Denies chills or fever(s) Eyes Eyes: Reports diplopia ENT ENT ED: Denies sore throat Cardiovascular Cardiovascular: Reports chest pain; Denies palpitations Respiratory/Chest Respiratory/Chest: Denies cough or dyspnea Gastrointestinal Gastrointestinal: Denies abdominal pain, diarrhea, nausea or vomiting Genitourinary Genitourinary ED: Denies dysuria Musculoskeletal Musculoskeletal: Denies back pain, myalgias or neck pain Integumentary Reports other Details: Positive ecchymosis ; Denies Abrasions or rash Neurologic Neurologic: Reports paresthesias; Denies headache(s) Hematologic/Lymphatic Hematologic/Lymphatic: Denies easy bleeding or easy bruising EXAM Physical Exam Const Vital Signs: 07/25/22 05:54 07/25/22 06:47 Temperature 97.9 F Temperature Source Oral Pulse Rate 84 74 Respiratory Rate 14 16 Blood Pressure 168/87 H 121/61 H Blood Pressure Mean 114 81 Pulse Ox 99 99 Oxygen Delivery Method Room Air Room Air Positive well nourished and well developed General Appearance ED: well developed HEENT Reports moist mucous membranes HEENT Narrative: Normocephalic atraumatic No signs of depressed or basilar skull fracture Eyes PERRL and EOMs intact bilaterally Eyes Narrative: No blood or thunder appearance noted on ophthalmology exam No pale macular Double vision resolves with covering of either eye. Neck supple Neck Narrative: No bony deformity or step-off of the cervical spine no midline pain on palpation Chest Wall Chest Narrative: There is ecchymosis and pain to palpation to the left anterior lateral chest wall rib regions 6-8 without bony deformity or crepitance Resp normal respiratory effort and clear to auscultation bilaterally Cardio regular rate and regular rhythm GI non-tender and non-distended GI Narrative: Soft nontender nondistended with normal active bowel sounds no voluntary guarding or rigidity. No pulsatile mass or fluid. No overlying abrasions or ecchymosis Auscultation: normoactive bowel sounds Palpation: soft Narrative: Rectal exam displays good tone without anal fissure or external hemorrhoids noted. Stool is mucousy brown in color and Hemoccult negative Back/Spine Back/Spine Narrative: No bony deformity or step-off of the thoracic or lumbar spine no midline pain on palpation Extremity normal to inspection Extremity Narrative: Pelvis is stable there is no shortening or external rotation of either lower extremity. Patient can move all extremities without difficulty Neuro oriented x3 and CN's II-XII intact bilaterally Neuro Narrative: Cranial nerves II through XII are grossly intact there are no focal neurologic deficit. No pronator drift no dysmetria no truncal ataxia. NIH stroke scale score of 0 Sensorium / Orientation: alert Psych mental status grossly normal Skin Skin Narrative: Soft tissue swelling with mild ecchymosis to the left anterior lateral portion of the chest as documented above MDM MDM MDM Narrative Medical decision making narrative: Patient presented to the ER with stable vitals and reported a longstanding history of recurrent/chronic diplopia. She states she felt it was slightly more intense and she noticed some facial paresthesias associated with it which was abnormal so she presented based on her history of previous stroke. Differential does include acute CVA versus TIA. With her recent trauma there is also concern for skull fracture or brain bleed or patient could have a retinal detachment or macular degeneration. With pain to the chest wall there is olivier rn this could be secondary to acute rib fracture versus pulmonary contusion pneumothorax or hemothorax. Basic labs were obtained as well as a CT of the head to rule out large vessel occlusion or stenosis and bleed. This revealed no acute finding. Chest x-ray did confirm 1/6 and seventh rib fracture which is consistent with her physical exam and fall. Labs revealed leukocytosis and there is concern for developing infection in the urine but patient states she is currently on antibiotic from her family doctor which she has had 1 dose of. At this time the patient's neurologic exam is normal her stroke scale score is 0 the CTA does not reveal significant findings and she does not have need for a chest tube based on her rib fractures. Therefore there is no need to put the patient in the hospital and to be discharged home with symptomatic care History & Record Review Discussion w/independent historian: Patient and Significant other Lab Data Attestation: I reviewed the patient's lab results. Labs: Laboratory Results - last 24 hr 07/25/22 07/25/22 07/25/22 06:25 06:25 06:25 WBC 14.8 H RBC 3.77 L Hgb 9.0 L Hct 30.6 L MCV 81.2 MCH 23.9 L MCHC 29.4 L RDW Std Deviation 50.0 H RDW Coeff of Ranjit 17.2 H Plt Count 374 MPV 9.9 Immature Gran % (Auto) 0.500 Neut % (Auto) 56.6 Lymph % (Auto) 34.5 George % (Auto) 6.4 Eos % (Auto) 1.5 Baso % (Auto) 0.5 Absolute Neuts (auto) 8.4 H Absolute Lymphs (auto) 5.11 H Nucleated RBC % 0 Anisocytosis 1+ PT 12.8 INR 1.0 APTT 23.3 L Sodium 142 Potassium 4.0 Chloride 113 H Carbon Dioxide 21.0 Anion Gap 8 BUN 22 H Creatinine 0.88 Estim Creat Clear Calc 43.69 Est GFR (MDRD) Af Amer 80 Est GFR (MDRD) Non-Af 66 BUN/Creatinine Ratio 24.9 H Glucose 113 H Calcium 9.2 Magnesium 2.1 TSH 2.06 Urine Color Urine Clarity Urine pH Ur Specific [place] Urine Protein Urine Glucose (UA) Urine Ketones Urine Occult Blood Urine Nitrite Urine Bilirubin Urine Urobilinogen Ur Leukocyte Esterase Urine RBC Urine WBC Ur Squamous Epith Cells Urine Bacteria Urine Mucus 07/25/22 07:42 WBC RBC Hgb Hct MCV MCH MCHC RDW Std Deviation RDW Coeff of Ranjit Plt Count MPV Immature Gran % (Auto) Neut % (Auto) Lymph % (Auto) George % (Auto) Eos % (Auto) Baso % (Auto) Absolute Neuts (auto) Absolute Lymphs (auto) Nucleated RBC % Anisocytosis PT INR APTT Sodium Potassium Chloride Carbon Dioxide Anion Gap BUN Creatinine Estim Creat Clear Calc Est GFR (MDRD) Af Amer Est GFR (MDRD) Non-Af BUN/Creatinine Ratio Glucose Calcium Magnesium TSH Urine Color Yellow Urine Clarity Sl. Cloudy Urine pH 6.5 Ur Specific [place] 1.010 Urine Protein 15 H Urine Glucose (UA) Normal Urine Ketones Negative Urine Occult Blood Negative Urine Nitrite Negative Urine Bilirubin Negative Urine Urobilinogen Normal Ur Leukocyte Esterase 100 H Urine RBC 0 SEEN Urine WBC 10-25 SEEN Ur Squamous Epith Cells 0-5 SEEN Urine Bacteria 0 SEEN Urine Mucus 0 SEEN Radiography Diagnostic Testing: Clinical Impression(s) from Imaging Studies Head/Neck CTA 07/25/22 06:19 IMPRESSION: No acute findings in the arteries of the head and neck. Electronically Signed: Zachary Coe MD at 8:02 EDT , Ribs w/Chest X-Ray 07/25/22 06:19 IMPRESSION: 1. Nondisplaced fractures of the posterolateral segments of the left sixth and seventh ribs, possibly acute. 2. No evidence for acute cardiopulmonary pathology. Electronically Signed: Zachary Coe MD at 7:46 EDT , Left rib series with 1 view chest as interpreted by the emergency medicine physician reveals acute fractures of the left sixth and seventh ribs but otherwise no pneumothorax hemothorax pleural effusion or infiltrate Discharge Plan Triage Chief Complaint: Eye Problem ED Provider: Arnold Lyle Dx/Rx/DC Orders Clinical Impression: Multiple rib fractures, Paresthesias, Anemia, Essential (primary) hypertension, Hyperlipidemia, Diabetes mellitus Instructions: Anemia, Rib Fracture (Broken Rib), ED Paraesthesias Prescriptions: New oxycodone-acetaminophen [Percocet] 5-325 mg tablet 1 tab PO Q6H PRN (Reason: pain) 3 Days Qty: 12 0RF ondansetron 4 mg tablet,disintegrating 4 mg PO TID PRN (Reason: nausea and vomiting) Qty: 21 0RF lidocaine 5 % adhesive patch,medicated 2 patch topical DAILY PRN (Reason: pain) Qty: 30 1RF Rx Instructions: leave on most painful area for up to 12 hrs No Action ascorbate calcium (vitamin C) 500 mg tablet 500 mg PO DAILY magnesium 30 mg tablet 30 mg PO DAILY atorvastatin 20 mg tablet 20 mg PO DAILY Label Comments: take 1 tablet by mouth once daily acyclovir 400 MG tablet 400 mg PO BID bupropion HCl 150 MG tablet extended release 24 hr 150 mg PO BID glucosamine [id number] 1 EACH tablet 1 ea PO DAILY amlodipine 5 mg tablet 2.5 mg PO DAILY omega 0-ilp-iqb-fish oil [Fish Oil] 1,200 (144-216) mg Capsule 1,200 cap PO DAILY aspirin 81 mg tablet,chewable 81 mg PO BREAKFAST calcium carbonate 200 mg calcium (500 mg) tablet,chewable 500 mg PO LUNCH High Potency Multivit (w-iron) 9 mg iron-400 mcg tablet 1 tab PO BREAKFAST pantoprazole 40 mg Tablet,Delayed Release (Dr/Ec) 40 mg PO DAILY 30 Days Qty: 30 0RF acetaminophen 500 mg Tablet 1,000 mg PO Q6H PRN PRN (Reason: Pain Score 1-10) Qty: 0 0RF losartan-hydrochlorothiazide 100-12.5 mg Tablet 1 tab PO DAILY gabapentin 100 mg capsule 100 mg PO DAILY Rx Instructions: takes every 4hours potassium chloride 10 mEq tablet,ER particles/crystals 10 meq PO QODAY hydrocodone-acetaminophen 5-325 mg Tablet 1 tab PO Q6H PRN (Reason: Pain) nitrofurantoin monohyd/m-cryst 100 mg capsule 100 mg PO BID Primary Care Provider: Susan Tello Referrals: Susan Tello DO [Primary Care Provider] - Activity Restrictions/Additional Instructions: Your work-up today does not show any new stroke deficits. You do have 2 broken ribs on the left side secondary to your recent fall. Continue the antibiotic that was prescribed by your family doctor secondary to the changes in your urine. Take the pain medication as directed and use the incentive spirometer to help prevent pneumonia. Please return to the ER should you have any further concerns Disposition Disposition: Home, Self Care Discharge Date/Time: 07/25/22 09:37
[2022-07-25] MEDS: Morphine 4 MG/ML Syringe IV (08:47)
[2022-07-25] MEDS: Ondansetron 4 MG/2 ML Vial IV (08:48)
[2022-07-25] MEDS: DiphenhydrAMINE 50 MG/ML Syringe 6.25 MG IV (08:48)
[2022-07-25 09:10] LABS: Bedside Glucose 96 mg/dL (74-106)
== END 2022-07-25 09:37 | disposition home or self-care (01) ==
PROVIDERS: Emergency Provider Emergency Medicine; PCP Internal Medicine; Visit Provider Emergency Medicine
DX: S22.42XA Multiple fractures of ribs, left side, initial encounter for closed fracture (principal); E11.9 Type 2 diabetes mellitus without complications; R20.2 Paresthesia of skin; E78.5 Hyperlipidemia, unspecified; Z87.891 Personal history of nicotine dependence; I10 Essential (primary) hypertension; I69.398 Other sequelae of cerebral infarction; Z79.899 Other long term (current) drug therapy; Z79.82 Long term (current) use of aspirin; W19.XXXA Unspecified fall, initial encounter
CPT/HCPCS: 70496; 70498; 71101; 80048; 81001; 82274; 82962; 83735; 84443; 85025; 85610; 85730; 87086; 87088; 96361; 96374; 96375; 99282; Q9967; A4216; J2405

== ENCOUNTER 2022-07-27 16:12 | Inpatient (IN) | payer MEDICARE, BC, SELFPAY ==
[2022-07-27] VITALS (8 sets, daily range): BP systolic 134–151; BP diastolic 70–91; PULSE 79–90; RESP 14–18; TEMP 36.3–36.6; O2SAT 95–99; BMI 34.2; BMI 35.2; BMI 33.0
--- NOTE | 2022-07-27 16:18 | EKG12_ITS ---
Test Reason : NEURO Blood Pressure : / mmHG Vent. Rate : 090 BPM Atrial Rate : 090 BPM P-R Int : 140 ms QRS Dur : 072 ms QT Int : 358 ms P-R-T Axes : 051 001 010 degrees QTc Int : 437 ms Normal sinus rhythm Cannot rule out Inferior infarct , age undetermined Abnormal ECG Confirmed by CHLOE WALKER, ALEXANDREA ([id number]), web content editor MUKESH HAAS ([id number]) on 07/31/2022 2:30:33 PM Referred By: Confirmed By:TREY CORONA MD
--- NOTE | 2022-07-27 16:19 | EDS_ITS ---
HPI History of Present Illness Chief Complaint: Neuro S/Sx Informant: patient and spouse/S.O. Narrative Narrative: Patient is brought in by ex-. It sounds like they do still live with each other. Patient has been having episodes of confusion. She seemed to be a little bit confused this morning when the first saw her. But then she was out being active cleaning the house and doing things outside. Later in the day she seemed to be confused. He states that there were people coming over tonight. She was confused on who it was that was coming over. She thought it was different people. He has not noticed any focal weakness. No specific speech problems. It sounds like she is not having trouble getting words out but she has trouble remembering the correct occurrence. She states she was here yesterday for some rib fractures on the left. It was actually the day prior. Of note, the patient did just start Percocet. The ex- thinks that the symptoms may be related to that because of the timing of her taking the medicines and having symptoms. But he was not sure. Patient really does not have any complaints. [facility] Medical History Arthritis Compression fracture Cryptogenic stroke Diplopia Dyspnea on exertion Essential (primary) hypertension History of skin cancer Hyperlipidemia Implantable loop recorder present Ptosis Stroke/cerebrovascular accident Transient retinal artery occlusion Type 2 diabetes mellitus Home Medications acyclovir 400 mg tablet 400 mg PO BID herpes 06/14/15 [History Last Taken 03/13/22] bupropion HCl 150 mg 24 hr tablet, extended release 150 mg PO BID depression 06/14/15 [History Last Taken 01/11/22] glucosamine HCl 500 mg-msm 83 mg-chondroitin 400 mg tablet 1 ea PO DAILY supplement 07/19/16 [History Last Taken 01/11/22] ascorbate calcium (vitamin C) 500 mg tablet 500 mg PO DAILY supplements 09/05/18 [History Last Taken 01/11/22] magnesium 30 mg tablet 30 mg PO DAILY supplement 06/20/20 [History Last Taken 01/11/22] amlodipine 5 mg tablet 2.5 mg PO DAILY BP 01/31/21 [History Last Taken 03/13/22] omega 8-hdl-atn-fish oil 1,200 mg (144 mg-216 mg) capsule (Fish Oil) 1,200 cap PO DAILY supplement 01/13/22 [History Last Taken Unknown] aspirin 81 mg chewable tablet 81 mg PO BREAKFAST stroke 01/14/22 [History Last Taken 03/13/22] calcium carbonate 200 mg calcium (500 mg) chewable tablet 500 mg PO LUNCH Supplement 02/05/22 [History Last Taken Unknown] multivitamin-iron 9 mg-folic acid 400 mcg-calcium and minerals tablet (High Potency Multivitamin (w-iron)) 1 tab PO BREAKFAST Supplement 02/05/22 [History Last Taken Unknown] acetaminophen 500 mg tablet 1,000 mg PO Q6H PRN PRN Pain Score 1-10 #0 tabs 1 04/10/21 [Rx Last Taken Unknown] pantoprazole 40 mg tablet,delayed release 40 mg PO DAILY 30 days #30 tabs 02/08/22 [Rx Last Taken 03/13/22] atorvastatin 20 mg tablet 20 mg PO DAILY 05/23/22 [History Last Taken Unknown] gabapentin 100 mg capsule 100 PO 07/25/22 [History Last Taken Unknown] hydrocodone-acetaminophen 5-325mg 5mg-325mg 1 tab PO Q6H PRN Pain 07/25/22 [History Last Taken Unknown] lidocaine 5 % topical patch 2 patch topical DAILY PRN pain #30 ea 07/25/22 [Rx Last Taken Unknown] losartan 100 mg-hydrochlorothiazide 12.5 mg tablet 1 tab PO DAILY 07/25/22 [History Last Taken Unknown] ondansetron 4 mg disintegrating tablet 4 mg PO TID PRN nausea and vomiting #21 tabs 07/25/22 [Rx Last Taken Unknown] oxycodone-acetaminophen 5 mg-325 mg tablet (Percocet) 1 tab PO Q6H PRN pain 3 days #12 tabs 07/25/22 [Rx Last Taken Unknown] potassium chloride 10 mEq tablet,extended release(part/cryst) 10 meq PO QODAY 07/25/22 [History Last Taken Unknown] nitrofurantoin monohydrate/macrocrystals 100 mg capsule 100 mg PO BID 07/27/22 [History Last Taken Unknown] Allergy/AdvReac Type Severity Reaction Status Date / Time neomycin Allergy unknown Verified 07/27/22 16:17 nickel Allergy Rash Verified 07/27/22 16:17 Penicillins [PCN] Allergy Hives Verified 07/27/22 16:17 Sulfa (Sulfonamide Allergy Rash Verified 07/27/22 16:17 Antibiotics) Family History Mother CAD (coronary artery disease) Daughter Heart disease cardiomyopathy Sister Breast cancer triple negative Thyroid cancer Surgical History H/O abdominal surgery History of breast biopsy History of knee replacement History of loop recorder (~03/13/22) History of tubal ligation Social History household members: other details: ex-. Smoking Status: Former smoker how long ago did patient quit smokin alcohol intake: current alcohol intake frequency: holidays/special occasions only substance use type: does not use caffeine: Yes (Take a caffeine tablet daily) ROS ROS ED Constitutional Constitutional ED: Denies chills or fever(s) Eyes Eyes: Denies change in vision or diplopia ENT ENT ED: Denies rhinorrhea or sore throat Cardiovascular Cardiovascular: Denies chest pain, palpitations or racing heartbeat Respiratory/Chest Respiratory/Chest: Reports other Details: She does have some left-sided rib pain but states it is not bad right now. ; Denies cough or dyspnea Gastrointestinal Gastrointestinal: Denies nausea or vomiting Genitourinary Genitourinary ED: Reports other Details: He denies urinary symptoms. But evidently she was started on an antibiotic for a UTI on Sunday. We are trying to find the name of this as neither the patient nor her are sure what antibiotic she started. ; Denies dysuria or hematuria Musculoskeletal Musculoskeletal: Denies myalgias Integumentary Denies rash Neurologic Neurologic: Reports other Details: See history of present illness. ; Denies headache(s), paresthesias or weakness Hematologic/Lymphatic Hematologic/Lymphatic: Denies easy bleeding or easy bruising Allergic/Immunologic Allergic/Immunologic ED: Denies urticaria EXAM Physical Exam Narrative Exam Narrative: Patient is awake. She walked into the room. She is able to get in and out of clothing and get the gown on without difficulty. No discoordination. HEENT shows no trauma. I do not see any obvious facial droop including with smiling and closing the eyes tightly. Mucous membranes are minimally dry. Neck is supple. No tenderness. Lungs are clear bilaterally and saturations are normal on room air. Mild chest wall tenderness but no subcu air. Heart is regular. I do not hear a murmur. Abdomen soft nontender Extremities do show a few bruises from recent IVs but no other abnormalities. Neurologically patient is awake she is alert she knows her date of . She is oriented x3. She is a little bit slow to answer the questions though. The there is no focal weakness or sensory deficit. She does have a little bit of finger-nose difficulty with the left hand but her states her stroke was on her left side and this is very subtle. I do not think it shows significant discoordination enough to give a point. Pupils are small at about 2 mm. She is able to recognize items such as a pen para glasses and a stethoscope. She has an NIH of 0 while having the same symptoms that the brought her in for which is a global confusion and slowness. Const Vital Signs: 07/27/22 16:13 07/27/22 17:29 07/27/22 18:50 Temperature 97.6 F L 97.6 F L Temperature Source Temporal Temporal Pulse Rate 81 84 86 Respiratory Rate 18 18 14 Blood Pressure 134/76 H 151/91 H 145/80 H Blood Pressure Mean 95 111 101 Pulse Ox 96 98 95 Oxygen Delivery Method Room Air Room Air Room Air 07/27/22 18:51 07/27/22 19:22 Temperature 97.3 F L 97.3 F L Temperature Source Temporal Temporal Pulse Rate 79 82 Respiratory Rate 18 16 Blood Pressure 145/80 H 138/82 H Blood Pressure Mean 101 100 Pulse Ox 95 97 Oxygen Delivery Method Room Air Room Air MDM MDM MDM Narrative Medical decision making narrative: My independent interpretation of the CT of the head shows no acute process. I do not see bleeding. The final read was as a's mall of low-attenuation in the right cerebellar hemisphere. These were compared with a CT and MRI from December. But they were not compared with the CT CTA of the head from 2 days ago. We called back and have them compare this with the more recent study and they do show that this is a change so they feel that that is a more acute change. Patient CBC shows mild elevation of white count mild anemia. But this is similar to a couple days ago. Electrolytes show no marked abnormalities Urinalysis shows no sign of infection Ammonia level is negative. With the patient's symptoms, risk factors, and CT findings that are appearing to be acute from 2 days ago she will be admitted. I discussed case with hospitalist. Since she appeared to wake up with the symptoms, they are mild and her NIH is low she is not a good tPA candidate. Lab Data Attestation: I reviewed the patient's lab results. Labs: Laboratory Results - last 24 hr 07/27/22 07/27/22 07/27/22 16:13 16:45 16:45 WBC 15.0 H RBC 3.79 L Hgb 8.7 L Hct 30.0 L MCV 79.2 L MCH 23.0 L MCHC 29.0 L RDW Std Deviation 49.2 H RDW Coeff of Ranjit 17.2 H Plt Count 383 MPV 9.7 Immature Gran % (Auto) 0.600 Neut % (Auto) 69.7 Lymph % (Auto) 22.9 [place] % (Auto) 5.7 Eos % (Auto) 0.7 Baso % (Auto) 0.4 Absolute Neuts (auto) 10.4 H Absolute Lymphs (auto) 3.42 Nucleated RBC % 0 Sodium 141 Potassium 3.9 Chloride 109 H Carbon Dioxide 24.0 Anion Gap 8 BUN 16 Creatinine 0.87 Estim Creat Clear Calc 42.16 Est GFR (MDRD) Af Amer 81 Est GFR (MDRD) Non-Af 67 BUN/Creatinine Ratio 18.3 Glucose 83 Calcium 9.2 Total Bilirubin 0.30 AST 15 ALT 26 Alkaline Phosphatase 64 Ammonia Total Protein 7.2 Albumin 3.4 Globulin 3.8 Albumin/Globulin Ratio 0.9 Urine Color Urine Clarity Urine pH Ur Specific [place] Urine Protein Urine Glucose (UA) Urine Ketones Urine Occult Blood Urine Nitrite Urine Bilirubin Urine Urobilinogen Ur Leukocyte Esterase Urine RBC Urine WBC Ur Squamous Epith Cells Urine Bacteria Urine Mucus POC Glucose 71 L 07/27/22 07/27/22 16:45 17:20 WBC RBC Hgb Hct MCV MCH MCHC RDW Std Deviation RDW Coeff of Ranjit Plt Count MPV Immature Gran % (Auto) Neut % (Auto) Lymph % (Auto) [place] % (Auto) Eos % (Auto) Baso % (Auto) Absolute Neuts (auto) Absolute Lymphs (auto) Nucleated RBC % Sodium Potassium Chloride Carbon Dioxide Anion Gap BUN Creatinine Estim Creat Clear Calc Est GFR (MDRD) Af Amer Est GFR (MDRD) Non-Af BUN/Creatinine Ratio Glucose Calcium Total Bilirubin AST ALT Alkaline Phosphatase Ammonia < 10.0 L Total Protein Albumin Globulin Albumin/Globulin Ratio Urine Color Yellow Urine Clarity Clear Urine pH 6.5 Ur Specific [place] 1.010 Urine Protein Negative Urine Glucose (UA) Normal Urine Ketones Negative Urine Occult Blood Negative Urine Nitrite Negative Urine Bilirubin Negative Urine Urobilinogen Normal Ur Leukocyte Esterase Negative Urine RBC 0 SEEN Urine WBC 0 SEEN Ur Squamous Epith Cells 0 SEEN Urine Bacteria 0 SEEN Urine Mucus 0 SEEN POC Glucose Radiography Diagnostic Testing: Clinical Impression(s) from Imaging Studies Brain CT 07/27/22 17:10 IMPRESSION: Volume loss with chronic white matter changes. Small, low-attenuation focus right cerebellar hemisphere suspicious for subacute or chronic CVA. Findings not present on prior studies and best investigated by MRI. No acute intracranial hemorrhage. Electronically Signed: Frederic Horvath MD at 17:38 EDT Reading Location ID and State: [facility] / [place] Tel , Service support , ADDENDUM: 07/27/22 [id number] IMPRESSION: undefined Management Discussion w/another healthcare provider: Hospitalist Discharge Plan Dx/Rx/DC Orders Clinical Impression: Acute CVA (cerebrovascular accident), Acute confusion, Discoordination Disposition Disposition: [facility]
--- NOTE | 2022-07-27 16:20 | ED.RN ---
physician not calling stroke alert at this time.
[2022-07-27 16:56] LABS: Absolute Lymphocyte Count 3.42 X10^3/uL (0.83-4.51); Absolute Neutrophil Count 10.4 X10^3/uL (2.0-7.7); Basophil# 0.06 X10^3/uL; Basophil% 0.4 % (0-1); Eosinophil# 0.11 X10^3/uL; Eosinophils% 0.7 % (0-5); Hemoglobin 8.7 g/dL (12.0-15.0); Lymphocyte # 3.42 X10^3/ul (0.83-4.51); Lymphocyte % 22.9 % (19-41); Mean Corpuscular Volume 79.2 fL (81-99); Mean Platelet Vol. 9.7 fl (6.2-12.0); Monocyte# 0.85 X10^3/uL; Monocyte% 5.7 % (0-10); NRBC Flagged by Analyzer 0 % (0-5); Neutrophil # 10.42 X10^3/uL (2.7-7.7); Neutrophil % 69.7 % (47-70); Platelet Count 383 K/mm3 (150-450); RBC Distribution Width CV 17.2 % (11.6-14.6); RBC Distribution Width SD 49.2 fl (35.1-43.9); Red Blood Count 3.79 M/mm3 (4.2-5.4)
--- NOTE | 2022-07-27 17:10 | CT_ITS ---
INDICATION: Trauma, confusion EXAMINATION: CT BRAIN - CT Head or Brain W/O Contrast Injection TECHNIQUE: Multiple axial images were obtained of the head without intravenous contrast. A radiation dose optimization technique was used for this scan. IV Contrast dosage and agent: None. COMPARISON: 01/12/[address], brain MRI FINDINGS: BRAIN PARENCHYMA: No intra- or extra-axial hemorrhage. Small focus of right cerebellar low attenuation not previously present. No intracranial mass or mass effect. Volume loss with low attenuation of the periventricular white matter typical of chronic small vessel disease. CSF SPACES: Appropriate for age. No hydrocephalus. Basal cisterns are patent. CALVARIUM, SKULL BASE, PARANASAL SINUSES AND MASTOID AIR CELLS: Clear. No acute fracture. CT/Brain/Head without Contrast IMPRESSION: Volume loss with chronic white matter changes. Small, low-attenuation focus right cerebellar hemisphere suspicious for subacute or chronic CVA. Findings not present on prior studies and best investigated by MRI. No acute intracranial hemorrhage. Electronically Signed: Frederic Horvath MD at 17:38 EDT ,
[2022-07-27 17:15] LABS: ALB/GLOB Ratio 0.9 RATIO (0.9-2.4); AST(SGOT) 15 U/L (15-37); Alanine Aminotransfer ALT/SGPT 26 U/L (13-56); Albumin, Serum 3.4 g/dL (3.2-5.0); Alkaline Phosphatase 64 U/L (45-117); Anion Gap 8 (5-15); BUN 16 mg/dL (7-18); BUN/Creat Ratio 18.3 RATIO (10-20); Calcium,Total 9.2 mg/dL (8.5-10.1); Chloride 109 mmol/L (98-107); Creatinine, Serum 0.87 mg/dL (0.55-1.02); EST Glomerular Filtration Rate 67 mL/min (>60); Est Glom Filt Rate - Afr Amer 81 mL/min (>60); Estimated Creatinine Clearance 42.16 ml/min; Globulin 3.8 g/dL (2.2-4.2); Glucose 83 mg/dL (74-106); Potassium 3.9 mmol/L (3.5-5.1); Protein, Total 7.2 g/dL (6.4-8.2); Sodium Level 141 mmol/L (136-145)
[2022-07-27 17:15] LABS: Bedside Glucose 71 mg/dL (74-106)
[2022-07-27 17:36] LABS: Bacteria 0 SEEN /hpf (None Seen); Mucous, Urine 0 SEEN /hpf (<or=2+); Red Blood Cells-Urine 0 SEEN /hpf (0-5); Squamous Epithelial Cells - UA 0 SEEN /hpf (5-10); White Blood Cells 0 SEEN /hpf (0-5)
[2022-07-27 17:43] LABS: Color, Urine Yellow (Yellow); Glucose, Dipstick Normal (Normal); Ketone-Dipstick Negative (Negative); Leukocyte Esterase-Dipstick Negative /ul (Negative); Nitrite-Dipstick Negative (Negative); Occult Blood-Urine Negative /ul (Negative); Protein-Dipstick Negative (Negative); Urine Bilirubin Dipstick Negative (Negative); Urine Clarity Clear (Clear); Urine Urobilinogen Normal (Normal); Urine pH 6.5 (5.0 - 8.0)
[2022-07-27 18:20] LABS: Ammonia < 10.0 umol/L (11-32)
--- NOTE | 2022-07-27 19:25 | HP.PCM.HOS_ITS ---
[facility] - General General Date of Service: 07/27/22 Chief Complaint: confusion. [facility] Narrative REBECA GUERRERO, is a 77 F who presents with confusion at home. Patient was having difficulty reciting some names of some people and was given the names mixed up. Her ex- was asking her to help him set up something on the computer and she was not able to respond appropriately. He stated that normally she would be able to help him to the degree that he would need. They are concerned brought patient to the emergency room. Patient was seen in the emergency room on the second for some visual difficulties and had a CT angiogram at that time that was unremarkable. Patient underwent a head CT today that showed a small low-attenuation focus in the right cerebellar hemisphere suspicion for a subacute or chronic stroke. Patient has had prior strokes before that has affected her left side. Patient denies any unilateral weakness at this time. Patient complains to me of expressive aphasia not be able to get the words out properly. [facility] Medical History Arthritis Compression fracture Cryptogenic stroke Diplopia Dyspnea on exertion Essential (primary) hypertension History of skin cancer Hyperlipidemia Implantable loop recorder present Ptosis Stroke/cerebrovascular accident Transient retinal artery occlusion Type 2 diabetes mellitus Home Medications acyclovir 400 mg tablet 400 mg PO BID herpes 06/14/15 [History Last Taken 03/13/22] bupropion HCl 150 mg 24 hr tablet, extended release 150 mg PO BID depression 06/14/15 [History Last Taken 01/11/22] glucosamine HCl 500 mg-msm 83 mg-chondroitin 400 mg tablet 1 ea PO DAILY supplement 07/19/16 [History Last Taken 01/11/22] ascorbate calcium (vitamin C) 500 mg tablet 500 mg PO DAILY supplements 09/05/18 [History Last Taken 01/11/22] magnesium 30 mg tablet 30 mg PO DAILY supplement 06/20/20 [History Last Taken 01/11/22] amlodipine 5 mg tablet 2.5 mg PO DAILY BP 01/31/21 [History Last Taken 03/13/22] omega 6-vmn-bop-fish oil 1,200 mg (144 mg-216 mg) capsule (Fish Oil) 1,200 cap PO DAILY supplement 01/13/22 [History Last Taken Unknown] aspirin 81 mg chewable tablet 81 mg PO BREAKFAST stroke 01/14/22 [History Last Taken 03/13/22] calcium carbonate 200 mg calcium (500 mg) chewable tablet 500 mg PO LUNCH Supplement 02/05/22 [History Last Taken Unknown] multivitamin-iron 9 mg-folic acid 400 mcg-calcium and minerals tablet (High Potency Multivitamin (w-iron)) 1 tab PO BREAKFAST Supplement 02/05/22 [History Last Taken Unknown] acetaminophen 500 mg tablet 1,000 mg PO Q6H PRN PRN Pain Score 1-10 #0 tabs 02/08/22 [Rx Last Taken Unknown] pantoprazole 40 mg tablet,delayed release 40 mg PO DAILY 30 days #30 tabs 02/08/22 [Rx Last Taken 03/13/22] atorvastatin 20 mg tablet 20 mg PO DAILY 05/23/22 [History Last Taken Unknown] gabapentin 100 mg capsule 100 mg PO DAILY 07/25/22 [History Last Taken Unknown] hydrocodone-acetaminophen 5-325mg 5mg-325mg 1 tab PO Q6H PRN Pain 07/25/22 [History Last Taken Unknown] lidocaine 5 % topical patch 2 patch topical DAILY PRN pain #30 ea 07/25/22 [Rx Last Taken Unknown] losartan 100 mg-hydrochlorothiazide 12.5 mg tablet 1 tab PO DAILY 07/25/22 [History Last Taken Unknown] ondansetron 4 mg disintegrating tablet 4 mg PO TID PRN nausea and vomiting #21 tabs 07/25/22 [Rx Last Taken Unknown] oxycodone-acetaminophen 5 mg-325 mg tablet (Percocet) 1 tab PO Q6H PRN pain 3 days #12 tabs 07/25/22 [Rx Last Taken Unknown] potassium chloride 10 mEq tablet,extended release(part/cryst) 10 meq PO QODAY 07/25/22 [History Last Taken Unknown] nitrofurantoin monohydrate/macrocrystals 100 mg capsule 100 mg PO BID 07/27/22 [History Last Taken Unknown] Allergy/AdvReac Type Severity Reaction Status Date / Time neomycin Allergy unknown Verified 07/27/22 16:17 nickel Allergy Rash Verified 07/27/22 16:17 Penicillins [PCN] Allergy Hives Verified 07/27/22 16:17 Sulfa (Sulfonamide Allergy Rash Verified 07/27/22 16:17 Antibiotics) Family History Mother CAD (coronary artery disease) Daughter Heart disease cardiomyopathy Sister Breast cancer triple negative Thyroid cancer Surgical History H/O abdominal surgery History of breast biopsy History of knee replacement History of loop recorder (~03/13/22) History of tubal ligation Social History household members: other details: ex-. Smoking Status: Former smoker how long ago did patient quit smokin alcohol intake: current alcohol intake frequency: holidays/special occasions only substance use type: does not use caffeine: Yes (Take a caffeine tablet daily) ROS ROS Narrative All review of systems were negative except as mentioned above in the history of present illness and the other review of systems. Vital Signs Vital Signs Vital Signs: 07/27/22 16:13 07/27/22 17:29 07/27/22 18:50 Temperature 36.4 C L 36.4 C L Temperature Source Temporal Temporal Pulse Rate 81 84 86 Respiratory Rate 18 18 14 Blood Pressure 134/76 H 151/91 H 145/80 H Blood Pressure Mean 95 111 101 Pulse Ox 96 98 95 Oxygen Delivery Method Room Air Room Air Room Air 07/27/22 18:51 07/27/22 19:22 Temperature 36.3 C L 36.3 C L Temperature Source Temporal Temporal Pulse Rate 79 82 Respiratory Rate 18 16 Blood Pressure 145/80 H 138/82 H Blood Pressure Mean 101 100 Pulse Ox 95 97 Oxygen Delivery Method Room Air Room Air Weight Weight: 84.4 kg Body Mass Index (BMI) 35.2 Physical Exam Const alert and no apparent distress Constitutional Narrative: Having difficulty getting the words out. Follows commands properly. Answers yes/no questions appropriately. HEENT normocephalic, head/scalp atraumatic and moist oral mucous membranes Eyes PERRL and EOMs intact bilaterally Neck no lymphadenopathy Neck Narrative: No thyromegaly Resp normal respiratory effort, no retractions, no use of accessory muscles and clear to auscultation bilaterally Cardio regular rate, regular rhythm, S1 normal heart sound and S2 normal heart sound GI normal to inspection, nondistended, normoactive bowel sounds, soft to palpation, non-tender and non-distended Extremity normal to inspection and full ROM Neuro oriented x3, CN's II-XII intact bilaterally, moves all extremities and no focal motor deficits Sensorium / Orientation: awake and alert Coordination / Balance: [id number] test normal and [id number] test normal Psych affect normal Results Lab / Micro Data Attestation: I reviewed the patient's lab results. Result Diagrams: 07/27/22 16:45 07/27/22 16:45 Labs: Laboratory Results - last 24 hr 07/27/22 16:13: POC Glucose 71 L 07/27/22 16:45: WBC 15.0 H, RBC 3.79 L, Hgb 8.7 L, Hct 30.0 L, MCV 79.2 L, MCH 23.0 L, MCHC 29.0 L, RDW Std Deviation 49.2 H, RDW Coeff of Ranjit 17.2 H, Plt Count 383, MPV 9.7, Immature Gran % (Auto) 0.600, Neut % (Auto) 69.7, Lymph % (Auto) 22.9, [place] % (Auto) 5.7, Eos % (Auto) 0.7, Baso % (Auto) 0.4, Absolute Neuts (auto) 10.4 H, Absolute Lymphs (auto) 3.42, Nucleated RBC % 0 07/27/22 16:45: Sodium 141, Potassium 3.9, Chloride 109 H, Carbon Dioxide 24.0, Anion Gap 8, BUN 16, Creatinine 0.87, Estim Creat Clear Calc 42.16, Est GFR (MDRD) Af Amer 81, Est GFR (MDRD) Non-Af 67, BUN/Creatinine Ratio 18.3, Glucose 83, Calcium 9.2, Total Bilirubin 0.30, AST 15, ALT 26, Alkaline Phosphatase 64, Total Protein 7.2, Albumin 3.4, Globulin 3.8, Albumin/Globulin Ratio 0.9 07/27/22 16:45: Ammonia < 10.0 L 07/27/22 17:20: Urine Color Yellow, Urine Clarity Clear, Urine pH 6.5, Ur Sp ecific [place] 1.010, Urine Protein Negative, Urine Glucose (UA) Normal, Urine Ketones Negative, Urine Occult Blood Negative, Urine Nitrite Negative, Urine Bilirubin Negative, Urine Urobilinogen Normal, Ur Leukocyte Esterase Negative, Urine RBC 0 SEEN, Urine WBC 0 SEEN, Ur Squamous Epith Cells 0 SEEN, Urine Bacteria 0 SEEN, Urine Mucus 0 SEEN EKG Initial EKG: Attestation: I personally reviewed and interpreted this EKG as follows: Prior EKG tracings: available for review EKG Rhythm Intrepretation: Sinus Rhythm Radiology Impression Brain CT 07/27/22 17:10 IMPRESSION: Volume loss with chronic white matter changes. Small, low-attenuation focus right cerebellar hemisphere suspicious for subacute or chronic CVA. Findings not present on prior studies and best investigated by MRI. No acute intracranial hemorrhage. Electronically Signed: Frederic Horvath MD at 17:38 EDT Reading Location ID and State: [facility] / [place] Tel , Service support , ADDENDUM: 07/27/22 [id number] IMPRESSION: undefined Assessment & Plan Assessment/Plan (1) Acute CVA (cerebrovascular accident): PLAN: Noted cerebellar area on CAT scan. Patient with expressive aphasia which is new. Patient does have a history of embolic strokes and did have a loop recorder placed. It was significant for showing tachycardia but no A-fib. Testing: MRI of the brain, echo, fasting lipid panel and physical and Occupational Therapy. Treatment: Continue with aspirin. We will add clopidogrel. Neurology notes from April 19 of this year reviewed and patient was taken off clopidogrel at that time and patient atorvastatin was cut back to 20 mg since her LDL is less than 70. No embolic source of her strokes were identified. PLAN: Plan Chronic conditions * Hypertension: We will allow permissive hypertension but then resume her amlodipine and losartan/HCTZ on the 6. * Recent rib fractures: Continue with pain control. Supportive management. Secondary to fall * Abnormal urinalysis: Culture grew out different gram-positive organisms. Likely contaminant. We will discontinue the nitrofurantoin. VTE prophylaxis with low molecular weight heparin CODE STATUS: Addressed with the patient and her ex-. Patient is to be full code. Charges/Coding Visit Charges Inpatient E&M: 25995 Init Hosp L3
[2022-07-27 19:55] LABS: Troponin-I HS 6 pg/mL (3.0-54.0)
--- NOTE | 2022-07-27 19:59 | ECHOCS_ITS ---
Reason For Study: TIA/CVA Procedure This was a 2D Doppler, Color Flow transthoracic echocardiogram. The study was technically difficult. Contrast injection was performed. Exam performed portable in patient room. Left Ventricle Normal left ventricle. The left ventricular ejection fraction is 65 %. Normal diastology for age. Right Ventricle Normal right ventricle. Atria The left and right atria are normal. Mitral Valve Moderate mitral annular calcification. Trivial mitral valve insufficiency. Tricuspid Valve Trivial tricuspid valve insufficiency. Normal pulmonary artery pressure. Aortic Valve Normal aortic valve. Pulmonic Valve The pulmonic valve is not well visualized. Great Vessels The aortic root is not well visualized. Pericardium/Pleural No pericardial effusion. Medication Diluted definity 5ml given slow IV push to enhance endocardial definition. MMode/2D Measurements & Calculations LVIDd: 4.0 cm IVSd: 0.86 cm LAV(MOD-bp): 40.1 ml LVIDs: 2.3 cm LVPWd: 0.72 cm RVDd: 3.4 cm FS: 41.9 % LAV(MOD-bp) Indexed: 22.2 ml/m2 LAV(MOD-sp2): 30.0 ml LAV(MOD-sp4): 43.1 ml SV(MOD-sp4): 35.4 ml SV(sp4-el): 37.0 ml LVAd ap4: 24.1 cm2 LVLd ap4: 7.5 cm EDV(MOD-sp4): 64.1 ml EDV(sp4-el): 65.6 ml LVAs ap4: 14.6 cm2 LVLs ap4: 6.4 cm ESV(MOD-sp4): 28.7 ml ESV(sp4-el): 28.6 ml EF(MOD-sp4): 55.2 % EF(sp4-el): 56.4 % TAPSE_phl: 2.5 cm LA A4 area: 17.9 cm2 RA A4 area: 15.4 cm2 Time Measurements MV dec time: 0.21 sec Doppler Measurements & Calculations MV E max hudson: 120.4 cm/sec Lat Peak E' Hudson: 9.9 cm/sec Med Peak E' Hudson: 7.4 cm/sec MV A max hudson: 132.5 cm/sec E/E' lat: 12.1 E/E' med: 16.3 MV E/A: 0.91 MV V2 max: 146.4 cm/sec MV P1/2t max hudson: 136.7 cm/sec Ao V2 max: 166.2 cm/sec MV max P.6 mmHg MV P1/2t: 68.5 msec Ao max P.1 mmHg MV V2 mean: 82.2 cm/sec MV dec slope: 584.2 cm/sec2 Ao V2 mean: 108.9 cm/sec MV mean P.2 mmHg Ao mean P.5 mmHg MV V2 VTI: 36.4 cm MVA(P1/2t): 3.2 cm2 Ao V2 VTI: 33.8 cm AV (velocity ratio): 0.77 LV V1 max: 129.2 cm/sec PA V2 max: 105.0 cm/sec TR max hudson: 254.8 cm/sec LV V1 max P.7 mmHg PA V2 mean: 73.3 cm/sec TR max P.0 mmHg LV V1 mean P.4 mmHg LV V1 mean: 87.2 cm/sec LV V1 VTI: 25.9 cm ECHO/Echo Complete W/ Contrast Interpretation Summary The left ventricular ejection fraction is 65 %. Moderate mitral annular calcification. Ordering Physician: Gamaliel Ayon Referring Physician: Susan Tello M.D. Performed By: Jas Goddard RCS
[2022-07-27] MEDS: Atorvastatin Calcium 20 MG Tablet PO (23:06)
[2022-07-27] MEDS: buPROPion (XL) 150 MG TABLET.XL PO (23:06)
[2022-07-27] MEDS: Acyclovir 200 MG Capsule 400 MG PO (23:06)
[2022-07-27 23:41] LABS: Bedside Glucose 125 mg/dL (74-106)
[2022-07-28] VITALS (8 sets, daily range): BP systolic 111–131; BP diastolic 61–70; PULSE 82–112; RESP 16–18; TEMP 36.4–36.9; O2SAT 96–99; BMI 33.0
[2022-07-28] MEDS: 0.9% Saline Lock 10 ML Syringe IV ×2 (03:18→21:31)
[2022-07-28 05:56] LABS: Absolute Lymphocyte Count 3.29 X10^3/uL (0.83-4.51); Absolute Neutrophil Count 7.1 X10^3/uL (2.0-7.7); Basophil# 0.05 X10^3/uL; Basophil% 0.4 % (0-1); Eosinophil# 0.15 X10^3/uL; Eosinophils% 1.3 % (0-5); Hematocrit 29.7 % (37-47); Hemoglobin 8.8 g/dL (12.0-15.0); Lymphocyte # 3.29 X10^3/ul (0.83-4.51); Lymphocyte % 29.1 % (19-41); Mean Corp Hgb Conc 29.6 g/dL (32-36); Mean Corpuscular Hgb 23.5 pg (27.0-32.0); Mean Corpuscular Volume 79.4 fL (81-99); Monocyte# 0.72 X10^3/uL; Monocyte% 6.4 % (0-10); NRBC Flagged by Analyzer 0 % (0-5); Neutrophil # 7.06 X10^3/uL (2.7-7.7); Neutrophil % 62.4 % (47-70); Platelet Count 384 K/mm3 (150-450); RBC Distribution Width CV 17.4 % (11.6-14.6); RBC Distribution Width SD 49.9 fl (35.1-43.9); Red Blood Count 3.74 M/mm3 (4.2-5.4); White Blood Count 11.3 K/mm3 (4.4-11.0)
[2022-07-28 06:27] LABS: Anion Gap 9 (5-15); BUN 16 mg/dL (7-18); BUN/Creat Ratio 23.3 RATIO (10-20); Chloride 109 mmol/L (98-107); Cholesterol 174 mg/dL (200); Creatinine, Serum 0.69 mg/dL (0.55-1.02); EST Glomerular Filtration Rate 89 mL/min (>60); Est Glom Filt Rate - Afr Amer 107 mL/min (>60); Estimated Creatinine Clearance 38.44 ml/min; Glucose 97 mg/dL (74-106); High Density Lipoprotein 56 mg/dL; Potassium 4.1 mmol/L (3.5-5.1); Sodium Level 141 mmol/L (136-145); Triglycerides 142 mg/dL; Very Low Density Lipoprotein 28 mg/dL (5-40)
[2022-07-28 07:06] LABS: Bedside Glucose 108 mg/dL (74-106)
--- NOTE | 2022-07-28 10:00 | MRI_ITS ---
We are attempting to reach an attending provider to discuss findings. An addendum with communication details will be sent when the communication is complete. STUDY: MRI BRAIN WITHOUT CONTRAST REASON FOR EXAM: Female, 77 years old. CVA TECHNIQUE: Multiplanar multisequence imaging of the brain was performed without the administration of intravenous contrast. COMPARISON: Noncontrast head CT 07/27/2022, brain MRI 01/12/2022 FINDINGS: The ventricles, cisterns, and sulci are prominent consistent with age-related volume loss. Multiple areas of acute diffusion restriction in the right cerebellar hemisphere, single focus in the left cerebellar hemisphere and in the left thalamus. No succeptibility artifict to suggest intracranial hemorrhage or mineralization. Major intracranial signal voids are preserved. There is high T2/FLAIR signal seen in the periventricular deep white matter. There is no midline shift, mass effect, or extra axial fluid collections are seen. No CP angle or IAC mass is seen. The orbits are unremarkable. The sella turcica and craniovertebral junction are within normal limits. The visualized paranasal sinuses are clear. The mastoid air cells are clear. MRI/Brain without Contrast IMPRESSION: Chronic microvascular ischemic changes. Acute ischemia in the right cerebellar hemisphere corresponding to CT findings, minimally in the left cerebellar hemisphere and left thalamus. Electronically Signed: Frederic Horvath MD at 15:19 EDT ,
[2022-07-28] MEDS: Aspirin 81 MG TAB.CHEW PO (10:13)
[2022-07-28] MEDS: amLODIPine 2.5 MG Tablet PO (10:14)
[2022-07-28] MEDS: Losartan Potassium 100 MG Tablet PO (10:14)
[2022-07-28] MEDS: hydroCHLOROthiazide 12.5mg 12.5 MG PO (10:14)
[2022-07-28] MEDS: buPROPion (XL) 150 MG TABLET.XL PO ×2 (10:14→21:30)
[2022-07-28] MEDS: Clopidogrel Bisulfate 75 MG Tablet PO (10:14)
[2022-07-28] MEDS: Enoxaparin 40 MG/0.4 ML Syringe SC (10:14)
[2022-07-28] MEDS: Pantoprazole Sodium 40 MG Tablet PO (10:14)
[2022-07-28] MEDS: Gabapentin 100 MG Capsule PO (10:14)
[2022-07-28] MEDS: Acyclovir 200 MG Capsule 400 MG PO ×2 (10:15→21:30)
[2022-07-28] MEDS: Ascorbic Acid 500 MG Tablet PO (10:15)
--- NOTE | 2022-07-28 11:00 | CASEMGMT ---
DEEPTHI GAXIOLA Face to Face with patient for initial transition planning/care coordination assessment. RN MINOR introduced self and role at [facility]. Patient lying in bed, alert and oriented, daughter and niece at bedside. Patient willing to participate in assessment and is able to answer all questions appropriately. Care providers, pharmacy, and demographics verified. Patient wishes to discharge home with outpatient therapy if needed. Patient states she has no further needs or concerns at this time. CM to follow for discharge planning needs that may arise. PCP: Omer Specialists: Carey, lead burner; Mary Kay, pain [facility] Insurance: Blaise RABAGO Prescription Benefit: yes Living Will/HPOA: yes, daughter Joi Freeman HPOA LNOK: daughter Living Arrangements: Patient lives with ex in a single story home with 2 steps and railing to enter the home. Patient states she is independent at home. Transportation: ex DME/HHC: Patient states she has shower chair, raised toilet, cane, walker, grab bars, medical alert, cpap, and pulse ox at home. Patient has been to TCU and [facility] in the past. Disposition Plan: Patient to discharge home with family support and follow up plans in place. Will monitor for outpatient therapy. Hilda GAMA, RN, CM
[2022-07-28 12:50] LABS: Bedside Glucose 86 mg/dL (74-106)
--- NOTE | 2022-07-28 13:18 | PN_ITS ---
Subjective Subjective Patient seen and examined. She still has significant expressive aphasia, though she is able to answer questions by nodding or shaking her head. She had no active complaints and denied any tremors, shakes, weakness, numbness or tingling. Review of systems is otherwise negative. Objective Data Objective Data Vital Signs: Vital Signs Temp Pulse Resp BP Pulse Ox O2 Del Method 98.1 F 93 16 131/63 H 98 Room Air 07/28/22 09:30 07/28/22 09:30 07/28/22 09:30 07/28/22 09:30 07/28/22 09:30 07/28/22 09:30 Oxygen Delivery Method Room Air Weight: 180 lb 12.465 oz Body Mass Index (BMI) 33.0 Intake & Output: Intake and Output for Last 24 Hours 07/26/22 07/27/22 07/28/22 23:59 23:59 23:59 Output Total 200 / 200 200 / 200 Balance -200 / -200 -200 / -200 Lab / Micro Data Result Diagrams: 07/28/22 05:20 07/28/22 05:20 Labs: Laboratory Results - last 24 hr 07/27/22 16:13: POC Glucose 71 L 07/27/22 16:45: WBC 15.0 H, RBC 3.79 L, Hgb 8.7 L, Hct 30.0 L, MCV 79.2 L, MCH 23.0 L, MCHC 29.0 L, RDW Std Deviation 49.2 H, RDW Coeff of Ranjit 17.2 H, Plt Count 383, MPV 9.7, Immature Gran % (Auto) 0.600, Neut % (Auto) 69.7, Lymph % (Auto) 22.9, [place] % (Auto) 5.7, Eos % (Auto) 0.7, Baso % (Auto) 0.4, Absolute Neuts (auto) 10.4 H, Absolute Lymphs (auto) 3.42, Nucleated RBC % 0 07/27/22 16:45: Sodium 141, Potassium 3.9, Chloride 109 H, Carbon Dioxide 24.0, Anion Gap 8, BUN 16, Creatinine 0.87, Estim Creat Clear Calc 42.16, Est GFR (MDRD) Af Amer 81, Est GFR (MDRD) Non-Af 67, BUN/Creatinine Ratio 18.3, Glucose 83, Calcium 9.2, Total Bilirubin 0.30, AST 15, ALT 26, Alkaline Phosphatase 64, Total Protein 7.2, Albumin 3.4, Globulin 3.8, Albumin/Globulin Ratio 0.9 07/27/22 16:45: Ammonia < 10.0 L 07/27/22 17:20: Urine Color Yellow, Urine Clarity Clear, Urine pH 6.5, Ur Specific [place] 1.010, Urine Protein Negative, Urine Glucose (UA) Normal, Urine Ketones Negative, Urine Occult Blood Negative, Urine Nitrite Negative, Urine Bilirubin Negative, Urine Urobilinogen Normal, Ur Leukocyte Esterase Negative, Urine RBC 0 SEEN, Urine WBC 0 SEEN, Ur Squamous Epith Cells 0 SEEN, Urine Bacteria 0 SEEN, Urine Mucus 0 SEEN 07/27/22 19:33: Troponin I High Sens 6 07/27/22 23:05: POC Glucose 125 H 07/28/22 05:20: WBC 11.3 H, RBC 3.74 L, Hgb 8.8 L, Hct 29.7 L, MCV 79.4 L, MCH 23.5 L, MCHC 29.6 L, RDW Std Deviation 49.9 H, RDW Coeff of Ranjit 17.4 H, Plt Count 384, MPV 10.0, Immature Gran % (Auto) 0.400, Neut % (Auto) 62.4, Lymph % (Auto) 29.1, [place] % (Auto) 6.4, Eos % (Auto) 1.3, Baso % (Auto) 0.4, Absolute Neuts (auto) 7.1, Absolute Lymphs (auto) 3.29, Nucleated RBC % 0 07/28/22 05:20: Sodium 141, Potassium 4.1, Chloride 109 H, Carbon Dioxide 23.0, Anion Gap 9, BUN 16, Creatinine 0.69, Estim Creat Clear Calc 38.44, Est GFR (MDRD) Af Amer 107, Est GFR (MDRD) Non-Af 89, BUN/Creatinine Ratio 23.3 H, Glucose 97, Calcium 9.0, Triglycerides 142, Cholesterol 174, LDL Cholesterol 90, VLDL Cholesterol 28, HDL Cholesterol 56 07/28/22 06:32: POC Glucose 108 H 07/28/22 12:28: POC Glucose 86 Radiography Diagnostic Testing: Radiology Impression Brain CT 07/27/22 17:10 IMPRESSION: Volume loss with chronic white matter changes. Small, low-attenuation focus right cerebellar hemisphere suspicious for subacute or chronic CVA. Findings not present on prior studies and best investigated by MRI. No acute intracranial hemorrhage. Electronically Signed: Frederic Horvath MD at 17:38 EDT , ADDENDUM: 07/27/22 1821 IMPRESSION: undefined Echocardiogram 07/27/22 19:59 Interpretation Summary The left ventricular ejection fraction is 65 %. Moderate mitral annular calcification. Ordering Physician: Gamaliel Ayon Referring Physician: Susan Tello M.D. Performed By: Jas Goddard RCS Physical Exam Const alert, oriented x3 and no apparent distress General Appearance: cooperative HEENT normocephalic, head/scalp atraumatic, moist oral mucous membranes and oropharynx normal Neck no lymphadenopathy and supple Lymph Lymphatic: no lymphadenopathy noted and no lymphedema noted Resp normal respiratory effort, normal air movement and clear to auscultation bilaterally Cardio regular rate, regular rhythm, S1 normal heart sound, S2 normal heart sound and no murmurs GI normal to inspection, nondistended, normoactive bowel sounds, soft to palpation, non-tender and non-distended Extremity normal capillary refill, no clubbing, cyanosis or edema and no calf tenderness Skin General Skin Exam: no breakdown Neuro no focal motor deficits, no sensory deficits noted and deep tendon reflexes 2+ bilaterally Neuro Narrative: marked expressive aphasia Motor Exam: strength 5/5 throughout Psych thought process normal and cooperative Assessment & Plan Assessment/Plan (1) Acute CVA (cerebrovascular accident): PLAN: Plan #Acute CVA * still has marked expressive aphasia * CT of the brain showed small, low attenuation focus in right cerebellar hemisphere suspicious for subacute or chronic CVA * on aspirin and plavix * on high intensity statin * MRI of the brain ordered * she had CTA head and neck on Jul 25 2022 which showed no acute findings in the arteries of the head and neck * PT.OT on board * 2D echo showed EF of 65% with moderate mitral annular calcification * consult SOC neurology after she has MRI * speech therapy on board * BP meds on hold for permissive hypertension. * * #Hypertension: BP meds on hold to allow for permissive hypertension. IV labetalol #Recent rib fracture due to mechanical fall: on pain meds. PT/.OT on board. Fall precautions DVT prophylaxis: lovenox Total time spent on evaluation and management of patient, reviewing chart and specialist notes, discussing plan with patient and his , discussion with nursing and ancillary staff as well as documentation: 45 mins Charges/Coding Visit Charges Inpatient E&M: 65765 Subs Hosp L2
--- NOTE | 2022-07-28 15:39 | CASEMGMT ---
DEEPTHI GAXIOLA updated that patient would benefit from outpatient speech therapy. Script placed on chart with green sheet. DEEPTHI GAXIOLA discussed with patient and family, no further questions or concerns at this time.
[2022-07-28 18:20] LABS: Bedside Glucose 108 mg/dL (74-106)
[2022-07-28] MEDS: Atorvastatin Calcium 40 MG Tablet PO (21:30)
[2022-07-28 21:55] LABS: Bedside Glucose 122 mg/dL (74-106)
[2022-07-29] VITALS (11 sets, daily range): BP systolic 104–144; BP diastolic 50–82; PULSE 73–103; RESP 15–18; TEMP 36.4–36.8; O2SAT 94–100; BMI 33.0
[2022-07-29 07:00] LABS: Bedside Glucose 119 mg/dL (74-106)
--- NOTE | 2022-07-29 07:26 | NURSING ---
[facility] completed w/nightshift RN
--- NOTE | 2022-07-29 07:43 | MRI_ITS ---
EXAM: MR HEAD WITH INTRAVENOUS CONTRAST CLINICAL INDICATION: acute encephalopathy TECHNIQUE: Multiplanar and multisequence MR images of the brain were obtained with intravenous contrast. CONTRAST: IV 16ml Clariscan COMPARISON: No relevant prior studies available. FINDINGS: BRAIN AND EXTRA-AXIAL SPACES: Limited MRI of the brain utilizing contrast-enhanced T1 imaging. No abnormal contrast enhancement is present. Cystic encephalomalacic changes within the posterior right frontal white matter noted. No evidence of acute hemorrhage or mass effect. Prominence of the cortical sulci and ventricles related to volume loss change. MRI/Brain WITH Contrast IMPRESSION: No abnormal contrast enhancement. Electronically Signed: Toby Rucker MD at 12:36 EDT ,
[2022-07-29 07:46] LABS: Absolute Lymphocyte Count 2.66 X10^3/uL (0.83-4.51); Absolute Neutrophil Count 6.8 X10^3/uL (2.0-7.7); Basophil# 0.06 X10^3/uL; Basophil% 0.6 % (0-1); Eosinophil# 0.17 X10^3/uL; Eosinophils% 1.6 % (0-5); Hemoglobin 8.9 g/dL (12.0-15.0); Lymphocyte # 2.66 X10^3/ul (0.83-4.51); Lymphocyte % 25.4 % (19-41); Mean Corp Hgb Conc 29.7 g/dL (32-36); Mean Corpuscular Hgb 23.1 pg (27.0-32.0); Mean Corpuscular Volume 77.7 fL (81-99); Monocyte# 0.77 X10^3/uL; Monocyte% 7.3 % (0-10); NRBC Flagged by Analyzer 0 % (0-5); Neutrophil # 6.78 X10^3/uL (2.7-7.7); Neutrophil % 64.7 % (47-70); Platelet Count 343 K/mm3 (150-450); RBC Distribution Width CV 17.5 % (11.6-14.6); RBC Distribution Width SD 48.7 fl (35.1-43.9); Red Blood Count 3.86 M/mm3 (4.2-5.4); White Blood Count 10.5 K/mm3 (4.4-11.0)
[2022-07-29 08:28] LABS: Anion Gap 8 (5-15); BUN 21 mg/dL (7-18); BUN/Creat Ratio 25.2 RATIO (10-20); Calcium,Total 9.3 mg/dL (8.5-10.1); Chloride 108 mmol/L (98-107); Creatinine, Serum 0.83 mg/dL (0.55-1.02); EST Glomerular Filtration Rate 71 mL/min (>60); Est Glom Filt Rate - Afr Amer 86 mL/min (>60); Estimated Creatinine Clearance 46.32 ml/min; Glucose 99 mg/dL (74-106); Potassium 3.9 mmol/L (3.5-5.1); Sodium Level 140 mmol/L (136-145)
[2022-07-29] MEDS: Aspirin 81 MG TAB.CHEW PO (08:31)
[2022-07-29] MEDS: Ascorbic Acid 500 MG Tablet PO (08:31)
[2022-07-29] MEDS: Losartan Potassium 100 MG Tablet PO (08:32)
[2022-07-29] MEDS: Enoxaparin 40 MG/0.4 ML Syringe SC (08:32)
[2022-07-29] MEDS: hydroCHLOROthiazide 12.5mg 12.5 MG PO (08:32)
[2022-07-29] MEDS: Acyclovir 200 MG Capsule 400 MG PO ×2 (08:33→21:32)
[2022-07-29] MEDS: amLODIPine 2.5 MG Tablet PO (08:33)
[2022-07-29] MEDS: buPROPion (XL) 150 MG TABLET.XL PO ×2 (08:33→21:32)
[2022-07-29] MEDS: Pantoprazole Sodium 40 MG Tablet PO (08:33)
[2022-07-29] MEDS: Gabapentin 100 MG Capsule PO (08:41)
[2022-07-29 12:00] LABS: Bedside Glucose 125 mg/dL (74-106)
--- NOTE | 2022-07-29 12:01 | PCM.PROGNOTE ---
Subjective Subjective Patient seen and examined. She had no complaints today. She actually felt better and expressive aphasia had improved a bit. Review of systems otherwise negative. She has remained hemodynamically stable. Objective Data Objective Data Vital Signs: Vital Signs Temp Pulse Resp BP Pulse Ox O2 Del Method 98.2 F 102 H 18 104/61 98 Room Air 07/29/22 11:34 07/29/22 11:34 07/29/22 11:34 07/29/22 11:34 07/29/22 11:34 07/29/22 11:34 Oxygen Delivery Method Room Air Weight: 180 lb 12.465 oz Body Mass Index (BMI) 33.0 Intake & Output: Intake and Output for Last 24 Hours 07/27/22 07/28/22 07/29/22 23:59 23:59 23:59 Intake Total 700 / 700 Output Total 200 / 200 800 / 800 Balance -200 / -200 -100 / -100 Lab / Micro Data Result Diagrams: 07/29/22 06:31 07/29/22 06:31 Labs: Laboratory Results - last 24 hr 07/28/22 12:28: POC Glucose 86 07/28/22 18:00: POC Glucose 108 H 07/28/22 21:29: POC Glucose 122 H 07/29/22 06:13: POC Glucose 119 H 07/29/22 06:31: WBC 10.5, RBC 3.86 L, Hgb 8.9 L, Hct 30.0 L, MCV 77.7 L, MCH 23.1 L, MCHC 29.7 L, RDW Std Deviation 48.7 H, RDW Coeff of Ranjit 17.5 H, Plt Count 343, MPV 10.0, Immature Gran % (Auto) 0.400, Neut % (Auto) 64.7, Lymph % (Auto) 25.4, [place] % (Auto) 7.3, Eos % (Auto) 1.6, Baso % (Auto) 0.6, Absolute Neuts (auto) 6.8, Absolute Lymphs (auto) 2.66, Nucleated RBC % 0 07/29/22 06:31: Sodium 140, Potassium 3.9, Chloride 108 H, Carbon Dioxide 24.0, Anion Gap 8, BUN 21 H, Creatinine 0.83, Estim Creat Clear Calc 46.32, Est GFR (MDRD) Af Amer 86, Est GFR (MDRD) Non-Af 71, BUN/Creatinine Ratio 25.2 H, Glucose 99, Calcium 9.3 07/29/22 11:32: POC Glucose 125 H Radiography Diagnostic Testing: Radiology Impression Brain MRI 07/28/22 10:00 IMPRESSION: Chronic microvascular ischemic changes. Acute ischemia in the right cerebellar hemisphere corresponding to CT findings, minimally in the left cerebellar hemisphere and left thalamus. Electronically Signed: Frederic Horvath MD at 15:19 EDT , ADDENDUM: 07/28/22 1608 IMPRESSION: Chronic microvascular ischemic changes. Acute ischemia in the right cerebellar hemisphere corresponding to CT findings, minimally in the left cerebellar hemisphere and left thalamus. N.B. : The above Results were Read Back by Frederic Horvath MD to GRAHAM ALVA MD, and understanding confirmed on 07/28/2022 16:02:03 (ET). Electronically Signed: Frederic Horvath MD at 15:19 EDT , Physical Exam Const alert, oriented x3 and no apparent distress Constitutional Narrative: expressive aphasia has improved markedly General Appearance: cooperative HEENT normocephalic, head/scalp atraumatic, moist oral mucous membranes and oropharynx normal Eyes PERRL and EOMs intact bilaterally Neck no lymphadenopathy and supple Neck Narrative: No thyromegaly Lymph Lymphatic: no lymphadenopathy noted and no lymphedema noted Resp normal respiratory effort, normal air movement, no retractions, no use of accessory muscles and clear to auscultation bilaterally Cardio regular rate, regular rhythm, S1 normal heart sound, S2 normal heart sound and no murmurs GI normal to inspection, nondistended, normoactive bowel sounds, soft to palpation, non-tender and non-distended Extremity normal to inspection, full ROM, normal capillary refill, no clubbing, cyanosis or edema and no calf tenderness Skin General Skin Exam: no breakdown Neuro oriented x3, moves all extremities, no focal motor deficits, no sensory deficits noted and deep tendon reflexes 2+ bilaterally Neuro Narrative: expressive aphasia has improved significantly. Sensorium / Orientation: awake and alert Coordination / Balance: [id number] test normal and [id number] test normal Motor Exam: strength 5/5 throughout Psych thought process normal, cooperative and affect normal Assessment & Plan Assessment/Plan (1) Acute CVA (cerebrovascular accident): PLAN: Plan #Acute CVA expressive aphasia has improved CT of the brain showed small, low attenuation focus in right cerebellar hemisphere suspicious for subacute or chronic CVA on aspirin and plavix on high intensity statin MRI of the brain without contrast acute ischemia in the right cerebellar hemisphere corresponding to CT findings minimally in the left cerebral hemisphere and left thalamus. she had CTA head and neck on Jul 25 2022 which showed no acute findings in the arteries of the head and neck Discussed with neurology yesterday. Per neurology, there is concern that his symptoms may be due to something more than just a stroke. Neurology therefore requested for MRI of brain with contrast, EEG and to hold plavix for LP. Neuro ok with plavix being held PT.OT on board 2D echo showed EF of 65% with moderate mitral annular calcification speech therapy on board BP meds on hold for permissive hypertension. 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 Neurology had concerns about whether her confusion could also be due to herpes encephalitis. However, per discussion, neurology thinks that we should get an LP to confirm this or otherwise before committing patients to a prolonged course of IV acyclovir. MRI of brain with contrast ordered. #Hypertension: BP meds on hold to allow for permissive hypertension. IV labetalol. BP has remained fairly stable. #Recent rib fracture due to mechanical fall: on pain meds. PT/.OT on board. Fall precautions DVT prophylaxis: lovenox Total time spent on evaluation and management of patient, reviewing chart and specialist notes, discussing plan with patient and his , discussion with nursing and ancillary staff as well as documentation: 42 mins Charges/Coding Visit Charges Inpatient E&M: 51745 Subs Hosp L2
--- NOTE | 2022-07-29 13:25 | CASEMGMT ---
Social Work Note SW met with patient and introduced herself and role as [facility] Educational Diagnostician. Patient was seated in hospital chair and agreeable to speak. SW educated patient on the correlation between strokes and depression and assisted patient in completing the PHQ9. Patient's score indicated mild depression. SW educated patient on her score and inquired about current supports. Patient reports no counseling services but is supported by family. SW discussed counseling resources as well as possible case management resources. Patient declined resources. No other needs voiced at this time; SW remains available if needs arise. Eulalia Middleton HI RANGER OPERATOR, JOSÉ LUIS
--- NOTE | 2022-07-29 19:30 | NURSING ---
NIH handoff completed with dayshift nurse
[2022-07-29] MEDS: Atorvastatin Calcium 40 MG Tablet PO (21:32)
[2022-07-30] VITALS (7 sets, daily range): BP systolic 95–134; BP diastolic 54–73; PULSE 87–101; RESP 15–17; TEMP 36.7–37.1; O2SAT 94–100; BMI 33.0
[2022-07-30 06:30] LABS: Absolute Lymphocyte Count 3.19 X10^3/uL (0.83-4.51); Absolute Neutrophil Count 8.3 X10^3/uL (2.0-7.7); Basophil# 0.06 X10^3/uL; Basophil% 0.5 % (0-1); Eosinophil# 0.17 X10^3/uL; Eosinophils% 1.3 % (0-5); Hematocrit 32.6 % (37-47); Hemoglobin 9.3 g/dL (12.0-15.0); Lymphocyte # 3.19 X10^3/ul (0.83-4.51); Lymphocyte % 25.3 % (19-41); Mean Corp Hgb Conc 28.5 g/dL (32-36); Mean Corpuscular Hgb 23.1 pg (27.0-32.0); Mean Corpuscular Volume 80.9 fL (81-99); Mean Platelet Vol. 10.5 fl (6.2-12.0); Monocyte# 0.85 X10^3/uL; Monocyte% 6.7 % (0-10); NRBC Flagged by Analyzer 0 % (0-5); Neutrophil # 8.28 X10^3/uL (2.7-7.7); Neutrophil % 65.6 % (47-70); Platelet Count 381 K/mm3 (150-450); RBC Distribution Width CV 17.3 % (11.6-14.6); RBC Distribution Width SD 50.7 fl (35.1-43.9); Red Blood Count 4.03 M/mm3 (4.2-5.4); White Blood Count 12.6 K/mm3 (4.4-11.0)
[2022-07-30 07:02] LABS: Anion Gap 9 (5-15); BUN 26 mg/dL (7-18); BUN/Creat Ratio 29.6 RATIO (10-20); Calcium,Total 9.2 mg/dL (8.5-10.1); Chloride 108 mmol/L (98-107); Creatinine, Serum 0.88 mg/dL (0.55-1.02); EST Glomerular Filtration Rate 67 mL/min (>60); Est Glom Filt Rate - Afr Amer 81 mL/min (>60); Estimated Creatinine Clearance 43.69 ml/min; Glucose 116 mg/dL (74-106); Potassium 3.7 mmol/L (3.5-5.1); Sodium Level 138 mmol/L (136-145)
[2022-07-30 08:20] LABS: CRP 3.96 mg/L (0.0-3.0); Erythrocyte Sedimentation Rate 53 mm/hr (0-30)
[2022-07-30] MEDS: Ascorbic Acid 500 MG Tablet PO (10:40)
[2022-07-30] MEDS: buPROPion (XL) 150 MG TABLET.XL PO ×2 (10:40→22:52)
[2022-07-30] MEDS: Acyclovir 200 MG Capsule 400 MG PO ×2 (10:40→22:53)
[2022-07-30] MEDS: Losartan Potassium 100 MG Tablet PO (10:41)
[2022-07-30] MEDS: Pantoprazole Sodium 40 MG Tablet PO (10:41)
[2022-07-30] MEDS: hydroCHLOROthiazide 12.5mg 12.5 MG PO (10:41)
[2022-07-30] MEDS: amLODIPine 2.5 MG Tablet PO (10:41)
[2022-07-30] MEDS: Gabapentin 100 MG Capsule PO (10:45)
--- NOTE | 2022-07-30 11:29 | PN_ITS ---
Subjective Subjective Patient seen and examined. She had no complaints. She is working with physical therapy. Review of systems otherwise negative. Expressive aphasia has improved markedly. Objective Data Objective Data Vital Signs: Vital Signs Temp Pulse Resp BP Pulse Ox O2 Del Method 98.0 F 99 17 123/66 H 95 Room Air 07/30/22 10:38 07/30/22 10:38 07/30/22 10:38 07/30/22 10:38 07/30/22 10:38 07/30/22 10:38 Oxygen Delivery Method Room Air Weight: 180 lb 12.465 oz Body Mass Index (BMI) 33.0 Intake & Output: Intake and Output for Last 24 Hours 07/28/22 07/29/22 07/30/22 23:59 23:59 23:59 Intake Total 700 / 700 600 / 600 Output Total 800 / 800 Balance -100 / -100 600 / 600 Lab / Micro Data Result Diagrams: 07/30/22 05:55 07/30/22 05:55 Labs: Laboratory Results - last 24 hr 07/29/22 11:32: POC Glucose 125 H 07/30/22 05:55: WBC 12.6 H, RBC 4.03 L, Hgb 9.3 L, Hct 32.6 L, MCV 80.9 L, MCH 23.1 L, MCHC 28.5 L, RDW Std Deviation 50.7 H, RDW Coeff of Ranjit 17.3 H, Plt Count 381, MPV 10.5, Immature Gran % (Auto) 0.600, Neut % (Auto) 65.6, Lymph % (Auto) 25.3, [place] % (Auto) 6.7, Eos % (Auto) 1.3, Baso % (Auto) 0.5, Absolute Neuts (auto) 8.3 H, Absolute Lymphs (auto) 3.19, Nucleated RBC % 0 07/30/22 05:55: Sodium 138, Potassium 3.7, Chloride 108 H, Carbon Dioxide 21.0, Anion Gap 9, BUN 26 H, Creatinine 0.88, Estim Creat Clear Calc 43.69, Est GFR (MDRD) Af Amer 81, Est GFR (MDRD) Non-Af 67, BUN/Creatinine Ratio 29.6 H, Glucose 116 H, Calcium 9.2 07/30/22 05:55: ESR 53 H 07/30/22 05:55: C-React Prot Ext Range 3.96 H Radiography Diagnostic Testing: Radiology Impression Brain MRI 07/29/22 07:43 IMPRESSION: No abnormal contrast enhancement. Electronically Signed: Toby Rucker MD at 12:36 EDT , Physical Exam Const alert, oriented x3 and no apparent distress Constitutional Narrative: expressive aphasia has improved markedly General Appearance: cooperative HEENT normocephalic, head/scalp atraumatic, moist oral mucous membranes and oropharynx normal Eyes PERRL and EOMs intact bilaterally Neck no lymphadenopathy and supple Neck Narrative: No thyromegaly Lymph Lymphatic: no lymphadenopathy noted and no lymphedema noted Resp normal respiratory effort, normal air movement, no retractions, no use of accessory muscles and clear to auscultation bilaterally Cardio regular rate, regular rhythm, S1 normal heart sound, S2 normal heart sound and no murmurs GI normal to inspection, nondistended, normoactive bowel sounds, soft to palpation, non-tender and non-distended Extremity normal to inspection, full ROM, normal capillary refill, no clubbing, cyanosis or edema and no calf tenderness Skin General Skin Exam: no breakdown Neuro oriented x3, CN's II-XII intact bilaterally, moves all extremities, no focal motor deficits, no sensory deficits noted and deep tendon reflexes 2+ bilaterally Neuro Narrative: expressive aphasia has improved significantly. Sensorium / Orientation: awake and alert Coordination / Balance: [id number] test normal and [id number] test normal Motor Exam: strength 5/5 throughout Psych thought process normal, cooperative and affect normal Appearance: appropriate Assessment & Plan Assessment/Plan (1) Acute CVA (cerebrovascular accident): PLAN: Plan #Acute CVA * expressive aphasia has improved * CT of the brain showed small, low attenuation focus in right cerebellar hemisphere suspicious for subacute or chronic CVA * on aspirin and plavix * on high intensity statin * MRI of the brain without contrast acute ischemia in the right cerebellar hemisphere corresponding to CT findings minimally in the left cerebral hemisphere and left thalamus. * she had CTA head and neck on Jul 25 2022 which showed no acute findings in the arteries of the head and neck * Discussed with neurology yesterday. Per neurology, there is concern that his symptoms may be due to something more than just a stroke. Neurology therefore requested for MRI of brain with contrast, EEG and to hold plavix for LP. Neuro ok with plavix being held * PT.OT on board * 2D echo showed EF of 65% with moderate mitral annular calcification * speech therapy on board * BP meds on hold for permissive hypertension. 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 Neurology had concerns about whether her confusion could also be due to herpes encephalitis. However, per discussion, neurology thinks that we should get an LP to confirm this or otherwise before committing patients to a prolonged course of IV acyclovir. * MRI of brain with contrast showed cystic encephalomalacic changes within the posterior right frontal white matter with no evidence of acute hemorrhage or mass effect. * EEG done today; for LP tomorrow. aspirin and plavix on hold till after LP tomorrow * #Hypertension: BP meds on hold to allow for permissive hypertension. IV labetalol. BP has remained fairly stable. #Recent rib fracture due to mechanical fall: on pain meds. PT/.OT on board. Fall precautions DVT prophylaxis: lovenox Total time spent on evaluation and management of patient, reviewing chart and specialist notes, discussing plan with patient , discussion with nursing and ancillary staff as well as documentation: 45 mins Charges/Coding Visit Charges Inpatient E&M: 92204 Subs Hosp L2
[2022-07-30] MEDS: Atorvastatin Calcium 40 MG Tablet PO (22:52)
[2022-07-31] VITALS (8 sets, daily range): BP systolic 105–121; BP diastolic 55–61; PULSE 80–93; RESP 16–18; TEMP 36.4–36.7; O2SAT 94–98; BMI 33.0
[2022-07-31 06:24] LABS: Absolute Lymphocyte Count 3.21 X10^3/uL (0.83-4.51); Absolute Neutrophil Count 6.8 X10^3/uL (2.0-7.7); Basophil# 0.06 X10^3/uL; Basophil% 0.5 % (0-1); Eosinophil# 0.15 X10^3/uL; Eosinophils% 1.3 % (0-5); Hematocrit 30.1 % (37-47); Hemoglobin 8.7 g/dL (12.0-15.0); Lymphocyte # 3.21 X10^3/ul (0.83-4.51); Lymphocyte % 28.8 % (19-41); Mean Corp Hgb Conc 28.9 g/dL (32-36); Mean Corpuscular Hgb 22.8 pg (27.0-32.0); Mean Platelet Vol. 10.2 fl (6.2-12.0); Monocyte# 0.84 X10^3/uL; Monocyte% 7.5 % (0-10); NRBC Flagged by Analyzer 0 % (0-5); Neutrophil # 6.84 X10^3/uL (2.7-7.7); Neutrophil % 61.6 % (47-70); Platelet Count 357 K/mm3 (150-450); RBC Distribution Width CV 17.5 % (11.6-14.6); RBC Distribution Width SD 49.8 fl (35.1-43.9); Red Blood Count 3.81 M/mm3 (4.2-5.4); White Blood Count 11.1 K/mm3 (4.4-11.0)
[2022-07-31 06:57] LABS: Anion Gap 9 (5-15); BUN 28 mg/dL (7-18); BUN/Creat Ratio 29.4 RATIO (10-20); Calcium,Total 9.2 mg/dL (8.5-10.1); Chloride 111 mmol/L (98-107); Creatinine, Serum 0.95 mg/dL (0.55-1.02); EST Glomerular Filtration Rate 61 mL/min (>60); Est Glom Filt Rate - Afr Amer 73 mL/min (>60); Estimated Creatinine Clearance 40.47 ml/min; Glucose 112 mg/dL (74-106); Potassium 3.7 mmol/L (3.5-5.1); Sodium Level 142 mmol/L (136-145)
[2022-07-31] MEDS: Ascorbic Acid 500 MG Tablet PO (10:46)
[2022-07-31] MEDS: amLODIPine 2.5 MG Tablet PO (10:47)
[2022-07-31] MEDS: hydroCHLOROthiazide 12.5mg 12.5 MG PO (10:47)
[2022-07-31] MEDS: Acyclovir 200 MG Capsule 400 MG PO ×2 (10:47→21:39)
[2022-07-31] MEDS: Pantoprazole Sodium 40 MG Tablet PO (10:47)
[2022-07-31] MEDS: buPROPion (XL) 150 MG TABLET.XL PO ×2 (10:47→21:39)
[2022-07-31] MEDS: Enoxaparin 40 MG/0.4 ML Syringe SC (10:47)
[2022-07-31] MEDS: Aspirin 81 MG TAB.CHEW PO (10:47)
[2022-07-31] MEDS: Losartan Potassium 100 MG Tablet PO (10:47)
[2022-07-31] MEDS: Gabapentin 100 MG Capsule PO (10:49)
--- NOTE | 2022-07-31 11:33 | PN.HOSP_ITS ---
Reason for Visit Reason for Visit: Diagnoses Encephalopathy, unspecified (07/27/22) Cerebral infarction, unspecified (07/27/22) Subjective Subjective No new focal deficits, reports she does require some assistance with moving around but has been trying to be more mobile Objective Data Objective Data Vital Signs: Vital Signs Temp Pulse Resp BP Pulse Ox O2 Del Method 98.1 F 87 16 105/59 L 97 Room Air 07/31/22 10:30 07/31/22 10:30 07/31/22 10:30 07/31/22 10:30 07/31/22 10:30 07/31/22 10:30 Oxygen Delivery Method Room Air Weight: 82 kg Body Mass Index (BMI) 33.0 Intake & Output: Intake and Output for Last 24 Hours 07/29/22 07/30/22 07/31/22 23:59 23:59 23:59 Intake Total 600 / 600 Balance 600 / 600 Lab / Micro Data Result Diagrams: 07/31/22 06:00 07/31/22 06:00 Labs: Laboratory Results - last 24 hr 07/31/22 06:00: WBC 11.1 H, RBC 3.81 L, Hgb 8.7 L, Hct 30.1 L, MCV 79.0 L, MCH 22.8 L, MCHC 28.9 L, RDW Std Deviation 49.8 H, RDW Coeff of Ranjit 17.5 H, Plt Count 357, MPV 10.2, Immature Gran % (Auto) 0.300, Neut % (Auto) 61.6, Lymph % (Auto) 28.8, [place] % (Auto) 7.5, Eos % (Auto) 1.3, Baso % (Auto) 0.5, Absolute Neuts (auto) 6.8, Absolute Lymphs (auto) 3.21, Nucleated RBC % 0 07/31/22 06:00: Sodium 142, Potassium 3.7, Chloride 111 H, Carbon Dioxide 22.0, Anion Gap 9, BUN 28 H, Creatinine 0.95, Estim Creat Clear Calc 40.47, Est GFR (MDRD) Af Amer 73, Est GFR (MDRD) Non-Af 61, BUN/Creatinine Ratio 29.4 H, Glucose 112 H, Calcium 9.2 Physical Exam Narrative General: Alert, oriented, no apparent distress HEENT: Atraumatic, normocephalic Eyes: Anicteric, normal conjunctiva, extraocular movements intact, pupils equal Neck: Supple Respiratory: Clear to auscultation bilaterally, normal respiratory effort Cardiovascular: Regular rate and rhythm GI: Soft, nontender, nondistended Extremities: No edema Musculoskeletal: Strength 5 out of 5 in right upper extremity, 5 out of 5 left upper extremity, 5 out of 5 right lower extremity, 5 out of 5 left lower extremity Neuro: No overt focal neurological deficits, cranial nerves II through XII intact Skin: No rashes appreciated Psych: Cooperative Assessment & Plan Assessment/Plan (1) Acute CVA (cerebrovascular accident): PLAN: Plan #Acute CVA * expressive aphasia has improved * CT of the brain showed small, low attenuation focus in right cerebellar hemisphere suspicious for subacute or chronic CVA * on aspirin and plavix * on high intensity statin * MRI of the brain without contrast acute ischemia in the right cerebellar hemisphere corresponding to CT findings minimally in the left cerebral hemisphere and left thalamus. * she had CTA head and neck on Jul 25 2022 which showed no acute findings in the arteries of the head and neck * Discussed with neurology yesterday. Per neurology, there is concern that his symptoms may be due to something more than just a stroke. Neurology therefore requested for MRI of brain with contrast, EEG and to hold plavix for LP. Neuro ok with plavix being held * PT.OT on board * 2D echo showed EF of 65% with moderate mitral annular calcification * speech therapy on board * BP meds on hold for permissive hypertension. 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 Neurology had concerns about whether her confusion could also be due to herpes encephalitis. However, per discussion, neurology thinks that we should get an LP to confirm this or otherwise before committing patients to a prolonged course of IV acyclovir. * MRI of brain with contrast showed cystic encephalomalacic changes within the posterior right frontal white matter with no evidence of acute hemorrhage or mass effect. * EEG done today; for LP tomorrow. aspirin and plavix on hold till after LP tomorrow -07/31: Mild diffuse encephalopathy with no lateralizing signs or seizures patterns, LP 08/02 for 5-day Plavix hold. MRI with contrast from 07/29 with no abnormal contrast-enhancement, MRI from 07/28 with acute ischemia of the right cerebellar hemisphere corresponding to the CT findings, minimally in left cerebellar hemisphere and left thalamus as well as chronic microvascular ischemic changes and echo with EF of 65% with moderate mitral annular calcification. Echo report was history of previous negative bubble. Continue statin, holding antiplatelet as LP can be performed per neurology recommendation #Hypertension: BP meds on hold to allow for permissive hypertension. IV labetalo l. BP has remained fairly stable. #Recent rib fracture due to mechanical fall: on pain meds. PT/.OT on board. Fall precautions DVT prophylaxis: lovenox Total time spent on evaluation and management of patient, reviewing chart and specialist notes, discussing plan with patient , discussion with nursing and ancillary staff as well as documentation: 30 mins Charges/Coding Visit Charges Inpatient E&M: 44842 Subs Hosp L2
--- NOTE | 2022-07-31 15:47 | NURSING ---
This RN taking over care of pt at this time.
[2022-07-31] MEDS: Atorvastatin Calcium 40 MG Tablet PO (21:39)
[2022-08-01] VITALS (7 sets, daily range): BP systolic 99–123; BP diastolic 50–73; PULSE 87–97; RESP 16–18; TEMP 36.5–36.8; O2SAT 94–100; BMI 33.0
[2022-08-01 05:59] LABS: Absolute Lymphocyte Count 3.88 X10^3/uL (0.83-4.51); Absolute Neutrophil Count 6.6 X10^3/uL (2.0-7.7); Basophil# 0.06 X10^3/uL; Basophil% 0.5 % (0-1); Eosinophils% 1.7 % (0-5); Hematocrit 32.9 % (37-47); Hemoglobin 9.2 g/dL (12.0-15.0); Lymphocyte # 3.88 X10^3/ul (0.83-4.51); Lymphocyte % 33.6 % (19-41); Mean Corpuscular Hgb 22.9 pg (27.0-32.0); Mean Corpuscular Volume 81.8 fL (81-99); Mean Platelet Vol. 10.8 fl (6.2-12.0); Monocyte# 0.75 X10^3/uL; Monocyte% 6.5 % (0-10); NRBC Flagged by Analyzer 0 % (0-5); Neutrophil % 57.2 % (47-70); Platelet Count 378 K/mm3 (150-450); RBC Distribution Width CV 17.4 % (11.6-14.6); RBC Distribution Width SD 51.2 fl (35.1-43.9); Red Blood Count 4.02 M/mm3 (4.2-5.4); White Blood Count 11.6 K/mm3 (4.4-11.0)
[2022-08-01 06:41] LABS: ALB/GLOB Ratio 0.9 RATIO (0.9-2.4); AST(SGOT) 24 U/L (15-37); Alanine Aminotransfer ALT/SGPT 25 U/L (13-56); Albumin, Serum 3.3 g/dL (3.2-5.0); Alkaline Phosphatase 74 U/L (45-117); Anion Gap 7 (5-15); BUN 27 mg/dL (7-18); CRP < 2.90 mg/L (0.0-3.0); Calcium,Total 9.6 mg/dL (8.5-10.1); Chloride 110 mmol/L (98-107); Creatinine, Serum 0.84 mg/dL (0.55-1.02); EST Glomerular Filtration Rate 70 mL/min (>60); Est Glom Filt Rate - Afr Amer 85 mL/min (>60); Estimated Creatinine Clearance 45.77 ml/min; Globulin 3.8 g/dL (2.2-4.2); Glucose 102 mg/dL (74-106); Potassium 3.6 mmol/L (3.5-5.1); Protein, Total 7.1 g/dL (6.4-8.2); Rheumatoid Factor < 10.0 IU/mL (<15); Sodium Level 139 mmol/L (136-145)
[2022-08-01 08:11] LABS: Erythrocyte Sedimentation Rate 50 mm/hr (0-30)
--- NOTE | 2022-08-01 09:34 | PN.HOSP_ITS ---
Reason for Visit Reason for Visit: Diagnoses Encephalopathy, unspecified (07/27/22) Cerebral infarction, unspecified (07/27/22) Subjective Subjective No new acute or focal complaints Objective Data Objective Data Vital Signs: Vital Signs Temp Pulse Resp BP Pulse Ox O2 Del Method 98.2 F 88 18 111/52 L 96 Room Air 08/01/22 06:00 08/01/22 06:00 08/01/22 06:00 08/01/22 06:00 08/01/22 06:00 08/01/22 06:00 Oxygen Delivery Method Room Air Weight: 82 kg Body Mass Index (BMI) 33.0 Intake & Output: Intake and Output for Last 24 Hours 07/30/22 07/31/22 08/01/22 23:59 23:59 23:59 Intake Total 480 / 780 540 / 540 Balance 480 / 780 540 / 540 Lab / Micro Data Result Diagrams: 08/01/22 05:20 08/01/22 05:20 Labs: Laboratory Results - last 24 hr 08/01/22 05:20: WBC 11.6 H, RBC 4.02 L, Hgb 9.2 L, Hct 32.9 L, MCV 81.8, MCH 22.9 L, MCHC 28.0 L, RDW Std Deviation 51.2 H, RDW Coeff of Ranjit 17.4 H, Plt Count 378, MPV 10.8, Immature Gran % (Auto) 0.500, Neut % (Auto) 57.2, Lymph % (Auto) 33.6, [place] % (Auto) 6.5, Eos % (Auto) 1.7, Baso % (Auto) 0.5, Absolute Neuts (auto) 6.6, Absolute Lymphs (auto) 3.88, Nucleated RBC % 0, ESR 50 H 08/01/22 05:20: Sodium 139, Potassium 3.6, Chloride 110 H, Carbon Dioxide 22.0, Anion Gap 7, BUN 27 H, Creatinine 0.84, Estim Creat Clear Calc 45.77, Est GFR (MDRD) Af Amer 85, Est GFR (MDRD) Non-Af 70, BUN/Creatinine Ratio 32.0 H, Glucose 102, Calcium 9.6, Total Bilirubin 0.40, AST 24, ALT 25, Alkaline Phosphatase 74, C-React Prot Ext Range < 2.90, Total Protein 7.1, Albumin 3.3, Globulin 3.8, Albumin/Globulin Ratio 0.9, Rheumatoid Factor < 10.0 Physical Exam Narrative General: Alert, oriented, no apparent distress HEENT: Atraumatic, normocephalic Eyes: Anicteric, normal conjunctiva, extraocular movements grossly intact Neck: Supple Respiratory: Clear to auscultation bilaterally, normal respiratory effort Cardiovascular: Regular rate and rhythm GI: Soft, nontender, nondistended Extremities: No edema Musculoskeletal: Moving all extremities Neuro: No overt focal neurological deficits Skin: No rashes appreciated Psych: Cooperative Assessment & Plan Assessment/Plan (1) Acute CVA (cerebrovascular accident): PLAN: Plan #Acute CVA * expressive aphasia has improved * CT of the brain showed small, low attenuation focus in right cerebellar hemisphere suspicious for subacute or chronic CVA * on aspirin and plavix * on high intensity statin * MRI of the brain without contrast acute ischemia in the right cerebellar hemisphere corresponding to CT findings minimally in the left cerebral hemisphere and left thalamus. * she had CTA head and neck on Jul 25 2022 which showed no acute findings in the arteries of the head and neck * Discussed with neurology yesterday. Per neurology, there is concern that his symptoms may be due to something more than just a stroke. Neurology therefore requested for MRI of brain with contrast, EEG and to hold plavix for LP. Neuro ok with plavix being held * PT.OT on board * 2D echo showed EF of 65% with moderate mitral annular calcification * speech therapy on board * BP meds on hold for permissive hypertension. 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 Neurology had concerns about whether her confusion could also be due to herpes encephalitis. However, per discussion, neurology thinks that we should get an LP to confirm this or otherwise before committing patients to a prolonged course of IV acyclovir. * MRI of brain with contrast showed cystic encephalomalacic changes within the posterior right frontal white matter with no evidence of acute hemorrhage or mass effect. * EEG done today; for LP tomorrow. aspirin and plavix on hold till after LP tomorrow -07/31: EEG Mild diffuse encephalopathy with no lateralizing signs or seizures patterns, LP 08/02 for 5-day Plavix hold. MRI with contrast from 07/29 with no abnormal contrast-enhancement, MRI from 07/28 with acute ischemia of the right cerebellar hemisphere corresponding to the CT findings, minimally in left cerebellar hemisphere and left thalamus as well as chronic microvascular ischemic changes and echo with EF of 65% with moderate mitral annular calcification. Echo report was history of previous negative bubble. Continue statin, holding antiplatelet as LP can be performed per neurology recommendation -08/01: A.m. LP, Plavix remains on hold, will hold a.m. dose of Lovenox tomorrow. ESR down trended slightly, CRP returned to normal. Did send ROBERTO CARLOS screen/further lab work-up #Hypertension: BP meds on hold to allow for permissive hypertension. IV labetalol. BP has remained fairly stable. #Recent rib fracture due to mechanical fall: on pain meds. PT/.OT on board. Fall precautions DVT prophylaxis: lovenox subcu Total time spent on evaluation and management of patient, reviewing chart and specialist notes, discussing plan with patient , discussion with nursing and ancillary staff as well as documentation: 30 mins Charges/Coding Visit Charges Inpatient E&M: 13642 Subs Hosp L2
[2022-08-01] MEDS: Enoxaparin 40 MG/0.4 ML Syringe SC (11:21)
[2022-08-01] MEDS: Acyclovir 200 MG Capsule 400 MG PO ×2 (11:21→21:24)
[2022-08-01] MEDS: Pantoprazole Sodium 40 MG Tablet PO (11:22)
[2022-08-01] MEDS: Losartan Potassium 100 MG Tablet PO (11:22)
[2022-08-01] MEDS: Ascorbic Acid 500 MG Tablet PO (11:22)
[2022-08-01] MEDS: Aspirin 81 MG TAB.CHEW PO (11:22)
[2022-08-01] MEDS: amLODIPine 2.5 MG Tablet PO (11:22)
[2022-08-01] MEDS: hydroCHLOROthiazide 12.5mg 12.5 MG PO (11:22)
[2022-08-01] MEDS: buPROPion (XL) 150 MG TABLET.XL PO ×2 (11:23→21:23)
[2022-08-01] MEDS: Gabapentin 100 MG Capsule PO (11:29)
[2022-08-01] MEDS: Atorvastatin Calcium 40 MG Tablet PO (21:23)
[2022-08-02 00:16] VITALS: BMI 33.0
[2022-08-02 03:42] VITALS: BP 110/62; PULSE 85; RESP 18; TEMP 36.4; O2SAT 96
[2022-08-02 05:24] LABS: Absolute Lymphocyte Count 3.59 X10^3/uL (0.83-4.51); Absolute Neutrophil Count 7.9 X10^3/uL (2.0-7.7); Basophil# 0.07 X10^3/uL; Basophil% 0.6 % (0-1); Eosinophil# 0.13 X10^3/uL; Hematocrit 31.3 % (37-47); Hemoglobin 9.2 g/dL (12.0-15.0); Lymphocyte # 3.59 X10^3/ul (0.83-4.51); Lymphocyte % 28.7 % (19-41); Mean Corp Hgb Conc 29.4 g/dL (32-36); Mean Corpuscular Hgb 23.2 pg (27.0-32.0); Mean Corpuscular Volume 78.8 fL (81-99); Mean Platelet Vol. 10.6 fl (6.2-12.0); Monocyte# 0.78 X10^3/uL; Monocyte% 6.2 % (0-10); NRBC Flagged by Analyzer 0 % (0-5); Neutrophil # 7.88 X10^3/uL (2.7-7.7); Neutrophil % 62.9 % (47-70); Platelet Count 349 K/mm3 (150-450); RBC Distribution Width CV 17.3 % (11.6-14.6); RBC Distribution Width SD 49.4 fl (35.1-43.9); Red Blood Count 3.97 M/mm3 (4.2-5.4); White Blood Count 12.5 K/mm3 (4.4-11.0)
[2022-08-02 05:54] LABS: ALB/GLOB Ratio 0.9 RATIO (0.9-2.4); AST(SGOT) 10 U/L (15-37); Alanine Aminotransfer ALT/SGPT 24 U/L (13-56); Albumin, Serum 3.4 g/dL (3.2-5.0); Alkaline Phosphatase 76 U/L (45-117); Anion Gap 8 (5-15); BUN 39 mg/dL (7-18); BUN/Creat Ratio 30.2 RATIO (10-20); Calcium,Total 9.5 mg/dL (8.5-10.1); Chloride 110 mmol/L (98-107); Creatinine, Serum 1.29 mg/dL (0.55-1.02); EST Glomerular Filtration Rate 43 mL/min (>60); Est Glom Filt Rate - Afr Amer 52 mL/min (>60); Globulin 3.8 g/dL (2.2-4.2); Glucose 114 mg/dL (74-106); Potassium 3.5 mmol/L (3.5-5.1); Protein, Total 7.2 g/dL (6.4-8.2); Sodium Level 140 mmol/L (136-145)
--- NOTE | 2022-08-02 08:15 | PN.HOSP_ITS ---
Reason for Visit Reason for Visit: Diagnoses Encephalopathy, unspecified (07/27/22) Cerebral infarction, unspecified (07/27/22) Subjective Subjective No new focal or acute complaints, for LP today Objective Data Objective Data Vital Signs: Vital Signs Temp Pulse Resp BP Pulse Ox O2 Del Method 97.6 F L 85 18 110/62 96 Room Air 08/02/22 03:42 08/02/22 03:42 08/02/22 03:42 08/02/22 03:42 08/02/22 03:42 08/02/22 03:45 Oxygen Delivery Method Room Air Weight: 82 kg Body Mass Index (BMI) 33.0 Intake & Output: Intake and Output for Last 24 Hours 07/31/22 08/01/22 08/02/22 23:59 23:59 23:59 Intake Total 480 / 780 1020 / 1260 480 / 480 Balance 480 / 780 1020 / 1260 480 / 480 Lab / Micro Data Result Diagrams: 08/02/22 05:09 08/02/22 05:09 Labs: Laboratory Results - last 24 hr 08/02/22 05:09: WBC 12.5 H, RBC 3.97 L, Hgb 9.2 L, Hct 31.3 L, MCV 78.8 L, MCH 23.2 L, MCHC 29.4 L, RDW Std Deviation 49.4 H, RDW Coeff of Ranjit 17.3 H, Plt Coun t 349, MPV 10.6, Immature Gran % (Auto) 0.600, Neut % (Auto) 62.9, Lymph % (Auto) 28.7, [place] % (Auto) 6.2, Eos % (Auto) 1.0, Baso % (Auto) 0.6, Absolute Neuts (auto) 7.9 H, Absolute Lymphs (auto) 3.59, Nucleated RBC % 0 08/02/22 05:09: Sodium 140, Potassium 3.5, Chloride 110 H, Carbon Dioxide 22.0, Anion Gap 8, BUN 39 H, Creatinine 1.29 H, Estim Creat Clear Calc 29.80, Est GFR (MDRD) Af Amer 52 L, Est GFR (MDRD) Non-Af 43 L, BUN/Creatinine Ratio 30.2 H, Glucose 114 H, Calcium 9.5, Total Bilirubin 0.30, AST 10 L, ALT 24, Alkaline Phosphatase 76, Total Protein 7.2, Albumin 3.4, Globulin 3.8, Albumin/Globulin Ratio 0.9 Physical Exam Narrative General: Alert, oriented, no apparent distress HEENT: Atraumatic, normocephalic Eyes: Anicteric, normal conjunctiva, extraocular movements grossly intact Neck: Supple Respiratory: Clear to auscultation bilaterally, normal respiratory effort Cardiovascular: Regular rate and rhythm GI: Soft, nontender, nondistended Extremities: No edema Musculoskeletal: Moving all extremities Neuro: No overt focal neurological deficits Skin: No rashes appreciated Psych: Cooperative Assessment & Plan Assessment/Plan (1) Acute CVA (cerebrovascular accident): PLAN: Plan #Acute CVA * expressive aphasia has improved * CT of the brain showed small, low attenuation focus in right cerebellar hemisphere suspicious for subacute or chronic CVA * on aspirin and plavix * on high intensity statin * MRI of the brain without contrast acute ischemia in the right cerebellar hemisphere corresponding to CT findings minimally in the left cerebral hemisphere and left thalamus. * she had CTA head and neck on Jul 25 2022 which showed no acute findings in the arteries of the head and neck * Discussed with neurology yesterday. Per neurology, there is concern that his symptoms may be due to something more than just a stroke. Neurology therefore requested for MRI of brain with contrast, EEG and to hold plavix for LP. Neuro ok with plavix being held * PT.OT on board * 2D echo showed EF of 65% with moderate mitral annular calcification * speech therapy on board * BP meds on hold for permissive hypertension. 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 Neurology had concerns about whether her confusion could also be due to herpes encephalitis. However, per discussion, neurology thinks that we should get an LP to confirm this or otherwise before committing patients to a prolonged course of IV acyclovir. * MRI of brain with contrast showed cystic encephalomalacic changes within the posterior right frontal white matter with no evidence of acute hemorrhage or mass effect. * EEG done today; for LP tomorrow. aspirin and plavix on hold till after LP tomorrow -07/31: EEG Mild diffuse encephalopathy with no lateralizing signs or seizures patterns, LP 08/02 for 5-day Plavix hold. MRI with contrast from 07/29 with no abnormal contrast-enhancement, MRI from 07/28 with acute ischemia of the right cerebellar hemisphere corresponding to the CT findings, minimally in left cerebellar hemisphere and left thalamus as well as chronic microvascular ischemic changes and echo with EF of 65% with moderate mitral annular calcification. Echo report was history of previous negative bubble. Continue statin, holding antiplatelet as LP can be performed per neurology recommendation -08/01: A.m. LP, Plavix remains on hold, will hold a.m. dose of Lovenox tomorrow. ESR down trended slightly, CRP returned to normal. Did send ROBERTO CARLOS screen/further lab work-up -08/02: For LP today, once fluid studies in system will reconsult neurology for any further/final recommendations and possibly DC home later #STEPAN -Elevated BUN and increase in creatinine -Has been on losartan, amlodipine, hydrochlorothiazide but given soft BP and increase in BUN/creatinine we will hold these and give fluids #Hypertension -08/02: BP has been on the low side and given bump in creatinine BP meds held #Recent rib fracture due to mechanical fall: on pain meds. PT/.OT on board. Fall precautions DVT prophylaxis: lovenox subcu Total time spent on evaluation and management of patient, reviewing chart and specialist notes, discussing plan with patient , discussion with nursing and ancillary staff as well as documentation: 30 mins Charges/Coding Visit Charges Inpatient E&M: 69643 Subs Hosp L2
[2022-08-02 08:41] VITALS: BP 110/57; PULSE 89; RESP 16; TEMP 36.7; O2SAT 97
[2022-08-02] MEDS: Ascorbic Acid 500 MG Tablet PO (08:48)
[2022-08-02] MEDS: Gabapentin 100 MG Capsule PO (08:48)
[2022-08-02] MEDS: Acyclovir 200 MG Capsule 400 MG PO ×2 (08:48→23:53)
[2022-08-02] MEDS: Pantoprazole Sodium 40 MG Tablet PO (08:48)
[2022-08-02] MEDS: buPROPion (XL) 150 MG TABLET.XL 300 MG PO (08:49)
--- NOTE | 2022-08-02 10:15 | RAD_ITS ---
PROCEDURE: Fluoroscopic guided Lumbar Puncture. DATE: August 02, 2022. CLINICAL INDICATION: Encephalopathy. Memory loss. PHYSICIAN: Alexander De Paz M.D. MEDICATIONS: 1% lidocaine administered subcutaneously for local anesthesia. ACCESS SITE: Lower posterior back. NEEDLE: 22-gauge spinal needle. SPECIMEN: Approximately 12 mL clear]CSF fluid. FLUOROSCOPY TIME (if supplied): (1:13) minutes/seconds. 36.55 mg. COMPLICATIONS: None immediate. The risks, benefits, and alternatives to the procedure were explained to the patient. The specific risks of bleeding, infection, and neurovascular injury were detailed and accepted. Witnessed informed consent was obtained. The patient was placed on the fluoroscopic table in the prone position. The level for needle entry was determined and marked. The overlying skin was cleaned and prepped in the usual sterile fashion. 2% lidocaine was administered subcutaneously for local anesthesia. Under fluoroscopic guidance a 22-gauge spinal needle was advanced. The thecal sac was entered at the L3- L4 vertebral level. The inner stylet was removed. There was spontaneous flow of clear CSF fluid. The patient was placed in a reversed Trendelenburg position. Approximately 12 mL of cerebrospinal fluid was collected using gravity. The specimen was collected and submitted to the laboratory for further evaluation. The needle was withdrawn,. Hemostasis was achieved and a sterile dressing placed. The patient tolerated the procedure well without any immediate complications. The patient was placed supine with head elevated and returned to the floor in stable condition. RAD/Dx Lumbar Puncture w/IMG Guide IMPRESSION: Successful fluoroscopic-guided lumbar puncture. Electronically Signed: Alexander De Paz MD at 12:01 EDT ,
[2022-08-02] MEDS: Lidocaine 2% (5ml sdv) 5 ML VIAL.MPF INFILT (10:47)
--- NOTE | 2022-08-02 11:17 | CYSPIN_PTH ---
PATIENT: REBECA GUERRERO LOC: [facility] U#:[id number] AGE/SX: 77/F ROOM: [facility] RE07/27/[address]: Dr. Yara Tang MD : [id number] BED: 1 DIS: 08/03/2022 SPEC #: [id number] RECD: 08/02/22 12:59 STATUS: XU REQ #: [id number] BK: 08/02/22 11:[address]: Yara Tang DEPT: CYTOLOGY RECD BY: Natali Dumont ENTERED: 08/02/22 13:00 SP TYPE: CYSPIN FL OTHR DR: DO Dr. Susan Fraire DO Dr. Nana Yaa Koram, MD Tissues: Cerebrospinal Fluid Procedures: Pap Stain (control) Special Stain Group II Cytospin Fluid HEADER OPERATION: Lumbar puncture PRE-OP DIAGNOSIS: Encephalopathy, memory loss TISSUE SUBMITTED: Cerebrospinal fluid for cytology DIAGNOSIS CYTOLOGY Cerebrospinal fluid for cytology (cytospins): Negative for malignant cells. Blood. AM:latisha 08/02/2022 CYTOLOGY STUDY Slides are reviewed. CYTOLOGY GROSS Received is 3 ml of hazy pale red fluid labeled with the patient's name and and designated per the requisition as CSF. Submitted for cytology preparation. / latisha 08/02/2022 TC:5 CPT: 74562
[2022-08-02 11:20] LABS: Cytology, Body Fluid / CSF SEE PATHOLOGY REPORT
[2022-08-02] MEDS: 0.9% Normal Saline 1,000 ML 999 ML IV (11:23)
[2022-08-02 11:25] VITALS: BP 126/65; PULSE 89; RESP 14; TEMP 36.7; O2SAT 97
[2022-08-02 11:52] LABS: Glucose Spinal Fluid 77 mg/dL (40-75)
[2022-08-02 12:05] LABS: Body Fluid Mononuclear WBC # 0.002 10^3/uL
[2022-08-02 12:54] LABS: Appearance CSF (character) CLEAR (Clear); Auto B Fluid Analyzer BKGD Ct COUNTS W/IN LIMITS (W/IN LIMITS); CSF Color COLORLESS (Colorless); Tested Tube # 3
[2022-08-02 12:58] LABS: RBC Count, Spinal Fluid 950 /mm-3 (None seen)
[2022-08-02 12:59] LABS: White Count, CSF 10 /mm-3 (0 - 5)
[2022-08-02 13:12] LABS: Body Fluid QC Type(s) BF2
[2022-08-02 14:10] LABS: ANTINUCLEAR ANTIBODIES DIRECT Positive (Negative); Anti-Centromere B Ab <0.2 AI (0.0-0.9); Anti-Chromatin 0.3 AI (0.0-0.9); Anti-Jo <0.2 AI (0.0-0.9); Anti-Scleroderma-70 AB 2.5 AI (0.0-0.9); Anti-dsDNA Ab <1 IU/mL (0-9); RNP Ab <0.2 AI (0.0-0.9); SJOGREN'S Anti-SS-A test < 0.2 AI (0.0-0.9); SJOGREN'S Anti-SS-B test < 0.2 AI (0.0-0.9); Smith Ab <0.2 AI (0.0-0.9)
--- NOTE | 2022-08-02 15:02 | CASEMGMT ---
DEEPTHI CM in to discuss needs at discharge. Per therapy, patient would benefit from outpatient ST at discharge. Script received. Patient and daughter agreeable to outpatient ST. Script provided to patient with [facility] information and placed in discharge folder. Patient and daughter denied further needs or concerns at this time.
--- NOTE | 2022-08-02 16:09 | PCM.HOSP.N ---
Hospitalist Note Discussed with neurology on telehealth monitor at bedside and discussed case as well as history. He recommended ID consult given slight elevated white count, slight elevated ESR though down trended, slight abnormality in LP. Additionally recommended outpatient rheumatology and hematology consults and continuation of aspirin and Plavix with no empiric full dose anticoagulation given no arrhythmia noted
[2022-08-02 17:09] VITALS: BMI 33.0
[2022-08-02 17:56] VITALS: BP 111/86; PULSE 89; RESP 14; TEMP 36.9; O2SAT 98
[2022-08-02 22:21] VITALS: BP 126/75; PULSE 85; RESP 18; TEMP 36.8; O2SAT 98
[2022-08-02] MEDS: Atorvastatin Calcium 40 MG Tablet PO (23:53)
[2022-08-03 03:06] VITALS: BMI 33.0
[2022-08-03 04:20] VITALS: BP 112/60; PULSE 95; RESP 18; TEMP 36.6; O2SAT 99
[2022-08-03 06:31] LABS: Absolute Lymphocyte Count 3.77 X10^3/uL (0.83-4.51); Absolute Neutrophil Count 7.1 X10^3/uL (2.0-7.7); Basophil# 0.07 X10^3/uL; Basophil% 0.6 % (0-1); Eosinophil# 0.15 X10^3/uL; Eosinophils% 1.3 % (0-5); Lymphocyte # 3.77 X10^3/ul (0.83-4.51); Lymphocyte % 31.5 % (19-41); Mean Corpuscular Hgb 22.8 pg (27.0-32.0); Mean Corpuscular Volume 78.7 fL (81-99); Mean Platelet Vol. 10.6 fl (6.2-12.0); Monocyte# 0.82 X10^3/uL; Monocyte% 6.8 % (0-10); NRBC Flagged by Analyzer 0 % (0-5); Neutrophil # 7.14 X10^3/uL (2.7-7.7); Neutrophil % 59.5 % (47-70); Platelet Count 348 K/mm3 (150-450); RBC Distribution Width CV 16.8 % (11.6-14.6); RBC Distribution Width SD 48.1 fl (35.1-43.9); Red Blood Count 3.94 M/mm3 (4.2-5.4)
[2022-08-03 07:13] LABS: ALB/GLOB Ratio 0.8 RATIO (0.9-2.4); AST(SGOT) 10 U/L (15-37); Alanine Aminotransfer ALT/SGPT 23 U/L (13-56); Albumin, Serum 3.1 g/dL (3.2-5.0); Alkaline Phosphatase 75 U/L (45-117); Anion Gap 9 (5-15); BUN 31 mg/dL (7-18); BUN/Creat Ratio 30.4 RATIO (10-20); Chloride 107 mmol/L (98-107); Creatinine, Serum 1.02 mg/dL (0.55-1.02); EST Glomerular Filtration Rate 56 mL/min (>60); Est Glom Filt Rate - Afr Amer 68 mL/min (>60); Estimated Creatinine Clearance 37.69 ml/min; Globulin 3.8 g/dL (2.2-4.2); Glucose 138 mg/dL (74-106); Potassium 3.1 mmol/L (3.5-5.1); Protein, Total 6.9 g/dL (6.4-8.2); Sodium Level 138 mmol/L (136-145)
[2022-08-03 09:19] VITALS: BP 131/71; PULSE 96; RESP 15; TEMP 36.2; O2SAT 100
[2022-08-03] MEDS: buPROPion (XL) 150 MG TABLET.XL 300 MG PO (09:21)
[2022-08-03] MEDS: Aspirin 81 MG TAB.CHEW PO (09:22)
[2022-08-03] MEDS: Acyclovir 200 MG Capsule 400 MG PO (09:22)
[2022-08-03] MEDS: Ascorbic Acid 500 MG Tablet PO (09:22)
[2022-08-03] MEDS: Pantoprazole Sodium 40 MG Tablet PO (09:22)
[2022-08-03] MEDS: Gabapentin 100 MG Capsule PO (09:24)
[2022-08-03] MEDS: Potassium Chloride Oral Tablet 20 MEQ 60 MEQ PO (10:12)
[2022-08-03] MEDS: Enoxaparin 40 MG/0.4 ML Syringe SC (10:13)
[2022-08-03] MEDS: Clopidogrel Bisulfate 75 MG Tablet PO (10:13)
--- NOTE | 2022-08-03 11:16 | CON.PCM.ID_ITS ---
Assessment & Plan Assessment/Plan (1) Acute CVA (cerebrovascular accident): PLAN: CSF with mildly elevated wbc of 10. Some blood in CSF (rbc 950), but not enough to explain all the wbc. HSV/vzv pcr pending. Is on chronic suppressive acyclovir for oral HSV. No recent outbreaks. No fever. No meningismus. Slowly improving here per her sister. At this point, would cont to monitor. No clear evidence of infection. Will follow, thank you HPI Consult Data Date of Consult: 08/03/22 HPI Narrative Reason for Consultation: abnormal CSF HPI Narrative: REBECA GUERRERO, is a 77 F with h/o stroke, presented 07/27 with new onset memory trouble, confusion, word finding difficulty. Taken to ED, CTs and MRIs done. Neuro consulted. No fever or chills, no headache or neck pain. Is on acyclovir for suppression of oral HSV, no recent outbreaks. Had LP done with mildly elevated wbc. Sister at bedside provided additional history. Speaking and mental status has improved over past few days. Full ROS performed and neg except as noted above. [facility] Medical History Arthritis Compression fracture Cryptogenic stroke Diplopia Dyspnea on exertion Essential (primary) hypertension History of skin cancer Hyperlipidemia Implantable loop recorder present Ptosis Stroke/cerebrovascular accident Transient retinal artery occlusion Type 2 diabetes mellitus Home Medications acyclovir 400 mg tablet 400 mg PO BID herpes 06/14/15 [History Last Taken 03/13/22] bupropion HCl 150 mg 24 hr tablet, extended release 150 mg PO BID depression 06/14/15 [History Last Taken 01/11/22] glucosamine HCl 500 mg-msm 83 mg-chondroitin 400 mg tablet 1 ea PO DAILY supplement 07/19/16 [History Last Taken 01/11/22] ascorbate calcium (vitamin C) 500 mg tablet 500 mg PO DAILY supplements 09/05/18 [History Last Taken 01/11/22] amlodipine 5 mg tablet 2.5 mg PO DAILY BP 01/31/21 [History Last Taken 03/13/22] aspirin 81 mg chewable tablet 81 mg PO BREAKFAST stroke 01/14/22 [History Last Taken 03/13/22] calcium carbonate 200 mg calcium (500 mg) chewable tablet 500 mg PO LUNCH Supplement 02/05/22 [History Last Taken Unknown] multivitamin-iron 9 mg-folic acid 400 mcg-calcium and minerals tablet (High Potency Multivitamin (w-iron)) 1 tab PO BREAKFAST Supplement 02/05/22 [History Last Taken Unknown] acetaminophen 500 mg tablet 1,000 mg PO Q6H PRN PRN Pain Score 1-10 #0 tabs 02/08/22 [Rx Last Taken Unknown] pantoprazole 40 mg tablet,delayed release 40 mg PO DAILY 30 days #30 tabs 02/08/22 [Rx Last Taken 03/13/22] atorvastatin 20 mg tablet 20 mg PO DAILY 05/23/22 [History Last Taken Unknown] gabapentin 100 mg capsule 100 mg PO DAILY 07/25/22 [History Last Taken Unknown] hydrocodone-acetaminophen 5-325mg 5mg-325mg 1 tab PO Q6H PRN Pain 07/25/22 [History Last Taken Unknown] lidocaine 5 % topical patch 2 patch topical DAILY PRN pain #30 ea 07/25/22 [Rx Last Taken Unknown] losartan 100 mg-hydrochlorothiazide 12.5 mg tablet 1 tab PO DAILY Check with primary doctor 07/25/22 [History Last Taken Unknown] ondansetron 4 mg disintegrating tablet 4 mg PO TID PRN nausea and vomiting #21 tabs 07/25/22 [Rx Last Taken Unknown] oxycodone-acetaminophen 5 mg-325 mg tablet (Percocet) 1 tab PO Q6H PRN pain 3 days #12 tabs 07/25/22 [Rx Last Taken Unknown] potassium chloride 10 mEq tablet,extended release(part/cryst) 10 meq PO QODAY C heck with primary doctor 07/25/22 [History Last Taken Unknown] nitrofurantoin monohydrate/macrocrystals 100 mg capsule 100 mg PO BID 07/27/22 [History Last Taken Unknown] Allergy/AdvReac Type Severity Reaction Status Date / Time neomycin Allergy unknown Verified 07/27/22 16:17 nickel Allergy Rash Verified 07/27/22 16:17 Penicillins [PCN] Allergy Hives Verified 07/27/22 16:17 Sulfa (Sulfonamide Allergy Rash Verified 07/27/22 16:17 Antibiotics) Family History Mother CAD (coronary artery disease) Daughter Heart disease cardiomyopathy Sister Breast cancer triple negative Thyroid cancer Surgical History H/O abdominal surgery History of breast biopsy History of knee replacement History of loop recorder (~03/13/22) History of tubal ligation Social History household members: other details: ex-. Smoking Status: Former smoker how long ago did patient quit smokin alcohol intake: current alcohol intake frequency: holidays/special occasions only substance use type: does not use caffeine: Yes (Take a caffeine tablet daily) Physical Exam Const alert and no apparent distress General Appearance: cooperative HEENT normocephalic and head/scalp atraumatic Eyes PERRL and EOMs intact bilaterally Neck supple and No nodes Resp normal air movement and clear to auscultation bilaterally Cardio regular rate and regular rhythm GI soft to palpation, non-tender and non-distended Extremity General Extremity: Negative for edema Skin no rashes or lesions noted Neuro CN's II-XII intact bilaterally Neuro Narrative: some memory trouble Lab / Micro Data Attestation: I reviewed the patient's lab results. Result Diagrams: 08/03/22 06:01 08/03/22 06:01 Labs: Laboratory Results - last 24 hr 08/01/22 05:20: ROBERTO CARLOS Screen Positive H, STEPHANIE-1 Antibody <0.2, SS-A/Ro IgG Antibody < 0.2, SS-B/La IgG Antibody < 0.2, Sm ([place]) Antibody <0.2, DIGITAL PRINTER Antibody <0.2, Scl-70 Scleroderma Ab 2.5 H, Double Strand DNA Ab <1, Centromere B Antibody <0.2 08/02/22 10:58: Fld Polynuclear WBCs # 0.000, Fld Polynuclear WBCs % 0.0, Fluid Mononuclear WBCs 0.002, Fld Mononuclear WBCs % 100.0, CSF Appearance CLEAR, CSF Color COLORLESS, CSF WBC 10 H, CSF RBC 950 H, CSF Cell Count Tube # 3, CSF Total Cell Counted Not Reportable, CSF Comment May follow 08/02/22 10:59: CSF Glucose 77 H, CSF Total Protein 66.0 H 08/03/22 06:01: WBC 12.0 H, RBC 3.94 L, Hgb 9.0 L, Hct 31.0 L, MCV 78.7 L, MCH 22.8 L, MCHC 29.0 L, RDW Std Deviation 48.1 H, RDW Coeff of Ranjit 16.8 H, Plt Count 348, MPV 10.6, Immature Gran % (Auto) 0.300, Neut % (Auto) 59.5, Lymph % (Auto) 31.5, [place] % (Auto) 6.8, Eos % (Auto) 1.3, Baso % (Auto) 0.6, Absolute Neuts (auto) 7.1, Absolute Lymphs (auto) 3.77, Nucleated RBC % 0 08/03/22 06:01: Sodium 138, Potassium 3.1 L, Chloride 107, Carbon Dioxide 22.0, Anion Gap 9, BUN 31 H, Creatinine 1.02, Estim Creat Clear Calc 37.69, Est GFR (MDRD) Af Amer 68, Est GFR (MDRD) Non-Af 56 L, BUN/Creatinine Ratio 30.4 H, Glucose 138 H, Calcium 9.0, Total Bilirubin 0.20, AST 10 L, ALT 23, Alkaline Phosphatase 75, Total Protein 6.9, Albumin 3.1 L, Globulin 3.8, Albumin/Globulin Ratio 0.8 L Micro: Microbiology 08/02/22 10:58 Csf, Spinal Fluid Gram Stain - Final 08/02/22 10:58 Csf, Spinal Fluid CSF Culture - Preliminary No growth in 24 hours. Final to follow. Radiology Impression Lumbar Puncture Fluoroscopy 08/02/22 10:15 IMPRESSION: Successful fluoroscopic-guided lumbar puncture. Electronically Signed: Alexander De Paz MD at 12:01 EDT ,
--- NOTE | 2022-08-03 11:58 | CASEMGMT ---
Discharge Planning Patient Choice list created for SNF. Given to RN CM. Audra Madera
[2022-08-03 12:26] VITALS: BMI 33.0
--- NOTE | 2022-08-03 13:32 | CASEMGMT ---
Addendum entered by Vidya Snowden 08/03/22 16:39: Pt and family made aware HH SOC is planned for Sat. Addendum entered by Vidya Snowden 08/03/22 15:34: Per Dr Tang, she anticipates pt will now d/c home today. Cheri @ [facility] made aware and SOC date changed to Sat 08/05. Original Note: RN MINOR NOTE: Therapy notes reviewed from yesterday. RN CM to room. Pt sitting up in recliner chair. Sister @ bedside. Discussed OP therapy for PT/OT, in addition to the OP ST script pt has already received. Pt and sister state she may be interested in HHC instead of OP therapy, but wanted to wait until pt's dtr, Joi, arrives. Once Joi in room, DEEPTHI GAXIOLA went back to room again. B/w pt, sister, and dtr, they decided HHC would be a better option for pt initially. Discussed home-bound requirements and they feel pt would meet this criteria at this time. A list of [facility] providers including quality and resource use data and consistent with the patient?s preferred geographic region, medical needs, and insurance network were provided from the [employer] Guide. They choose [facility]. Call placed to Cheri @ [facility] and referral made. Order placed for PT/OT and ST. She states they are able to accept pt w/SOC slated for Monday 08/07. Pt and family made aware. They deny further discharge planning needs at this time. DtrJoi, states does have some medical concern/questions and would like to talk w/Dr Tang. Dr Tang made aware and states will be over to talk w/dtr soon. Christian GAMA RN, CM
[2022-08-03 17:01] VITALS: BP 136/76; PULSE 99; RESP 16; TEMP 36.6; O2SAT 97
--- NOTE | 2022-08-03 17:16 | DS.PCM_ITS ---
Providers Date of Admission: 07/27/22 Date of Discharge: 08/03/22 Primary Care Physician: Dr. Susan Tello DO Consultations 08/02/22 16:09 Consult: Infectious Disease Routine Consulting Provider: Chad Langford Reason for Consult: slight inc in wbc, slight inc in esr, slight abn LP, neuro rec ID c/s EMERGENT Consult: No MD Notified: Yes Date Notified: 08/02/22 Time Notified: 16:13 Method of Notification: Text Reason For Visit: CVA Diagnosis Discharge Diagnosis (1) Acute CVA (cerebrovascular accident): Status: Acute Code(s): I63.9 - Cerebral infarction, unspecified Medications at Discharge Home Medications acyclovir 400 mg tablet 400 mg PO BID herpes 06/14/15 bupropion HCl 150 mg 24 hr tablet, extended release 150 mg PO BID depression 06/14/15 glucosamine HCl 500 mg-msm 83 mg-chondroitin 400 mg tablet 1 ea PO DAILY supple ment 07/19/16 ascorbate calcium (vitamin C) 500 mg tablet 500 mg PO DAILY supplements 09/05/18 amlodipine 5 mg tablet 5 mg PO DAILY BP 01/31/21 aspirin 81 mg chewable tablet 81 mg PO BREAKFAST stroke 01/14/22 calcium carbonate 200 mg calcium (500 mg) chewable tablet 500 mg PO LUNCH Supplement 02/05/22 multivitamin-iron 9 mg-folic acid 400 mcg-calcium and minerals tablet (High Potency Multivitamin (w-iron)) 1 tab PO BREAKFAST Supplement 02/05/22 acetaminophen 500 mg tablet 1,000 mg PO Q6H PRN PRN Pain Score 1-10 #0 tabs 02/08/22 pantoprazole 40 mg tablet,delayed release 40 mg PO DAILY 30 days #30 tabs 02/08/22 lidocaine 5 % topical patch 2 patch topical DAILY PRN pain #30 ea 07/25/22 ondansetron 4 mg disintegrating tablet 4 mg PO TID PRN nausea and vomiting #21 tabs 07/25/22 oxycodone-acetaminophen 5 mg-325 mg tablet (Percocet) 1 tab PO Q6H PRN pain 3 days #12 tabs 07/25/22 potassium chloride 10 mEq tablet,extended release(part/cryst) 10 meq PO QODAY Check with primary doctor 07/25/22 atorvastatin 40 mg tablet 40 mg PO QHS 30 days #30 tabs 08/03/22 clopidogrel 75 mg tablet 75 mg PO DAILY 30 days #30 tabs 08/03/22 gabapentin 100 mg capsule 100 mg PO Q6H PRN PRN Breakthrough Pain 08/03/22 Hospital Course Procedures - (TTE, LP) Summary of Care Provided Minutes Spent on Discharge: 60 Hospital Course: 77-year-old female history of cryptogenic stroke, hypertension, type 2 diabetes presented to [facility] 07/27/2022 with confusion at home. She was having difficulty reciting names and getting mixed up and she was not responding appropriately. She is brought to the ED and CT unremarkable, head CT showed small low-attenuation foci of right cerebellar hemisphere with suspicion for subacute or chronic stroke. Had prior strokes affecting her left side but had no other focal complaints at time of presentation. Of note she had ischemic strokes December 2021 that appeared embolic in nature but implanted loop recorder with no A-fib and saw neurology March of this year and was taken off of clopidogrel and atorvastatin was decreased to 20 mg. She was admitted for stroke work-up and echo demonstrated EF of 65% with moderate mitral annular calcification, MRI this admission demonstrated acute ischemia in right cerebellar hemisphere corresponding to the CT findings, minimally in the left cerebellar hemisphere and left thalamus as well as chronic microvascular ischemic changes. MRI was repeated with contrast but there is no abnormal contrast-enhancement noted. She was evaluated by neurology who recommended EEG and LP. EEG with mild diffuse slowing and no active seizure activity, LP performed 08/02 and neurology reconsulted for further recommendations. They recommended consulting ID given LP was not completely abnormal but also was not normal and has slight elevation white count that is persisted as well as elevated ESR. Also recommend rheumatology as well as hematology on discharge. ID evaluated, discussed with ID add onto AM labs if possible presently patient is stable and no indication to change acute management, can DC and have rest of labs/results followed up on an outpatient basis. Discussed with patient and family at bedside extensively about present work-up and further plans and answered all questions. D/c instructions as follows: -Please follow-up with neurology upon discharge, please call Dr. Padilla's office upon discharge to schedule hospital follow-up appointment ) -You will be discharged on aspirin and Plavix and atorvastatin 40mg -Your blood pressure medications have been adjusted and you will now only be taking amlodipine 5 mg daily.? It will be beneficial for you to check your blood pressure daily and record this and take it with you to your doctor's appointments so they can make any adjustments necessary in the future -You have multiple labs pending that were ordered to try to assess for underlying cause of your strokes, please follow-up with your primary physician upon discharge to review any pending labs and follow-up with the specialists, contact information listed.? If you would like to access these labs you can download the [facility] online patient portal. -Please follow-up with rheumatology upon discharge, the [facility] -Please follow-up with hematology on discharge, Dr. Hernandez -Please call your primary care provider's office upon discharge to schedule a hospital follow up within 1 week. -For any concerning signs or symptoms please call 911 or proceed to the nearest emergency department Physical Exam Narrative General: Alert, oriented, no apparent distress HEENT: Atraumatic, normocephalic Eyes: Anicteric, normal conjunctiva, extraocular movements grossly intact Neck: Supple Respiratory: Clear to auscultation bilaterally, normal respiratory effort Cardiovascular: Regular rate and rhythm GI: Soft, nontender, nondistended Extremities: No edema Musculoskeletal: Moving all extremities Neuro: No overt focal neurological deficits Skin: No rashes appreciated Psych: Cooperative Weight / BMI Weight Weight: 82 kg Body Mass Index (BMI) 33.0 ABG / Lab / Microbiology Data Result Diagrams: 08/03/22 06:01 08/03/22 06:01 Laboratory: Laboratory Results - last 24 hr 08/03/22 06:01: WBC 12.0 H, RBC 3.94 L, Hgb 9.0 L, Hct 31.0 L, MCV 78.7 L, MCH 22.8 L, MCHC 29.0 L, RDW Std Deviation 48.1 H, RDW Coeff of Ranjit 16.8 H, Plt Count 348, MPV 10.6, Immature Gran % (Auto) 0.300, Neut % (Auto) 59.5, Lymph % (Auto) 31.5, [place] % (Auto) 6.8, Eos % (Auto) 1.3, Baso % (Auto) 0.6, Absolute Neuts (auto) 7.1, Absolute Lymphs (auto) 3.77, Nucleated RBC % 0 08/03/22 06:01: Sodium 138, Potassium 3.1 L, Chloride 107, Carbon Dioxide 22.0, Anion Gap 9, BUN 31 H, Creatinine 1.02, Estim Creat Clear Calc 37.69, Est GFR (MDRD) Af Amer 68, Est GFR (MDRD) Non-Af 56 L, BUN/Creatinine Ratio 30.4 H, Glucose 138 H, Calcium 9.0, Total Bilirubin 0.20, AST 10 L, ALT 23, Alkaline Phosphatase 75, Total Protein 6.9, Albumin 3.1 L, Globulin 3.8, Albumin/Globulin Ratio 0.8 L Microbiology: Microbiology 08/02/22 10:58 Csf, Spinal Fluid Gram Stain - Final 08/02/22 10:58 Csf, Spinal Fluid CSF Culture - Preliminary No growth in 24 hours. Final to follow. D/C Instructions Discharge Diet: No restrictions Meaningful Use Info Meaningful Use Diagnoses (Choose all that apply): Ischemic CVA CVA Therapy Assessed for PT,OT and/or ST?: Yes Ischemic Stroke Antithrombotic order at d/c?: Yes Dx of Atrial fib/flutter?: No Statins at discharge?: Yes Primary Dx Acute Ischemic CVA?: Yes Discharge Plan Admission Admit Date/Time: 07/27/22 19:17 Primary Reason for Your Visit: Stroke Attending Provider: Yara Tang Primary Care Provider: Susan Tello Consulting Providers: Gamaliel Ayon ; Crystal Dial ; Chad Langford Instructions Patient Instructions: Dysarthria: Improving Speech, Discharge Instructions for Stroke Additional Instructions / Restrictions: DISCHARGE INSTRUCTIONS PLEASE READ *Please take this with you to your next doctors appointment* -Please follow-up with neurology upon discharge, please call Dr. Padilla's office upon discharge to schedule hospital follow-up appointment ( [phone]) -You will be discharged on aspirin and Plavix and atorvastatin 40mg -Your blood pressure medications have been adjusted and you will now only be taking amlodipine 5 mg daily. It will be beneficial for you to check your blood pressure daily and record this and take it with you to your doctor's appointments so they can make any adjustments necessary in the future -You have multiple labs pending that were ordered to try to assess for underlying cause of your strokes, please follow-up with your primary physician upon discharge to review any pending labs and follow-up with the specialists, contact information listed. If you would like to access these labs you can download the [facility] online patient portal. -Please follow-up with rheumatology upon discharge, the [facility] -Please follow-up with hematology on discharge, Dr. Hernandez -Please call your primary care provider's office upon discharge to schedule a hospital follow up within 1 week. -For any concerning signs or symptoms please call 911 or proceed to the nearest emergency department Discharge Orders/Prescriptions Prescriptions: New atorvastatin 40 mg Tablet 40 mg PO QHS 30 Days Qty: 30 0RF clopidogrel 75 mg Tablet 75 mg PO DAILY 30 Days Qty: 30 0RF Continued ascorbate calcium (vitamin C) 500 mg tablet 500 mg PO DAILY acyclovir 400 MG tablet 400 mg PO BID bupropion HCl 150 MG tablet extended release 24 hr 150 mg PO BID glucosamine [id number] 1 EACH tablet 1 ea PO DAILY amlodipine 5 mg tablet 5 mg PO DAILY aspirin 81 mg tablet,chewable 81 mg PO BREAKFAST calcium carbonate 200 mg calcium (500 mg) tablet,chewable 500 mg PO LUNCH High Potency Multivit (w-iron) 9 mg iron-400 mcg tablet 1 tab PO BREAKFAST pantoprazole 40 mg Tablet,Delayed Release (Dr/Ec) 40 mg PO DAILY 30 Days Qty: 30 0RF acetaminophen 500 mg Tablet 1,000 mg PO Q6H PRN PRN (Reason: Pain Score 1-10) Qty: 0 0RF potassium chloride 10 mEq tablet,ER particles/crystals 10 meq PO QODAY ondansetron 4 mg tablet,disintegrating 4 mg PO TID PRN (Reason: nausea and vomiting) Qty: 21 0RF lidocaine 5 % adhesive patch,medicated 2 patch topical DAILY PRN (Reason: pain) Qty: 30 1RF Rx Instructions: leave on most painful area for up to 12 hrs gabapentin 100 mg capsule 100 mg PO Q6H PRN MDD 400 PRN (Reason: Breakthrough Pain) Label Comments: take 1 capsule by mouth every 4 hours Held oxycodone-acetaminophen [Percocet] 5-325 mg tablet 1 tab PO Q6H PRN (Reason: pain) 3 Days Qty: 12 0RF Hold Instructions: Resume on 08/09/22. Would recommend holding until discussing with your prescribing physician Discontinued losartan-hydrochlorothiazide 100-12.5 mg Tablet 1 tab PO DAILY hydrocodone-acetaminophen 5-325 mg Tablet 1 tab PO Q6H PRN (Reason: Pain) nitrofurantoin monohyd/m-cryst 100 mg capsule 100 mg PO BID Referrals / Follow Up: Rheumatology, [facility] [Other] Susan Tello DO [Primary Care Provider] - Within 1 Week Andie Hernandez MD [Med Staff - Active Staff] - See Referral Note (Follow-up with the blood doctor upon discharge) Tao Padilla MD [Non-Staff -Ordering Privileges] - See Referral Note (Please follow-up with neurology upon discharge, please call Dr. Padilla's office upon discharge to schedule hospital follow-up appointment (ph [phone])) Disposition Disposition (needs filled in before D/C Order can be placed): Home Health Service Charges/Coding Visit Charges Inpatient E&M: 39903 Disch Hosp >30min
[2022-08-03 17:37] VITALS: BP 136/76; PULSE 99; RESP 16; TEMP 36.6; O2SAT 97
[2022-08-07 08:57] LABS: Pathologist Review Reviewed
== END 2022-08-03 18:40 | disposition home health service (06) | DRG 65 ==
LOC: ED 19:28 → PCU 19:35
PROVIDERS: Student in an Organized Health Care Education/Training Program; Emergency Provider Emergency Medicine; PCP Internal Medicine; Visit Provider Internal Medicine
DX: I63.9 Cerebral infarction, unspecified (principal); G93.40 Encephalopathy, unspecified; N17.9 Acute kidney failure, unspecified; I67.82 Cerebral ischemia; E11.9 Type 2 diabetes mellitus without complications; G93.89 Other specified disorders of brain; E78.5 Hyperlipidemia, unspecified; I10 Essential (primary) hypertension; I69.320 Aphasia following cerebral infarction; R41.0 Disorientation, unspecified; Z87.891 Personal history of nicotine dependence; Z79.82 Long term (current) use of aspirin; I34.81 Nonrheumatic mitral (valve) annulus calcification
CPT/HCPCS: 36415; 62328; 70450; 70551; 70552; 80048; 80053; 80061; 81001; 82140; 82945; 82962; 84157; 84484; 85025; 85652; 86038; 86140; 86225; 86235; 86431; 87070; 87205; 87529; 87798; 88108; 88313; 89050; 89051; 92507; 92523; 93005; 93306; 94762; 95819; 97110; 97116; 97129; 97130; 97162; 97166; 97530; 97535; 99285; A9575; J7030; P9612; Q9957; A4216; C8929

== ENCOUNTER 2023-02-26 13:00 | Outpatient (RCR) | payer BC, SELFPAY ==
--- NOTE | 2022-08-16 18:27 | HP.SP.EVAL ---
Visit History - Visit Info Date of Eval: 08/16/22 Visit: 1 Cattle Care Worker: RENNY - History Attending Doctor: Referring Doctor: Reason for Referral: COGNITIVE DEFICITS/CVA/BALANCE. RX HERE Previous speech therapy: Yes Results: PER CHART REVIEW [facility]ING [facility]: Pt had 3 cvas in December 2021 and 2 prior CVAs. Pt was treated at [facility]'s rehabilitation and TCU where she received speech therapy for swallowing and dysarthria. Pt was dismissed for speech therapy in the hospital due to the Pt being able to independently use swallow strategies and being 100% intelligible. MBSS was completed and recommended Diet: Thin Liquids - Easy to Chew textures; Compensatory Strategies: Small Sips - Hard swallows on EVERY sip, No Straws, Slow Rate - Sips one at a time, Sitting upright, Remain sitting upright for 30 minutes after PO intake, Minimize/decrease distractions; Supervision: 1:1 Close Supervision - for all food/drink. Patient had speech therapy on inpatient rehab unit at [facility] from 01/15/22-02/03/22. She was discharged home on same diet, tolerating well. She had OP speech therapy evaluation, but was not followed by OP ST as she was independent with strategies for speech and swallowing, and she was tolerating regular textures. Per family, she has been tolerating all food and drink without difficulty swallowing, including with use of straw. She passed RN dysphagia screener. Other Relevant Medical History/Diagnoses/Surgery: MARCI GUERRERO is a 77 year old female who presents to [facility] for evaluation of cognition and expressive aphasia. Marci accompanied by her daughter, Joi, who helped serve as historian. Marci lives with her ex-, Joi lives 3 houses down. Marci reporting most difficulties lie with memory and word finding. Prior to this last right cerebellar CVA, Marci was independent with her finances and medication management -- family is helping her with these currently, but she would like to get back to doing them independently. Smoking Status: Never smoker - Diagnosis Diagnosis: Mild Cognitive Deficit; Mild-Moderate Expressive Aphasia - Pain Is pain an issue with your current prescribed condition?: No - Personal Preferred language: Cook Islander History - History Date of Eval: 08/16/22 Smoking Status: Never smoker Hx Smoking: Yes Hx Tobacco Use: No - Pain Is pain an issue with your current prescribed condition?: No Patient Allergies - Allergies Allergies neomycin Allergy (Verified 07/27/22 16:17) unknown nickel Allergy (Verified 07/27/22 16:17) Rash Penicillins [PCN] Allergy (Verified 07/27/22 16:17) Hives Sulfa (Sulfonamide Antibiotics) Allergy (Verified 07/27/22 16:17) Rash Subjective Oral Motor - Subjective Patient Reports: Slurred Speech CLQT - CLQT CLQT Administered: Yes CLQT: Cognitive Linguistic Quick Test (CLQT) is a criterion - referenced assessment designed for adults between the ages of 18 and 89 with known or suspected neurological dysfuntions. The CLQT is to assess strength and weaknesses in five cognitive domains. Severity ratings are within normal limits, mild, moderate, severe deficits. The subtests are as follows: Date: 08/16/22 - Attention Attention: Mild - Memory Memory: Mild - Executive Functions Executive Functions: WNL - Language Language: Mild - Visuospatial Skills Visuospatial Skills: WNL - Composite Severity Rating Composite Severity Rating: Mild - Clock Drawing Severity Rating Clock Drawing Severity Rating: Mild - CLQT Comments Subtest Analysis and Domain Scores Cognitive Domain Scores. ? Personal Facts (memory and language ability): 10/31 MEETS CRITERION. ? Symbol Cancellation (nonlinguistic task of visual attention and perception, integrity of the upper/lower quadrants of the left/right visual jasmine): 01/04 MEETS CRITERION. ? Confrontation Naming (aphasia, perseveration, verbosity): 01/02 MEETS CRITERION. ? Clock Drawing (screening of all cognitive domains): 12/06 BELOW CRITERION CUT OFF. ? Story Retelling (memory and comprehension, arousal, attention, storage capacity, narrative skills): /10 BELOW CRITERION CUT OFF. ? Symbol Trails (nonlinguistic task to assess planning, self-monitoring, working memory, and visual attention, and impulsivity): 5/10 BELOW CRITERION CUT OFF. ? Generative Naming (word retrieval skills, perseveration): /9 BELOW CRITERION CUT OFF. ? Design Memory (nonlinguistic task to assess visual discrimination & analysis, attention, and visual memory, impulsivity, perseveration): 6 MEETS CRITERION. ? Mazes (planning, mental flexibility, self-monitoring, visual discrimination, and impulsivity): 8 MEETS CRITERION. ? Design Generation (nonlinguistic task of creativity and mental flexibility): / BELOW CRITERION CUT OFF. Severity Rating. Domain Scores: Attention = 155/215 (MILD); Memory = 138/185 (MILD); Executive Functioning = 20/40 (WNL - LOWER END OF CUT OFF); Language = 25/37 (MILD); Visuospatial Skills = 79/105 (WNL - LOWER END OF CUT OFF); Clock Drawing = /13 (MILD - BOTTOM OF CUT OFF). Plan - Plan Plan: Will recommend Pt for weekly outpatient speech therapy to address mild cognitive impairment and mild-moderate aphasia characterized by deficits in immediate and short-term memory, word retrieval, executive functioning, attention, problem solving/reasoning, and safety awareness. Pt would benefit from training in compensatory strategies for recall and word retrieval, as well as cognitive training to improve cognitive functioning. Without skilled ST services, the Pt is at risk for decreased independence completing daily living tasks. - Recommendations Treatment Warranted: Yes Treatment Warranted: Receptive/ Expressive Language, Cognition - Progress Prognosis: Good - Frequency Frequency: 1x/Week Duration: 3 Months - Goals that are Established Determination:: Goals will be added/modified as deemed necessary and appropriate. Therapy will be discontinued when results of re-evaluation indicate therapy is no longer needed or lack of progress has been documented. - Goal #1-5 Goal #1: Marci will independently demonstrate use of word finding strategies to participate in complex conversation tasks in 3 out of 4 word finding occurrences across 3 measured opportunities. Goal #2: Marci will complete complex problem solving, reasoning, and executive function tasks including but not limited to functional ADLs (i.e. managing finances, safety awareness, paying bills, medication management, meal planning, using cellphone) with 80% acc given min cues during 2/3 sessions. Goal #3: Marci will complete basic short-term memory tasks including but not limited to auditory comprehension tasks with 80% acc independently across 3 measured opportunities. Education - Patient has Indicated that the Following Identified Educational Needs: None The Patient has indicated that they have no educational or learning abilities that may effect their care.: Yes - Patient Instruction Patient Education: Diagnosis, Treatment Plan, Goals Person Taught: Patient, Family Teaching Method: Discussion, Demonstration Response to teaching: Return demonstration, Verbalize understanding
--- NOTE | 2022-09-01 15:17 | HP.PTEVAL ---
Patient's Visit Information REBECA GUERRERO is a 77 year old F referred to Physical Therapy by Dr. Susan Tello DO with a diagnosis of CVA/IMPAIRED BALANCE. Date of Evaluation: 09/01/22 Physical Therapist: Cheri Morrison, PT, Cert MDT - Visit Plan Frequency: 2-3x /Week Duration: 4-6 Weeks Plan: *USE GAIT BELT BELT FOR SAFETY*. GAIT AND BALANCE TRAINING. CORE STRENGTHENING. TERESA LE ROM, STRETCHING AND STRENGTHENING TO HELP MEET SET GOALS. - Subjective Present symptoms: BALANCE PROBLEMS. Present since: CHRONIC BUT WORSE SINCE STROKE 07/28/22. DID NOT HAVE HOME PT AFTER HOSPITALIZATION. Pain Scale: PATIENT DENIES BACK PAIN. STATES SHE HAD SEVERAL INJECTIONS/PROCEEDURES WITH DR. CASAS AND THEY HELPED. Is it getting better, worse or staying the same: STAYING THE SAME. Commenced as a result of: CVA. Previous history/Previous treatment: PHYSICAL THERAPY FOR BALANCE IN THE PAST AND RECENT EARLIER THIS YEAR. Gait: NOT CURRENTLY USING CANE. USING WALKER AND FURNITURE WALKING IN HOME. PMH/Recent major surgery: OTHER: PATIENT AND HER DAUGHTER REPORT SHE IS OFF BALANCE AND FURNITURE WALKING AT HOME. PATIENTS DAUGHTER REPORTS SHE IS MORE OFF BALANCE SINCE HER RECENT STROKE. FELL END OF JUNE WALKING OUTSIDE AT HOME. FALL RESULTED IN 2 RIB FRACTURES. CVA JUL 28 2022. [facility] FROM 07/28/22 TO 08/03/22. PATIENT REPORTS THIS STROKE IS DIFFERENT THAN HER OTHER 3 IN THE PAST IN THAT SHE IS HAVING MORE MEMORY PROBLEMS THIS TIME AND LAST TIME SHE HAD MORE UNILATERAL WEAKNESS AND BALANCE PROBLEMS. SOCIAL: LIVES AT HOME AND DAUGHTER LIVES A FEW DOORS DOWN. - Objective THIS PATIENT AMBULATES INDEP'LY INTO PT TODAY WITH [facility] AND ACCOMPNIED BY HER DAUGHTER RADHA CANSECO. PATIENT WALKS WITH DECREASED CADANCE AND SOME SPASTICIY NOTED IN R LE DURING SWING PHASE OF GAIT. PATIENT ALSO DEMO'D STUMBLIING ONE TIME ON L LE WHILE WALKING WITH WALKER AND WAS ABLE TO RE-GAIN BALANCE INDEP'LY. 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 PATIENT OVER-ALL IS HELPFUL WITH SUBJECTIVE PORTION OF EVAL AND FOLLOWS COMMANDS WELL WITH PERIODICALLY NEEDING COMMAND STATED MORE THAN ONCE. SHE IS PLEASANT AND COOPERATIVE TO WORK WITH. TERESA LE ROM IS WFL. STRENGTH: TERESA UE'S WFL. R LE: HIP 4/5, KNEE 5/5, ANKLE 5/5. L HIP 4-/5, KNEE 5/5, ANKLE 4/5. SEE TUG TIME AND STS TESTS BELOW. PATIENT IS A GOOD CANDIDATE FOR PT FOR LE STRENGTHENING AND BALANCE/GAIT TRAINING. PATIENT AND PATIENTS DAUGHTER ARE AGREEABLE. RECOMMENDED TO PATIENT AND DAUGHTER TO USE WALKER AT ALL TIMES FOR SAFETY AT THIS POINT UNTIL TESTING AND TRAINING WITH CANE. - Balance/Special Test Scores Lower Extremity Functional Score: 29 TUG Test Time Seconds: 18.68 30 Second Chair Rise Test Seconds: 6 - Goals Goal 1:: PATIENT WILL COMPLETE 9 STANDS IN 30 SECS TO DEMONSTRATE IMPROVED FUNCTIONAL STRENGTH Goal Time Frame: 4-6 Weeks Goal 2:: PATIENT WILL COMPLETE TUG IN < 15 SECS TO DEMONSTRATE IMPROVED GAIT STABILITY Goal Time Frame: 4-6 Weeks Goal 3:: PATIENT WILL AMBULATE 200 FEET WITH WW WITH SUPERVISION X 1 TO IMPROVE ACTIVITY TOLERANCE Goal Time Frame: 4-6 Weeks Goal 4:: PATIENT WILL BE INDEP WITH A HEP FOR CONTINUED IMPROVEMENT ONCE FORMAL PHYSICAL THERAPY CONCLUDES. Goal Time Frame: 4-6 Weeks - Anticipated Interventions Patient/Client Instruction: Educate patient on: Condition, Plan of Care, Risk Factors For the Purpose of:: To improve self management Therapeutic Exercise to Include: Strength training, Balance training, Flexibilty training, Gait and locomotor training, Neuromotor development For the Purpose of:: To improve muscle performance and motor function, To increase tolerance to activity/condition/position, To improve ability of physical actions for home/community/work/leisure, To improve gait and locomotor functions Thank you for the opportunity to evaluate your patient. For Medicare and Medicare HMO plans, please review the plan of care and approve it. It will need to be FAXED BACK to us at [phone] for Medicare purposes. For Medicare only, by signing this I certify the plan of care. Please let me know if there are questions or concerns regarding this plan of care. Physician Signature: Date:
--- NOTE | 2022-10-11 12:16 | HP.PTREVAL ---
Re-Evaluation Intro: Dr. Susan Tello, DO, It has been my pleasure to treat REBECA GUERRERO over the last 10 visits for CVA/IMPAIRED BALANCE. Please see the progress note below for an update on the physical therapy plan of care! Subjective Subjective: PATIENT REPORTS HER BACK STARTED HURTING AFTER LAST VISIT BUT NO BACK PAIN FOR THE LAST FEW DAYS. FOLLOW UP ZULEYMA'T WITH DR. CASAS PENDING TODAY. PATIENT REPORT REPORTS THIS IS HER EX- WITH HER TODAY. FELICIANO REPORTS PATIENT WAS ABLE TO WALK ALL THE WAY AROUND HER PROPERTY OUTSIDE IN THE [place] YESTERDAY WITHOUT CANE OR WALKER. FELICIANO DENIES BEING AWARE OF ANY RECENT FALLS. FELICIANO REPORTS HER PATIENTS NEICE REPORTS SHE SEE'S PROGRESS WITH HER BALANCE. PATIENT REPORTS SHE WOULD LIKE TO CONTINUE PHYSICAL THERAPY. I BELIEVE THROUGH THE PHYSICAL THERAPY I AM IMPROVING. PATIENT STRUGGELED TO ANSWER % BETTER QUESTION. Objective Objective/Function: PATIENT WAS SEEN TODAY FOR RE-ASSESSMENT OF PROGRESS TOWARD THE SET PT GOALS AND THE NEED FOR FURTHER PHYSICAL THERAPY VS READINESS FOR DISCHARGE. PATIENT IS MAKING GOOD PROGESS IN PT AND SEE LEFS, TUG AND STS RESULTS BELOW. PATIENT PRESENTED TO PT TODAY WITH HER EX-. PATIENT HAD DIFFICULTY ANSWERING % BETTER QUESTION AND LEFS QUESTIONS BUT WANTED TO FILL IT OUT HERSELF WITHOUT THE HELP OF HER EX-. Plan Plan Plan: CONTINUE PT 2X'S A WK X 5 WKS. *GIVE WRITTEN HEP INSTRUCTIONS AND CAREGIVER INSTRUCTIONS* MONITOR AND AVOID INCREASED BACK PAIN WITH EX. 9 steps to get in and out of house. *USE GAIT BELT BELT FOR SAFETY* GAIT AND BALANCE TRAINING. CORE STRENGTHENING. TERESA LE ROM, STRETCHING AND STRENGTHENING TO HELP MEET SET GOALS. Balance/Gait/Functional tests Balance/Special Test Scores Lower Extremity Functional Score: 30 TUG Test Time Seconds: 15.18 Tug Test: <20 sec.=mostly independent 30 Second Chair Rise Test Seconds: 8 Goals Goals Goal 1:: PATIENT WILL COMPLETE 9 STANDS IN 30 SECS TO DEMONSTRATE IMPROVED FUNCTIONAL STRENGTH Goal Time Frame: 4-6 Weeks Goal Progress: Progressing Goal 2:: PATIENT WILL COMPLETE TUG IN < 15 SECS TO DEMONSTRATE IMPROVED GAIT STABILITY Goal Time Frame: 4-6 Weeks Goal Progress: Progressing Goal 3:: PATIENT WILL AMBULATE 200 FEET WITH WW WITH SUPERVISION X 1 TO IMPROVE ACTIVITY TOLERANCE. NEW GOAL: PATIENT WILL DEMONSTRATE INDEP AND SAFE GAIT ON LEVEL SURFACES AND UP AND DOWN STEPS WITH CANE X 200 FEET TO IMPROVE ACTIVITY TOLERANCE. Goal Time Frame: 4-6 Weeks Goal Progress: Goal Met Goal 4:: PATIENT WILL BE INDEP WITH A HEP FOR CONTINUED IMPROVEMENT ONCE FORMAL PHYSICAL THERAPY CONCLUDES. Goal Time Frame: 4-6 Weeks Anticipated Interventions Anticipated Interventions Patient/Client Instruction: Educate patient on: Condition, Plan of Care and Risk Factors For the Purpose of:: To improve self management Therapeutic Exercise to Include: Strength training, Balance training, Flexibilty training, Gait and locomotor training and Neuromotor development For the Purpose of:: To improve muscle performance and motor function, To increase tolerance to activity/condition/position, To improve ability of physical actions for home/community/work/leisure and To improve gait and locomotor functions Re-Evaluation Ending Re-evaluation ending: Please do not hesitate to contact me at [phone] by phone or if you have questions or concerns regarding this new plan of care! Sincerely, Cheri Morrison, PT, Cert MDT
--- NOTE | 2022-11-20 12:40 | HP.PTDCSUM ---
Discharge Summary D/C summary: It has been my pleasure to treat REBECA GUERRERO referred by Dr. Susan Tello DO, with the diagnosis of CVA/IMPAIRED BALANCE for a total of 17 visit(s). Discharge Date: Please see the following information for a summary of their discharge status. Subjective Subjective: PATIENT STATES FRANKLY I FEEL LIKE THE THINGS I'VE LEARNED TO DO IN HERE I CAN CONTINUE TO DO AT HOME ON MY OWN NOW. PATIENTS EX- FELICIANO REPORTS SHE GETS UP AND AROUND, DRESSES AND BATHES HERSELF, DOES HOUSEWORK AND WALKS IN THE YARD BUT TIRES EASILY. PATIENT REPORTS HER EX- IS LIVING WITH HER. THEY BOTH DENY HER HAVING ANY FALLS. SHE REPORTS SHE FEELS LIKE SHE IS TALKING BETTER BUT SHE ISN'T SURE IF HER MEMORY IS BETTER AND HER EX- STATES IT IS NOT. THEY REPORT THEY ACCIDENTALLY MISSED HER LAST SPEECH THERAPY APPOINTMENT AND THIS PT ENCOURAGED THEM TO RE-SCHEDULE IT. PATIENTS REPORTS SHE GOES OUT WITHOUT AN AD SOMETIMES, SOMETIMES SHE USES A CANE AND SOMETIMES SHE TAKES HER ROLLATATOR AND IT DEPENDS ON THE DISTANCE USUALLY. Pain LB: Pain Intensity (Out of 10): 0 Overall Improvement % Improvement: 50 Objective Objective/Function: PATIENT WAS SEEN TODAY FOR RE-ASSESSMENT OF PROGRESS TOWARD THE SET PT GOALS AND THE NEED FOR FURTHER PHYSICAL THERAPY VS READINESS FOR DISCHARGE. HEP CHECK. PATIENT'S PROGRESS WITH PT IS plateauing AND SHE IS UNSAFE WITHOUT AD. SHE IS UNABLE TO SLS ON EITHER LE WITH GOOD BALANCE WITHOUT UE ASSIST. THIS PT RECOMMENDED USE OF ROLLATOR AT ALL TIMES TO PATIENT AND EX FOR SAFETY. PATIENT STATES SHE DOES SOMETIMES FEEL LIKE SHE MIGHT FALL IF SHE DOESN'T HAVE SOMETHING TO HANG ON TO. SHE IS INDEP WITH A HEP WITH THE HELP OF HER EX- AND SHE WOULD LIKE TO BE DISCHARGED AND CONTINUE WITH THAT AT THIS TIME. SEE LEFS, TUG AND STS RESULTS BELOW. PATIENT CAME TO PT WITH ROLLATOR TODAY. Goals Goal 1:: PATIENT WILL COMPLETE 9 STANDS IN 30 SECS TO DEMONSTRATE IMPROVED FUNCTIONAL STRENGTH Goal Progress: Progressing Goal 2:: PATIENT WILL COMPLETE TUG IN < 15 SECS TO DEMONSTRATE IMPROVED GAIT STABILITY Goal Progress: Progressing Goal 3:: PATIENT WILL AMBULATE 200 FEET WITH WW WITH SUPERVISION X 1 TO IMPROVE ACTIVITY TOLERANCE. NEW GOAL: PATIENT WILL DEMONSTRATE INDEP AND SAFE GAIT ON LEVEL SURFACES AND UP AND DOWN STEPS WITH CANE X 200 FEET TO IMPROVE ACTIVITY TOLERANCE. Goal Progress: Goal Met Goal 4:: PATIENT WILL BE INDEP WITH A HEP FOR CONTINUED IMPROVEMENT ONCE FORMAL PHYSICAL THERAPY CONCLUDES. Plan Plan: D/C TO HEP. D/C Information d/c sentence: If there are questions or concerns regarding this patient's physical therapy, please feel free to call me at [phone]. Thank you for the referral of this patient. Sincerely, Cheri Morrison, PT, Cert MDT Balance/Gait/Functional tests Balance/Special Test Scores Lower Extremity Functional Score: 29 TUG Test Time Seconds: 14.89 Tug Test: <20 sec.=mostly independent 30 Second Chair Rise Test Seconds: 9 Improvement % Improvement: 50
--- NOTE | 2023-02-26 14:57 | HP.SP.DC ---
ST Discharge Summary Discharged: Discharge: MARCI GUERRERO is a 74 year old female who was seen for initial cognitive evaluation at [facility] on 08/16/22 s/p 3 CVAs from December 2021 and 2 prior CVAs with unknown dates. Pt attended 12 additional sessions following initial evaluation to target attention, word retrieval, divergent naming, problem solving/reasoning, memory, executive functioning, and safety awareness. Pt making minimal progress with in person therapy and did not appear to be benefiting from home environment suggestions per Pt and ex- report given the severity of her memory deficits. Pt arriving to the last session with her ex- and had her daughter, Joi, on the phone. Everyone reported that Marci had an MRI last month which recommended attending an evaluation with a gerontologist at [facility]. 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 Started her on Zoloft, Cilostazol, and Rivastigmine Transdermal Patch, per Joi. She has a follow up with neurology at end of February. Below are the results of her Brain Check from gerontology per Joi who was reading results over the phone. Combined test results were 9th percentile - Visuospatial Awareness = 91/200 (WNL) - Digit Symbol Substitution/Mental Manipulation = 22/200 (Less than 2SD) - Following Complex Directions = 102/200 (WNL) - Immediate Memory = 91/200 (WNL) - Delay Memory = 108/200 (WNL) - Mood Scale = 11/15 (lower is better) - Anxiety Scale = 6/21 (lower is better) Extensive education provided on vascular dementia and how ST feels this dx is consistent with how therapy has been going over the past few months. All questions were answered. Pt to be d/c from therapy in order to pursue home health speech and physical therapies to better serve her home environment and provide recommendations based on her daily living and assist with completing daily living tasks such as double checking her pill box (that ex- or daughter filled), completing laundry, implementing a visual calendar/schedule, and identifying safety awareness. Pt and family were in agreeance with the POC. Due to her limited progress in outpatient therapy, suspect home health may better serve her considering it is in her space where better suggestions can be made. Pt discharged from speech therapy caseload on this date, 12/4/23. Thank you for allowing me to participate in the care of your Pt. Will reevaluate at Pt?s request following script from physician.
== END 2023-02-26 19:00 | disposition home or self-care (01) ==
LOC: SP 13:00
PROVIDERS: PCP Internal Medicine; Referring Provider Internal Medicine; Visit Provider Internal Medicine
DX: R47.01 Aphasia (principal); R26.89 Other abnormalities of gait and mobility; Z86.73 Personal history of transient ischemic attack (TIA), and cerebral infarction without residual deficits
CPT/HCPCS: 92507; 97110; 97129; 97130; 97162; 97164

== ENCOUNTER 2023-08-30 00:42 | Inpatient (IN) | payer MEDICARE, BC, SELFPAY ==
[2023-08-30] VITALS (11 sets, daily range): BP systolic 117–164; BP diastolic 59–80; PULSE 77–114; RESP 16–20; TEMP 36.2–36.8; O2SAT 94–98; BMI 32.0; BMI 30.5
--- NOTE | 2023-08-30 00:46 | RAD_ITS ---
INDICATION: injury EXAMINATION/TECHNIQUE: X-RAY - XR Hip Unilateral with Pelvis when performed; 2-3 Views COMPARISON: No relevant prior comparison study available FINDINGS: PELVIC BONES: No displaced fracture, destructive or sclerotic lesions. Note that overlapping bowel shadows may however obscure fine detail. Sacroiliac joints are unremarkable. No widening of the pubic symphysis. Moderate lumbar spondylosis with multilevel facet arthropathy. HIPS: Normal bilateral hip alignment with mild left hip joint space narrowing and osteophyte formation. SOFT TISSUES: No soft tissue swelling or gas. Calcified uterine fibroid. RAD/HIP, UNI W/ Pelvis 2-3 Views IMPRESSION: No evidence of displaced pelvic or hip fracture. Mild left hip osteoarthritis. Electronically Signed: Fish Antunez MD at 1:42 EDT ,
--- NOTE | 2023-08-30 00:47 | EDS_ITS ---
HPI HPI - Fall History of Present Illness Chief Complaint: Fall Informant: patient and EMS Narrative Narrative: Patient states she was getting out of her chair tonight, and although her walker was nearby she did not get a chance to grab onto it before losing her balance and falling to the floor. She states even if she did not injure herself she would have trouble getting up if she fell due to having a stroke in the past and residual left-sided weakness which is why she uses a walker to get around her house. EMS came and helped her get up, but upon putting weight on her left leg she has significant groin and hip pain to the point where she cannot bear weight on it. She denies any other injury. [facility] Medical History Discoordination Acute confusion Acute CVA (cerebrovascular accident) Compression fracture Implantable loop recorder present Cryptogenic stroke Ptosis Diplopia Stroke/cerebrovascular accident Dyspnea on exertion History of skin cancer Arthritis Type 2 diabetes mellitus Essential (primary) hypertension Transient retinal artery occlusion Hyperlipidemia Home Medications ?Medication ?Instructions ?Recorded ?Last Taken ?Type acyclovir 400 mg tablet 400 mg PO BID herpes 06/14/15 03/13/22 History bupropion HCl 150 mg 24 hr tablet, 150 mg PO BID depression 06/14/15 01/11/22 History extended release ascorbate calcium (vitamin C) 500 100 mg PO DAILY supplements 09/05/18 01/11/22 History mg tablet amlodipine 5 mg tablet 2.5 mg PO DAILY BP 01/31/21 03/13/22 History aspirin 81 mg chewable tablet 81 mg PO BREAKFAST stroke 01/14/22 03/13/22 History multivitamin-iron 9 mg-folic acid 1 tab PO BREAKFAST Supplement 02/05/22 Unknown History 400 mcg-calcium and minerals tablet (High Potency Multivitamin (w-iron)) acetaminophen 500 mg tablet 1,000 mg (2 x 500 mg) PO Q6H PRN 02/08/22 Unknown Rx PRN Pain Score 1-10 #0 tabs pantoprazole 40 mg tablet,delayed 40 mg PO DAILY 30 days #30 tabs 02/08/22 03/13/22 Rx release potassium chloride 10 mEq 10 meq PO QODAY Check with primary 07/25/22 Unknown History tablet,extended release(part/cryst) doctor clopidogrel 75 mg tablet 75 mg PO DAILY 30 days #30 tabs 08/03/22 Unknown Rx albuterol sulfate 90 mcg/actuation 2 puff inhalation Q6H PRN PRN 08/30/23 Unknown History aerosol inhaler shortness of breath or wheezing atorvastatin 40 mg tablet 20 mg PO QHS 08/30/23 Unknown History benzonatate 100 mg capsule 100 - 200 mg PO TID PRN PRN cough 08/30/23 Unknown History bupropion HCl 150 mg tablet,12 hr 150 mg PO BID 08/30/23 Unknown History sustained-release cilostazol 100 mg tablet 100 mg PO BID 08/30/23 Unknown History doxycycline hyclate 100 mg capsule 100 mg PO BID 08/30/23 Unknown History fluticasone furoate 100 1 inh inhalation DAILY 08/30/23 Unknown History mcg/actuation blister powder for inhalation (Arnuity Ellipta) ipratropium bromide 42 mcg (0.06 1 spray intranasal TID 08/30/23 Unknown History %) nasal spray losartan 100 0.5 tab PO DAILY 08/30/23 Unknown History mg-hydrochlorothiazide 12.5 mg tablet metformin 500 mg tablet 500 mg PO BID 08/30/23 Unknown History rivastigmine tartrate 1.5 mg 1.5 mg PO BID 08/30/23 Unknown History capsule sertraline 25 mg tablet 25 mg PO DAILY 08/30/23 Unknown History Allergy/AdvReac Type Severity Reaction Status Date / Time neomycin Allergy unknown Verified 08/22/22 15:37 nickel Allergy Rash Verified 08/22/22 15:37 Penicillins (PCN) Allergy Hives Verified 08/22/22 15:37 Sulfa (Sulfonamide Allergy Rash Verified 08/22/22 15:37 Antibiotics) Family History Mother CAD (coronary artery disease) Daughter Heart disease cardiomyopathy Sister Breast cancer triple negative Thyroid cancer Surgical History History of loop recorder (~03/13/22) History of knee replacement History of breast biopsy H/O abdominal surgery History of tubal ligation Social History household members: other details: ex-. Smoking Status: Never smoker how long ago did patient quit smokin alcohol intake: current alcohol intake frequency: holidays/special occasions only substance use type: does not use caffeine: Yes (Take a caffeine tablet daily) ROS ROS ED Constitutional Constitutional ED: Denies chills or fever(s) Eyes Eyes: Denies change in vision or diplopia ENT ENT ED: Denies ear pain, epistaxis, facial pain or rhinorrhea Cardiovascular Cardiovascular: Denies chest pain or palpitations Respiratory/Chest Respiratory/Chest: Denies cough or dyspnea Gastrointestinal Gastrointestinal: Denies abdominal pain, diarrhea, melena, nausea or vomiting Genitourinary Genitourinary ED: Denies dysuria or hematuria Musculoskeletal Musculoskeletal: Reports extremity pain; Denies back pain or neck pain Integumentary Denies abscess, Abrasions, laceration or rash Neurologic Neurologic: Reports other Details: preexisting left sided weakness and trouble with speech ; Denies confusion, headache(s) or paresthesias EXAM Physical Exam Const Vital Signs: 08/30/23 00:42 08/30/23 00:51 08/30/23 01:19 Temperature 97.2 F L 98.2 F Temperature Source Temporal Pulse Rate 114 H 106 H Respiratory Rate 18 18 Respiratory Effort Normal Blood Pressure 164/80 H 155/78 H Blood Pressure Mean 108 103 Pulse Ox 96 94 Oxygen Delivery Method Room Air Room Air Positive well nourished and well developed General Appearance ED: well developed and NAD HEENT Reports nasal mucous membranes and turbinates normal HEENT Narrative: No sign of facial trauma. No CSF otorhinorrhea. atraumatic; Negative for hematoma or tenderness Face and Sinus: Negative for facial tenderness Eyes PERRL and EOMs intact bilaterally Visual Acuity: other Other Details: no entrapment or pain with extraocular movements Neck full ROM and supple General: Negative for tenderness Chest Wall inspection of chest normal and palpation of chest normal Chest: symmetrical chest wall rise; Negative for crepitus or tenderness Resp normal respiratory effort and clear to auscultation bilaterally Percussion: other equal BS bilat Cardio no murmurs Rate: regular rate Rhythm: regular rhythm GI normal to inspection, nondistended, normoactive bowel sounds, soft to palpation and non-tender Back/Spine normal ROM Cervical Spine: Negative for cervical spine tenderness Thoracic Spine / Upper Back: Negative for thoracic spinal tenderness Lumbar Spine / Lower Back: Negative for lumbar spinal tenderness Extremity normal to inspection and full ROM Extremity Narrative: Tender left greater trochanter, no shortening, no deformity, painless logroll, and painless thigh flexion even with internal and external rotation, but pain with axial loading in the groin/hip. The other 4 extremities move fully without any pain throughout all joints. 2+/4 bilateral dorsalis pedis and radial pulses. General Extremety ED: Yes tenderness Neuro oriented x3, CN's II-XII intact bilaterally, moves all extremities and no senso ry deficits noted Neuro Narrative: Can move all 4 extremities, but a little weak in the left arm and leg compared with the right which she states is baseline. Mild expressive aphasia without dysarthria, which she states is baseline. [place] Coma Scale: document GCS findings Spontaneous Obeys Commands Oriented 15 Sensorium / Orientation: awake and alert Psych mental status grossly normal and thought process normal Skin no wounds Lesions: no lesions Rashes: no rashes MDM MDM MDM Narrative Medical decision making narrative: and daughter arrived later I discussed with them. witnessed this, she fell laterally to her left side landing on her left hip and bumping her head on the floor but not the wall that was nearby. She was able to crawl to a nearby chair that was low and was able to sit on it before paramedics arrived. 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 Three-view x-ray series of the left hip and pelvis are negative for acute fracture on my interpretation. However when we rolled the patient in order to get the x-ray she complained of a lot of pain in the left hip area anteriorly by the groin. However, as above when ranging her hip when laying supine she has no pain in the hip joint. Given all of this I did obtain a CT of the pelvis as well as her head since she states she bumped her head on the floor when she fell. On my interpretation the CT shows a relatively nondisplaced fracture of the superior pubic ramus on the left, close to the symphysis pubis. This explains her pain, so I do not think she needs other imaging of the hip joint which I do not think is fractured. I reviewed the radiologist result which I agree with. This is a weightbearing as tolerated fracture, nonoperative. CT of the head was obtained in order to rule out intracranial injury given minor trauma and she takes aspirin and clopidogrel, I reviewed the images and report which I agree with, negative for anything acute. She is unable to bear weight on her left lower extremity due to this pain. She has a at home who is unable to help lift her and is elderly, her daughter is here and has scoliosis and heart problems to the point where she is not able to help lift her at all. Given this, patient will need to be admitted for PT and OT evaluations and disposition to appropriate care setting. History & Record Review Discussion w/independent historian: EMS personnel, Patient and Family (x2) Lab Data Attestation: I reviewed the patient's lab results. Labs: Laboratory Results - last 24 hr 08/30/23 02:40 WBC 18.6 H RBC 4.51 Hgb 8.5 L Hct 32.5 L MCV 72.1 L MCH 18.8 L MCHC 26.2 L RDW Std Deviation 56.7 H RDW Coeff of Ranjit 22.6 H Plt Count 359 MPV 10.3 Immature Gran % (Auto) 0.700 Neut % (Auto) 72.5 H Lymph % (Auto) 20.0 Upson % (Auto) 5.9 Eos % (Auto) 0.5 Baso % (Auto) 0.4 Absolute Neuts (auto) 13.5 H Absolute Lymphs (auto) 3.72 Nucleated RBC % 0.1 Differential Comment SCANNED Sodium 139 Potassium 3.4 L Chloride 109 H Carbon Dioxide 20.0 L Anion Gap 10 BUN 15 Creatinine 0.88 Estim Creat Clear Calc 53.11 Est GFR (MDRD) Af Amer 80 Est GFR (MDRD) Non-Af 66 BUN/Creatinine Ratio 17.0 Glucose 86 Calcium 9.6 Radiography Diagnostic Testing: Clinical Impression(s) from Imaging Studies Hip/Pelvis X-Ray 08/30/23 00:46 IMPRESSION: No evidence of displaced pelvic or hip fracture. Mild left hip osteoarthritis. Electronically Signed: Fish Antunez MD at 1:42 EDT , Brain CT 08/30/23 01:09 IMPRESSION: No CT evidence of acute intracranial hemorrhage or injury. Moderate senescent changes compatible with age. Pending Final Proof Editing Lower Extremity CT 08/30/23 01:09 IMPRESSION: Nondisplaced medial left superior ramus fracture extending into the base of the left pubis.. Electronically Signed: Fish Antunez MD at 2:51 EDT , Management Discussion w/another healthcare provider: Hospitalist Discharge Plan Dx/Rx/DC Orders Clinical Impression: Closed fracture of left superior pubic ramus, Unable to bear weight on left lower extremity, Left hemiparesis, Accidental fall Disposition Disposition: Acute Care Hospital [facility]
--- NOTE | 2023-08-30 01:09 | CT_ITS ---
CT LEFT LOWER EXTREMITY CLINICAL INDICATION: FALL TECHNIQUE: Axial CT images of the LEFT lower extremity was performed IV contrast material. Coronal and sagittal reformats were provided. The protocol utilizes one or more of the following dose reduction techniques: automated exposure control, adjustment of mA and/or kV according to patient size,and/or use of iterative reconstruction technique. RADIATION DOSAGE (If Supplied By Facility): CTDIvol = ( 17.40 ) mGy, DLP = ( 425.62 ) mGycm COMPARISON: Left hip radiograph on same day FINDINGS: Bones: Left medial superior pubic ramus fracture extending into the superior base of the left pubis. No left femoral neck fracture. Normal left hip alignment with preserved joint spacing and minimal femoral acetabular osteophyte formation. No lytic or blastic osseous masses. Soft Tissues: The deep soft tissue structures are unremarkable. The superficial soft tissues are unremarkable without evidence of edema, hematoma, or foreign body. Internal pelvis: Calcified fibroid uterus. Colonic diverticulosis without evidence of diverticulitis. CT/Extremity Lower without Contra IMPRESSION: Nondisplaced medial left superior ramus fracture extending into the base of the left pubis.. Electronically Signed: Fish Antunez MD at 2:51 EDT ,
--- NOTE | 2023-08-30 01:09 | CT_ITS ---
INDICATION: FALL EXAMINATION: CT BRAIN - CT Head or Brain W/O Contrast Injection TECHNIQUE: Multiple axial images were obtained of the head without intravenous contrast. A radiation dose optimization technique was used for this scan. IV Contrast dosage and agent: None. COMPARISON: MRI brain Jul 29 2022. FINDINGS: BRAIN PARENCHYMA: No intra- or extra-axial hemorrhage. No evidence of acute infarct. No intracranial mass or mass effect. Moderate patchy periventricular and subcortical white matter hypodense chronic small vessel white matter ischemic change. There is preservation of the green/white matter interface. Posterior fossa structures are unremarkable. CSF SPACES: Cerebral volume appropriate for age. No hydrocephalus. Basal cisterns are patent. CALVARIUM, SKULL BASE, PARANASAL SINUSES AND MASTOID AIR CELLS: No acute osseous finding. Mild layering paranasal sinus mucoperiosteal thickening.. Mastoid air cells are clear. ORBITS: Both globes, extraocular muscles, optic nerves and retrobulbar fat appear unremarkable. ASPECTS Score for Acute Strokes: 10 CT/Brain/Head without Contrast IMPRESSION: No CT evidence of acute intracranial hemorrhage or injury. Moderate senescent changes compatible with age. Pending Final Proof Editing
--- NOTE | 2023-08-30 02:37 | PCM.HP.STD ---
[facility] - General General Date of Admission: 08/30/23 Date of Service: 08/30/23 Chief Complaint: Fall with Subsequent Inability to Ambulate. [facility] Narrative REBECA GUERRERO, is a 78 F with a past medical history of essential hypertension, hyperlipidemia, obesity; with BMI of 32.1 this admission, DM-2; of unknown control on metformin, history of cryptogenic CVA (2021); with residual Left-sided weakness and dysarthria on chronic BASA and Plavix, history of transient retinal artery occlusion, history of vascular dementia; on rivastigmine, history of ptosis and diplopia, history of neurogenic bladder; followed by Dr. Ohara on chronic suppressive antibiotics for recurrent UTI's until ~3 weeks ago, history of asthma, depression, history of compression fracture, history of skin cancer, history of abdominal surgery, GERD; with history of knee replacement and osteoarthritis who presents to [facility] ER complaining of fall with subsequent inability to ambulate. Mrs. Guerrero reports her symptoms began approximately 1 hour prior to arrival when she was attempting to get out of her chair when she lost her balance and fell to the floor onto her Left side culminating in her being unable to get up but she was able to crawl across the floor to a nearby chair. EMS was then activated and helped her to get up off of the floor but she was unable to bear weight on her left leg due to significant left hip and groin pain so the decision was made to bring her in for further evaluation and treatment. She denies loss of consciousness with her fall or any other significant injuries but she does admit to bumping her head on the floor. There is no report of fever, chills, nausea, vomiting, diarrhea, chest pain, shortness of breath, diaphoresis, headache or other recent illness. In the ER her x-rays were negative for hip fracture but a CT scan of the pelvis revealed a nondisplaced fracture of the Left superior pubic ramus complicated by clinical evidence of generalized weakness with ambulatory dysfunction with patient unable to bear weight due to pain in the setting of previous CVA; with residual Left-sided weakness and she was then admitted to the general medical floor for ongoing care for stay that is expected to be greater than 2 midnights. [facility] Medical History CPAP (continuous positive airway pressure) dependence Sleep apnea Discoordination Acute confusion Acute CVA (cerebrovascular accident) Compression fracture Implantable loop recorder present Cryptogenic stroke Ptosis Diplopia Stroke/cerebrovascular accident Dyspnea on exertion History of skin cancer Arthritis Type 2 diabetes mellitus Essential (primary) hypertension Transient retinal artery occlusion Hyperlipidemia Home Medications ?Medication ?Instructions ?Recorded ?Last Taken ?Type acyclovir 400 mg tablet 400 mg PO BID herpes 06/14/15 03/13/22 History bupropion HCl 150 mg 24 hr tablet, 150 mg PO BID depression 06/14/15 01/11/22 History extended release ascorbate calcium (vitamin C) 500 100 mg PO DAILY supplements 09/05/18 01/11/22 History mg tablet amlodipine 5 mg tablet 2.5 mg PO DAILY BP 01/31/21 03/13/22 History aspirin 81 mg chewable tablet 81 mg PO BREAKFAST stroke 01/14/22 03/13/22 History multivitamin-iron 9 mg-folic acid 1 tab PO BREAKFAST Supplement 02/05/22 Unknown History 400 mcg-calcium and minerals tablet (High Potency Multivitamin (w-iron)) acetaminophen 500 mg tablet 1,000 mg (2 x 500 mg) PO Q6H PRN 02/08/22 Unknown Rx PRN Pain Score 1-10 #0 tabs pantoprazole 40 mg tablet,delayed 40 mg PO DAILY 30 days #30 tabs 02/08/22 03/13/22 Rx release potassium chloride 10 mEq 10 meq PO QODAY Check with primary 07/25/22 Unknown History tablet,extended release(part/cryst) doctor clopidogrel 75 mg tablet 75 mg PO DAILY 30 days #30 tabs 08/03/22 Unknown Rx albuterol sulfate 90 mcg/actuation 2 puff inhalation Q6H PRN PRN 08/30/23 Unknown History aerosol inhaler shortness of breath or wheezing atorvastatin 40 mg tablet 20 mg PO QHS 08/30/23 Unknown History benzonatate 100 mg capsule 100 - 200 mg PO TID PRN PRN cough 08/30/23 Unknown History bupropion HCl 150 mg tablet,12 hr 150 mg PO BID 08/30/23 Unknown History sustained-release cilostazol 100 mg tablet 100 mg PO BID 08/30/23 Unknown History doxycycline hyclate 100 mg capsule 100 mg PO BID 08/30/23 Unknown History fluticasone furoate 100 1 inh inhalation DAILY 08/30/23 Unknown History mcg/actuation blister powder for inhalation (Arnuity Ellipta) ipratropium bromide 42 mcg (0.06 1 spray intranasal TID 08/30/23 Unknown History %) nasal spray losartan 100 0.5 tab PO DAILY 08/30/23 Unknown History mg-hydrochlorothiazide 12.5 mg tablet metformin 500 mg tablet 500 mg PO BID 08/30/23 Unknown History rivastigmine tartrate 1.5 mg 1.5 mg PO BID 08/30/23 Unknown History capsule sertraline 25 mg tablet 25 mg PO DAILY 08/30/23 Unknown History Allergy/AdvReac Type Severity Reaction Status Date / Time neomycin Allergy unknown Verified 08/22/22 15:37 nickel Allergy Rash Verified 08/22/22 15:37 Penicillins (PCN) Allergy Hives Verified 08/22/22 15:37 Sulfa (Sulfonamide Allergy Rash Verified 08/22/22 15:37 Antibiotics) Family History Mother CAD (coronary artery disease) Daughter Heart disease cardiomyopathy Sister Breast cancer triple negative Thyroid cancer Surgical History History of loop recorder (~03/13/22) History of knee replacement History of breast biopsy H/O abdominal surgery History of tubal ligation Social History household members: other details: ex-. Smoking Status: Former smoker how long ago did patient quit smokin alcohol intake: current alcohol intake frequency: holidays/special occasions only substance use type: does not use caffeine: Yes (Take a caffeine tablet daily) ROS ROS Narrative Review of systems: General: Patient denies fever or chills. HENT: Denies headache, denies stuffy nose, denies sore throat EYES: Denies changes in vision or discharge from eyes. Resp: Denies cough, denies shortness of breath Cardiac: Denies chest pain, palpitations or heart racing. GI: Denies abdominal pain, denies changes in bowel, denies nausea or vomiting. : Denies changes in urination Extremity: Denies swelling Musculoskeletal: Feels somewhat generally weak and unwell with pain in her Left lower extremity and pelvis that is made worse with weightbearing and attempts to ambulate as per HPI. Neuro: Patient denies associated headache, paresthesias or new focal neurologic deficits. Heme: Denies any bleeding or bruising Skin: Denies rashes Psychiatric: No complaints voiced related to uncontrolled depression or anxiety. Endocrine: No polyuria, polydipsia or polyphagia. The rest of the 14 point ROS was negative except for positives in HPI. Vital Signs Vital Signs Vital Signs: 08/30/23 00:42 08/30/23 00:51 08/30/23 01:19 Temperature 97.2 F L 98.2 F Temperature Source Temporal Pulse Rate 114 H 106 H Respiratory Rate 18 18 Respiratory Effort Normal Blood Pressure 164/80 H 155/78 H Blood Pressure Mean 108 103 Pulse Ox 96 94 Oxygen Delivery Method Room Air Room Air Weight Weight: 175 lb 4.28 oz Body Mass Index (BMI) 32.0 Physical Exam Const alert, no apparent distress and average body habitus General Appearance: cooperative HEENT normocephalic, head/scalp atraumatic, hearing grossly normal bilaterally and moist oral mucous membranes Eyes PERRL and EOMs intact bilaterally Neck no lymphadenopathy and supple Resp normal respiratory effort, no retractions, no use of accessory muscles and clear to auscultation bilaterally Cardio regular rate and regular rhythm GI normal to inspection, nondistended, normoactive bowel sounds, soft to palpation, non-tender and non-distended Extremity normal to inspection and full ROM Skin Skin Narrative: Patient has no evidence of abscess or rash. Neuro CN's II-XII intact bilaterally, moves all extremities and no focal motor deficits Sensorium / Orientation: awake, alert, oriented to person and oriented to place Speech: speech normal Psych affect normal Results Medical Records Data Attestation: I reviewed the patient's medical records Lab / Micro Data Attestation: I reviewed the patient's lab results. 08/30/23 02:40 08/30/23 02:40 Imaging Radiology Impression Hip/Pelvis X-Ray 08/30/23 00:46 IMPRESSION: No evidence of displaced pelvic or hip fracture. Mild left hip osteoarthritis. Electronically Signed: Fish Antunez MD at 1:42 EDT , Brain CT 08/30/23 01:09 IMPRESSION: No CT evidence of acute intracranial hemorrhage or injury. Moderate senescent changes compatible with age. Pending Final Proof Editing Assessment & Plan Assessment/Plan (1) Closed fracture of left superior pubic ramus: QUALIFIERS: Encounter type: initial encounter Qualified Code(s): S32.512A - Fracture of superior rim of left pubis, initial encounter for closed fracture (2) Accidental fall: QUALIFIERS: Encounter type: initial encounter Qualified Code(s): W19.XXXA - Unspecified fall, initial encounter (3) Unable to bear weight on left lower extremity: (4) Left hemiparesis: (5) Cryptogenic stroke: (6) Vascular dementia: QUALIFIERS: Dementia severity: moderate Dementia behavioral or psychological symptom: without behavioral, psychotic, or mood disturbance or anxiety Qualified Code(s): F01.B0 - Vascular dementia, moderate, without behavioral disturbance, psychotic disturbance, mood disturbance, and anxiety (7) Hyperlipidemia: QUALIFIERS: Hyperlipidemia type: unspecified Qualified Code(s): E78.5 - Hyperlipidemia, unspecified PLAN: Plan 1. Nondisplaced fracture of the Left superior pubic ramus after mechanical fall at home - Admit to general medical floor. PT/OT and case management consult and treat on rounds in a.m. to help with possible fci placement with help appreciated in advance. Give Tylenol as needed [id number] (level 1-5 out of 10) pain or fever. Give morphine IV as needed for severe (level 6-10 out of 10) pain. PT/OT and case management consult and treat on rounds in a.m. for further recommendations regarding placement in TCU per patient/family request if possible with help appreciated in advance. 2. History of cryptogenic CVA (2021); with residual Left-sided weakness and dysarthria on chronic BASA and Plavix with history of neurogenic bladder; followed by Dr. Ohara on chronic suppressive antibiotics for recurrent UTI's until ~3 weeks ago complicating #1 - Noted. Continue home medications as previous. UA pending at this time with leukocytosis of 18.2K present on admission with empiric IV Rocephin ordered. 3. Generalized weakness with ambulatory dysfunction with patient unable to bear weight due to pain arising from #1 & #2 - Place under fall precautions with the patient only to be gotten up with assistance. Resume supportive care and monitor for improvement. 4. History of vascular dementia due to recurrent strokes; on rivastigmine adding to the pathology of #1 - #3 - Continue rivastigmine as previous. 5. Essential hypertension - Resume current regimen plus give IV hydralazine as needed for systolic blood pressure greater than 160 mmHg. 6. Hyperlipidemia - Continue statin and check lipid profile. 7. Obesity; with BMI of 32.1 this admission - Weight loss will be recommended. Check TSH. 8. DM-2; of unknown control on metformin - ADA diet. Fingerstick blood sugars before every meal and at bedtime plus sliding scale insulin. Check hemoglobin A1c to objectively evaluate quality of diabetic control. 9. History of transient retinal artery occlusion - Noted. 10. History of ptosis and diplopia; that preceded her strokes - A review of her records revealed negative oncologic and autoimmune workup. 11. History of asthma - Stable with no evidence of acute flare. Continue as needed nebulizers. 12. Depression - Resume home medications plus give as needed Xanax for breakthrough symptoms. 13. History of compression fracture - Noted. 14. History of skin cancer (2017) - Noted. 15. History of abdominal surgery - Noted. 16. GERD - Continue PPI. 17. OA; with history of knee replacement - Give Tylenol prn. 18. DVT prophylaxis - Lovenox 40 mg subcu daily. Total time: Approximately 75 minutes. Charges/Coding Visit Charges Inpatient E&M: 59862 In Hosp L3
[2023-08-30 02:45] LABS: Absolute Lymphocyte Count 3.72 X10^3/uL (0.83-4.51); Absolute Neutrophil Count 13.5 X10^3/uL (2.0-7.7); Basophil# 0.07 X10^3/uL; Basophil% 0.4 % (0-1); Eosinophils% 0.5 % (0-5); Hematocrit 32.5 % (37-47); Hemoglobin 8.5 g/dL (12.0-15.0); Lymphocyte # 3.72 X10^3/ul (0.83-4.51); Mean Corp Hgb Conc 26.2 g/dL (32-36); Mean Corpuscular Hgb 18.8 pg (27.0-32.0); Mean Corpuscular Volume 72.1 fL (81-99); Mean Platelet Vol. 10.3 fl (6.2-12.0); Monocyte# 1.09 X10^3/uL; Monocyte% 5.9 % (0-10); NRBC Flagged by Analyzer 0.1 % (0-5); Neutrophil # 13.49 X10^3/uL (2.7-7.7); Neutrophil % 72.5 % (47-70); POSITIVE MORPHOLOGY YES; Platelet Count 359 K/mm3 (150-450); RBC Distribution Width CV 22.6 % (11.6-14.6); RBC Distribution Width SD 56.7 fl (35.1-43.9); Red Blood Count 4.51 M/mm3 (4.2-5.4); White Blood Count 18.6 K/mm3 (4.4-11.0)
[2023-08-30 03:04] LABS: Differential Comment SCANNED; Differential Indicated SCAN CRITERIA MET
[2023-08-30 03:06] LABS: Anion Gap 10 (5-15); BUN 15 mg/dL (7-18); Calcium,Total 9.6 mg/dL (8.5-10.1); Chloride 109 mmol/L (98-107); Creatinine, Serum 0.88 mg/dL (0.55-1.02); EST Glomerular Filtration Rate 66 mL/min (>60); Est Glom Filt Rate - Afr Amer 80 mL/min (>60); Estimated Creatinine Clearance 53.11 ml/min; Glucose 86 mg/dL (74-106); Potassium 3.4 mmol/L (3.5-5.1); Sodium Level 139 mmol/L (136-145)
[2023-08-30] MEDS: 0.9% Normal Saline (1000mL) 1,000 ML 70 ML IV ×2 (04:49→20:52)
[2023-08-30 06:48] LABS: Mucous, Urine 0 SEEN /hpf (<or=2+)
[2023-08-30 06:52] LABS: Color, Urine Yellow (Yellow); Glucose, Dipstick Normal (Normal); Ketone-Dipstick Negative (Negative); Leukocyte Esterase-Dipstick Negative /ul (Negative); Nitrite-Dipstick Negative (Negative); Occult Blood-Urine Negative /ul (Negative); Protein-Dipstick Negative (Negative); Specific Gravity, Urine 1.015 (1.002-1.030); Urine Bilirubin Dipstick Negative (Negative); Urine Clarity Clear (Clear); Urine Urobilinogen Normal (Normal)
[2023-08-30] MEDS: Acetaminophen 325 MG Tablet 650 MG PO ×2 (06:52→20:41)
[2023-08-30 07:03] LABS: Basophil# 0.05 X10^3/uL; Basophil% 0.3 % (0-1); Eosinophil# 0.08 X10^3/uL; Eosinophils% 0.5 % (0-5); Hematocrit 26.2 % (37-47); Hemoglobin 7.1 g/dL (12.0-15.0); Lymphocyte % 25.4 % (19-41); Mean Corp Hgb Conc 27.1 g/dL (32-36); Mean Corpuscular Hgb 18.7 pg (27.0-32.0); Mean Corpuscular Volume 69.1 fL (81-99); Mean Platelet Vol. 9.9 fl (6.2-12.0); Monocyte# 0.71 X10^3/uL; Monocyte% 4.9 % (0-10); NRBC Flagged by Analyzer 0 % (0-5); Neutrophil # 9.96 X10^3/uL (2.7-7.7); Neutrophil % 68.5 % (47-70); POSITIVE MORPHOLOGY YES; Platelet Count 334 K/mm3 (150-450); RBC Distribution Width CV 21.9 % (11.6-14.6); RBC Distribution Width SD 53.1 fl (35.1-43.9); Red Blood Count 3.79 M/mm3 (4.2-5.4); White Blood Count 14.6 K/mm3 (4.4-11.0)
[2023-08-30 07:08] LABS: Bacteria 1+ /hpf (None Seen); Red Blood Cells-Urine 0-5 SEEN /hpf (0-5); Squamous Epithelial Cells - UA 5-10 SEEN /hpf (5-10); White Blood Cells 0-5 SEEN /hpf (0-5)
[2023-08-30 07:09] LABS: Differential Indicated SCAN CRITERIA MET
[2023-08-30 07:11] LABS: Bedside Glucose 116 mg/dL (74-106)
--- NOTE | 2023-08-30 07:20 | PCM.PN.HOSP ---
Reason for Visit Reason for Visit: Diagnoses Hyperlipidemia, unspecified (08/30/23) Vascular dementia, moderate, without behavioral disturbance, psychotic disturbance, mood disturbance, and anxiety (08/30/23) Hemiplegia, unspecified affecting left nondominant side (08/30/23) Cerebral infarction, unspecified (08/30/23) Other abnormalities of gait and mobility (08/30/23) Fracture of superior rim of left pubis, initial encounter for closed fracture (08/30/23) Unspecified fall, initial encounter (08/30/23) Subjective Subjective Left pelvic pain. Objective Data Objective Data Vital Signs: Vital Signs Temp Pulse Resp BP Pulse Ox O2 Del Method 36.8 C 108 H 16 153/72 H 96 Room Air 08/30/23 04:37 08/30/23 04:52 08/30/23 04:37 08/30/23 04:37 08/30/23 04:37 08/30/23 04:37 Oxygen Delivery Method Room Air Weight: 75.841 kg Body Mass Index (BMI) 30.5 Intake & Output: Intake and Output for Last 24 Hours 08/28/23 08/29/23 08/30/23 23:59 23:59 23:59 Intake Total 200 / 200 Balance 200 / 200 Lab / Micro Data 08/30/23 06:37 08/30/23 06:37 Labs: Laboratory Results - last 24 hr 08/30/23 02:40: WBC 18.6 H, RBC 4.51, Hgb 8.5 L, Hct 32.5 L, MCV 72.1 L, MCH 18.8 L, MCHC 26.2 L, RDW Std Deviation 56.7 H, RDW Coeff of Ranjit 22.6 H, Plt Count 359, MPV 10.3, Immature Gran % (Auto) 0.700, Neut % (Auto) 72.5 H, Lymph % (Auto) 20.0, [place] % (Auto) 5.9, Eos % (Auto) 0.5, Baso % (Auto) 0.4, Absolute Neuts (auto) 13.5 H, Absolute Lymphs (auto) 3.72, Nucleated RBC % 0.1, Differential Comment SCANNED, Sodium 139, Potassium 3.4 L, Chloride 109 H, Carbon Dioxide 20.0 L, Anion Gap 10, BUN 15, Creatinine 0.88, Estim Creat Clear Calc 53.11, Est GFR (MDRD) Af Amer 80, Est GFR (MDRD) Non-Af 66, BUN/Creatinine Ratio 17.0, Glucose 86, Calcium 9.6 08/30/23 06:35: Urine Color Yellow, Urine Clarity Clear, Urine pH 6.0, Ur Specific [place] 1.015, Urine Protein Negative, Urine Glucose (UA) Normal, Urine Ketones Negative, Urine Occult Blood Negative, Urine Nitrite Negative, Urine Bilirubin Negative, Urine Urobilinogen Normal, Ur Leukocyte Esterase Negative, Urine RBC 0-5 SEEN, Urine WBC 0-5 SEEN, Ur Squamous Epith Cells 5-10 SEEN, Urine Bacteria 1+, Urine Mucus 0 SEEN 08/30/23 06:37: WBC 14.6 H, RBC 3.79 L, Hgb 7.1 L, Hct 26.2 L, MCV 69.1 L, MCH 18.7 L, MCHC 27.1 L, RDW Std Deviation 53.1 H, RDW Coeff of Ranjit 21.9 H, Plt Count 334, MPV 9.9, Immature Gran % (Auto) 0.400, Neut % (Auto) 68.5, Lymph % (Auto) 25.4, [place] % (Auto) 4.9, Eos % (Auto) 0.5, Baso % (Auto) 0.3, Absolute Neuts (auto) 10.0 H, Absolute Lymphs (auto) 3.70, Nucleated RBC % 0 08/30/23 06:41: POC Glucose 116 H Radiography Diagnostic Testing: Radiology Impression Hip/Pelvis X-Ray 08/30/23 00:46 IMPRESSION: No evidence of displaced pelvic or hip fracture. Mild left hip osteoarthritis. Electronically Signed: Fish Antunez MD at 1:42 EDT Reading Location ID and State: [facility] / [place] Tel , Service support , Brain CT 08/30/23 01:09 IMPRESSION: No CT evidence of acute intracranial hemorrhage or injury. Moderate senescent changes compatible with age. Pending Final Proof Editing ADDENDUM: 08/30/23 0327 IMPRESSION: undefined Lower Extremity CT 08/30/23 01:09 IMPRESSION: Nondisplaced medial left superior ramus fracture extending into the base of the left pubis.. Electronically Signed: Fish Antunez MD at 2:51 EDT , Physical Exam Const alert and no apparent distress Constitutional Narrative: non-toxic. HEENT head/scalp atraumatic and moist oral mucous membranes Resp normal respiratory effort, no retractions, no use of accessory muscles and clear to auscultation bilaterally Cardio regular rate, regular rhythm, S1 normal heart sound and S2 normal heart sound GI normal to inspection, nondistended, normoactive bowel sounds, soft to palpation and non-tender Extremity normal to inspection and no clubbing, cyanosis or edema Psych affect normal Assessment & Plan Assessment/Plan (1) Closed fracture of left superior pubic ramus: QUALIFIERS: Encounter type: initial encounter Qualified Code(s): S32.512A - Fracture of superior rim of left pubis, initial encounter for closed fracture (2) Accidental fall: QUALIFIERS: Encounter type: initial encounter Qualified Code(s): W19.XXXA - Unspecified fall, initial encounter (3) Unable to bear weight on left lower extremity: (4) Left hemiparesis: (5) Cryptogenic stroke: (6) Vascular dementia: QUALIFIERS: Dementia behavioral or psychological symptom: without behavioral, psychotic, or mood disturbance or anxiety Dementia severity: moderate Qualified Code(s): F01.B0 - Vascular dementia, moderate, without behavioral disturbance, psychotic disturbance, mood disturbance, and anxiety (7) Hyperlipidemia: QUALIFIERS: Hyperlipidemia type: unspecified Qualified Code(s): E78.5 - Hyperlipidemia, unspecified PLAN: Plan Non-displaced left superior ramus fracture s/p fall. check 25-OH d level. conservative mgmt Debility 2/2 pubic ramus fracture w h/o CVA dementia PT OT eval CM to assist with disposition Chronic condtions: Prior cryptogenic CVA with residual left sided weakness. On ASA and clopidogrel Neurgoenic bladder: follow up with as outpt. HTN: stable. HCTZ, losartan HLP: atorvastatin DM2: on metformin and SSI VTE prophylaxis: - Lovenox 40 mg subcu daily. Disposition: plan on SNF. Charges/Coding Procedures Hospitalists Procedures: Other Procedure - See Report (Nonbillable rounding as patient was admitted after midnight.)
[2023-08-30] MEDS: Budesonide Respules 0.5 MG/2 ML AMPUL.NEB. INHALATION ×2 (07:25→19:29)
[2023-08-30 08:16] LABS: Anisocytosis 2+; Differential Comment SCANNED; Hypochromasia 2+
[2023-08-30 08:17] LABS: Macrocytosis 1+; Microcytosis 1+; Ovalocyte 1+; Polychromasia 1+
[2023-08-30 08:18] LABS: Tear Drop Cell 1+
[2023-08-30 08:22] LABS: Hemoglobin A1c 5.6 % (3.8-5.6)
[2023-08-30 08:32] LABS: ALB/GLOB Ratio 0.9 RATIO (0.9-2.4); AST(SGOT) 14 U/L (15-37); Alanine Aminotransfer ALT/SGPT 19 U/L (13-56); Albumin, Serum 3.2 g/dL (3.2-5.0); Alkaline Phosphatase 61 U/L (45-117); Anion Gap 10 (5-15); BUN 14 mg/dL (7-18); BUN/Creat Ratio 18.3 RATIO (10-20); Calcium,Total 9.1 mg/dL (8.5-10.1); Chloride 110 mmol/L (98-107); Creatinine, Serum 0.76 mg/dL (0.55-1.02); EST Glomerular Filtration Rate 78 mL/min (>60); Est Glom Filt Rate - Afr Amer 95 mL/min (>60); Estimated Creatinine Clearance 57.04 ml/min; Globulin 3.4 g/dL (2.2-4.2); Glucose 111 mg/dL (74-106); Magnesium 1.6 mg/dL (1.6-2.6); Phosphorus 3.5 mg/dL (2.5-4.9); Potassium 3.2 mmol/L (3.5-5.1); Protein, Total 6.6 g/dL (6.4-8.2); Sodium Level 140 mmol/L (136-145); Thyroid Stim Hormone (TSH) 3.55 uIU/mL (0.358-3.74)
[2023-08-30 09:02] LABS: Vitamin B12 309 pg/mL (211-911)
[2023-08-30 09:05] LABS: Vitamin D,25 Hydroxy 46.1 ng/mL
[2023-08-30] MEDS: Rivastigmine Tartrate 1.5 MG Capsule PO ×2 (09:22→16:55)
[2023-08-30] MEDS: Potassium Chloride Oral Tablet 10 MEQ PO (09:22)
[2023-08-30] MEDS: Acyclovir 200 MG Capsule 400 MG PO ×2 (09:22→20:49)
[2023-08-30] MEDS: Pantoprazole Sodium 40 MG Tablet PO (09:23)
[2023-08-30] MEDS: Multivitamins,Ther W-Minerals Tablet 1 TABLET PO (09:23)
[2023-08-30] MEDS: Clopidogrel Bisulfate 75 MG Tablet PO (09:23)
[2023-08-30] MEDS: Sertraline 50 MG Tablet 25 MG PO (09:24)
[2023-08-30] MEDS: buPROPion (SR) 150 MG Tablet.SA PO ×2 (09:24→20:50)
[2023-08-30] MEDS: amLODIPine 2.5 MG Tablet PO (09:24)
[2023-08-30] MEDS: Losartan Potassium 50 MG Tablet PO (09:24)
[2023-08-30] MEDS: Enoxaparin 40 MG/0.4 ML Syringe SC (09:25)
[2023-08-30] MEDS: hydroCHLOROthiazide 6.25mg TAB 6.25 MG PO (09:25)
[2023-08-30] MEDS: Cilostazol 50 MG Tablet 100 MG PO ×2 (09:25→20:50)
[2023-08-30] MEDS: Potassium Chloride Oral Tablet 20 MEQ 40 MEQ PO (09:29)
[2023-08-30] MEDS: Ceftriaxone 1 GM/50 ML BAG IV (12:03)
[2023-08-30] MEDS: Aspirin 81 MG TAB.CHEW PO (12:04)
[2023-08-30 12:17] LABS: Bedside Glucose 137 mg/dL (74-106)
--- NOTE | 2023-08-30 13:47 | CASEMGMT ---
Social Work- A list of SNF providers including quality and resource use data and consistent with the patient?s preferred geographic region, medical needs, and insurance network were provided from the [facility] Guide. Pt ex , Deejay, was present and daughter/POA, Joi, was on the phone. Joi states that TCU is [facility]. Joi plans to visit [facility] this evening, which may be second choice. MISSAEL Mason
--- NOTE | 2023-08-30 16:10 | CASEMGMT ---
This LEO and LEO Guzman met with patient and her family. Introduced selves and roles at [facility]. SW explained that patient would need to be in the hospital for 3 midnights in order for a snf to be covered. SW explained it also has to be medically necessary that the patient stay 3 midnights. At this time the physician does not anticipate patient will need to be at [facility] for 3 midnights. Therefore, it would be private pay. SW explained that the facilities in this area range from $200's a day to $300's a day and most of the facilities require 30 days up front. Family's first choice was TCU so SW explained TCU is $660 per day and they require 21 days up front. Family has an appt at [facility] today to take a tour. Family asked if TCU has a bed. SW also mentioned Acute Rehab which is billed like a hospital stay so it would be covered by insurance. Family asked to check Rehab and TCU availability. SW checked with [facility] and neither unit has availability. This LEO and LEO Guzman let patient's daughter and granddaughter know about no bed availability. Also, explained there are other Acute Rehab Units if patient is okay with going outside of [place]. SW provided patient's daughter with a list of Acute Rehab Unit providers including quality and resource use data and consistent with the patient?s preferred geographic region, medical needs, and insurance network were provided from the [facility] Guide. Family would like a referral sent to [facility] Re[facility]. Their second choice would be the Rehab Unit in [place] and then [facility]. SW let them know a referral will be made and SW will follow up tomorrow. Plan: Possible Acute Rehab Unit pending accepting facility. Zeynep ORDONEZ
--- NOTE | 2023-08-30 16:16 | CASEMGMT ---
Addendum entered by Audra Madera 08/31/23 12:25: [facility] declined. SW updated. Audra Madera DC Planning Asst. Addendum entered by Audra Madera 08/31/23 10:45: Follow up call placed to [facility]. Msg left with admission. Another follow up call placed but there was no answer. Audra Madera DC Planning Asst. Original Note: Discharge Planning Referral sent via [facility] to [facility] Madera DC Planning Asst.
[2023-08-30 17:17] LABS: Bedside Glucose 124 mg/dL (74-106)
[2023-08-30] MEDS: oxyCODONE 5 MG Tablet PO (20:41)
[2023-08-30] MEDS: Atorvastatin Calcium 20 MG Tablet PO (20:49)
[2023-08-30] MEDS: Ipratropium Bromide 0.06% NASAL SPRAY 1 SPRAY NASAL (20:55)
[2023-08-30 21:35] LABS: Bedside Glucose 125 mg/dL (74-106)
[2023-08-31 03:52] VITALS: BP 120/62; PULSE 101; RESP 16; TEMP 36.5; O2SAT 98
[2023-08-31 06:00] VITALS: BMI 30.7
[2023-08-31] MEDS: Acetaminophen 325 MG Tablet 650 MG PO (06:31)
[2023-08-31] MEDS: oxyCODONE 5 MG Tablet PO ×3 (06:31→16:11)
[2023-08-31 07:03] VITALS: PULSE 96; RESP 16; O2SAT 98
[2023-08-31] MEDS: Budesonide Respules 0.5 MG/2 ML AMPUL.NEB. INHALATION (07:03)
[2023-08-31 07:42] LABS: Bedside Glucose 122 mg/dL (74-106)
[2023-08-31] MEDS: Clopidogrel Bisulfate 75 MG Tablet PO (09:45)
[2023-08-31] MEDS: Aspirin 81 MG TAB.CHEW PO (09:45)
[2023-08-31] MEDS: Rivastigmine Tartrate 1.5 MG Capsule PO ×2 (09:45→16:16)
[2023-08-31] MEDS: Multivitamins,Ther W-Minerals Tablet 1 TABLET PO (09:45)
[2023-08-31] MEDS: hydroCHLOROthiazide 6.25mg TAB 6.25 MG PO (09:46)
[2023-08-31] MEDS: Losartan Potassium 50 MG Tablet PO (09:46)
[2023-08-31] MEDS: Sertraline 50 MG Tablet 25 MG PO (09:46)
[2023-08-31] MEDS: Pantoprazole Sodium 40 MG Tablet PO (09:46)
[2023-08-31] MEDS: Cilostazol 50 MG Tablet 100 MG PO (09:46)
[2023-08-31] MEDS: amLODIPine 2.5 MG Tablet PO (09:46)
[2023-08-31] MEDS: buPROPion (SR) 150 MG Tablet.SA PO (09:46)
[2023-08-31] MEDS: Acyclovir 200 MG Capsule 400 MG PO (09:46)
[2023-08-31] MEDS: Ceftriaxone 1 GM/50 ML BAG IV (09:47)
[2023-08-31] MEDS: Enoxaparin 40 MG/0.4 ML Syringe SC (10:02)
--- NOTE | 2023-08-31 10:05 | CASEMGMT ---
RN CM Face to Face with patient for initial transition planning/care coordination assessment. RN CM introduced self and role at [facility]. Patient sitting in chair, alert and oriented. Patient willing to participate in assessment and is able to answer all questions appropriately. Care providers, pharmacy, and demographics verified. PCP: [facility] Specialists: Mary Kay, pain; Carey, rags laborer; [facility] Insurance: [employer], [place] Prescription Benefit: yes Living Will/HPOA: yes, daughter Joi Freeman LNOK: daughter Living Arrangements: Patient lives with ex- in a single story home with 4 steps and railing x2 to enter. Patient states she was independent at home. Transportation: exhusband, daughter DME/HHC: Patient states she has shower chair, raised toilet, cane, walker, rollator, and grab bars at home. NO previous HHC or SNF. Patient wishes to discharge to Rehab Unit for additional therapy, SW assisting patient. Patient states he has no further needs or concerns at this time. CM to follow for discharge planning needs that may arise. Disposition Plan: Rehab Unit pending acceptance. Hilda GAMA, RN, CM
--- NOTE | 2023-08-31 10:09 | PN.HOSP_ITS ---
Reason for Visit Reason for Visit: Diagnoses Hyperlipidemia, unspecified (08/30/23) Vascular dementia, moderate, without behavioral disturbance, psychotic disturbance, mood disturbance, and anxiety (08/30/23) Hemiplegia, unspecified affecting left nondominant side (08/30/23) Cerebral infarction, unspecified (08/30/23) Other abnormalities of gait and mobility (08/30/23) Fracture of superior rim of left pubis, initial encounter for closed fracture (08/30/23) Unspecified fall, initial encounter (08/30/23) Subjective Subjective Still with left hip pain when standing. Objective Data Objective Data Vital Signs: Vital Signs Temp Pulse Resp BP Pulse Ox O2 Del Method 36.5 C L 96 16 120/62 98 Room Air 08/31/23 03:52 08/31/23 07:03 08/31/23 07:03 08/31/23 03:52 08/31/23 07:03 08/31/23 07:03 Oxygen Delivery Method Room Air Weight: 75.8 kg Body Mass Index (BMI) 30.7 Intake & Output: Intake and Output for Last 24 Hours 08/29/23 08/30/23 08/31/23 23:59 23:59 23:59 Intake Total 2850 / 3050 400 / 400 Output Total 520 / 520 Balance 2330 / 2530 400 / 400 Lab / Micro Data 08/30/23 06:37 08/30/23 06:37 Labs: Laboratory Results - last 24 hr 08/30/23 11:55: POC Glucose 137 H 08/30/23 16:52: POC Glucose 124 H 08/30/23 20:48: POC Glucose 125 H 08/31/23 06:29: POC Glucose 122 H Physical Exam Const alert and no apparent distress HEENT head/scalp atraumatic and moist oral mucous membranes Resp normal respiratory effort, no retractions, no use of accessory muscles and clear to auscultation bilaterally Cardio regular rate, regular rhythm, S1 normal heart sound and S2 normal heart sound GI normal to inspection, nondistended, normoactive bowel sounds, soft to palpation, non-tender and non-distended Neuro Sensorium / Orientation: awake and alert Assessment & Plan Assessment/Plan (1) Closed fracture of left superior pubic ramus: QUALIFIERS: Encounter type: initial encounter Qualified Code(s): S32.512A - Fracture of superior rim of left pubis, initial encounter for closed fracture (2) Accidental fall: QUALIFIERS: Encounter type: initial encounter Qualified Code(s): W19.XXXA - Unspecified fall, initial encounter (3) Unable to bear weight on left lower extremity: (4) Left hemiparesis: (5) Cryptogenic stroke: (6) Vascular dementia: QUALIFIERS: Dementia severity: moderate Dementia behavioral or psychological symptom: without behavioral, psychotic, or mood disturbance or anxiety Qualified Code(s): F01.B0 - Vascular dementia, moderate, without behavioral disturbance, psychotic disturbance, mood disturbance, and anxiety (7) Hyperlipidemia: QUALIFIERS: Hyperlipidemia type: unspecified Qualified Code(s): E 78.5 - Hyperlipidemia, unspecified PLAN: Plan Non-displaced left superior ramus fracture * s/p fall. 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 * HTN: stable. HCTZ, losartan * HLP: atorvastatin * DM2: on metformin and SSI. a1c 5.6 VTE prophylaxis: - Lovenox 40 mg subcu daily. Disposition: plan on SNF/rehab. Charges/Coding Visit Charges Inpatient E&M: 91548 Subs Hosp L2
[2023-08-31 10:31] VITALS: BP 130/68; PULSE 101; RESP 18; TEMP 36.6; O2SAT 98
--- NOTE | 2023-08-31 10:35 | CASEMGMT ---
Addendum entered by Audra Madera 08/31/23 12:04: [facility] and would like to do an onsite. SW updated. Audra Madera DC Planning Asst. Original Note: Discharge Planning Referral sent to [facility]. Audra Madera DC Planning Asst.
[2023-08-31] MEDS: Insulin Lispro 100 UNIT/ML INSULN.PEN SC (11:40)
[2023-08-31 11:54] LABS: Bedside Glucose 199 mg/dL (74-106)
--- NOTE | 2023-08-31 12:12 | CASEMGMT ---
Addendum entered by Megan Aviles 08/31/23 14:54: Social Work- Pt has acceptance at [facility]. SW called Sofia, niece, and daughter, Joi, to advise. Pt family chose [facility] as FOC. SW advised [facility] of selection. SW advised bedside nurse. SW cancelled referral to [facility]. LEO advised phsyician. MISSAEL Mason Original Note: Social Work- Pt daughter called and asked for a referral to [facility] [place]. If they can not accept, [facility] will be FOC. MISSAEL Mason
--- NOTE | 2023-08-31 12:53 | TREXTCAR_ITS ---
Diet Diet Order/Speech Therapy: 08/30/23 03:52 Diet: Consistent Carb - Calorie Controlled Food consistency:: Regular Liquid Consistency:: Regular/Thin Dietary Modifications:: Cardiac / Heart Healthy How many daily calories?: 1800 calorie Routine Orders/Code Status Code Status: Full Code Therapies Weight Bearing: Full weight bearing Extremity Affected:: Left Lower Physical Therapy: Eval and Treat Occupational Therapy: Eval and Treat Problem/Diagnosis (1) Closed fracture of left superior pubic ramus: Status: Acute Code(s): S32.512A - Fracture of superior rim of left pubis, initial encounter for closed fracture (2) Accidental fall: Status: Acute Code(s): W19.XXXA - Unspecified fall, initial encounter (3) Unable to bear weight on left lower extremity: Status: Acute Code(s): R26.89 - Other abnormalities of gait and mobility (4) Left hemiparesis: Status: Acute Code(s): G81.94 - Hemiplegia, unspecified affecting left nondominant side (5) Cryptogenic stroke: Status: Acute Code(s): I63.9 - Cerebral infarction, unspecified (6) Vascular dementia: Status: Acute Code(s): F01.50 - Vascular dementia, unspecified severity, without behavioral disturbance, psychotic disturbance, mood disturbance, and anxiety (7) Hyperlipidemia: Status: Chronic Code(s): E78.5 - Hyperlipidemia, unspecified Plan Non-displaced left superior ramus fracture * s/p fall. 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 * HTN: stable. HCTZ, losartan * HLP: atorvastatin * DM2: on metformin and SSI. a1c 5.6 VTE prophylaxis: - Lovenox 40 mg subcu daily. Disposition: plan on SNF/rehab. Allergies/Procedures Done in Hospital Allergies neomycin Allergy (Verified 08/22/22 15:37) unknown nickel Allergy (Verified 08/22/22 15:37) Rash Penicillins (PCN) Allergy (Verified 08/22/22 15:37) Hives Sulfa (Sulfonamide Antibiotics) Allergy (Verified 08/22/22 15:37) Rash Type of Care/Length of Stay Estimated LOS: Convalescent Care Less Than 30 days Type of Care Needed: Skilled Rehab Potential: Fair Prognosis: Fair Additional Orders/Day of Discharge Day of Discharge: 08/31/23 Discharge Plan Admission Admit Date/Time: 08/30/23 03:12 Primary Reason for Your Visit: Pelvic fracture. Attending Provider: Gamaliel Ayon Primary Care Provider: JESSICA WELCH Consulting Providers: Karson Oviedo Discharge Orders/Prescriptions Prescriptions: New oxycodone 5 mg Tablet 5 mg PO Q4H PRN PRN (Reason: Pain Score 6-10) 3 Days Qty: 12 0RF Continued ascorbate calcium (vitamin C) 500 mg tablet 100 mg PO DAILY acyclovir 400 MG tablet 400 mg PO BID bupropion HCl 150 MG tablet extended release 24 hr 150 mg PO BID amlodipine 5 mg tablet 2.5 mg PO DAILY aspirin 81 mg tablet,chewable 81 mg PO BREAKFAST High Potency Multivit (w-iron) 9 mg iron-400 mcg tablet 1 tab PO BREAKFAST pantoprazole 40 mg Tablet,Delayed Release (Dr/Ec) 40 mg PO DAILY 30 Days Qty: 30 0RF acetaminophen 500 mg Tablet 1,000 mg PO Q6H PRN PRN (Reason: Pain Score 1-10) Qty: 0 0RF potassium chloride 10 mEq tablet,ER particles/crystals 10 meq PO QODAY clopidogrel 75 mg Tablet 75 mg PO DAILY 30 Days Qty: 30 0RF Arnuity Ellipta 100 mcg/actuation blister with device 1 inh inhalation DAILY albuterol sulfate 90 mcg/actuation HFA aerosol inhaler 2 puff INHALATION Q6H PRN PRN (Reason: shortness of breath or wheezing) rivastigmine tartrate 1.5 mg capsule 1.5 mg PO BID cilostazol 100 mg tablet 100 mg PO BID benzonatate 100 mg capsule 100 - 200 mg PO TID PRN PRN (Reason: cough) sertraline 25 mg tablet 25 mg PO DAILY losartan-hydrochlorothiazide 100-12.5 mg tablet 0.5 tab PO DAILY atorvastatin 40 mg Tablet 20 mg PO QHS metformin 500 mg tablet 500 mg PO BID bupropion HCl 150 mg tablet sustained-release 12 hr 150 mg PO BID Discontinued doxycycline hyclate 100 mg capsule 100 mg PO BID No Action ipratropium bromide 42 mcg (0.06 %) spray,non-aerosol 1 spray INTRANASAL TID Referrals / Follow Up: JESSICA WELCH [Other] Susan Tello DO [Med Staff - [facility]] - Within 2 Weeks Disposition Disposition (needs filled in before D/C Order can be placed): [facility] (1) Closed fracture of left superior pubic ramus Qualifiers: Encounter type: initial encounter Qualified Code(s): S32.512A - Fracture of superior rim of left pubis, initial encounter for closed fracture (2) Accidental fall Qualifiers: Encounter type: initial encounter Qualified Code(s): W19.XXXA - Unspecified fall, initial encounter (6) Vascular dementia Qualifiers: Dementia severity: moderate Dementia behavioral or psychological symptom: without behavioral, psychotic, or mood disturbance or anxiety Qualified Code(s): F01.B0 - Vascular dementia, moderate, without behavioral disturbance, psychotic disturbance, mood disturbance, and anxiety (7) Hyperlipidemia Qualifiers: Hyperlipidemia type: unspecified Qualified Code(s): E78.5 - Hyperlipidemia, unspecified
[2023-08-31 14:16] VITALS: BP 114/74; PULSE 106; RESP 18; TEMP 36.6; O2SAT 98
--- NOTE | 2023-08-31 15:15 | DS.PCM_ITS ---
Providers Date of Admission: 08/30/23 Primary Care Physician: JESSICA WELCH Reason For Visit: CLOSE LEFT PUBIC RAMUS FRACTURE AFTER MECHANICAL Diagnosis Discharge Diagnosis (1) Closed fracture of left superior pubic ramus: Status: Acute Code(s): S32.512A - Fracture of superior rim of left pubis, initial encounter for closed fracture Qualifiers: Encounter type: initial encounter Qualified Code(s): S32.512A - Fracture of superior rim of left pubis, initial encounter for closed fracture (2) Accidental fall: Status: Acute Code(s): W19.XXXA - Unspecified fall, initial encounter Qualifiers: Encounter type: initial encounter Qualified Code(s): W19.XXXA - Unspecified fall, initial encounter (3) Unable to bear weight on left lower extremity: Status: Acute Code(s): R26.89 - Other abnormalities of gait and mobility (4) Left hemiparesis: Status: Acute Code(s): G81.94 - Hemiplegia, unspecified affecting left nondominant side (5) Cryptogenic stroke: Status: Acute Code(s): I63.9 - Cerebral infarction, unspecified (6) Vascular dementia: Status: Acute Code(s): F01.50 - Vascular dementia, unspecified severity, without behavioral disturbance, psychotic disturbance, mood disturbance, and anxiety Qualifiers: Dementia severity: moderate Dementia behavioral or psychological symptom: without behavioral, psychotic, or mood disturbance or anxiety Q ualified Code(s): F01.B0 - Vascular dementia, moderate, without behavioral disturbance, psychotic disturbance, mood disturbance, and anxiety (7) Hyperlipidemia: Status: Chronic Code(s): E78.5 - Hyperlipidemia, unspecified Qualifiers: Hyperlipidemia type: unspecified Qualified Code(s): E78.5 - Hyperlipidemia, unspecified Plan Non-displaced left superior ramus fracture * s/p fall. 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 * HTN: stable. HCTZ, losartan * HLP: atorvastatin * DM2: on metformin and SSI. a1c 5.6 VTE prophylaxis: - Lovenox 40 mg subcu daily. Disposition: plan on SNF/rehab. Medications at Discharge Home Medications acyclovir 400 mg tablet 400 mg PO BID herpes 06/14/15 bupropion HCl 150 mg 24 hr tablet, extended release 150 mg PO BID depression 06/14/15 ascorbate calcium (vitamin C) 500 mg tablet 100 mg PO DAILY supplements 09/05/18 amlodipine 5 mg tablet 2.5 mg PO DAILY BP 01/31/21 aspirin 81 mg chewable tablet 81 mg PO BREAKFAST stroke 01/14/22 multivitamin-iron 9 mg-folic acid 400 mcg-calcium and minerals tablet (High Potency Multivitamin (w-iron)) 1 tab PO BREAKFAST Supplement 02/05/22 acetaminophen 500 mg tablet 1,000 mg (2 x 500 mg) PO Q6H PRN PRN Pain Score 1-10 #0 tabs 02/08/22 pantoprazole 40 mg tablet,delayed release 40 mg PO DAILY 30 days #30 tabs 02/08/22 potassium chloride 10 mEq tablet,extended release(part/cryst) 10 meq PO QODAY Check with primary doctor 07/25/22 clopidogrel 75 mg tablet 75 mg PO DAILY 30 days #30 tabs 08/03/22 albuterol sulfate 90 mcg/actuation aerosol inhaler 2 puff inhalation Q6H PRN PRN shortness of breath or wheezing 08/30/23 atorvastatin 40 mg tablet 20 mg PO QHS 08/30/23 benzonatate 100 mg capsule 100 - 200 mg PO TID PRN PRN cough 08/30/23 bupropion HCl 150 mg tablet,12 hr sustained-release 150 mg PO BID 08/30/23 cilostazol 100 mg tablet 100 mg PO BID 08/30/23 fluticasone furoate 100 mcg/actuation blister powder for inhalation (Arnuity Ellipta) 1 inh inhalation DAILY 08/30/23 ipratropium bromide 42 mcg (0.06 %) nasal spray 1 spray intranasal TID 08/30/23 losartan 100 mg-hydrochlorothiazide 12.5 mg tablet 0.5 tab PO DAILY 08/30/23 metformin 500 mg tablet 500 mg PO BID 08/30/23 rivastigmine tartrate 1.5 mg capsule 1.5 mg PO BID 08/30/23 sertraline 25 mg tablet 25 mg PO DAILY 08/30/23 oxycodone 5 mg tablet 5 mg PO Q4H PRN PRN Pain Score 6-10 3 days #12 tabs 08/31/23 Hospital Course Operations None Procedures None Summary of Care Provided Hospital Course: Patient fell and sustained an inferior pubic rami fracture on the left. Patient is unable to get up and ambulate otherwise. Patient was seen by therapy who recommends rehab. Patient was accepted at [facility] rehab. Patient be discharged her today. Patient was admitted in board certified music therapist of 6. There is no active medical issues for her during the hospitalization. The patient being is being discharged the following day. Patient remained stable during this hospitalization. Weight / BMI Weight Weight: 75.8 kg Body Mass Index (BMI) 30.7 ABG / Lab / Microbiology Data 08/30/23 06:37 08/30/23 06:37 Laboratory: Laboratory Results - last 24 hr 08/30/23 16:52: POC Glucose 124 H 08/30/23 20:48: POC Glucose 125 H 08/31/23 06:29: POC Glucose 122 H 08/31/23 11:35: POC Glucose 199 H D/C Instructions Discharge Diet: No restrictions Meaningful Use Info Meaningful Use Meaningful Use Diagnoses (Choose all that apply): None applicable Ischemic Stroke Statin Dosing Therapy Reference: STATIN DOSE THERAPY REFERENCE: * Patients > 75 years receive moderate or high dose statin therapy. * Patients 75 years or YOUNGER should receive HIGH intensity statin dose unless contraindicated. You will be required to document reason for non-treatment if statin daily dose does not meet guidelines. HIGH DOSE STATIN THERAPY DAILY Atorvastatin > than or = to 40 mg Rosuvastatin > than or = to 20 mg Amlodipine + Atorvastatin > than or = to 2.5/40 mg Ezetimibe + Simvastatin 10/80 mg Simvastatin 80mg Discharge Plan Admission Admit Date/Time: 08/30/23 03:12 Primary Reason for Your Visit: Pelvic fracture. Attending Provider: Gamaliel Ayon Primary Care Provider: JESSICA WELCH Consulting Providers: Karson Oviedo Discharge Orders/Prescriptions Prescriptions: New oxycodone 5 mg Tablet 5 mg PO Q4H PRN PRN (Reason: Pain Score 6-10) 3 Days Qty: 12 0RF Continued ascorbate calcium (vitamin C) 500 mg tablet 100 mg PO DAILY acyclovir 400 MG tablet 400 mg PO BID bupropion HCl 150 MG tablet extended release 24 hr 150 mg PO BID amlodipine 5 mg tablet 2.5 mg PO DAILY aspirin 81 mg tablet,chewable 81 mg PO BREAKFAST High Potency Multivit (w-iron) 9 mg iron-400 mcg tablet 1 tab PO BREAKFAST pantoprazole 40 mg Tablet,Delayed Release (Dr/Ec) 40 mg PO DAILY 30 Days Qty: 30 0RF acetaminophen 500 mg Tablet 1,000 mg PO Q6H PRN PRN (Reason: Pain Score 1-10) Qty: 0 0RF potassium chloride 10 mEq tablet,ER particles/crystals 10 meq PO QODAY clopidogrel 75 mg Tablet 75 mg PO DAILY 30 Days Qty: 30 0RF Arnuity Ellipta 100 mcg/actuation blister with device 1 inh inhalation DAILY albuterol sulfate 90 mcg/actuation HFA aerosol inhaler 2 puff INHALATION Q6H PRN PRN (Reason: shortness of breath or wheezing) rivastigmine tartrate 1.5 mg capsule 1.5 mg PO BID cilostazol 100 mg tablet 100 mg PO BID benzonatate 100 mg capsule 100 - 200 mg PO TID PRN PRN (Reason: cough) sertraline 25 mg tablet 25 mg PO DAILY losartan-hydrochlorothiazide 100-12.5 mg tablet 0.5 tab PO DAILY atorvastatin 40 mg Tablet 20 mg PO QHS metformin 500 mg tablet 500 mg PO BID bupropion HCl 150 mg tablet sustained-release 12 hr 150 mg PO BID Discontinued doxycycline hyclate 100 mg capsule 100 mg PO BID No Action ipratropium bromide 42 mcg (0.06 %) spray,non-aerosol 1 spray INTRANASAL TID Referrals / Follow Up: JESSICA WELCH [Other] Susan Tello DO [Med Staff - Radiologic Electronic Specialist] - Within 2 Weeks Disposition Disposition (needs filled in before D/C Order can be placed): [facility] Facility Charges/Coding Visit Charges Inpatient E&M: 73905 Disch Hosp
--- NOTE | 2023-08-31 15:35 | CASEMGMT ---
Social Work- SW sent clinical documentation requested by [facility] via [email or web address]. SW advised DCA of ability to schedule transport and complete d/c. MISSAEL Mason
--- NOTE | 2023-08-31 16:13 | CASEMGMT ---
Discharge Planning Physicians will transport patient by cot at 7p. Nursing, SW, and patients daughter (Joi) updated. Audra Madera DC Planning Asst.
[2023-08-31 16:38] LABS: Bedside Glucose 110 mg/dL (74-106)
[2023-08-31 18:35] VITALS: BP 145/65; PULSE 107; RESP 18; TEMP 36.3; O2SAT 98
[2023-08-31 19:53] VITALS: BP 140/85; PULSE 106; RESP 18; TEMP 37.2; O2SAT 98
== END 2023-08-31 19:55 | disposition skilled nursing facility (03) | DRG 535 ==
LOC: ED 03:31 → MS3 03:33
PROVIDERS: Admitting Provider Internal Medicine; Emergency Provider Emergency Medicine; Referring Provider Internal Medicine
DX: S32.512A Fracture of superior rim of left pubis, initial encounter for closed fracture (principal); I63.9 Cerebral infarction, unspecified; I69.354 Hemiplegia and hemiparesis following cerebral infarction affecting left non-dominant side; F01.50 Vascular dementia, unspecified severity, without behavioral disturbance, psychotic disturbance, mood disturbance, and anxiety; E11.9 Type 2 diabetes mellitus without complications; I10 Essential (primary) hypertension; I69.322 Dysarthria following cerebral infarction; K21.9 Gastro-esophageal reflux disease without esophagitis; E78.5 Hyperlipidemia, unspecified; W19.XXXA Unspecified fall, initial encounter; Z79.02 Long term (current) use of antithrombotics/antiplatelets; Z79.51 Long term (current) use of inhaled steroids; Z79.84 Long term (current) use of oral hypoglycemic drugs; Z79.82 Long term (current) use of aspirin; R53.81 Other malaise; Z87.891 Personal history of nicotine dependence; N31.9 Neuromuscular dysfunction of bladder, unspecified; R26.89 Other abnormalities of gait and mobility
CPT/HCPCS: 36415; 70450; 73502; 73700; 80048; 80053; 81001; 82306; 82607; 82746; 82962; 83036; 83735; 84100; 84443; 85025; 94640; 94668; 97162; 97166; 99252; 99283; J7030; A4216; G0463

== ENCOUNTER 2024-10-02 22:52 | Observation (INO) | payer BC, MEDICARE, SELFPAY ==
[2024-10-02 22:52] VITALS: BP 141/70; PULSE 98; RESP 18; TEMP 37.7; O2SAT 100
[2024-10-02 23:52] VITALS: PULSE 93; RESP 16; O2SAT 95
[2024-10-02 23:55] VITALS: BP 143/82; PULSE 95; RESP 16; TEMP 37.2; O2SAT 95
--- NOTE | 2024-10-02 23:55 | RAD_ITS ---
PROCEDURE: CHEST 1 VIEW (PORTABLE) 10/03/2024 REASON FOR EXAM: FEVER TECHNIQUE: Frontal view of the chest. COMPARISON: 07/25/2022 FINDINGS: Hardware: There is a loop recorder in the soft tissues of the left breast. Heart: Stable cardiac size and aortic calcfiications. Lungs: Clear both lungs. Emphysematous lungs. Bones: posterolateral segments of the left sixth and seventh ribs, healed fractures. Healed right 5th rib anteriorly is seen. Other: Hiatus hernia is seen. RAD/Chest 1 View (Portable) IMPRESSION: No acute cardiopulmonary disease. Reading Location: [facility]
[2024-10-02 23:57] LABS: Mucous, Urine 0 SEEN /hpf (<or=2+); Red Blood Cells-Urine 0 SEEN /hpf (0-5); Squamous Epithelial Cells - UA 0 SEEN /hpf (5-10)
[2024-10-02] MEDS: 0.9% Normal Saline (1000mL) 1,000 ML 999 ML IV (23:58)
[2024-10-02 23:59] LABS: Color, Urine Yellow (Yellow); Glucose, Dipstick Normal (Normal); Ketone-Dipstick Negative (Negative); Leukocyte Esterase-Dipstick 500 /ul (Negative); Nitrite-Dipstick Positive (Negative); Occult Blood-Urine 25 /ul (Negative); Protein-Dipstick 15 mg/dl (Negative); Specific Gravity, Urine 1.015 (1.002-1.030); Urine Bilirubin Dipstick Negative (Negative)
[2024-10-03] VITALS (11 sets, daily range): BP systolic 112–149; BP diastolic 52–76; PULSE 81–90; RESP 15–18; TEMP 36.6–37.2; O2SAT 95–100; BMI 26.2
[2024-10-03 00:33] LABS: Hematocrit 40.2 % (37-47); Hemoglobin 13.5 g/dL (12.0-15.0); Immature Granulocytes Count 0.030 X10^3/uL (0.0-0.0); Mean Corp Hgb Conc 33.6 g/dL (32-36); Mean Corpuscular Volume 90.3 fL (81-99); Mean Platelet Vol. 11.7 fl (6.2-12.0); NRBC Flagged by Analyzer 0 % (0-5); Platelet Count 192 K/mm3 (150-450); RBC Distribution Width CV 14.5 % (11.6-14.6); RBC Distribution Width SD 48.0 fl (35.1-43.9); Red Blood Count 4.45 M/mm3 (4.2-5.4); White Blood Count 9.3 K/mm3 (4.4-11.0)
[2024-10-03 00:37] LABS: Anion Gap 13 (5-15); BUN 11 mg/dL (4-19); BUN/Creat Ratio 15.2 RATIO (10-20); Calcium,Total 9.2 mg/dL (7.6-11.0); Carbon Dioxide 21.0 mmol/L (21.0-32.0); Chloride 102 mmol/L (98-108); Glucose 102 mg/dL (70-99); Potassium 3.3 mmol/L (3.3-5.1)
--- NOTE | 2024-10-03 01:13 | PCM.HP.STD ---
HPI - General General Date of Admission: 10/03/24 Date of Service: 10/03/24 Chief Complaint: UTI symptoms with weakness HPI Narrative REBECA GUERRERO, is a 79 F who presented to [facility] ED on 10/03/2024 with UTI symptoms and weakness. Patient medical history significant for vascular dementia, CVA with residual left-sided weakness, neurogenic bladder, hypertension and hyperlipidemia. She lives at home with family. She has been following with outpatient rehab at [facility] recently primarily for left upper extremity weakness. Has history of recurrent UTIs secondary to neurogenic bladder. She apparently was taking an antibiotic for UTI suppression until about 1 month ago, unclear why this was discontinued. Family noticed that the patient had worsening weakness and some confusion over the past 2 to 3 days so they brought her in for further evaluation. UA showed 500 leukocyte esterase, positive nitrites, 2+ bacteria concerning for UTI. She had low-grade sinus tachycardia but was otherwise hemodynamically stable on room air. CBC and BMP were benign. Chest x-ray unremarkable. Family noted that patient is too weak for them to care for her at home, so hospitalist was contacted for admission. I saw the patient at bedside in the ED, daughter and were present. Patient was sitting back comfortably in bed and in no acute distress. She did make appropriate eye contact with me but was alert and oriented to person only. She had difficulty answering my questions and consistently looked at her family to help with providing answers. She did report bladder discomfort. Denied any other acute pain or discomfort. Will be admitted for further management. [facility] Medical History (Updated 10/03/24 @ 02:[address] Abe Perez, DO) Shortness of breath Vascular dementia Left hemiparesis Anticardiolipin antibody positive Diabetes mellitus GERD (gastroesophageal reflux disease) Hyperlipidemia Osteoarthritis Attention deficit disorder Neurogenic bladder Depression Retinal artery occlusion Hypertension Stroke High serum c-peptide Debility Dysarthria Acute left-sided muscle weakness Acute cerebrovascular accident (CVA) Anginal equivalent CPAP (continuous positive airway pressure) dependence Sleep apnea Discoordination Acute confusion Acute CVA (cerebrovascular accident) Compression fracture Implantable loop recorder present Cryptogenic stroke Ptosis Diplopia Stroke/cerebrovascular accident Dyspnea on exertion History of skin cancer Arthritis Type 2 diabetes mellitus Essential (primary) hypertension Transient retinal artery occlusion Hyperlipidemia Home Medications ?Medication ?Instructions ?Recorded ?Last Taken ?Type acyclovir 400 mg tablet 400 mg PO BID herpes 06/14/15 03/13/22 History amlodipine 5 mg tablet 2.5 mg PO DAILY BP 01/31/21 03/13/22 History aspirin 81 mg chewable tablet 81 mg PO BREAKFAST stroke 01/14/22 03/13/22 History multivitamin-iron 9 mg-folic acid 1 tab PO BREAKFAST Supplement 02/05/22 Unknown History 400 mcg-calcium and minerals tablet (High Potency Multivitamin (w-iron)) acetaminophen 500 mg tablet 1,000 mg (2 x 500 mg) PO Q6H PRN 02/08/22 Unknown Rx PRN Pain Score 1-10 #0 tabs potassium chloride 10 mEq 10 meq PO QODAY Check with primary 07/25/22 Unknown History tablet,extended release(part/cryst) doctor cilostazol 100 mg tablet 100 mg PO BID 08/30/23 Unknown History fluticasone furoate 100 1 inh inhalation DAILY 08/30/23 Unknown History mcg/actuation blister powder for inhalation (Arnuity Ellipta) losartan 100 0.5 tab PO DAILY 08/30/23 Unknown History mg-hydrochlorothiazide 12.5 mg tablet rivastigmine tartrate 1.5 mg 3 mg PO BID 08/30/23 Unknown History capsule sertraline 25 mg tablet 25 mg PO DAILY 08/30/23 Unknown History ascorbic acid (vitamin C) 1,000 mg 1 g PO DAILY 11/01/23 Unknown History tablet atorvastatin 20 mg tablet 20 mg PO QDAY 11/01/23 Unknown History cranberry fruit 500 mg chewable 1,000 mg PO DAILY 11/01/23 Unknown History tablet famotidine 20 mg tablet (Acid-Pep) 20 mg PO DAILY 10/03/24 Unknown History Allergy/AdvReac Type Severity Reaction Status Date / Time neomycin Allergy unknown Verified 10/02/24 23:09 nickel Allergy Rash Verified 10/02/24 23:09 Penicillins (PCN) Allergy Hives Verified 10/02/24 23:09 Sulfa (Sulfonamide Allergy Rash Verified 10/02/24 23:09 Antibiotics) Family History Mother CAD (coronary artery disease) Daughter Heart disease cardiomyopathy Sister Breast cancer triple negative Thyroid cancer Surgical History History of loop recorder (~03/13/22) History of knee replacement History of breast biopsy H/O abdominal surgery History of tubal ligation Social History household members: other details: ex-. Smoking Status: Former smoker how long ago did patient quit smokin alcohol intake: current alcohol intake frequency: holidays/special occasions only substance use type: does not use caffeine: Yes (Take a caffeine tablet daily) ROS Review of Systems ROS Unobtainable: due to mental condition Constitutional Constitutional: Reports fatigue and weakness; Denies chills or fever(s) Cardiovascular Cardiovascular: Denies chest pain Respiratory/Chest Respiratory/Chest: Denies shortness of breath at rest Gastrointestinal Gastrointestinal: Denies abdominal pain Genitourinary Genitourinary: Reports dysuria Vital Signs Vital Signs Vital Signs: 10/02/24 22:52 10/02/24 23:52 10/02/24 23:55 Temperature 100 F H 99.0 F Temperature Source Oral Axillary Pulse Rate 98 93 95 Respiratory Rate 18 16 16 Blood Pressure 141/70 H 143/82 H Blood Pressure Mean 93 102 Pulse Ox 100 95 95 Oxygen Delivery Method Room Air Room Air Room Air 10/03/24 01:00 Temperature 99 F Temperature Source Oral Pulse Rate 87 Respiratory Rate 15 Blood Pressure 114/76 Blood Pressure Mean 88 Pulse Ox 99 Oxygen Delivery Method Physical Exam Const alert, no apparent distress and average body habitus Constitutional Narrative: Elderly female, alert and oriented x 1 to person only, otherwise sitting back comfortably in bed and in no acute distress. General Appearance: cooperative and comfortable HEENT normocephalic, head/scalp atraumatic, hearing grossly normal bilaterally, nasal mucous membranes and turbinates normal and moist oral mucous membranes Eyes PERRL, EOMs intact bilaterally and conjunctivae normal Neck full ROM Chest inspection of chest normal Resp normal respiratory effort, normal air movement, no use of accessory muscles and clear to auscultation bilaterally Cardio regular rate, regular rhythm, no murmurs and peripheral pulses 2+ throughout GI normal to inspection, nondistended, normoactive bowel sounds, soft to palpation, non-tender and non-distended no CVA tenderness Bladder / Kidney Exam: bladder normal to palpation Back/Spine normal ROM Extremity normal to inspection, full ROM and no pedal edema Skin no rashes or lesions noted Results Lab / Micro Data 10/02/24 23:43 10/02/24 23:43 Labs: Laboratory Results - last 24 hr 10/02/24 23:43: WBC 9.3, RBC 4.45, Hgb 13.5, Hct 40.2, MCV 90.3, MCH 30.3, MCHC 33.6, RDW Std Deviation 48.0 H, RDW Coeff of Ranjit 14.5, Plt Count 192, MPV 11.7, Immature Gran % (Auto) 0.300, Neut % (Auto) 76.3 H, Lymph % (Auto) 17.0 L, [place] % (Auto) 5.9, Eos % (Auto) 0.2, Baso % (Auto) 0.3, Absolute Neuts (auto) 7.1, Absolute Lymphs (auto) 1.59, Nucleated RBC % 0, Sodium 136, Potassium 3.3, Chloride 102, Carbon Dioxide 21.0, Anion Gap 13, BUN 11, Creatinine 0.74, Est GFR (MDRD) Non-Af 83, BUN/Creatinine Ratio 15.2, Glucose 102 H, Lactic Acid < 1.0, Calcium 9.2 10/02/24 23:52: Urine Color Yellow, Urine Clarity Clear, Urine pH 6.0, Ur Specific Lucas 1.015, Urine Protein 15 H, Urine Glucose (UA) Normal, Urine Ketones Negative, Urine Occult Blood 25 H, Urine Nitrite Positive H, Urine Bilirubin Negative, Urine Urobilinogen Normal, Ur Leukocyte Esterase 500 H, Urine RBC 0 SEEN, Urine WBC 5-10 SEEN, Ur Squamous Epith Cells 0 SEEN, Urine Bacteria 2+, Urine Mucus 0 SEEN Imaging Radiology Impression Chest X-Ray 10/02/24 23:55 IMPRESSION: No acute cardiopulmonary disease. Reading Location: [place] [id number] Assessment & Plan Assessment/Plan (1) Physical debility: (2) UTI (urinary tract infection): PLAN: Plan Patient is a 79-year-old female who presented to [facility] ED on 10/03/2024 with UTI symptoms and weakness. 1. Acute on chronic debility; history of CVA with residual left-sided weakness, history of vascular dementia ? Admit under observation status to [facility]. PT/OT/case management consulted. Patient A&Ox1 to person only on admit. Lives with family, has been doing outpatient PT for left-sided weakness recently. Suspect slightly worsened weakness from baseline in setting of UTI as below. Has required multiple SNF stays in the past. Appreciate therapy recommendations. Continue home aspirin and statin. Continue home rivastigmine. 2. Uncomplicated UTI; history of neurogenic bladder ? UA on admit with 500 leukocyte esterase, positive nitrites, 2+ bacteria. Urine culture pending. Has reported history of recurrent UTIs secondary to neurogenic bladder, though last urine culture in our system was from 2021 and grew Klebsiella with resistance only to ampicillin and Macrobid. Will treat with IV ceftriaxone for now, follow-up urine culture. Continue outpatient follow-up with urology for neurogenic bladder. Chronic medical conditions: ? Hypertension: Mild hypertension to the 140s systolic on admit. Kidney function at baseline. Continue home amlodipine, losartan and hydrochlorothiazide. ? Anxiety/depression: Continue home sertraline. ? GERD: Continue home famotidine. ? Vascular claudication: Continue home cilostazol. DVT prophylaxis: Lovenox CODE STATUS: Full code, verified Expected disposition: TBD Total clinical time spent by myself addressing the patient's medical issues, reviewing all the data, and collaborating with patient's care team: 75 minutes. Charges/Coding Visit Charges Inpatient E&M: 29772 Init Hosp L3
--- NOTE | 2024-10-03 01:14 | EX.ED.DYSGE1 ---
HPI History of Present Illness Chief Complaint: Alt LOC Informant: patient, spouse/S.O. and family Narrative Narrative: Patient is a 79-year-old female with past medical history of vascular dementia as well as hypertension and hyperlipidemia. Family states that the patient was on daily antibiotics for urinary tract infection but was taken off of it in the last month. They report that in the last 1 to 2 days she has had increased fatigue and confusion. This evening her confusion worsened and she also had difficulty ambulating. Secondary to this they have concern for a urinary tract infection. They also report that due to the confusion and increased weakness that they do not feel she is safe at home. Secondary to this concern she was brought to the ER for evaluation [facility] Medical History (Updated 10/03/24 @ 07:[address] Arnold Lyle, ) Shortness of breath Vascular dementia Left hemiparesis Anticardiolipin antibody positive Diabetes mellitus GERD (gastroesophageal reflux disease) Hyperlipidemia Osteoarthritis Attention deficit disorder Neurogenic bladder Depression Retinal artery occlusion Hypertension Stroke High serum c-peptide Debility Dysarthria Acute left-sided muscle weakness Acute cerebrovascular accident (CVA) Anginal equivalent CPAP (continuous positive airway pressure) dependence Sleep apnea Discoordination Acute confusion Acute CVA (cerebrovascular accident) Compression fracture Implantable loop recorder present Cryptogenic stroke Ptosis Diplopia Stroke/cerebrovascular accident Dyspnea on exertion History of skin cancer Arthritis Type 2 diabetes mellitus Essential (primary) hypertension Transient retinal artery occlusion Hyperlipidemia Home Medications ?Medication ?Instructions ?Recorded ?Last Taken ?Type acyclovir 400 mg tablet 400 mg PO BID herpes 06/14/15 03/13/22 History amlodipine 5 mg tablet 2.5 mg PO DAILY BP 01/31/21 03/13/22 History aspirin 81 mg chewable tablet 81 mg PO BREAKFAST stroke 01/14/22 03/13/22 History multivitamin-iron 9 mg-folic acid 1 tab PO BREAKFAST Supplement 02/05/22 Unknown History 400 mcg-calcium and minerals tablet (High Potency Multivitamin (w-iron)) acetaminophen 500 mg tablet 1,000 mg (2 x 500 mg) PO Q6H PRN 02/08/22 Unknown Rx PRN Pain Score 1-10 #0 tabs potassium chloride 10 mEq 10 meq PO QODAY Check with primary 07/25/22 Unknown History tablet,extended release(part/cryst) doctor cilostazol 100 mg tablet 100 mg PO BID 08/30/23 Unknown History fluticasone furoate 100 1 inh inhalation DAILY 08/30/23 Unknown History mcg/actuation blister powder for inhalation (Arnuity Ellipta) losartan 100 0.5 tab PO DAILY 08/30/23 Unknown History mg-hydrochlorothiazide 12.5 mg tablet rivastigmine tartrate 1.5 mg 3 mg PO BID 08/30/23 Unknown History capsule sertraline 25 mg tablet 25 mg PO DAILY 08/30/23 Unknown History ascorbic acid (vitamin C) 1,000 mg 1 g PO DAILY 11/01/23 Unknown History tablet atorvastatin 20 mg tablet 20 mg PO QDAY 11/01/23 Unknown History cranberry fruit 500 mg chewable 1,000 mg PO DAILY 11/01/23 Unknown History tablet famotidine 20 mg tablet (Acid-Pep) 20 mg PO DAILY 10/03/24 Unknown History Allergy/AdvReac Type Severity Reaction Status Date / Time neomycin Allergy unknown Verified 10/02/24 23:09 nickel Allergy Rash Verified 10/02/24 23:09 Penicillins (PCN) Allergy Hives Verified 10/02/24 23:09 Sulfa (Sulfonamide Allergy Rash Verified 10/02/24 23:09 Antibiotics) Family History Mother CAD (coronary artery disease) Daughter Heart disease cardiomyopathy Sister Breast cancer triple negative Thyroid cancer Surgical History History of loop recorder (~03/13/22) History of knee replacement History of breast biopsy H/O abdominal surgery History of tubal ligation Social History household members: other details: ex-. Smoking Status: Former smoker how long ago did patient quit smokin alcohol intake: current alcohol intake frequency: holidays/special occasions only substance use type: does not use caffeine: Yes (Take a caffeine tablet daily) ROS ROS ED ROS Narrative Please note review of systems may be unreliable secondary to history of dementia Constitutional Constitutional ED: Reports fever(s); Denies chills Eyes Eyes: Denies change in vision ENT ENT ED: Denies sore throat Cardiovascular Cardiovascular: Denies chest pain Respiratory/Chest Respiratory/Chest: Denies cough or dyspnea Gastrointestinal Gastrointestinal: Denies abdominal pain, diarrhea, nausea or vomiting Genitourinary Genitourinary ED: Denies dysuria Musculoskeletal Musculoskeletal: Denies back pain Integumentary Denies rash Neurologic Neurologic: Reports weakness; Denies headache(s) Hematologic/Lymphatic Hematologic/Lymphatic: Denies easy bleeding or easy bruising EXAM Physical Exam Const Vital Signs: 10/02/24 22:52 10/02/24 23:52 10/02/24 23:55 Temperature 100 F H 99.0 F Temperature Source Oral Axillary Pulse Rate 98 93 95 Respiratory Rate 18 16 16 Blood Pressure 141/70 H 143/82 H Blood Pressure Mean 93 102 Pulse Ox 100 95 95 Oxygen Delivery Method Room Air Room Air Room Air 10/03/24 01:00 Temperature 99 F Temperature Source Oral Pulse Rate 87 Respiratory Rate 15 Blood Pressure 114/76 Blood Pressure Mean 88 Pulse Ox 99 Oxygen Delivery Method Positive well nourished and well developed General Appearance ED: well developed; Negative for pallor HEENT Reports dry mucous membranes HEENT Narrative: Normocephalic atraumatic No tongue or lip swelling; no oral lesions no airway edema or compromise No secondary findings in the posterior pharynx to suggest infection No tongue or cheek biting to suggest seizure activity Mouth ED: Yes dry mucous membranes Mouth: dry mucous membranes Eyes PERRL and EOMs intact bilaterally General Eye ED: Negative for scleral icterus Neck supple Neck Narrative: No nuchal rigidity or meningeal signs Resp normal respiratory effort and clear to auscultation bilaterally Cardio regular rate and regular rhythm GI normal to inspection, nondistended, normoactive bowel sounds, non-tender, non-distended and no masses GI Narrative: No voluntary guarding or rigidity or pulsatile mass Auscultation: normoactive bowel sounds Palpation: soft Back/Spine no CVA tenderness Extremity normal to inspection Neuro CN's II-XII intact bilaterally Neuro Narrative: GCS of 15 Patient is awake and alert to person and place but disoriented to time this is more along her baseline mental status according to family No focal extremity weakness NIH stroke scale score of 1 secondary to disorientation to time Sensorium / Orientation: alert Psych mental status grossly normal Skin no rashes or lesions noted and no wounds General Skin Exam: Negative for jaundice or pallor MDM MDM MDM Narrative Medical decision making narrative: Patient arrived to the ER with low-grade fever but otherwise stable vitals. Family reported increased confusion and weakness with history of UTI. This is most likely the cause of her symptoms but in order to ensure there is no signs of urosepsis or acute kidney injury or pneumonia basic labs with urine sample and chest x-ray were ordered. Labs show no leukocytosis or left shift or signs of STEPAN. Chest x-ray revealed no acute lung pathology. Urine sample is consistent with acute urinary tract infection. Secondary to this the urine was sent for culture and she was placed on Rocephin. At this time she is not hemodynamically unstable or having signs of sepsis or acute kidney injury based on her increased delirium from the infection and weakness and the fact that family does not feel safe with her at home the hospitalist was contacted and he agrees accept the patient for continued care. The patient was started on Rocephin secondary to the UTI while it was sent for culture History & Record Review Discussion w/independent historian: Patient, Family and Significant other Lab Data Attestation: I reviewed the patient's lab results. Labs: Laboratory Results - last 24 hr 10/02/24 10/02/24 23:43 23:52 WBC 9.3 RBC 4.45 Hgb 13.5 Hct 40.2 MCV 90.3 MCH 30.3 MCHC 33.6 RDW Std Deviation 48.0 H RDW Coeff of Ranjit 14.5 Plt Count 192 MPV 11.7 Immature Gran % (Auto) 0.300 Neut % (Auto) 76.3 H Lymph % (Auto) 17.0 L [place] % (Auto) 5.9 Eos % (Auto) 0.2 Baso % (Auto) 0.3 Absolute Neuts (auto) 7.1 Absolute Lymphs (auto) 1.59 Nucleated RBC % 0 Sodium 136 Potassium 3.3 Chloride 102 Carbon Dioxide 21.0 Anion Gap 13 BUN 11 Creatinine 0.74 Est GFR (MDRD) Non-Af 83 BUN/Creatinine Ratio 15.2 Glucose 102 H Lactic Acid < 1.0 Calcium 9.2 Phosphorus 2.7 Magnesium 2.0 Urine Color Yellow Urine Clarity Clear Urine pH 6.0 Ur Specific [place] 1.015 Urine Protein 15 H Urine Glucose (UA) Normal Urine Ketones Negative Urine Occult Blood 25 H Urine Nitrite Positive H Urine Bilirubin Negative Urine Urobilinogen Normal Ur Leukocyte Esterase 500 H Urine RBC 0 SEEN Urine WBC 5-10 SEEN Ur Squamous Epith Cells 0 SEEN Urine Bacteria 2+ Urine Mucus 0 SEEN Radiography Diagnostic Testing: Clinical Impression(s) from Imaging Studies Chest X-Ray 10/02/24 23:55 IMPRESSION: No acute cardiopulmonary disease. Reading Location: [place] [address] Chest x-ray is interpreted by the emergency medicine physician reveals no acute infiltrate pneumothorax or pleural effusion Management Discussion w/another healthcare provider: Hospitalist Discharge Plan Dx/Rx/DC Orders Clinical Impression: UTI (urinary tract infection), Hyperlipidemia, Physical debility, Essential (primary) hypertension, Dementia Disposition Disposition: Acute Care Hospital [facility] Discharge Date/Time: 10/03/24 02:18
[2024-10-03 01:36] LABS: Magnesium 2.0 mg/dL (1.5-2.2)
--- NOTE | 2024-10-03 01:58 | ED.RN ---
Pt family notified of IV site having burning sensation. IV site red and cool to touch. Difficulty flushing, unable to draw back blood. Site is tender, procedure looked up in [place], discussed with pharmacy. Wrapped with cool compress, IV removed. Dr. Lyle made aware.
[2024-10-03] MEDS: Budesonide Respules 0.5 MG/2 ML AMPUL.NEB. INHALATION (07:07)
--- NOTE | 2024-10-03 07:54 | PN.HOSP_ITS ---
Reason for Visit Reason for Visit: Diagnoses Urinary tract infection, site not specified (10/03/24) Other malaise (10/03/24) Subjective Subjective Feeling well. No new complaints. Objective Data Objective Data Vital Signs: Vital Signs Temp Pulse Resp BP Pulse Ox O2 Del Method 36.8 C 81 16 141/67 H 97 Room Air 10/03/24 06:49 10/03/24 07:07 10/03/24 07:07 10/03/24 06:49 10/03/24 07:07 10/03/24 07:07 Oxygen Delivery Method Room Air Weight: 78.2 kg Body Mass Index (BMI) 26.2 Intake & Output: Intake and Output for Last 24 Hours 10/01/24 10/02/24 10/03/24 23:59 23:59 23:59 Intake Total 1043.33 / 1043.33 Output Total 200 / 200 Balance 843.33 / 843.33 Lab / Micro Data 10/02/24 23:43 10/02/24 23:43 Labs: Laboratory Results - last 24 hr 10/02/24 23:43: WBC 9.3, RBC 4.45, Hgb 13.5, Hct 40.2, MCV 90.3, MCH 30.3, MCHC 33.6, RDW Std Deviation 48.0 H, RDW Coeff of Ranjit 14.5, Plt Count 192, MPV 11.7, Immature Gran % (Auto) 0.300, Neut % (Auto) 76.3 H, Lymph % (Auto) 17.0 L, [place] % (Auto) 5.9, Eos % (Auto) 0.2, Baso % (Auto) 0.3, Absolute Neuts (auto) 7.1, Absolute Lymphs (auto) 1.59, Nucleated RBC % 0, Sodium 136, Potassium 3.3, Chloride 102, Carbon Dioxide 21.0, Anion Gap 13, BUN 11, Creatinine 0.74, Est GFR (MDRD) Non-Af 83, BUN/Creatinine Ratio 15.2, Glucose 102 H, Lactic Acid < 1.0, Calcium 9.2, Phosphorus 2.7, Magnesium 2.0 10/02/24 23:52: Urine Color Yellow, Urine Clarity Clear, Urine pH 6.0, Ur Specific [place] 1.015, Urine Protein 15 H, Urine Glucose (UA) Normal, Urine Ketones Negative, Urine Occult Blood 25 H, Urine Nitrite Positive H, Urine Bilirubin Negative, Urine Urobilinogen Normal, Ur Leukocyte Esterase 500 H, Urine RBC 0 SEEN, Urine WBC 5-10 SEEN, Ur Squamous Epith Cells 0 SEEN, Urine Bacteria 2+, Urine Mucus 0 SEEN Radiography Diagnostic Testing: Radiology Impression Chest X-Ray 10/02/24 23:55 IMPRESSION: No acute cardiopulmonary disease. Reading Location: [place] [address] Physical Exam Const alert and no apparent distress HEENT head/scalp atraumatic and moist oral mucous membranes Resp normal respiratory effort, no retractions, no use of accessory muscles and clear to auscultation bilaterally Cardio regular rate, regular rhythm, S1 normal heart sound and S2 normal heart sound GI normal to inspection, nondistended, normoactive bowel sounds, soft to palpation, non-tender and non-distended Neuro Sensorium / Orientation: awake, alert, oriented to person and oriented to place Assessment & Plan Assessment/Plan (1) Physical debility: PLAN: Progressive due to history of stroke with left sided weakness dementia. PT OT evaluate and treat (2) Abnormal urinalysis: PLAN: Urinalysis is not terribly impressive for urinary tract infection though does have Estrace but only 5-10 white blood cells will follow-up on the final urine culture results continue with antibiotics as previously prescribed with ceftriaxone. PLAN: Plan Chronic medical conditions: ? Hypertension: Mild hypertension to the 140s systolic on admit. Kidney function at baseline. Continue home amlodipine, losartan and hydrochlorothiazide. ? Anxiety/depression: Continue home sertraline. ? GERD: Continue home famotidine. ? Vascular claudication: Continue home cilostazol. DVT prophylaxis: Lovenox Charges/Coding Visit Charges Inpatient E&M: 48046 Subs Hosp L2
[2024-10-03] MEDS: hydroCHLOROthiazide 6.25mg TAB 6.25 MG PO (09:41)
[2024-10-03] MEDS: 0.9% Saline Lock 10 ML Syringe IV (09:47)
--- NOTE | 2024-10-03 10:37 | CASEMGMT ---
Discharge Planning A list of?SNF providers including quality and resource use data and consistent with the patient's preferred geographic region, medical needs, and insurance network was created in [employer] Guide.? This list was provided to the SW. Audra Madera Discharge Planning Asst.
--- NOTE | 2024-10-03 15:52 | CASEMGMT ---
Met with patient to complete VEGA form. VEGA form and its content were verbally explained and patient's questions were answered to the best of my ability.? Patient voiced understanding and signed VEGA form.? Patient provided a copy of signed VEGA form and original placed in patient's chart.? Patient had no further questions. Audra Madera, Discharge Planning Asst
--- NOTE | 2024-10-03 17:03 | CASEMGMT ---
Social Work SW?to room to meet with patient for initial transition planning/care coordination?assessment.?SW?introduced self and role at [facility].? Pt and pt dgt present and agreeable to assessment.? Pt is able to answer some questions and pt's dgt helps with others. Care providers, pharmacy, and demographics verified. PCP: Yvette Specialists: [facility] (for dementia) - [facility] Preferred Pharmacy: [facility] Insurance: [place] ([facility] A secondary) Prescription Benefit:?yes Living Will/HPOA:? yes LNOK: Deejay Paiz, ex ; Joi Freeman, daughter Living Arrangements: Pt lives with her ex in a one story home with 3 steps to enter. Pt's dgt lives three houses away. Pt has been independent with ADLS and some IADLs. Pt's provides meals (pt and exhusband ususally eat out) Transportation:? Ex DME: ? walker, wheelchair, rollator, shower chair, grab bars PLAN: Pt and dgt feel pt is back to baseline and thinking and functioning much better than pt was last evening. Pt and dgt feel pt can return home with ex at time of discharge and pt will continue with outpatient PT at [facility]. Pt dgt met with SW outside of room to discuss code status. SW explained DNRCC, DNRCCA and Full Code. SW provided pt's dgt with written information regarding code status explanation. Dgt appreciative of info. MISSAEL Garza
--- NOTE | 2024-10-03 21:54 | NURSING ---
Pt daughter, Chel, called at this time. Given update.
[2024-10-04 04:00] VITALS: BP 136/75; PULSE 64; RESP 16; TEMP 36.8; O2SAT 92
[2024-10-04 06:30] LABS: Hematocrit 38.0 % (37-47); Hemoglobin 12.8 g/dL (12.0-15.0); Mean Corp Hgb Conc 33.7 g/dL (32-36); Mean Corpuscular Volume 89.6 fL (81-99); Mean Platelet Vol. 11.6 fl (6.2-12.0); Platelet Count 196 K/mm3 (150-450); RBC Distribution Width CV 14.5 % (11.6-14.6); RBC Distribution Width SD 47.8 fl (35.1-43.9); Red Blood Count 4.24 M/mm3 (4.2-5.4); White Blood Count 6.6 K/mm3 (4.4-11.0)
[2024-10-04 06:58] LABS: Anion Gap 12 (5-15); BUN 10 mg/dL (4-19); BUN/Creat Ratio 14.6 RATIO (10-20); Calcium,Total 9.2 mg/dL (7.6-11.0); Carbon Dioxide 20.4 mmol/L (21.0-32.0); Chloride 108 mmol/L (98-108); Estimated Creatinine Clearance 64.72 ml/min (50-250); Glucose 119 mg/dL (70-99); Potassium 3.2 mmol/L (3.3-5.1)
[2024-10-04] MEDS: Budesonide Respules 0.5 MG/2 ML AMPUL.NEB. INHALATION (06:59)
[2024-10-04 07:00] VITALS: PULSE 80; RESP 16; O2SAT 95
--- NOTE | 2024-10-04 07:47 | PCM.PN.HOSP ---
Reason for Visit Reason for Visit: Diagnoses Urinary tract infection, site not specified (10/03/24) Other malaise (10/03/24) Unspecified abnormal findings in urine (10/03/24) Subjective Subjective Doing better. No new complaints. Daughters present and stated the patient was just profoundly confused when she presented here. Objective Data Objective Data Vital Signs: Vital Signs Temp Pulse Resp BP Pulse Ox O2 Del Method FiO2 36.8 C 80 16 136/75 H 95 Room Air 21 10/04/24 04:00 10/04/24 07:00 10/04/24 07:00 10/04/24 04:00 10/04/24 07:00 10/04/24 07:00 10/04/24 04:00 Oxygen Delivery Method Room Air Weight: 78.2 kg Body Mass Index (BMI) 26.2 Intake & Output: Intake and Output for Last 24 Hours 10/02/24 10/03/24 10/04/24 23:59 23:59 23:59 Intake Total 1093.33 / 1293.33 320 / 320 Output Total 800 / 1600 1300 / 1300 Balance 293.33 / -306.67 -980 / -980 Lab / Micro Data 10/04/24 06:05 10/04/24 06:05 Labs: Laboratory Results - last 24 hr 10/04/24 06:05: WBC 6.6, RBC 4.24, Hgb 12.8, Hct 38.0, MCV 89.6, MCH 30.2, MCHC 33.7, RDW Std Deviation 47.8 H, RDW Coeff of Ranjit 14.5, Plt Count 196, MPV 11.6, Sodium 141, Potassium 3.2 L, Chloride 108, Carbon Dioxide 20.4 L, Anion Gap 12, BUN 10, Creatinine 0.68 L, Estim Creat Clear Calc 64.72, Est GFR (MDRD) Non-Af 90, BUN/Creatinine Ratio 14.6, Glucose 119 H, Calcium 9.2 Micro: Microbiology 10/03/24 17:11 Stool Clostridioides difficile (PCR) - Final Physical Exam Const Constitutional Narrative: Up in bed. Pleasant. Not toxic. Assessment & Plan Assessment/Plan (1) Physical debility: PLAN: Progressive due to history of stroke with left sided weakness dementia. PT OT evaluate and treat (2) Abnormal urinalysis: PLAN: Urinalysis is not terribly impressive for urinary tract infection urine culture is negative. Will discontinue antibiotics. Patient to continue with methenamine. Follow-up with urology as outpatient. PLAN: Plan Chronic medical conditions: ? Hypertension: Mild hypertension to the 140s systolic on admit. Kidney function at baseline. Continue home amlodipine, losartan and hydrochlorothiazide. ? Anxiety/depression: Continue home sertraline. ? GERD: Continue home famotidine. ? Vascular claudication: Continue home cilostazol. DVT prophylaxis: Lovenox DC home with outpt therapy
[2024-10-04 10:35] VITALS: BP 133/72; PULSE 92; RESP 16; TEMP 36.8; O2SAT 94
[2024-10-04] MEDS: hydroCHLOROthiazide 6.25mg TAB 6.25 MG PO (10:42)
--- NOTE | 2024-10-04 12:27 | PCM.DC.SUM ---
Providers Date of Admission: 10/03/24 Primary Care Physician: Dr. Veena Crawford MD Reason For Visit: UTI WITH WEAKNESS Diagnosis Discharge Diagnosis (1) Physical debility: Status: Acute Code(s): R53.81 - Other malaise Plan: Progressive due to history of stroke with left sided weakness dementia. PT OT evaluate and treat (2) Abnormal urinalysis: Status: Acute Code(s): R82.90 - Unspecified abnormal findings in urine Plan: Urinalysis is not terribly impressive for urinary tract infection urine culture is negative. Will discontinue antibiotics. Patient to continue with methenamine. Follow-up with urology as outpatient. Plan Chronic medical conditions: ? Hypertension: Mild hypertension to the 140s systolic on admit. Kidney function at baseline. Continue home amlodipine, losartan and hydrochlorothiazide. ? Anxiety/depression: Continue home sertraline. ? GERD: Continue home famotidine. ? Vascular claudication: Continue home cilostazol. DVT prophylaxis: Lovenox DC home with outpt therapy Medications at Discharge Home Medications acyclovir 400 mg tablet 400 mg PO BID herpes 06/14/15 amlodipine 5 mg tablet 2.5 mg PO DAILY BP 01/31/21 aspirin 81 mg chewable tablet 81 mg PO BREAKFAST stroke 01/14/22 multivitamin-iron 9 mg-folic acid 400 mcg-calcium and minerals tablet (High Potency Multivitamin (w-iron)) 1 tab PO BREAKFAST Supplement 02/05/22 acetaminophen 500 mg tablet 1,000 mg (2 x 500 mg) PO Q6H PRN PRN Pain Score 1-10 #0 tabs 02/08/22 potassium chloride 10 mEq tablet,extended release(part/cryst) 10 meq PO QODAY Check with primary doctor 07/25/22 cilostazol 100 mg tablet 100 mg PO BID 08/30/23 fluticasone furoate 100 mcg/actuation blister powder for inhalation (Arnuity Ellipta) 1 inh inhalation DAILY 08/30/23 losartan 100 mg-hydrochlorothiazide 12.5 mg tablet 0.5 tab PO DAILY 08/30/23 rivastigmine tartrate 1.5 mg capsule 3 mg PO BID 08/30/23 sertraline 25 mg tablet 25 mg PO DAILY 08/30/23 ascorbic acid (vitamin C) 1,000 mg tablet 1 g PO DAILY 08/08/24 atorvastatin 20 mg tablet 20 mg PO QDAY 11/01/23 cranberry fruit 500 mg chewable tablet 1,000 mg PO DAILY 11/01/23 famotidine 20 mg tablet (Acid-Pep) 20 mg PO DAILY 10/03/24 Hospital Course Operations None Procedures None Summary of Care Provided Minutes Spent on Discharge: 35 Hospital Course: Patient presents with confusion from home. Concern was patient having recurrent urinary tract infection. Urinalysis was equivocal with positive leuk esterase but only 5-10 white blood cells. Urine culture was negative. So is not felt the patient actually did have a urinary tract infection this time though she has had recurrent urinary tract infections previously. Patient takes methenamine at home and will continue that. Patient to follow-up with urology. Weight / BMI Weight Weight: 78.2 kg Body Mass Index (BMI) 26.2 ABG / Lab / Microbiology Data 10/04/24 06:05 10/04/24 06:05 Laboratory: Laboratory Results - last 24 hr 10/04/24 06:05: WBC 6.6, RBC 4.24, Hgb 12.8, Hct 38.0, MCV 89.6, MCH 30.2, MCHC 33.7, RDW Std Deviation 47.8 H, RDW Coeff of Ranjit 14.5, Plt Count 196, MPV 11.6, Sodium 141, Potassium 3.2 L, Chloride 108, Carbon Dioxide 20.4 L, Anion Gap 12, BUN 10, Creatinine 0.68 L, Estim Creat Clear Calc 64.72, Est GFR (MDRD) Non-Af 90, BUN/Creatinine Ratio 14.6, Glucose 119 H, Calcium 9.2 Microbiology: Microbiology 10/03/24 17:11 Stool Clostridioides difficile (PCR) - Final D/C Instructions Discharge Activity: Return to Normal Activity DC O2, CPAP, BIPAP Needs Home O2 Discharge instructions: No Meaningful Use Info Meaningful Use Meaningful Use Diagnoses (Choose all that apply): None applicable Discharge Plan Admission Admit Date/Time: 10/03/24 01:13 Primary Reason for Your Visit: Confusion Attending Provider: Gamaliel Ayon Primary Care Provider: Veena Crawford Consulting Providers: Abe Perez Discharge Orders/Prescriptions Prescriptions: Continued ascorbic acid (vitamin C) 1,000 mg tablet 1 g PO DAILY atorvastatin 20 mg tablet 20 mg PO QDAY cranberry fruit 500 mg tablet,chewable 1,000 mg PO DAILY acyclovir 400 MG tablet 400 mg PO BID amlodipine 5 mg tablet 2.5 mg PO DAILY aspirin 81 mg tablet,chewable 81 mg PO BREAKFAST High Potency Multivit (w-iron) 9 mg iron-400 mcg tablet 1 tab PO BREAKFAST acetaminophen 500 mg Tablet 1,000 mg PO Q6H PRN PRN (Reason: Pain Score 1-10) Qty: 0 0RF potassium chloride 10 mEq tablet,ER particles/crystals 10 meq PO QODAY Arnuity Ellipta 100 mcg/actuation blister with device 1 inh inhalation DAILY rivastigmine tartrate 1.5 mg capsule 3 mg PO BID cilostazol 100 mg tablet 100 mg PO BID sertraline 25 mg tablet 25 mg PO DAILY losartan-hydrochlorothiazide 100-12.5 mg tablet 0.5 tab PO DAILY famotidine [Acid-Pep] 20 mg tablet 20 mg PO DAILY Referrals / Follow Up: Veena Crawford MD [Primary Care Provider] - Within 2 Weeks Disposition Disposition (needs filled in before D/C Order can be placed): Home, Self Care Charges/Coding Visit Charges Inpatient E&M: 26500 Disch Hosp >30min
[2024-10-04 13:06] VITALS: BP 124/53; PULSE 88; RESP 16; TEMP 36.7; O2SAT 96
== END 2024-10-04 13:57 | disposition home or self-care (01) ==
LOC: ED 10-03 01:14 → PCU 10-03 01:24
PROVIDERS: Admitting Provider Hospitalist; Emergency Provider Emergency Medicine; PCP Family Medicine
DX: N39.0 Urinary tract infection, site not specified (principal); I69.354 Hemiplegia and hemiparesis following cerebral infarction affecting left non-dominant side; F01.50 Vascular dementia, unspecified severity, without behavioral disturbance, psychotic disturbance, mood disturbance, and anxiety; E11.51 Type 2 diabetes mellitus with diabetic peripheral angiopathy without gangrene; I10 Essential (primary) hypertension; E78.5 Hyperlipidemia, unspecified; Z87.891 Personal history of nicotine dependence; N31.9 Neuromuscular dysfunction of bladder, unspecified; Z79.899 Other long term (current) drug therapy; F32.A Depression, unspecified; F41.9 Anxiety disorder, unspecified; Z79.82 Long term (current) use of aspirin; K21.9 Gastro-esophageal reflux disease without esophagitis
CPT/HCPCS: 36415; 71045; 80048; 81001; 83605; 83735; 84100; 85025; 85027; 87077; 87086; 87088; 87186; 87493; 94640; 94668; 96361; 96365; 96366; 96372; 97162; 97166; 99221; 99285; A4216; G0378

== ENCOUNTER 2024-10-07 12:30 | Outpatient (RCR) | payer BC, SELFPAY ==
--- NOTE | 2024-07-22 13:47 | HP.PTEVAL ---
Patient's Visit Information Visit Information Visit Information: REBECA GUERRERO is a 79 year old F referred to Physical Therapy by Dr. Veena Crawford MD with a diagnosis of L shoulder pain, LE weakness, gait instability. Date of Evaluation: 07/22/24 Physical Therapist: LUISANA Johnson Visit Plan Frequency: 2x /Week Duration: 2 Months Plan: Pt has vascular dementia and does not remember a lot of things 2X/ week for 8 weeks for L shoulder AROM/PROM, L shoulder strength, Postural exercises, gait training/endurance, LE strength, balance exercises with HEP Subjective Subjective: gave most of the subjective info. Pt had a few strokes. The first stroke is limited mobility. Then she had falls. The second stroke she does not remember having it and now she still has memory issues. She uses the walker all the time but she forgets to get it and she walks using things to grab onto. She has had 3 falls about 1/1.5 years ago. She has steps at home and she uses 2-3 steps on the front porch and then 3 steps into the garage and they rails or handles to pull herself up. She always has someone with her. Sit to stand able but she has to use her arms to get up. A day is an issue for her. She has weakness in arms and legs. She has a walk in shower and she is very careful with railings. She has some L shoulder pain and hard to raise it up (she has had some pain pre stroke) but it is getting worse. reports that she gets in the recliner and then she leans all on the L shoulder and he is thinking that that might be contributing to her L shoulder pain. May 2022 was her second stroke. Pain L shoulder pain with elevation: Pain Intensity (Out of 10): 2 Objective Objective: gave most of the subjective info Gait: walks with a rolling walker with decreased speed and stride length. Therapist moved walker height up two notches as it was causing her to bend forward too much. Was able to walk 147 feet in 1 min and 2 seconds...smaller steps and slower pace R handed: UE AROM: R shoulder flexion 150 and L 110 R shoulder ER 45 and L 24 R shoulder IR T8 and L PSIS UE MMT: R shoulder flexion 11.7 and L 6 R shoulder ER 9.3 and L 7.6 R shoulder IR 10.3 and L 11.3 LE MMT R hip flex 9.6 and L 6 R knee ext 19.9 and L 19 R knee flex 16 and L 15.2 Pt is able to heel and toe rises with B UE support Pt is able to sit to stand from a chair on first attempt with arm handles Pt is able to side step along // bars with CGA Pt is able to walk with Min A without the walker with increase veering to correct her balance Pt is able to stand X 30 sec each with EO/EC Balance/Special Test Scores Lower Extremity Functional Score: 24 Goals Goal 1:: I HEP Goal Time Frame: 6-8 Weeks Goal 2:: Be able to walk a full lap around the dept without having to rest with good pace. Goal Time Frame: 6-8 Weeks Goal 3:: Increase L shoulder AROM with less pain (at the time of the eval: UE AROM: R shoulder flexion 150 and L 110 R shoulder ER 45 and L 24 R shoulder IR T8 and L PSIS) Goal Time Frame: 6-8 Weeks Goal 4:: Increase LE strength (at the time of the eval LE MMT R hip flex 9.6 and L 6 R knee ext 19.9 and L 19 R knee flex 16 and L 15.2). Goal Time Frame: 6-8 Weeks Goal 5:: Be able to get into and out of the car with ease as reported by her Goal Time Frame: 6-8 Weeks Rehabilitation Potential Rehabilitation Potential: Good Anticipated Interventions Patient/Client Instruction: Educate patient on: Condition and Plan of Care For the Purpose of:: To decrease pain, To increase ROM, To improve nutrient delivery to tissue, To improve muscle performance and motor function, To improve ability to perform ADL's, To increase tolerance to activity/condition/position, To improve performance and independence with ADL's, To decrease level of supervision to perform tasks, To improve ability of physical actions for home/community/work/leisure, To improve gait and locomotor functions, To improve health of tissue, To decrease soft tissue restriction, To increase flexibility/ROM, To improve endurance, To improve balance and To improve safety with gait Therapeutic Exercise to Include: Strength training, Endurance training, Balance training, Postural training, Flexibilty training, Gait and locomotor training, Neuromotor development, Passive ROM, Active ROM and Scapular Strength/Stabilization For the Purpose of:: To decrease pain, To increase ROM, To improve nutrient delivery to tissue, To improve muscle performance and motor function, To improve ability to perform ADL's, To increase tolerance to activity/condition/position, To improve performance and independence with ADL's, To decrease level of supervision to perform tasks, To improve ability of physical actions for home/community/work/leisure, To improve gait and locomotor functions, To improve health of tissue, To decrease soft tissue restriction, To increase flexibility/ROM, To improve endurance, To improve balance, To improve safety with gait and To improve safety Functional Training to Include: Gait training For the Purpose of:: To improve gait and locomotor functions and To improve safety with gait Manual Therapy Techniques to Include: Passive ROM For the Purpose of:: To increase ROM and To improve nutrient delivery to tissue Text: Thank you for the opportunity to evaluate your patient. For Medicare and Medicare HMO plans, please review the plan of care and approve it. It will need to be FAXED BACK to us at [phone] for Medicare purposes. For Medicare only, by signing this I certify the plan of care. Please let me know if there are questions or concerns regarding this plan of care. Physician Signature: Date:
--- NOTE | 2024-08-25 14:49 | HP.PTREVAL ---
Re-Evaluation Intro: Dr. Veena Crawford MD, It has been my pleasure to treat REBECA GUERRERO over the last 7 visits for L shoulder pain, LE weakness, gait instability. Please see the progress note below for an update on the physical therapy plan of care! Subjective Subjective: Pt reports that she is not much better. They dx her with a heart murmur, UT and got sick. She was a little off the day before also. She still struggles with lifting her L shoulder and hard to lay on her L side. Her has not noticed her weaving or anything but she sticks with her walker. Objective Objective/Function: Sit to stand: able on first attempt and uses 1 arm to get up due to R knee pain UE AROM: R shoulder flexion 150 and L 91 R shoulder ER 45 and L 30 R shoulder IR T8 and L L3 UE MMT: R shoulder flex 10.8 and L 6.6 R shoulder ER 9 and L 7.4 MMT R hip flex 11.8 and L 10.9 R knee ext 19.9 and L 19 R knee flex 16 and L 15.2). Plan Plan Plan: 2X/ week for 4-8 additional weeks for L shoulder AAROM, AROM, RC and scapular strength with HEP Balance/Gait/Functional tests Balance/Special Test Scores Lower Extremity Functional Score: 27 Goals Goals Goal 1:: I HEP Goal Time Frame: 6-8 Weeks Goal 2:: Be able to walk a full lap around the dept without having to rest with good pace. Goal Time Frame: 6-8 Weeks Goal Progress: Goal Met Goal 3:: Increase L shoulder AROM with less pain (at the time of the eval: UE AROM: R shoulder flexion 150 and L 110 R shoulder ER 45 and L 24 R shoulder IR T8 and L PSIS) Goal Time Frame: 6-8 Weeks Goal 4:: Increase LE strength (at the time of the eval LE MMT R hip flex 9.6 and L 6 R knee ext 19.9 and L 19 R knee flex 16 and L 15.2). Goal Time Frame: 6-8 Weeks Goal Progress: Progressing Goal 5:: Be able to dress with more ease in pain and increase function with dressing with the use of her L shoulder Goal Time Frame: 6-8 Weeks Goal 6:: Increase R shoulder strength (at the time of the eval: UE MMT: R shoulder flex 10.8 and L 6.6 R shoulder ER 9 and L 7.4). Goal Time Frame: 4-6 Weeks Anticipated Interventions Anticipated Interventions Patient/Client Instruction: Educate patient on: Condition and Plan of Care For the Purpose of:: To decrease pain, To increase ROM, To improve nutrient delivery to tissue, To improve muscle performance and motor function, To improve ability to perform ADL's, To increase tolerance to activity/condition/position, To improve performance and independence with ADL's, To decrease level of supervision to perform tasks, To improve ability of physical actions for home/community/work/leisure, To improve gait and locomotor functions, To improve health of tissue, To decrease soft tissue restriction, To increase flexibility/ROM, To improve endurance, To improve balance and To improve safety with gait Therapeutic Exercise to Include: Strength training, Endurance training, Balance training, Postural training, Flexibilty training, Gait and locomotor training, Neuromotor development, Passive ROM, Active ROM and Scapular Strength/Stabilization For the Purpose of:: To decrease pain, To increase ROM, To improve nutrient delivery to tissue, To improve muscle performance and motor function, To improve ability to perform ADL's, To increase tolerance to activity/condition/position, To improve performance and independence with ADL's, To decrease level of supervision to perform tasks, To improve ability of physical actions for home/community/work/leisure, To improve gait and locomotor functions, To improve health of tissue, To decrease soft tissue restriction, To increase flexibility/ROM, To improve endurance, To improve balance, To improve safety with gait and To improve safety Functional Training to Include: Gait training For the Purpose of:: To improve gait and locomotor functions and To improve safety with gait Manual Therapy Techniques to Include: Passive ROM For the Purpose of:: To increase ROM and To improve nutrient delivery to tissue Re-Evaluation Ending Re-evaluation ending: Please do not hesitate to contact me at [phone] by phone or if you have questions or concerns regarding this new plan of care! Sincerely, LUISANA Johnson
--- NOTE | 2024-09-22 13:23 | HP.PTREVAL ---
Re-Evaluation Intro: Dr. Veena Crawford MD, It has been my pleasure to treat REBECA GUERRERO over the last 15 visits for L shoulder pain, LE weakness, gait instability. Please see the progress note below for an update on the physical therapy plan of care! Subjective Subjective: Pt memory is not great so her recall of her pain is iffy. She is still having trouble reaching overhead. She still has pain with dressing and overhead activities. Her says she does not complain as much. If she falls asleep on it then she has trouble moving after it. Objective Objective/Function: UE MMT: R shoulder flex 10.8 and L 10 R shoulder ER 9 and L 9.8 UE AROM: R shoulder flexion 150 and L 122 R shoulder ER 45 and L 49 R shoulder IR T8 and L3 Plan Plan Plan: Improved L shoulder ROM and strength. 1X/ week for 3 weeks for L shoulder strength and ROM. Go over HEP to make sure they know it and then DC after 3 additional appts. Balance/Gait/Functional tests Balance/Special Test Scores Lower Extremity Functional Score: 27 Quick DASH Score: 36.3625 Goals Goals Goal 1:: I HEP Goal Time Frame: 6-8 Weeks Goal Progress: Progressing Goal 2:: Be able to walk a full lap around the dept without having to rest with good pace. Goal Time Frame: 6-8 Weeks Goal Progress: Goal Met Goal 3:: Increase L shoulder AROM with less pain (at the time of the eval: UE AROM: R shoulder flexion 150 and L 110 R shoulder ER 45 and L 24 R shoulder IR T8 and L PSIS) Goal Time Frame: 6-8 Weeks Goal Progress: Progressing Goal 4:: Increase LE strength (at the time of the eval LE MMT R hip flex 9.6 and L 6 R knee ext 19.9 and L 19 R knee flex 16 and L 15.2). Goal Time Frame: 6-8 Weeks Goal Progress: Progressing Goal 5:: Be able to dress with more ease in pain and increase function with dressing with the use of her L shoulder Goal Time Frame: 6-8 Weeks Goal Progress: Progressing Goal 6:: Increase R shoulder strength (at the time of the eval: UE MMT: R shoulder flex 10.8 and L 6.6 R shoulder ER 9 and L 7.4). Goal Time Frame: 4-6 Weeks Goal Progress: Progressing Anticipated Interventions Anticipated Interventions Patient/Client Instruction: Educate patient on: Condition and Plan of Care For the Purpose of:: To decrease pain, To increase ROM, To improve nutrient delivery to tissue, To improve muscle performance and motor function, To improve ability to perform ADL's, To increase tolerance to activity/condition/position, To improve performance and independence with ADL's, To decrease level of supervision to perform tasks, To improve ability of physical actions for home/community/work/leisure, To improve gait and locomotor functions, To improve health of tissue, To decrease soft tissue restriction, To increase flexibility/ROM, To improve endurance, To improve balance and To improve safety with gait Therapeutic Exercise to Include: Strength training, Endurance training, Balance training, Postural training, Flexibilty training, Gait and locomotor training, Neuromotor development, Passive ROM, Active ROM and Scapular Strength/Stabilization For the Purpose of:: To decrease pain, To increase ROM, To improve nutrient delivery to tissue, To improve muscle performance and motor function, To improve ability to perform ADL's, To increase tolerance to activity/condition/position, To improve performance and independence with ADL's, To decrease level of supervision to perform tasks, To improve ability of physical actions for home/community/work/leisure, To improve gait and locomotor functions, To improve health of tissue, To decrease soft tissue restriction, To increase flexibility/ROM, To improve endurance, To improve balance, To improve safety with gait and To improve safety Functional Training to Include: Gait training For the Purpose of:: To improve gait and locomotor functions and To improve safety with gait Manual Therapy Techniques to Include: Passive ROM For the Purpose of:: To increase ROM and To improve nutrient delivery to tissue Re-Evaluation Ending Re-evaluation ending: Please do not hesitate to contact me at [phone] by phone or if you have questions or concerns regarding this new plan of care! Sincerely, LUISANA Johnson
--- NOTE | 2024-12-23 08:57 | HP.PTDCNRP_ITS ---
Patient Information Patient Information: REBECA GUERRERO was seen in my office for initial evaluation on 07/22/24. The following Plan of Care was established for this patient: POC Established Initial Frequency: 2x /Week Initial Duration: 2 Months Anticipated Interventions Patient/Client Instruction: Educate patient on: Condition and Plan of Care For the Purpose of:: To decrease pain, To increase ROM, To improve nutrient delivery to tissue, To improve muscle performance and motor function, To improve ability to perform ADL's, To increase tolerance to activity/condition/position, To improve performance and independence with ADL's, To decrease level of supervision to perform tasks, To improve ability of physical actions for home/community/work/leisure, To improve gait and locomotor functions, To improve health of tissue, To decrease soft tissue restriction, To increase flexibility/ROM, To improve endurance, To improve balance and To improve safety with gait Therapeutic Exercise to Include: Strength training, Endurance training, Balance training, Postural training, Flexibilty training, Gait and locomotor training, Neuromotor development, Passive ROM, Active ROM and Scapular Strength/Stabilization For the Purpose of:: To decrease pain, To increase ROM, To improve nutrient delivery to tissue, To improve muscle performance and motor function, To improve ability to perform ADL's, To increase tolerance to activity/condition/position, To improve performance and independence with ADL's, To decrease level of s upervision to perform tasks, To improve ability of physical actions for home/community/work/leisure, To improve gait and locomotor functions, To improve health of tissue, To decrease soft tissue restriction, To increase flexibility/ROM, To improve endurance, To improve balance, To improve safety with gait and To improve safety Functional Training to Include: Gait training For the Purpose of:: To improve gait and locomotor functions and To improve safety with gait Manual Therapy Techniques to Include: Passive ROM For the Purpose of:: To increase ROM and To improve nutrient delivery to tissue Last Seen Last Seen: This patient was last seen in our office 10/07/24. Pertinent comments regarding their Physical therapy will appear below: [facility] At this point I will be discontinuing this patient from physical therapy. I would be happy to see this patient again in the future if found appropriate by the physician. Thank you! Misa Grimm, LUISANA Balance/Gait/Functional tests Balance/Special Test Scores Lower Extremity Functional Score: 27 Quick DASH Score: 36.3625
== END 2024-10-07 19:00 | disposition home or self-care (01) ==
LOC: PT 12:30
PROVIDERS: PCP Internal Medicine; Referring Provider Family Medicine; Visit Provider Family Medicine
DX: M25.512 Pain in left shoulder (principal); G89.29 Other chronic pain; M25.612 Stiffness of left shoulder, not elsewhere classified; R54 Age-related physical debility; M62.81 Muscle weakness (generalized)
CPT/HCPCS: 97110; 97116; 97162; 97530

== ENCOUNTER 2025-02-09 06:59 | Day surgery (SDC) | payer BC, SELFPAY ==
--- NOTE | 2025-02-05 21:24 | PCM.HP.BLA ---
History and Physical Date of Admission: 02/09/25 REBECA GUERRERO, is a 79 F who presents to for loop recorder removal. She is a lady with a history of hypertension, hyperlipidemia, retinal eye occlusion and a previous diagnosis of pulmonary hypertension. She did undergo stress testing in March 2017 where she exercised to 7 metabolic equivalents without any EKG or nuclear evidence of ischemia. An echocardiogram also performed in February 2017 demonstrated pulmonary artery systolic pressure of 26 mmHg and preserved ejection fraction of 60%. Due to ongoing shortness of breath, she underwent an echocardiogram with primary care provider on 11/04/2021 that showed an ejection fraction of 70%, moderate to severe mitral annular calcification, and an RVSP of 26 mmHg. She was admitted to [facility] in December 2021 for CVA. MRI of her head showed small acute right cerebral infarcts as well as chronic involutional white matter changes. She underwent an echocardiogram on 01/12/2022 that showed ejection fraction of 65% and negative bubble contrast study. She had transesophageal echocardiogram completed on 01/12/2022 that showed negative bubble study and no intracardiac shunt. Upon discharge, she completed a 30-day event monitor that did not reveal atrial fibrillation. She proceeded with loop recorder placement in February 2022 for ongoing rhythm monitoring to rule out atrial fibrillation etiology to CVA. It appears the above is not really functioning at this time. She denies chest, arm, jaw, or neck discomfort. She denies palpitations. She states intermittent, mild, and bilateral lower extremity edema. She denies claudication. She denies shortness of breath with activity, shortness of breath at rest, orthopnea, or PND. She denies chronic cough. She denies significant, sudden weight gain. She denies lightheadedness, dizziness, near-syncope, or syncope. She denies blood in urine, blood in stool, or epistaxis. He denies fever with chills. She denies myalgia. She denies fatigue. Her exercise level has remained stable. Intake Vital Signs: See EMR Intake Visit Reasons: Loop Recorder Removal Youth Worker Required: No Accompanied by: Significant Other Is patient in pain?: No Allergies neomycin Allergy (Verified 12/23/24 10:14) unknown nickel Allergy (Verified 12/23/24 10:14) Rash Penicillins (PCN) Allergy (Verified 12/23/24 10:14) Hives Sulfa (Sulfonamide Antibiotics) Allergy (Verified 12/23/24 10:14) Rash Medications: See EMR Ejection fraction %: 65 Have you fallen in the past year?: Yes PFSH Medical History Nocturia Vaginal atrophy Urgency of micturition Feeling of incomplete bladder emptying Shortness of breath Vascular dementia Left hemiparesis Anticardiolipin antibody positive Diabetes mellitus GERD (gastroesophageal reflux disease) Hyperlipidemia Osteoarthritis Attention deficit disorder Neurogenic bladder Depression Retinal artery occlusion Hypertension Stroke High serum c-peptide Debility Dysarthria Acute left-sided muscle weakness Acute cerebrovascular accident (CVA) Anginal equivalent CPAP (continuous positive airway pressure) dependence Sleep apnea Discoordination Acute confusion Acute CVA (cerebrovascular accident) Compression fracture Implantable loop recorder present Cryptogenic stroke Ptosis Diplopia Stroke/cerebrovascular accident Dyspnea on exertion History of skin cancer Arthritis Type 2 diabetes mellitus Essential (primary) hypertension Transient retinal artery occlusion Hyperlipidemia Surgical History History of loop recorder (~03/13/22) History of knee replacement History of breast biopsy H/O abdominal surgery History of tubal ligation Family History Mother CAD (coronary artery disease) Daughter Heart disease cardiomyopathy Sister Breast cancer triple negative Thyroid cancer Social History household members: other details: ex-. Smoking Status: Former smoker how long ago did patient quit smokin alcohol intake: current alcohol intake frequency: holidays/special occasions only substance use type: does not use caffeine: Yes (Take a caffeine tablet daily) ROS Const Const: Positive for fatigue and weakness; Negative for daytime sleepiness or difficulty sleeping ENT ENT: Negative for dizziness or Nosebleed/epistaxis Cardio Chest Pain: No Palpitations: No Edema: Bilateral (BLE trace at times ) Resp Respiratory: Positive for SOB with activity; Negative for SOB at rest, SOB orthopnea\SOB lying down or Cough GI GI: Negative nausea, vomiting or heartburn Neuro Neuro: Positive for weakness; Negative for dizziness, lightheadedness or near syncope Endo Endo: Positive for fatigue Cardiology Exam Const Appearance: cooperative, healthy appearing, comfortable and no acute distress Nutritional Appearance: average body habitus and well nourished Orientation: alert, awake and oriented x3 Head Head: normal to inspection Ears: hearing grossly normal bilaterally Nose: external nose normal Face and Sinus: face symmetric Mouth: moist mucous membranes Eyes General: appearance normal, both eyes and all related structures Eyelids: eyelids normal EOM: EOM intact bilaterally Neck Neck: normal visual inspection and no JVD Carotids: normal carotid upstroke Chest Chest inspection: normal inspection of the chest, symmetric chest movement and normal respiratory effort; Negative cough Auscultation: Bilateral: Clear to Auscultation Cardio Rate: regular rate Rhythm: regular rhythm Heart sounds: S1 normal and S2 normal; Negative rub, gallop or murmur GI GI: normal to inspection Neuro General: patient alert, patient awake, patient oriented x3 and CN's II-XI intact bilaterally Skin Skin: no rashes or lesions noted Extremities Pulses: Normal: Right Posterior Tibial Pulse, Left Posterior Tibial Pulse, Right Radial Pulse and Left Radial Pulse Lower Extremity Edema: None: Bilateral Psych Psychological: normal affect Supplemental Info Supplemental Information Echocardiogram 07/27/22 Interpretation Summary The left ventricular ejection fraction is 65 %. Moderate mitral annular calcification. Echocardiogram from 01/12/2022: Interpretation Summary The left ventricular ejection fraction is 65 %. Bubble contrast study negative for right to left interatrial shunt. Moderate mitral annular calcification. Mild tricuspid valve insufficiency. Transesophageal echocardiogram from 01/12/2022: Interpretation Summary TTE showed Intact IAS No intracardiac shunt Bubble study is Negative Echocardiogram from 11/04/2021: Interpretation Summary The study was technically difficult. Contrast injection was performed. Left ventricular systolic function is normal. The estimated ejection fraction is 70 %. There is moderate to severe mitral annular calcification. Extension of the mitral annular calcification on the base of the posterior mitral valve leaflet. Trivial mitral valve insufficiency. Mild to moderate (1-2+) eccentric tricuspid valve insufficiency. Mild focal aortic valve calcification. Right ventricular systolic pressure estimated to be 26 mmHg. No evidence for diastolic dysfunction. Stress test from 12/19/2021: Conclusion: Normal pharmacologic myocardial perfusion stress test. Preserved ejection fraction. Assessment and Plan Assessment and Plan (1) Essential (primary) hypertension: Status: Chronic Plan: Patient's blood pressure is well-controlled. We will continue to monitor. We will not make any medication regimen changes. (2) Hyperlipidemia: Status: Chronic Qualifiers: Hyperlipidemia type: unspecified Qualified Code(s): E78.5 - Hyperlipidemia, unspecified Plan: This is being monitored with primary care provider. She will continue atorvastatin 20 mg p.o. nightly. (3) Anticardiolipin antibody positive: Status: Inactive Comment: Transient minimal increase then resolved. Does not fulfill diagnosis criteria for antiphospholipid antibody syndrome. Plan: She has been seen by hematology/oncology with pending repeat laboratory testing. (4) Stroke: Status: Chronic Plan: She loop order placement on 03/13/2022. Neurology office note from 04/19/2022 again reviewed. She will continue aspirin. (5) Implantable loop recorder present: Status: Chronic Comment: Implanted on 03/13/2022; Plan: Due to multiple strokes of unknown etiology, she underwent a loop recorder placement on 03/13/2022. Device report from 10/09/2023 showed 0 symptomatic patient activated recordings, 0 AF episodes, 0 AF percent burden since last cleared, 11 tachycardia episodes of nonsustained SVT, 0 pauses, and 0 bradycardia episodes. As her device is non-functional, will remove.
[2025-02-06 08:38] VITALS: BMI 26.6
[2025-02-09 07:27] LABS: Hematocrit 44.2 % (37-47); Hemoglobin 14.5 g/dL (12.0-15.0); Immature Granulocytes Count 0.040 X10^3/uL (0.0-0.0); Mean Corp Hgb Conc 32.8 g/dL (32-36); Mean Corpuscular Volume 94.2 fL (81-99); Mean Platelet Vol. 11.8 fl (6.2-12.0); NRBC Flagged by Analyzer 0 % (0-5); Platelet Count 236 K/mm3 (150-450); RBC Distribution Width CV 13.7 % (11.6-14.6); RBC Distribution Width SD 46.9 fl (35.1-43.9); Red Blood Count 4.69 M/mm3 (4.2-5.4); White Blood Count 11.4 K/mm3 (4.4-11.0)
[2025-02-09 07:42] LABS: Anion Gap 13 (5-15); BUN 19 mg/dL (4-19); BUN/Creat Ratio 23.7 RATIO (10-20); Calcium,Total 9.6 mg/dL (7.6-11.0); Carbon Dioxide 22.4 mmol/L (21.0-32.0); Chloride 106 mmol/L (98-108); Estimated Creatinine Clearance 64.36 ml/min (50-250); Glucose 145 mg/dL (70-99); Potassium 3.6 mmol/L (3.3-5.1)
[2025-02-09 07:49] LABS: Pro- Brain NATRIURETIC PEPTIDE < 36 pg/mL (<=1800)
--- NOTE | 2025-02-09 08:27 | CL.IE_ITS ---
Patient: REBECA GUERRERO Study Date: 02/09/2025 Performing: Richard Patino MD : [id number] Age: 79 Gender: female PROCEDURES PERFORMED [id number])REMOVAL OF LOOP RECORDER INDICATIONS PROCEDURE DETAILS The patient was brought to the Catheterization Lab in the postabsorptive nonsedated state. Informed consent was obtained prior to the procedure. Local anesthetic was given subcutaneously to the left upper chest area with Lidocaine 2%. Incision was made to the left upper chest. ICM Loop Recorder was removed. Skin closure was completed with 3-0 Vicryl. The patient tolerated the procedure well. Estimated Blood Loss: 5 ml's IMPLANTED / EX-PLANTED DEVICES DEVICE PARAMETERS CONCLUSIONS / RECOMMENDATIONS PROCEDURE MEDICATIONS Versed 1 mg IV Oxygen: 2 L/min via nasal cannula Clindamycin 900 mg IV 02/09/2025 08:09:45 Signed By Richard Patino MD On 02/09/2025 08:26:55 Richard Patino MD
== END 2025-02-09 09:30 | disposition home or self-care (01) ==
PROVIDERS: Physician Assistant Medical; PCP Family Medicine; Referring Provider Internal Medicine Cardiovascular Disease; Visit Provider Internal Medicine Cardiovascular Disease
DX: Z45.09 Encounter for adjustment and management of other cardiac device (principal); E11.9 Type 2 diabetes mellitus without complications; I10 Essential (primary) hypertension; Z87.891 Personal history of nicotine dependence; E78.5 Hyperlipidemia, unspecified; Z79.82 Long term (current) use of aspirin; Z86.73 Personal history of transient ischemic attack (TIA), and cerebral infarction without residual deficits; K21.9 Gastro-esophageal reflux disease without esophagitis; R06.02 Shortness of breath; R01.1 Cardiac murmur, unspecified
CPT/HCPCS: 33286; 36415; 80048; 83880; 85025; 99152